=== PATIENT | male | born 1945 | race Caucasian/White ===

== ENCOUNTER 2016-07-22 13:15 | Inpatient (IN) | payer OTHER ==
[~2016-07-22] VITALS: Ht 175.3 cm; Wt 85.9 kg
[~2016-07-22 13:15] MED LIST: ACET-1311 PO; ALBU1AER9 INH; ASPEC81 PO; ATOR-26 PO; BCTRO; LPR25 PO; LSN25 PO; NTRSLP4 SL; OMEG10007 PO; PLV75 PO; PSYL48.58 PO; ULT50X PO; VITA1CAP PO; [UNRECOGNIZED DRUG - CODE] PO
[2016-07-22] MEDS ORDERED: TAMS0.4C38 PO (14:01)
[2016-07-22 14:04] LABS: BASO % 0.4 %; BASO ABS # 0.03 K/uL (0-0.2); COMPLETE YES; HEMATOCRIT 43.3 % (42-52); IG% 0.1 %; LYMPH % 24.5 %; LYMPH ABS # 1.67 K/uL (1.2-3.4); MEAN CELL VOLUME 91.2 fL (80-100); MEAN CORPUSCULAR HEMOGLOBIN 31.6 pg (25-34); MEAN CORPUSCULAR HGB CONC 34.6 g/dl (32-36); MONO % 7.2 %; NEUT % 62.8 %; PLATELET COUNT 145 K/uL (130-400); RED BLOOD COUNT 4.75 M/uL (4.7-6.1); WHITE BLOOD COUNT 6.83 K/uL (4.8-10.8)
--- NOTE | 2016-07-22 14:12 | EMERGENCY ROOM VISIT NOTE ---
History Report prepared by Enrrique: Gilda George Under the Supervision of: Dr. Ritika Weaver D.O. First contact with patient: 13:29 Chief Complaint: HYPOTENSION Stated Complaint: LOW BLOOD PRESSURE History of Present Illness The patient is a 70 year old male who presents to the Emergency Room with complaints of resolved hypotension that was noticed earlier today. The patient noticed that his blood pressure was low earlier today when he measured it with his at-home machine. He measured his blood pressure multiple times and noticed that it was consistently low. He states that he has been experiencing worsening generalized weakness since he started the new medications after his SD. The weakness is worse when he is exerting himself. The patient is also experiencing shortness of breath on exertion. He adds that he also gets lightheaded and feels like he is going to experience syncope when he exerts himself. He is also experiencing nausea, but denies vomiting. He states that he feels well now. The patient denies fevers, chills, chest pain, urinary symptoms, and lower extremity edema. The patient states that he had a SD in the beginning of May and had two stents placed after. They also changed some of his medications. The patient followed up with cardiology after the stents were placed, but he does not remember having a repeat echocardiogram done. The patient is on Plavix and aspirin. The patient states that he experienced similar symptoms 3 years ago after he started new medications. At that time, he experienced multiple episodes of syncope. The patient's daughter adds that the patient has been experiencing increased edema around his eyes. The patient states that he is also experiencing increased rhinorrhea and sneezing. The patient states that he has a hernia. He states that he has not discussed his symptoms with his PCP or his director market research. Source of History: patient, family Onset: earlier today Position: other (global) Quality: other (hypotension) Timing: resolved Associated Symptoms: + SOB, + nausea, + weakness (generalized), No chest pain, No chills, No fevers, No urinary symptoms, No vomiting Note: increased rhinorrhea, increased sneezing, increased edema around eyes, no lower extremity edema Review of Systems See HPI for pertinent positives & negatives. A total of 10 systems reviewed and were otherwise negative. Past Medical & Surgical Medical Problems: (1) CALHOUN (dyspnea on exertion) (2) HLD (hyperlipidemia) (3) Hypertension Surgical Problems: (1) H/O hernia repair Family History FH: depression FH: myocardial infarction Social History Smoking Status: Former Smoker Alcohol Use: none Drug Use: none Marital Status: single Occupation Status: unemployed Current/Historical Medications Scheduled Aspirin (Aspirin EC Low Dose), 81 MG PO QAM Atorvastatin (Lipitor), 1 TAB PO HS Cholecalciferol (Vitamin D3), 2,000 INTERUNIT PO DAILY Clopidogrel Bisulfate (Clopidogrel), 75 MG PO QAM Fish Oil ([place]-3), 1 CAP PO DAILY Lisinopril (Lisinopril), 2.5 MG PO QAM Metoprolol Tartrate (Lopressor), 25 MG PO Q12 Tamsulosin Hcl (Flomax), 0.4 MG PO DAILY Vitamin E (Vitamin E), 1 CAP PO DAILY Scheduled PRN Ipratropium-Albuterol (Duoneb), 1 TREATMENT INH Q6 PRN for SOB/Wheezing Nitroglycerin (Nitrostat), 0.4 MG SL UD PRN for Chest Pain Allergies Coded Allergies: Oxaprozin (Verified Adverse Reaction, Mild, HAND SWELLING, 05/02/16) Prednisone (Verified Adverse Reaction, Mild, AGGRESSIVE, 05/02/16) Ketoprofen (Verified Adverse Reaction, Unknown, HAND SWELLING, 05/02/16) BRAND NAME - ORUVAIL Physical Exam Vital Signs Date Time Temp Pulse Resp B/P Pulse Ox O2 Delivery O2 Flow Rate FiO2 07/22/16 15:19 68 18 145/84 96 Room Air 07/22/16 13:32 95 Room Air 07/22/16 13:27 65 137/79 66 161/79 72 153/72 07/22/16 13:18 36.5 65 20 175/100 95 Room Air Physical Exam GENERAL: alert, well appearing, well nourished, no distress, non-toxic EYE EXAM: normal conjunctiva, PERRL and EOM's grossly intact OROPHARYNX: no exudate, no erythema, lips, buccal mucosa, and tongue normal and mucous membranes are moist NECK: supple, no nuchal rigidity, no adenopathy, non-tender LUNGS: Clear to auscultation. Decreased breath sounds bilaterally. No wheezes, rhonchi, or rales. Normal chest wall mechanics HEART: no murmurs, S1 normal and S2 normal ABDOMEN: abdomen soft, non-tender, normo-active bowel sounds, no masses, no rebound or guarding. BACK: Back is symmetrical on inspection and there is no deformity, no midline tenderness, no CVA tenderness. SKIN: no rashes and no bruising UPPER EXTREMITIES: upper extremities are grossly normal. LOWER EXTREMITIES: No pitting edema. NEURO EXAM: Normal sensorium, cranial nerves II-XII grossly intact, normal speech, no gross weakness of arms, no gross weakness of legs. Medical Decision & Procedures ER Provider Diagnostic Interpretation: Xray results per the radiologist and my interpretation. CHEST 2 VIEWS ROUTINE IMPRESSION: No acute process. Moderate emphysematous change. Electronically signed by: Juancho Estrada M.D. 07/22/2016 2:48 PM Dictated Date/Time: 07/22/2016 2:48 PM Laboratory Results 07/22/16 13:14 Red Blood Count 4.75, Mean Corpuscular Volume 91.2, Mean Corpuscular Hemoglobin 31.6, Mean Corpuscular Hemoglobin Concent 34.6, Mean Platelet Volume 10.0, Neutrophils (%) (Auto) 62.8, Lymphocytes (%) (Auto) 24.5, Monocytes (%) (Auto) 7.2, Eosinophils (%) (Auto) 5.0, Basophils (%) (Auto) 0.4, Neutrophils # (Auto) 4.29, Lymphocytes # (Auto) 1.67, Monocytes # (Auto) 0.49, Eosinophils # (Auto) 0.34, Basophils # (Auto) 0.03 07/22/16 13:14 Test 07/22/16 13:14 White Blood Count 6.83 K/uL (4.8-10.8) Red Blood Count 4.75 M/uL (4.7-6.1) Hemoglobin 15.0 g/dL (14.0-18.0) Hematocrit 43.3 % (42-52) Mean Corpuscular Volume 91.2 fL (80-100) Mean Corpuscular Hemoglobin 31.6 pg (25-34) Mean Corpuscular Hemoglobin Concent 34.6 g/dl (32-36) Platelet Count 145 K/uL (130-400) Mean Platelet Volume 10.0 fL (7.4-10.4) Neutrophils (%) (Auto) 62.8 % Lymphocytes (%) (Auto) 24.5 % Monocytes (%) (Auto) 7.2 % Eosinophils (%) (Auto) 5.0 % Basophils (%) (Auto) 0.4 % Neutrophils # (Auto) 4.29 K/uL (1.4-6.5) Lymphocytes # (Auto) 1.67 K/uL (1.2-3.4) Monocytes # (Auto) 0.49 K/uL (0.11-0.59) Eosinophils # (Auto) 0.34 K/uL (0-0.5) Basophils # (Auto) 0.03 K/uL (0-0.2) RDW Standard Deviation 42.1 fL (36.4-46.3) RDW Coefficient of Variation 12.5 % (11.5-14.5) Immature Granulocyte % (Auto) 0.1 % Immature Granulocyte # (Auto) 0.01 K/uL (0.00-0.02) Anion Gap 8.0 mmol/L (3-11) Est Creatinine Clear Calc Drug Dose 75.0 ml/min Estimated GFR () 88.0 Estimated GFR (Non- 75.9 BUN/Creatinine Ratio 8.6 (10-20) Calcium Level 8.9 mg/dl (8.5-10.1) Total Bilirubin 0.7 mg/dl (0.2-1) Aspartate Amino Transf (AST/SGOT) 30 U/L (15-37) Alanine Aminotransferase (ALT/SGPT) 40 U/L (12-78) Alkaline Phosphatase 95 U/L (45-117) Pro-B-Type Natriuretic Peptide 333 pg/ml (0-900) Total Protein 7.2 gm/dl (6.4-8.2) Albumin 4.1 gm/dl (3.4-5.0) Globulin 3.1 gm/dl (2.5-4.0) Albumin/Globulin Ratio 1.3 (0.9-2) Chemistry Specimen Hemolysis Laboratory results per my review. ECG Indication: SOB/dyspnea Rate (beats per minute): 55 Rhythm: sinus bradycardia Findings: no acute ischemic change, no ectopy, other (normal axis, normal intervals) ED Course 1343: The patient was evaluated in room C7. A complete history and physical exam was performed. 1540: I reassessed the patient. He is resting comfortably. 1556: I reviewed the patient's case with Anna Marie Erickson. She will evaluate the patient for further management. 1609: Upon reevaluation, the patient is resting comfortably. I discussed the findings and the treatment plan with the patient and his daughter. They express agreement and understanding. I spoke with Anna Marie Mcbride PA-C [facility]. He will be evaluated for further management. Medical Decision Differential diagnoses includes but is not limited to pneumonia, bronchitis, COPD/Asthma exacerbation, pneumothorax, pulmonary embolism, congestive heart failure, acute coronary syndrome. No hypotension noted here, doubt bacteremia/sepsis. No evidence of acute chf, but concerning story for CALHOUN. Doubt dissection, pe, copd exacerbation. No evidence of pneumonia/effusion. Pt well appearing despite complaints. Agreeable with plan. Consults Time Called: 155 Consulting Physician: Anna Marie Erickson Returned Call: [phone] I reviewed the patient's case with Anna Marie Erickson. She will evaluate the patient for further management. Impression Primary Impression: Dyspnea on exertion Additional Impression: Generalized weakness Scribe Attestation The scribe's documentation has been prepared under my direction and personally reviewed by me in its entirety. I confirm that the note above accurately reflects all work, treatment, procedures, and medical decision making performed by me. Departure Information Dispostion Being Evaluated By Hospitalist Referrals No Doctor, Assigned (PCP) Patient Instructions My [facility] Problem Qualifiers
[2016-07-22 14:19] LABS: ALT/SGPT 40 U/L (12-78); BLOOD UREA NITROGEN 9 mg/dl (7-18); BUN/CREATININE RATIO 8.6 (10-20); CALCIUM 8.9 mg/dl (8.5-10.1); CARBON DIOXIDE 25 mmol/L (21-32); CHLORIDE 105 mmol/L (98-107); GLUCOSE 92 mg/dl (70-99); POTASSIUM 4.3 mmol/L (3.5-5.1); SODIUM 138 mmol/L (136-145)
--- NOTE | 2016-07-22 14:50 | DIAGNOSTIC IMAGING REPORT ---
CHEST 2 VIEWS ROUTINE CLINICAL HISTORY: sob dyspnea COMPARISON STUDY: 05/02/2016 FINDINGS: Components of emphysematous change are present. No evidence for cardiac enlargement. Lungs are clear. IMPRESSION: No acute process. Moderate emphysematous change. Electronically signed by: Juancho Estrada M.D. 07/22/2016 2:48 PM Dictated Date/Time: 07/22/2016 2:48 PM
[2016-07-22 15:25] LABS: ALB/GLOB RATIO 1.3 (0.9-2); ALKALINE PHOSPHATASE 95 U/L (45-117); AST/SGOT 30 U/L (15-37)
[2016-07-22] MEDS ORDERED: OMEG10007 PO (16:30)
[2016-07-22] MEDS ORDERED: ONDANSETRON INJ 2 MG/ML 2 ML VIAL IV PRN (16:30)
[2016-07-22] MEDS ORDERED: VITA10004 PO (16:30)
[2016-07-22] MEDS ORDERED: VTMD1000 PO (16:30)
[2016-07-22] MEDS ORDERED: IPRASOL4 INH (16:30)
[2016-07-22] MEDS ORDERED: NITROGLYCERIN 0.4 MG SL PER TAB CHARGE SL PRN (16:45)
[2016-07-22] MEDS ORDERED: ACETAMINOPHEN 325 MG TAB ONE (16:46)
--- NOTE | 2016-07-22 17:08 | History and Physical ---
History & Physical Date & Time of Service: Jul 22, 2016 at 16:55 Chief Complaint: Low Blood Pressure Primary Care Physician: Rene Hutton M.D.(JV) History of Present Illness Source: patient, family, clinic records, hospital records Patient is a 70 y/o male with a h/o CAD s/p PCI who presents with progressively worsening SOB. Patient was recently hospitalized in April 2016 with an NSTEMI and had 2 PRADEEP stents placed to LAD and RCA. Patient followed up with his Personnel Arbitrator Dr. Sun in May, who noted that he was doing well at that time and declined cardiac rehab. Patient reports compliance with his medications and states that he never misses a dose. Since April, patient notes progressively worsening SOB, initially mainly with exertion, but recently occasionally at rest too. He denies any associated chest pain, but states that he does occasionally experience mild chest pain, nothing similar to what he experienced in April. In the ED, blood pressure was elevated. Initial troponin was normal and EKG did not show any ischemic changes. Past Medical/Surgical History Medical Problems: (1) HLD (hyperlipidemia) Status: Chronic (2) Hypertension Status: Chronic Surgical Problems: (1) H/O hernia repair Status: Chronic Family History FH: depression FH: myocardial infarction Social History Smoking Status: Former Smoker Drug Use: none Marital Status: single Housing status: assisted living Occupational Status: unemployed Immunizations History of Influenza Vaccine: No History of Tetanus Vaccine?: Unknown History of Pneumococcal: No History of Hepatitis B Vaccine: Unknown Allergies Coded Allergies: Oxaprozin (Verified Adverse Reaction, Mild, HAND SWELLING, 05/02/16) Prednisone (Verified Adverse Reaction, Mild, AGGRESSIVE, 05/02/16) Ketoprofen (Verified Adverse Reaction, Unknown, HAND SWELLING, 05/02/16) [facility] Home Medications Scheduled Aspirin (Aspirin EC Low Dose), 81 MG PO QAM Atorvastatin (Lipitor), 1 TAB PO HS Cholecalciferol (Vitamin D3), 2,000 INTERUNIT PO DAILY Clopidogrel Bisulfate (Clopidogrel), 75 MG PO QAM Fish Oil ([place]-3), 1 CAP PO DAILY Lisinopril (Lisinopril), 2.5 MG PO QAM Metoprolol Tartrate (Lopressor), 25 MG PO Q12 Tamsulosin Hcl (Flomax), 0.4 MG PO DAILY Vitamin E (Vitamin E), 1 CAP PO DAILY Scheduled PRN Ipratropium-Albuterol (Duoneb), 1 TREATMENT INH Q6 PRN for SOB/Wheezing Nitroglycerin (Nitrostat), 0.4 MG SL UD PRN for Chest Pain Review of Systems Constitutional- denies fevers or chills Eyes- denies sudden vision changes ENT- denies sore throat or congestion Pulmonary- see above; denies cough Cardiac- see above; denies palpitations GI- denies abdominal pain, nausea, vomiting, diarrhea - denies dysuria, hematuria Musculoskeletal- denies joint pain or swelling Dermatologic- denies rash or bruising Neuro- denies weakness, numbness or tingling Psych- denies depression or anxiety . Physical Exam Vital Signs Date Time Temp Pulse Resp B/P Pulse Ox O2 Delivery O2 Flow Rate FiO2 07/22/16 16:46 83 18 144/72 96 Room Air 07/22/16 15:19 68 18 145/84 96 Room Air 07/22/16 13:32 95 Room Air 07/22/16 13:27 65 137/79 66 161/79 72 153/72 07/22/16 13:18 36.5 65 20 175/100 95 Room Air General- awake; alert; NAD Eyes- EOMI; no scleral icterus ENT- clear OC/OP Neck- no stridor; trachea midline Lungs- CTA bilaterally; no wheezes/crackles Heart- RRR; no m/r/g Abdomen- soft; NTND; nBS Back- no gross abnormalities Extremities- no c/c/e; no deformity Neuro- no focal deficits Skin- no appreciable rash or bruise . Diagnostics Laboratory Results Results Past 24 Hours Test 07/22/16 13:14 Range/Units White Blood Count 6.83 4.8-10.8 K/uL Red Blood Count 4.75 4.7-6.1 M/uL Hemoglobin 15.0 14.0-18.0 g/dL Hematocrit 43.3 42-52 % Mean Corpuscular Volume 91.2 80-100 fL Mean Corpuscular Hemoglobin 31.6 25-34 pg Mean Corpuscular Hemoglobin Concent 34.6 32-36 g/dl Platelet Count 145 130-400 K/uL Mean Platelet Volume 10.0 7.4-10.4 fL Neutrophils (%) (Auto) 62.8 % Lymphocytes (%) (Auto) 24.5 % Monocytes (%) (Auto) 7.2 % Eosinophils (%) (Auto) 5.0 % Basophils (%) (Auto) 0.4 % Neutrophils # (Auto) 4.29 1.4-6.5 K/uL Lymphocytes # (Auto) 1.67 1.2-3.4 K/uL Monocytes # (Auto) 0.49 0.11-0.59 K/uL Eosinophils # (Auto) 0.34 0-0.5 K/uL Basophils # (Auto) 0.03 0-0.2 K/uL RDW Standard Deviation 42.1 36.4-46.3 fL RDW Coefficient of Variation 12.5 11.5-14.5 % Immature Granulocyte % (Auto) 0.1 % Immature Granulocyte # (Auto) 0.01 0.00-0.02 K/uL Sodium Level 138 136-145 mmol/L Potassium Level 4.3 3.5-5.1 mmol/L Chloride Level 105 98-107 mmol/L Carbon Dioxide Level 25 21-32 mmol/L Anion Gap 8.0 3-11 mmol/L Blood Urea Nitrogen 9 7-18 mg/dl Creatinine 1.00 0.60-1.40 mg/dl Est Creatinine Clear Calc Drug Dose 75.0 ml/min Estimated GFR () 88.0 Estimated GFR (Non- 75.9 BUN/Creatinine Ratio 8.6 10-20 Random Glucose 92 70-99 mg/dl Calcium Level 8.9 8.5-10.1 mg/dl Total Bilirubin 0.7 0.2-1 mg/dl Aspartate Amino Transf (AST/SGOT) 30 15-37 U/L Alanine Aminotransferase (ALT/SGPT) 40 12-78 U/L Alkaline Phosphatase 95 45-117 U/L Troponin I < 0.015 0-0.045 ng/ml Pro-B-Type Natriuretic Peptide 333 0-900 pg/ml Total Protein 7.2 6.4-8.2 gm/dl Albumin 4.1 3.4-5.0 gm/dl Globulin 3.1 2.5-4.0 gm/dl Albumin/Globulin Ratio 1.3 0.9-2 Chemistry Specimen Hemolysis Diagnostic Radiology CXR No acute process. Moderate emphysematous change. EKG No acute ischemic changes Impression Assessment and Plan Patient is a 70 y/o male with a h/o CAD s/p PCI in 04/2016 who presents for evaluation of progressively worsening SOB. SOB - given cardiac history and recent PCI, concern for cardiac etiology - cycle cardiac enzymes - Cardiology consult for further testing - BNP normal, euvolemic on exam - CXR negative for acute process, lungs are clear on exam, maintaining oxygen saturation on room air -- low clinical suspicion for pulmonary etiology - d-dimer negative CAD s/p PCI - continue aspirin, clopidogrel, lisinopril, metoprolol, atorvastatin BPH - continue tamsulosin DVT prophylaxis with enoxaparin sq. Level of Care Telemetry Resuscitation Status DO NOT RESUSCITATE VTE Prophylaxis VTE Risk Assessment Done? Y/N: Yes Risk Level: Moderate Given or contraindicated: Enoxaparin (Lovenox)SQ
[2016-07-22 17:15] VITALS: BP 102/76; PULSE 76; TEMP 36.4; O2SAT 94; Ht 175.3 cm; Wt 85.9 kg
[2016-07-22 19:28] VITALS: BP 115/80; PULSE 73; TEMP 36.5; O2SAT 96
[2016-07-22 20:12] LABS: CKMB/CK RATIO 1.1 (0-3.0)
[2016-07-22 20:13] LABS: PARTIAL THROMBOPLASTIN RATIO 1.1; PROTHROMBIN TIME (PATIENT) 10.9 SECONDS (9.0-12.0)
[2016-07-22] MEDS: ATORVASTATIN 40 MG TAB PO SCH (20:20)
[2016-07-22] MEDS: METOPROLOL TARTRATE 25 MG TAB PO SCH (20:20)
[2016-07-22] MEDS: ACETAMINOPHEN 325 MG TAB PO PRN (20:23)
[2016-07-22] MEDS: ENOXAPARIN 40 MG/0.4 ML SYR SC SCH (22:12)
[2016-07-23] VITALS (8 sets, daily range): BP systolic 98–125; BP diastolic 60–75; PULSE 69–76; TEMP 36.6–37; O2SAT 92–95
[2016-07-23 01:12] LABS: HEMATOCRIT 40.6 % (42-52); MEAN CELL VOLUME 92.9 fL (80-100); MEAN CORPUSCULAR HEMOGLOBIN 32.3 pg (25-34); MEAN CORPUSCULAR HGB CONC 34.7 g/dl (32-36); MEAN PLATELET VOLUME 10.4 fL (7.4-10.4); PLATELET COUNT 147 K/uL (130-400); RED BLOOD COUNT 4.37 M/uL (4.7-6.1)
[2016-07-23 01:30] LABS: BLOOD UREA NITROGEN 12 mg/dl (7-18); BUN/CREATININE RATIO 11.9 (10-20); CALCIUM 8.4 mg/dl (8.5-10.1); CARBON DIOXIDE 30 mmol/L (21-32); CHLORIDE 106 mmol/L (98-107); GLUCOSE 89 mg/dl (70-99); POTASSIUM 4.2 mmol/L (3.5-5.1); SODIUM 141 mmol/L (136-145)
[2016-07-23 01:45] LABS: CKMB/CK RATIO 1.2 (0-3.0)
[2016-07-23] MEDS: ACETAMINOPHEN 325 MG TAB PO PRN ×3 (07:55→20:41)
[2016-07-23] MEDS: OMEGA-3 (PURIFIED FISH OIL) 1 GM CAP PO SCH (07:56)
[2016-07-23] MEDS: METOPROLOL TARTRATE 25 MG TAB PO SCH ×2 (07:56→20:38)
[2016-07-23] MEDS: LISINOPRIL 2.5 MG TAB PO SCH (07:56)
[2016-07-23] MEDS: CLOPIDOGREL BISULFATE 75 MG TAB PO SCH (07:56)
[2016-07-23] MEDS: TAMSULOSIN HCL 0.4 MG CAP PO SCH (07:56)
[2016-07-23] MEDS: ASPIRIN 81 MG ECTAB PO SCH (07:57)
[2016-07-23] MEDS: CHOLECALCIFEROL 1000 INTER.UNIT TAB PO SCH (07:57)
--- NOTE | 2016-07-23 12:12 | CARDIOLOGY CONSULTATION ---
DATE OF CONSULTATION: 07/23/2016 REFERRING PHYSICIAN: Dre carter. REASON FOR CONSULTATION: Shortness of breath. HISTORY OF PRESENT ILLNESS: Mr. Munson is a 70-year-old male patient who at the end of April presented with an acute myocardial infarction. During that admission, he was found to have significant 2-vessel coronary artery disease with the culprit artery for the acute coronary syndrome being the LAD, which he received a stent immediately. The patient then, in a staged procedure several days later, had stents placed in the distal right coronary artery, which were successful. He was subsequently discharged home; however, the patient states that he has been short of breath ever since that procedure. On further questioning, the patient has been short of breath for a long time. I am uncertain as to whether he thought that the shortness of breath would go away after his procedures. The patient has had no activity related chest, arm or back pain. No chest pain like he came in with for his infarct. He does have a history of smoking up until 5 years ago. He also has a history of previous work that exposed him to industrial dust. He has never been worked up for underlying lung disease. After admission, he has been pain free. His hemoglobin is 15. Cardiac markers were negative and his presenting EKG shows no acute or worrisome changes. It shows a sinus bradycardia and is otherwise within normal limits. ALLERGIES: KETOPROFEN, OXAPROZIN, AND PREDNISONE. PAST MEDICAL HISTORY: As outlined above in the history of chief complaint, at the end of April, he presented with an acute coronary syndrome and received drug-eluting stents in the LAD and right coronary artery. He has a history of hypertension and dyslipidemia. No prior history of diabetes, strokes or kidney disease. FAMILY MEDICAL HISTORY: Noncontributory. SOCIAL HISTORY: The patient stopped smoking approximately 5 years ago. He is in an assisted living area. He is single. REVIEW OF SYSTEMS: A 10-point review of systems is negative except for the history of chief complaint. PHYSICAL EXAMINATION: GENERAL: He is alert and oriented, in no acute distress. VITAL SIGNS: Blood pressure is 140/70 and pulse is regular at 80. He is afebrile. HEENT: He is normocephalic. Pupils are equal and reactive to light. Extraocular muscles are intact bilaterally. NECK: The neck veins are flat. Carotids have good upstrokes bilaterally without bruits. Thyroid is nonpalpable. RESPIRATORY: Breath sounds equal bilaterally and clear to auscultation. CARDIOVASCULAR: Heart has regular rhythm. Normal S1 and S2. No S3 or S4. No cardiac rubs or murmurs. GASTROINTESTINAL: Abdomen is soft and nontender without organomegaly. EXTREMITIES: Free of edema, digit clubbing, or cyanosis. NEUROLOGIC: Grossly intact. SKIN: Warm to touch. LYMPH NODES: Negative to palpation. LABORATORY DATA: Per the history of chief complaint. IMPRESSION: 1. Shortness of breath, which may be a recurrence of angina; however, it also may be due to underlying lung disease as the patient has had these symptoms for a while before his recent coronary event. 2. Status post stents within the LAD and right coronary arteries in April. 3. History of cigarette smoking and exposure to industrial dust. RECOMMENDATIONS: I think the best way to evaluate him is to proceed with an exercise stress echocardiogram. If that study is unremarkable, then I think a pulmonary workup would be indicated. If this is abnormal or he is not able to exercise for as adequately, then we will consider repeating a cardiac catheterization. I would continue his current medications.
--- NOTE | 2016-07-23 15:03 | Progress Note ---
Internal Med Progress Note Date of Service: Jul 23, 2016. Provider Documentation: SUBJECTIVE: Patient is seen and examined at bedside. Currently denies any chest pain, SOB, dizziness, nausea. Offers no complaints. OBJECTIVE: Vital Signs-as noted below Physical Exam: Vitals signs as noted above General Appearance:Moderately built and nourished, no apparent distress Head: normocephalic, Atraumatic Eyes: normal inspection, EOMI, PERRLA Neck: supple, Trachea midline Respiratory/Chest: Normal breath sounds, CTA, No accessory muscle use Cardiovascular: S1, S2, No murmur Abdomen/GI:Soft, Non tender, Bowel sounds present Extremities/Musculoskelatal:normal inspection, no edema Neurologic/Psych:AAOX3, grossly no focal neurological deficits Skin: normal color, warm Lab data as noted below. ASSESSMENT & PLAN: Patient is a 70 y/o male with a h/o CAD s/p PCI in 04/2016 who presents for evaluation of progressively worsening SOB. SOB: R/O Recurrence of angina H/O CAD s/p PCI in 04/2016 H/O Tobacco use:quit 5 yrs ago Cardiac enzymes, EKG: no signs of ischemia Appreciate Cardiology input BNP normal, euvolemic clinically CXR:No acute process, d-dimer negative, Saturating well on RA Planned for stress ECHO and possible cath if positive May need more Pulm work up if negative cardiac work up CAD s/p PCI continue aspirin, clopidogrel, lisinopril, metoprolol, atorvastatin BPH continue tamsulosin DVT Px: Lovenox SQ CODE STATUS; DNR DISPOSITION: Continue to monitor in Tele Vital Signs: Date Time Temp Pulse Resp B/P Pulse Ox O2 Delivery O2 Flow Rate FiO2 07/23/16 12:08 94 Room Air 07/23/16 11:50 37.0 76 16 114/74 94 07/23/16 07:45 Room Air 07/23/16 07:23 36.7 69 16 108/62 94 07/23/16 04:00 36.6 70 18 104/66 93 Room Air 07/23/16 04:00 Room Air 07/23/16 00:03 36.7 75 20 98/60 92 Room Air 07/22/16 23:59 Room Air 07/22/16 20:00 Room Air 07/22/16 19:28 36.5 73 19 115/80 96 Room Air 07/22/16 17:15 36.4 76 19 102/76 94 Room Air 07/22/16 16:46 83 18 144/72 96 Room Air 07/22/16 15:19 68 18 145/84 96 Room Air Lab Results: Results Past 24 Hours Test 07/22/16 19:10 07/22/16 19:12 07/23/16 01:00 Range/Units Prothrombin Time 10.9 9.0-12.0 SECONDS Prothromb Time International Ratio 1.0 0.9-1.1 Activated Partial Thromboplast Time 27.3 21.0-31.0 SECONDS Partial Thromboplastin Ratio 1.1 D-Dimer 340 0-500 ug/L FEU Total Creatine Kinase 79 82 39-308 U/L Creatine Kinase MB 0.9 1.0 0.5-3.6 ng/ml Creatine Kinase MB Ratio 1.1 1.2 0-3.0 Troponin I < 0.015 < 0.015 0-0.045 ng/ml White Blood Count 6.50 4.8-10.8 K/uL Red Blood Count 4.37 4.7-6.1 M/uL Hemoglobin 14.1 14.0-18.0 g/dL Hematocrit 40.6 42-52 % Mean Corpuscular Volume 92.9 80-100 fL Mean Corpuscular Hemoglobin 32.3 25-34 pg Mean Corpuscular Hemoglobin Concent 34.7 32-36 g/dl RDW Standard Deviation 42.4 36.4-46.3 fL RDW Coefficient of Variation 12.5 11.5-14.5 % Platelet Count 147 130-400 K/uL Mean Platelet Volume 10.4 7.4-10.4 fL Sodium Level 141 136-145 mmol/L Potassium Level 4.2 3.5-5.1 mmol/L Chloride Level 106 98-107 mmol/L Carbon Dioxide Level 30 21-32 mmol/L Anion Gap 5.0 3-11 mmol/L Blood Urea Nitrogen 12 7-18 mg/dl Creatinine 1.00 0.60-1.40 mg/dl Est Creatinine Clear Calc Drug Dose 75.0 ml/min Estimated GFR () 88.0 Estimated GFR (Non- 75.9 BUN/Creatinine Ratio 11.9 10-20 Random Glucose 89 70-99 mg/dl Calcium Level 8.4 8.5-10.1 mg/dl
[2016-07-23] MEDS: ATORVASTATIN 40 MG TAB PO SCH (20:38)
[2016-07-23] MEDS: ENOXAPARIN 40 MG/0.4 ML SYR SC SCH (20:39)
[2016-07-24 00:45] VITALS: BP 130/80; PULSE 70; TEMP 36.8; O2SAT 96
[2016-07-24 04:06] VITALS: BP 100/58; PULSE 81; TEMP 36.5; O2SAT 99
[2016-07-24 08:11] VITALS: BP 154/80; PULSE 82; TEMP 36.8; O2SAT 94
--- NOTE | 2016-07-24 09:33 | Cardiology Follow-Up ---
Subjective General Date of Service: Jul 24, 2016. Chief Complaint: follow up shortness of breath Pt evaluation today including: conversation w/ patient, physical exam History of Present Illness The patient is a 70 year old male seen in follow up. Patient presents with complaint of progressive shortness of breath and generalized weakness and fatigue. States he is not having chest discomfort reminiscent of his NSTEMI in 04/2016. Has episode of mild hypotension SBP 98 mm Hg over night. Concha negative. Allergies Coded Allergies: Oxaprozin (Verified Adverse Reaction, Mild, HAND SWELLING, 05/02/16) Prednisone (Verified Adverse Reaction, Mild, AGGRESSIVE, 05/02/16) Ketoprofen (Verified Adverse Reaction, Unknown, HAND SWELLING, 05/02/16) BRAND NAME - ORUVAIL Social History Smoking Status: Former Smoker Hx Tobacco Use In Past Year?: No Hx Alcohol Use - Type And Amou: No Hx Substance Use - Type And Am: No Problem List Medical Problems: (1) Dyspnea on exertion Status: Acute (2) Generalized weakness Status: Acute (3) Non-ST elevation DC (NSTEMI) Status: Acute Physical Exam Vital Signs Last Vital Signs Documentation Date Time Temp Pulse Resp B/P Pulse Ox O2 Delivery O2 Flow Rate FiO2 07/24/16 08:11 36.8 82 19 154/80 94 Nasal Cannula Physical Exam Constitutional: Level of Distress: NAD ENMT: normal ENT inspection Neck: supple Lungs: Auscultation: no wheezing, no rales/crackles, no rhonchi Cardiovascular: Heart Auscultation: RRR, normal S1, no murmurs, no rubs Abdomen: Inspection & Palpation: soft, no tenderness, guarding & rebound Musculoskeletal: normal Extremities: no edema Neurologic: Gait & Station: pertinent finding (no focal deficits ) Assessment and Plan Assessment and Plan Impression: 70 y/o male presents with shortness of breath (chronic per description) and generalized weakness 1. Symptoms atypical for angina. -h/o CAD, NSTEMI 04/2016 with stents to the RCA and LAD that admission 2. Risk factors for lung disease, including occupational exposure to dust, former smoker 3. Episodic hypotension (mild decrease in BP recorded) Plan: Proceed with Exercise stress echocardiogram. If unable to exercise , will convert to pharm stress test. Resting echo first to exclude presence of new cardiomyopathy. DVT prophylaxis: SQ lovenox.
[2016-07-24] MEDS ORDERED: ATROPINE SULFATE 0.1 MG/ML 5ML SYR ONE (10:22)
[2016-07-24] MEDS ORDERED: DOBUTamine HCL 12.5 MG/ML 20 ML VIAL ONE (10:22)
[2016-07-24] MEDS ORDERED: METOPROLOL TARTRATE 1 MG/ML VIAL ONE (10:22)
--- NOTE | 2016-07-24 11:03 | Progress Note ---
Internal Med Progress Note Date of Service: Jul 24, 2016. Provider Documentation: SUBJECTIVE: Patient is seen and examined at bedside. Patient had stress ECHO today. Currently denies any chest pain, dizziness. Offers no complaints. OBJECTIVE: Vital Signs-as noted below Physical Exam: Vitals signs as noted above General Appearance:Moderately built and nourished, no apparent distress Head: normocephalic, Atraumatic Eyes: normal inspection, EOMI, PERRLA Neck: supple, Trachea midline Respiratory/Chest: Normal breath sounds, CTA, No accessory muscle use Cardiovascular: S1, S2, No murmur Abdomen/GI:Soft, Non tender, Bowel sounds present Extremities/Musculoskelatal:normal inspection, no edema Neurologic/Psych:AAOX3, grossly no focal neurological deficits Skin: normal color, warm Lab data as noted below. ASSESSMENT & PLAN: Patient is a 70 y/o male with a h/o CAD s/p PCI in 04/2016 who presents for evaluation of progressively worsening SOB. SOB: R/O Recurrence of angina H/O CAD s/p PCI in 04/2016 H/O Tobacco use:quit 5 yrs ago Cardiac enzymes, EKG: no signs of ischemia Appreciate Cardiology input BNP normal, euvolemic clinically CXR:No acute process, d-dimer negative, Saturating well on RA Dobutamine stress ECHO:no evidence of resting or inducible ischemia. Needs Pulm work up as outpatient CAD s/p PCI continue aspirin, clopidogrel, lisinopril, metoprolol, atorvastatin BPH continue tamsulosin DVT Px: Lovenox SQ CODE STATUS; DNR DISPOSITION: Plan to discharge home today Follow up with on 07/28/16 at 12:40pm Get Pulmonary function tests and follow up with a service station helper as outpatient as advised Vital Signs: Date Time Temp Pulse Resp B/P Pulse Ox O2 Delivery O2 Flow Rate FiO2 07/24/16 08:11 36.8 82 19 154/80 94 Nasal Cannula 07/24/16 08:00 Room Air 07/24/16 04:06 36.5 81 20 100/58 99 Room Air 07/24/16 04:00 Room Air 07/24/16 00:45 36.8 70 18 130/80 96 Room Air 07/23/16 23:59 Room Air 07/23/16 20:00 Room Air 07/23/16 19:55 36.8 69 20 125/75 95 Room Air 07/23/16 15:54 94 Room Air 07/23/16 15:44 36.8 75 20 110/69 94 Room Air 07/23/16 12:08 94 Room Air 07/23/16 11:50 37.0 76 16 114/74 94
[2016-07-24] MEDS ORDERED: PERFLUTREN LIPID MICROSPHERE (DEFINITY) IV ONE (11:09)
[2016-07-24] MEDS: ASPIRIN 81 MG ECTAB PO SCH (11:19)
[2016-07-24] MEDS: LISINOPRIL 2.5 MG TAB PO SCH (11:19)
[2016-07-24] MEDS: OMEGA-3 (PURIFIED FISH OIL) 1 GM CAP PO SCH (11:19)
[2016-07-24] MEDS: CHOLECALCIFEROL 1000 INTER.UNIT TAB PO SCH (11:19)
[2016-07-24] MEDS: TAMSULOSIN HCL 0.4 MG CAP PO SCH (11:19)
[2016-07-24] MEDS: METOPROLOL TARTRATE 25 MG TAB PO SCH (11:20)
[2016-07-24] MEDS: CLOPIDOGREL BISULFATE 75 MG TAB PO SCH (11:20)
--- NOTE | 2016-07-24 11:25 | Cardiology Progress Note ---
Cardiology Progress Note Date of Service Jul 24, 2016. Cardiology Progress Note Resting / dobutamine stress echo: Patient's resting echo reveals normal wall motion. Images were technically challenging, on resting echo and therefore dobutamine stress echo performed with contrast with no evidence of resting or inducible ischemia. EKG was negative for ischemia. Resting echo with normal biventricular function. Pt stable for DC on current cardiac medications including, ASA, clopidogrel, metoprolol, lisinopril, and atorvastatin. Oupt pulmonary work up recommended. Annabelle Magana DO
--- NOTE | 2016-07-24 11:42 | Discharge Summary ---
Discharge Summary Date of Service Jul 24, 2016. Discharge Summary Admission Date: Jul 22, 2016 at 16:27 Discharge Date: Jul 24, 2016 Discharge Disposition: Home Principal Diagnosis: Dyspnea On Exertion: Non cardiac origin Procedures: CXR: : No acute process. Moderate emphysematous change. Consultations: Cardiology Pending Studies/Follow-Up: Follow up with on 07/28/16 at 12:40pm Get Pulmonary function tests and follow up with a screw machine operator single spindle as outpatient as advised Medication Reconciliation Continued Medications: Aspirin (Aspirin EC Low Dose) 81 Mg Ectab 81 MG PO QAM for 90 Days, #90 TAB 3 Refills Atorvastatin (Lipitor) 80 Mg Tab 1 TAB PO HS for 30 Days, #30 TAB 3 Refills Cholecalciferol (Vitamin D3) 1,000 Inter.unit Tab 2000 INTERUNIT PO DAILY Clopidogrel Bisulfate (Clopidogrel) 75 Mg Tab 75 MG PO QAM for 30 Days, #30 TAB 3 Refills Fish Oil ([place]-3) 1 Ea Cap 1 CAP PO DAILY, CAP Ipratropium-Albuterol (Duoneb) 3 Ml Nebu 1 TREATMENT INH Q6 PRN for SOB/Wheezing, INHA Lisinopril (Lisinopril) 2.5 Mg Tab 2.5 MG PO QAM for 30 Days, #30 TAB Metoprolol Tartrate (Lopressor) 25 Mg Tab 25 MG PO Q12 for 30 Days, #60 TAB Nitroglycerin (Nitrostat) 0.4 Mg/1 Tab Subl 0.4 MG SL UD PRN for Chest Pain for 30 Days, #30 TAB Tamsulosin Hcl (Flomax) 0.4 Mg Cap 0.4 MG PO DAILY Vitamin E (Vitamin E) 1,000 Unit Cap 1 CAP PO DAILY Admission Information HPI (per Admitting provider): Patient is a 70 y/o male with a h/o CAD s/p PCI who presents with progressively worsening SOB. Patient was recently hospitalized in April 2016 with an NSTEMI and had 2 PRADEEP stents placed to LAD and RCA. Patient followed up with his Shearing Supervisor Dr. Sun in May, who noted that he was doing well at that time and declined cardiac rehab. Patient reports compliance with his medications and states that he never misses a dose. Since April, patient notes progressively worsening SOB, initially mainly with exertion, but recently occasionally at rest too. He denies any associated chest pain, but states that he does occasionally experience mild chest pain, nothing similar to what he experienced in April. In the ED, blood pressure was elevated. Initial troponin was normal and EKG did not show any ischemic changes. Physical Exam (per Admitting): General- awake; alert; NAD Eyes- EOMI; no scleral icterus ENT- clear OC/OP Neck- no stridor; trachea midline Lungs- CTA bilaterally; no wheezes/crackles Heart- RRR; no m/r/g Abdomen- soft; NTND; nBS Back- no gross abnormalities Extremities- no c/c/e; no deformity Neuro- no focal deficits Skin- no appreciable rash or bruise . Hospital Course Patient is a 70 y/o male with a h/o CAD s/p PCI in 04/2016 who presents for evaluation of progressively worsening SOB. SOB: R/O Recurrence of angina H/O CAD s/p PCI in 04/2016 H/O Tobacco use:quit 5 yrs ago Cardiac enzymes, EKG: no signs of ischemia Appreciate Cardiology input BNP normal, euvolemic clinically CXR:No acute process, d-dimer negative, Saturating well on RA Dobutamine stress ECHO:no evidence of resting or inducible ischemia. Needs Pulm work up as outpatient CAD s/p PCI continue aspirin, clopidogrel, lisinopril, metoprolol, atorvastatin BPH continue tamsulosin DVT Px: Lovenox SQ CODE STATUS; DNR DISPOSITION: Plan to discharge home today Follow up with on 07/28/16 at 12:40pm Get Pulmonary function tests and follow up with a screw machine operator single spindle as outpatient as advised Total time spent on discharge = This includes examination of the patient, discharge planning, medication reconciliation, and communication with other providers. Discharge Instructions Discharge Instructions Date of Service Jul 24, 2016. Admission Reason for Admission: [place] (Dyspnea On Exertion) Discharge Discharge Diagnosis / Problem: Dyspnea On Exertion: Non cardiac origin Discharge Goals Goal(s): Decrease discomfort, Improve function Activity Recommendations Activity Limitations: resume your previous activity Exercise/Sports Limitations: as tolerated . Instructions / Follow-Up Instructions / Follow-Up Follow up with on 07/28/16 at 12:40pm Get Pulmonary function tests and follow up with a screw machine operator single spindle as outpatient as advised Current Hospital Diet Patient's current hospital diet: AHA Diet (Heart Healthy) Discharge Diet Recommended Diet: AHA Diet (Heart Healthy) Procedures Procedures Performed: Stress ECHO Pending Studies Studies pending at discharge: no Laboratory Results Hemoglobin A1c Test 05/03/16 05:46 Range/Units Estimated Average Glucose 105 mg/dl Hemoglobin A1c 5.3 4.5-5.6 % Lipid Panel Test 05/03/16 05:46 Range/Units Triglycerides Level 138 0-150 mg/dl Cholesterol Level 141 0-200 mg/dl HDL Cholesterol 49 mg/dl Cholesterol/HDL Ratio 2.9 LDL Cholesterol, Calculated 64 mg/dl Medical Emergencies . Who to Call and When: Medical Emergencies: If at any time you feel your situation is an emergency, please call 911 immediately. . Non-Emergent Contact Non-Emergency issues call your: Primary Care Provider, Shearing Supervisor Call Non-Emergent contact if: you have a fever, your pain is not controlled, your pain is worsening, your pain is unusual for you, you have any medication questions If your Shortness of breath is worsening . . "Provider Documentation" section prepared by Rony Menon. VTE Core Measure Inpt VTE Proph given/why not?: Enoxaparin (Lovenox)SQ
[2016-07-24 11:52] VITALS: BP 154/80; PULSE 82; TEMP 36.8; O2SAT 94
--- NOTE | 2016-07-24 11:55 | DOBUTAMINE ECHO ---
*NOTICE TO RECEIVING [employer] This information is strictly Confidential and protected under [place] law. [place] law prohibits you from making any further disclosure of this information unless further disclosure is expressly permitted by the written consent of the person to whom it pertains or is authorized by law. A general authorization for the release of medical or other information is not sufficient for this purpose. Hospital accepts no responsibility if the information is made available to any other person, INCLUDING THE PATIENT. Interpretation Summary * Name: DINA WALLACE Study Date: 07/24/2016 09:02 AM BP: 30/71 mmHg * Patient Location: C.2T\S\S241\S\2 HR: 70 * : 1945 (M/d/yyy) Gender: Male Height: 69 in * Age: 70 yrs Ethnicity: [place] Weight: 189 lb * Ordering Physician: Rony Menon * Referring Physician: Zeferino Magana DO, [facility] * Performed By: Trinidad Olivares [facility] * * Reason For Study: CHEST PAIN * BSA: 2.0 m2 * -- Conclusions -- * The study was technically difficult, but the endocardial border was visualized sufficiently with the administration of ultrasound contrast. * The dobutamine stress ehcocardiogram was negative for inducible ischemia. Procedure Details * DOBUTAMINE ECHO, CPT#[id number] * ECHO COLOR FLOW, CPT #[id number] * ECHO DOPPLER, CPT #[id number] * A contrast injection of Definity was performed to improve assessment of LV function. * Contrast was injected into an intravenous site in the right arm. * One vial of Definity ultrasound contrast was diluted in normal saline to a total volume of 10 ml. A total of '10' ml of solution was administered during imaging. * Lot # [id number] of Definity utilized for procedure. * Expiration date JUL 22. * The attending nurse who injected the contrast agent was ARLIN MONROY CPL, RN. * ECHOEX, CPT #[id number] Left Ventricle * The left ventricle is normal in size. * There is normal left ventricular wall thickness. * Left ventricular systolic function is normal. * Ejection Fraction = 60-65%. * Resting wall motion: Normal. Stress wall motion: Appropriate increase in Left ventricular systolic function and decrease in cavity size. No stress induced segmental wall motion abnormalities. Right Ventricle * The right ventricle is grossly normal size. Atria * The left atrial size is normal. * Right atrial size is normal. * No ASD detected; PFO is not assessed. Mitral Valve * The mitral valve is normal. * There is no mitral valve stenosis. * Significant mitral regurgitation is absent. Tricuspid Valve * The tricuspid valve is normal. * There is no tricuspid stenosis. * Significant tricuspid regurgitation is absent. * Doppler findings do not suggest pulmonary hypertension. Aortic Valve * The aortic valve is trileaflet. * No hemodynamically significant valvular aortic stenosis. * No aortic regurgitation is present. Pulmonic Valve * The pulmonic valve is not well visualized. Great Vessels * The aortic root is normal size. * The inferior vena cava diamter is normal. Pericardium * There is no pericardial effusion. * There is an echodensity in the anterior pericardial space consistent with pericardial fat. Stress Parameters * Normal baseline electrocardiogram. * The stress ECG response was normal * Occasional PACs were noted during the dobutamin infusion. * The stress portion of this study was personally supervised by the undersigned interpreting physician. * Rest heart rate was '70' BPM. * Rest blood pressure was '130/71' * Maximum heart rate achieved was 142 bpm. * Maximum heart rate was 94 % of maximum age-predicted heart rate. * Maximum blood pressure was '137/43' * Maximum Dobutamine infusion rate was '30' mcg/kg/min. * A total of 0.25 mg of intravenous Atropine was used to supplement Dobutamine for heart rate response. * Dobutamine infusion was terminated due to achieving target heart rate * A total of 2.50 mg of IV Metoprolol was administered to reverse Dobutamine-induced tachycardia. Right Ventricle * The right ventricular wall motion is normal. Left Ventricular Diastolic Function * Grade I diastolic dysfunction, (abnormal relaxation pattern). MMode 2D Measurements and Calculations IVSd 1.9 cm IVSs 2.0 cm LVIDd 3.2 cm LVIDs 3.0 cm LVPWd 1.1 cm LVPWs 1.4 cm IVS/LVPW 1.7 FS 5.8 % EDV(Teich) 41.2 ml ESV(Teich) 35.6 ml EF(Teich) 13.5 % EDV(cubed) 33.0 ml ESV(cubed) 27.6 ml EF(cubed) 16.4 % % IVS thick 8.6 % % LVPW thick 26.0 % LV mass(C)d 169.3 grams LV mass(C)dI 84.0 grams/m\S\2 LV mass(C)s 199.5 grams LV mass(C)sI 98.9 grams/m\S\2 SV(Teich) 5.6 ml SI(Teich) 2.8 ml/m\S\2 SV(cubed) 5.4 ml SI(cubed) 2.7 ml/m\S\2 Ao root diam 3.5 cm Ao root area 9.9 cm\S\2 ACS 1.5 cm LA dimension 2.9 cm LA/Ao 0.81 Doppler Measurements and Calculations MV E max donavan 59.4 cm/sec MV A max donavan 73.2 cm/sec MV E/A 0.81 MV P1/2t max donavan 64.7 cm/sec MV P1/2t 67.9 msec MVA(P1/2t) 3.2 cm\S\2 MV dec slope 279.2 cm/sec\S\2 MV dec time 0.25 sec Ao V2 max 85.9 cm/sec Ao max PG 3.0 mmHg Ao max PG (full) 0.36 mmHg LV V1 max PG 2.6 mmHg LV V1 max 80.5 cm/sec PA V2 max 95.3 cm/sec PA max PG 3.6 mmHg
== END 2016-07-24 12:27 | disposition home or self-care (01) | DRG 204 ==
LOC: ENRESERVTM → ENRESERVDT → C.EDB 13:16 → C.2T 16:27
PROVIDERS: ADMIT Internal Medicine; ATTEND Internal Medicine
DX: R06.00 Dyspnea, unspecified (principal); I95.9 Hypotension, unspecified; I25.10 Atherosclerotic heart disease of native coronary artery without angina pectoris; I25.2 Old myocardial infarction; I10 Essential (primary) hypertension; E78.5 Hyperlipidemia, unspecified; N40.0 Benign prostatic hyperplasia without lower urinary tract symptoms; Z66 Do not resuscitate; Z95.5 Presence of coronary angioplasty implant and graft; Z57.5 Occupational exposure to toxic agents in other industries; Z79.02 Long term (current) use of antithrombotics/antiplatelets; Z79.82 Long term (current) use of aspirin; Z87.891 Personal history of nicotine dependence; Z79.899 Other long term (current) drug therapy

== ENCOUNTER 2017-07-01 22:44 | Inpatient (IN) | payer OTHER ==
[~2017-07-01] VITALS: Ht 175.3 cm; Wt 100.2 kg
[~2017-07-01 22:44] MED LIST changes: -ACET-1311 PO; -ALBU1AER9 INH; -BCTRO; +IPRASOL4 INH; -PSYL48.58 PO; +TAMS0.4C38 PO; -ULT50X PO; +VITA10004 PO; -VITA1CAP PO; +VTMD1000 PO; -[UNRECOGNIZED DRUG - CODE] PO
[2017-07-01] MEDS ORDERED: METHYLPREDNISOLONE 125 MG VIAL IV STA (23:02)
[2017-07-01] MEDS ORDERED: ALBUT/IPRATROP 3MG/0.5MG NEB 3 ML VIAL INH ONE (23:15)
[2017-07-01] MEDS ORDERED: ASPI81TA28 PO (23:23)
[2017-07-01] MEDS ORDERED: METO25TA56 PO (23:23)
[2017-07-01] MEDS ORDERED: CZR25 PO (23:23)
[2017-07-01] MEDS ORDERED: CLOP1TAB15 PO (23:23)
[2017-07-01] MEDS ORDERED: [UNRECOGNIZED DRUG - CODE] PO (23:23)
[2017-07-01] MEDS ORDERED: PRT/20 PO (23:23)
[2017-07-01] MEDS ORDERED: OMEG10002 PO (23:23)
[2017-07-01] MEDS ORDERED: NTRGSL/4 UT (23:23)
[2017-07-01] MEDS ORDERED: ATOR-26 PO (23:23)
[2017-07-01] MEDS ORDERED: RANI150T3 PO (23:23)
[2017-07-01] MEDS ORDERED: FLVHFA110 INH (23:23)
[2017-07-01 23:44] LABS: BASO % 0.7 %; BASO ABS # 0.04 K/uL (0-0.2); EOS % 5.4 %; EOS ABS # 0.33 K/uL (0-0.5); HEMOGLOBIN 14.7 g/dL (14.0-18.0); IG# 0.01 K/uL (0.00-0.02); LYMPH ABS # 1.23 K/uL (1.2-3.4); MEAN CELL VOLUME 95.7 fL (80-100); MEAN CORPUSCULAR HGB CONC 33.4 g/dl (32-36); MEAN PLATELET VOLUME 10.6 fL (7.4-10.4); MONO % 13.2 %; MONO ABS # 0.81 K/uL (0.11-0.59); NEUT % 60.5 %; NEUT ABS # 3.72 K/uL (1.4-6.5); PLATELET COUNT 141 K/uL (130-400); RED CELL DISTRIBUTION WIDTH CV 13.1 % (11.5-14.5); RED CELL DISTRIBUTION WIDTH SD 45.8 fL (36.4-46.3); WHITE BLOOD COUNT 6.14 K/uL (4.8-10.8)
[2017-07-02] VITALS (7 sets, daily range): BP systolic 148–190; BP diastolic 68–102; PULSE 84–110; TEMP 36.5–36.9; O2SAT 90–95; Ht 175.3 cm; Wt 100.2 kg
[2017-07-02] LABS: BLOOD UREA NITROGEN 11 mg/dl (7-18); CALCIUM 8.3 mg/dl (8.5-10.1); CARBON DIOXIDE 29 mmol/L (21-32); CREATININE 1.21 mg/dl (0.60-1.40); GLUCOSE 89 mg/dl (70-99); POTASSIUM 3.9 mmol/L (3.5-5.1); SODIUM 141 mmol/L (136-145)
[2017-07-02] MEDS ORDERED: LEVAQUIN 750MG / 150ML D5W IV STA (00:05)
[2017-07-02 00:10] LABS: INFLUENZA B ANTIGEN Neg for Influ B (NEG)
--- NOTE | 2017-07-02 01:17 | EMERGENCY ROOM VISIT NOTE ---
History Report prepared by Enrrique: Erwin Almeida Under the Supervision of: Dr. aDve Doyle M.D. First contact with patient: 22:54 Chief Complaint: COUGH Stated Complaint: CAN'T BREATHE AND COUGHING BAD History of Present Illness The patient is a 71 year old male who presents to the Emergency Room with complaints of a persistent cough for the past three days. The patient additionally states that he has shortness of breath and some chest pain that is a constant pressure. He denies any fever, vomiting, and leg pain or swelling. The patient has a history of COPD, and he does not use oxygen at home. He had a nebulizer treatment prior to arrival. Source of History: patient Onset: three days Position: other (global) Symptom Intensity: moderate Quality: other (cough) Timing: other (persistent) Associated Symptoms: + chest pain, + SOB, No fevers, No vomiting Review of Systems See HPI for pertinent positives & negatives. A total of 10 systems reviewed and were otherwise negative. Past Medical & Surgical Medical Problems: (1) CALHOUN (dyspnea on exertion) (2) HLD (hyperlipidemia) (3) Hypertension Surgical Problems: (1) H/O hernia repair Family History FH: depression FH: myocardial infarction Social History Smoking Status: Former Smoker Alcohol Use: none Drug Use: none Marital Status: single Occupation Status: unemployed Current/Historical Medications Scheduled Aspirin (Aspirin Ec), 81 MG PO QAM Atorvastatin (Lipitor), 80 MG PO HS Clopidogrel (Plavix), 75 MG PO QAM Fluticasone Propionate (Flovent Hfa), 2 PUFFS INH BID Garlic (Garlic Oil), 1,000 MG PO QAM Losartan Potassium (Losartan Potassium), 50 MG PO QAM Metoprolol Tartrate (Lopressor) (Lopressor), 12.5 MG PO BID [place]-3 Fatty Acids (Fish Oil), 1,000 MG PO QAM Pantoprazole (Protonix), 20 MG PO DAILYBB Ranitidine Hcl (Zantac), 150 MG PO QAM Scheduled PRN Ipratropium-Albuterol (Duoneb), 1 TREATMENT INH QID PRN for SOB/Wheezing Nitroglycerin (Nitrostat), 0.4 MG UT PRN PRN for Chest Pain Allergies Coded Allergies: CHARO Inhibitors (Verified Allergy, Unknown, GMG LIST, 07/01/17) Prednisone (Verified Adverse Reaction, Severe, AGGRESSIVE, 07/01/17) Ketoprofen (Verified Adverse Reaction, Intermediate, HAND SWELLING, ) BRAND NAME - ORUVAIL Oxaprozin (Verified Adverse Reaction, Intermediate, HAND SWELLING, 07/01/17 ) Physical Exam Vital Signs Date Time Temp Pulse Resp B/P (MAP) Pulse Ox O2 Delivery O2 Flow Rate FiO2 07/02/17 00:50 36.6 111 25 168/81 95 Room Air 07/01/17 23:33 86 07/01/17 22:47 37.1 79 18 198/92 96 Room Air Physical Exam Constitutional: Vital signs reviewed. Eyes: Pupils are equal round reactive to light. Conjunctiva are noninjected. ENT: Pharynx is clear without erythema or exudate. Mucous membranes are moist. Neck supple without meningeal signs. Respiratory: Diffuse expiratory wheezes bilaterally. Breath sounds are equal bilaterally. Cardiovascular: Regular rate and rhythm. No rubs or gallops. GI: Soft, nondistended and nontender. Bowel sounds are present. Musculoskeletal: No peripheral edema. No lower extremity tenderness. Integumentary: No cyanosis. Neurological: The patient is awake and alert. No focal deficits. Psychiatric: Normal affect. Medical Decision & Procedures ER Provider Diagnostic Interpretation: X-ray results as stated below per interpretation by me: One view Chest: Bilateral lower lobe infiltrate Laboratory Results 07/01/17 23:20 Red Blood Count 4.60, Mean Corpuscular Volume 95.7, Mean Corpuscular Hemoglobin 32.0, Mean Corpuscular Hemoglobin Concent 33.4, Mean Platelet Volume 10.6, Neutrophils (%) (Auto) 60.5, Lymphocytes (%) (Auto) 20.0, Monocytes (%) (Auto) 13.2, Eosinophils (%) (Auto) 5.4, Basophils (%) (Auto) 0.7, Neutrophils # (Auto ) 3.72, Lymphocytes # (Auto) 1.23, Monocytes # (Auto) 0.81, Eosinophils # (Auto ) 0.33, Basophils # (Auto) 0.04 07/01/17 23:20 Test 07/01/17 23:20 07/01/17 23:23 White Blood Count 6.14 K/uL (4.8-10.8) Red Blood Count 4.60 M/uL (4.7-6.1) Hemoglobin 14.7 g/dL (14.0-18.0) Hematocrit 44.0 % (42-52) Mean Corpuscular Volume 95.7 fL (80-100) Mean Corpuscular Hemoglobin 32.0 pg (25-34) Mean Corpuscular Hemoglobin Concent 33.4 g/dl (32-36) Platelet Count 141 K/uL (130-400) Mean Platelet Volume 10.6 fL (7.4-10.4) Neutrophils (%) (Auto) 60.5 % Lymphocytes (%) (Auto) 20.0 % Monocytes (%) (Auto) 13.2 % Eosinophils (%) (Auto) 5.4 % Basophils (%) (Auto) 0.7 % Neutrophils # (Auto) 3.72 K/uL (1.4-6.5) Lymphocytes # (Auto) 1.23 K/uL (1.2-3.4) Monocytes # (Auto) 0.81 K/uL (0.11-0.59) Eosinophils # (Auto) 0.33 K/uL (0-0.5) Basophils # (Auto) 0.04 K/uL (0-0.2) RDW Standard Deviation 45.8 fL (36.4-46.3) RDW Coefficient of Variation 13.1 % (11.5-14.5) Immature Granulocyte % (Auto) 0.2 % Immature Granulocyte # (Auto) 0.01 K/uL (0.00-0.02) Prothrombin Time 10.0 SECONDS (9.0-12.0) Prothromb Time International Ratio 1.0 (0.9-1.1) Activated Partial Thromboplast Time 26.0 SECONDS (21.0-31.0) Partial Thromboplastin Ratio 1.0 Anion Gap 5.0 mmol/L (3-11) Est Creatinine Clear Calc Drug Dose 65.4 ml/min Estimated GFR () 69.4 Estimated GFR (Non- 59.9 BUN/Creatinine Ratio 8.9 (10-20) Calcium Level 8.3 mg/dl (8.5-10.1) Troponin I < 0.015 ng/ml (0-0.045) Pro-B-Type Natriuretic Peptide 397 pg/ml (0-900) Influenza Type A Antigen Neg for Influ A (NEG) Influenza Type B Antigen Neg for Influ B (NEG) Laboratory results as reviewed by me. Medications Administered Medications (Trade) Dose Ordered Sig/Emeka Route Start Time Stop Time Status Last Admin Dose Admin Albuterol/ Ipratropium (Duoneb) 12 ml ONE ONCE INH 07/01/17 23:15 07/01/17 23:16 DC 07/01/17 23:21 12 ML Methylprednisolone Sodium Succinate (Solu-Medrol IV) 125 mg NOW STAT IV 07/01/17 23:02 07/01/17 23:04 DC 07/01/17 23:29 125 MG Levofloxacin (Levaquin / D5W) 750 mg NOW STAT IV 07/02/17 00:05 07/02/17 00:06 DC 07/02/17 00:14 750 MG ECG Per My Interpretation Indication: SOB/dyspnea Rate (beats per minute): 86 Rhythm: normal sinus Findings: no ectopy, other (No ST elevation) ED Course 2254: The patient was evaluated in room B2. A complete history and physical exam was performed. 2302: Solu-Medrol 125mg IV 2315: DuoNeb 12ml INH 0005: Levofloxacin 750mg IV 0006: I reevaluated the patient, and I discussed the treatment plan with him. He will be evaluated for further management. 0014: I discussed the patient's case with Dr. Jersey Erickson Hospitalist. She will evaluate the patient for further management. Medical Decision This is a 71-year-old male who presents with shortness of breath, chest pain and cough. Differential diagnosis includes COPD exacerbation, pneumonia, pneumothorax, unstable angina, OR, bronchitis. I did perform a limited focused review of portions of the patient's old chart on the electronic medical record. The patient has had no recent pertinent visits to this hospital. I did evaluate the patient as noted above. The patient is wheezing diffusely. IV access was established. The patient was placed on a continuous monitoring specialist. I did treat the patient with Solu-Medrol 125 mg IV. He was also given a continuous hour-long nebulizer with albuterol and Atrovent. I did order and personally review the patient's 12-lead EKG and chest x-ray as described above. Chest x-ray demonstrates bilateral infiltrates in the lower lobes. Blood cultures were obtained. I did treat the patient with Levaquin IV. I did order and review the patient's blood work as noted in the electronic medical record. Troponin is negative. Influenza testing is negative. I did reassess the patient. He does feel somewhat better but still has significant wheezing. I did recommend hospitalization for further evaluation of his symptoms. I did discuss the case with the hospitalist and porter sample case. Medication Reconcilliation Current Medication List: was personally reviewed by me Blood Pressure Screening Patient's blood pressure: Elevated blood pressure Monitored by the hospitalist Consults Time Called: 000 Consulting Physician: Dr. Jersey Erickson Hospitalist Returned Call: [phone] I discussed the patient's case with Dr. Jersey Erickson Hospitalist. She will evaluate the patient for further management. Impression Primary Impression: COPD exacerbation Additional Impressions: Bilateral pneumonia Acute chest pain Scribe Attestation The scribe's documentation has been prepared under my direct and personally reviewed by me in its entirety. I confirm that the note above accurately reflects all work, treatment, procedures, and medical decision making performed by me. Departure Information Dispostion Being Evaluated By Hospitalist Referrals No Doctor, Assigned (PCP) Patient Instructions My [facility] Problem Qualifiers Additional Impressions: Bilateral pneumonia Pneumonia type: due to unspecified organism Lung location: lower lobe of lung Qualified Codes: J18.9 - Pneumonia, unspecified organism
[2017-07-02] MEDS ORDERED: POLYETHYLENE (MIRALAX) 17 GM PACK PO PRN (01:30)
[2017-07-02] MEDS ORDERED: ONDANSETRON INJ 2 MG/ML 2 ML VIAL IV PRN (01:30)
[2017-07-02] MEDS ORDERED: CEFTRIAXONE SOD INJ 1 GM in DEXTROSE 5% ADD-VANTAGE 50ML 50 ML IV SCH (03:00)
--- NOTE | 2017-07-02 03:50 | History and Physical ---
History & Physical Date & Time of Service: Jul 02, 2017 at 03:23 Chief Complaint: Bilateral Pneumonia, Copd Exacerbation Primary Care Physician: Rene Hutton M.D.(JV) History of Present Illness Source: patient, clinic records, hospital records Patient is a 71 yo male who presented to the hospital for complaints of worsening cough and SOB that have been progressively worsening over the last 3 days. The patient reports occasional phlegm but difficulty in expectorating the phlegm. He also reports wheezing for 3 days. He resides with his ex- and his daughter who have also been sick with URI; in fact his ex- is currently in the hospital for similar symptoms. Patient denies any chest pain or palpitations. He states he has been trying to use his nebulizer at home but today it did not seem to help at all so he came into the ER. Past Medical/Surgical History Medical Problems: (1) COPD (2) HLD (hyperlipidemia) (3) Hypertension (4) CAD (5) PUD Surgical Problems: (1) H/O hernia repair Family History FH: depression FH: myocardial infarction Social History Smoking Status: Former Smoker (quit about 5 years ago) Smokeless Tobacco Use: No Alcohol Use: none Drug Use: none Marital Status: Housing status: lives with family Occupational Status: unemployed Immunizations History of Influenza Vaccine: No History of Tetanus Vaccine?: Unknown History of Pneumococcal: No History of Hepatitis B Vaccine: Unknown Allergies Coded Allergies: CHARO Inhibitors (Verified Allergy, Unknown, GMG LIST, 07/01/17) Prednisone (Verified Adverse Reaction, Severe, AGGRESSIVE, 07/01/17) Ketoprofen (Verified Adverse Reaction, Intermediate, HAND SWELLING, ) BRAND NAME - ORUVAIL Oxaprozin (Verified Adverse Reaction, Intermediate, HAND SWELLING, 07/01/17 ) Home Medications Scheduled Aspirin (Aspirin Ec), 81 MG PO QAM Atorvastatin (Lipitor), 80 MG PO HS Clopidogrel (Plavix), 75 MG PO QAM Fluticasone Propionate (Flovent Hfa), 2 PUFFS INH BID Garlic (Garlic Oil), 1,000 MG PO QAM Losartan Potassium (Losartan Potassium), 50 MG PO QAM Metoprolol Tartrate (Lopressor) (Lopressor), 12.5 MG PO BID [place]-3 Fatty Acids (Fish Oil), 1,000 MG PO QAM Pantoprazole (Protonix), 20 MG PO DAILYBB Ranitidine Hcl (Zantac), 150 MG PO QAM Scheduled PRN Ipratropium-Albuterol (Duoneb), 1 TREATMENT INH QID PRN for SOB/Wheezing Nitroglycerin (Nitrostat), 0.4 MG UT PRN PRN for Chest Pain Review of Systems Constitutional: No fever, No chills, No sweats, No weight loss Eyes: No worsening of vision, No eye pain, No redness, No diplopia ENT: No nasal symptoms, No sore throat, No trouble swallowing Respiratory: + cough, + sputum, + wheezing, + shortness of breath Cardiovascular: No chest pain, No edema, No palpitations Abdomen: No pain, No nausea, No vomiting, No diarrhea Musculoskeletal: + muscle pain, No joint pain, No swelling Genitourinary - Male: No hematuria, No dysuria, No urinary frequency, No urinary urgency Neurologic: No memory loss, No paralysis, No numbness/tingling, No vertigo Psychiatric: No depression symptoms, No anxiety, No insomnia Endocrine: No fatigue, No excessive thirst, No excessive urination Hematologic / Lymphatic: No abnormal bleeding/bruising, No clotting problems, No swollen lymph nodes Integumentary: No rash, No itch, No new/changing skin lesions Physical Exam Vital Signs Date Time Temp Pulse Resp B/P (MAP) Pulse Ox O2 Delivery O2 Flow Rate FiO2 07/02/17 02:25 36.6 111 25 168/81 95 07/02/17 00:50 36.6 111 25 168/81 95 Room Air 07/01/17 23:33 86 07/01/17 22:47 37.1 79 18 198/92 96 Room Air General Appearance: WD/WN, no apparent distress Head: normocephalic, atraumatic Eyes: PERRL, EOMI, sclerae normal ENT: hearing grossly normal Neck: supple, no JVD, no carotid bruits, trachea midline Respiratory/Chest: chest non-tender, no respiratory distress, no accessory muscle use, + decreased breath sounds, + wheezing Cardiovascular: regular rate, rhythm, no edema, no gallop, no JVD, no murmur Abdomen/GI: normal bowel sounds, non tender, soft, no organomegaly Extremities/Musculoskelatal: no calf tenderness, no pedal edema Neurologic/Psych: no motor/sensory deficits, alert, normal mood/affect, oriented x 3 Skin: normal color, warm/dry, no rash Diagnostics Laboratory Results Results Past 24 Hours Test 07/01/17 23:20 07/01/17 23:23 07/02/17 03:00 Range/Units White Blood Count 6.14 4.8-10.8 K/uL Red Blood Count 4.60 4.7-6.1 M/uL Hemoglobin 14.7 14.0-18.0 g/dL Hematocrit 44.0 42-52 % Mean Corpuscular Volume 95.7 80-100 fL Mean Corpuscular Hemoglobin 32.0 25-34 pg Mean Corpuscular Hemoglobin Concent 33.4 32-36 g/dl Platelet Count 141 130-400 K/uL Mean Platelet Volume 10.6 7.4-10.4 fL Neutrophils (%) (Auto) 60.5 % Lymphocytes (%) (Auto) 20.0 % Monocytes (%) (Auto) 13.2 % Eosinophils (%) (Auto) 5.4 % Basophils (%) (Auto) 0.7 % Neutrophils # (Auto) 3.72 1.4-6.5 K/uL Lymphocytes # (Auto) 1.23 1.2-3.4 K/uL Monocytes # (Auto) 0.81 0.11-0.59 K/uL Eosinophils # (Auto) 0.33 0-0.5 K/uL Basophils # (Auto) 0.04 0-0.2 K/uL RDW Standard Deviation 45.8 36.4-46.3 fL RDW Coefficient of Variation 13.1 11.5-14.5 % Immature Granulocyte % (Auto) 0.2 % Immature Granulocyte # (Auto) 0.01 0.00-0.02 K/uL Prothrombin Time 10.0 9.0-12.0 SECONDS Prothromb Time International Ratio 1.0 0.9-1.1 Activated Partial Thromboplast Time 26.0 21.0-31.0 SECONDS Partial Thromboplastin Ratio 1.0 Sodium Level 141 136-145 mmol/L Potassium Level 3.9 3.5-5.1 mmol/L Chloride Level 107 98-107 mmol/L Carbon Dioxide Level 29 21-32 mmol/L Anion Gap 5.0 3-11 mmol/L Blood Urea Nitrogen 11 7-18 mg/dl Creatinine 1.21 0.60-1.40 mg/dl Est Creatinine Clear Calc Drug Dose 65.4 ml/min Estimated GFR () 69.4 Estimated GFR (Non- 59.9 BUN/Creatinine Ratio 8.9 10-20 Random Glucose 89 70-99 mg/dl Calcium Level 8.3 8.5-10.1 mg/dl Troponin I < 0.015 0-0.045 ng/ml Pro-B-Type Natriuretic Peptide 397 0-900 pg/ml Influenza Type A Antigen Neg for Influ A NEG Influenza Type B Antigen Neg for Influ B NEG Microbiology Results 07/01/17 Blood Culture, Received Pending 07/01/17 Blood Culture, Received Pending 07/02/17 MRSA DNA Surveillance Screen, Received Pending Impression Assessment and Plan COPD EXACERBATION: -CXR demonstrating bilateral infiltrates, awaiting official read -symptoms improved following steroids and nebs -will continue on IV solu-medrol and then transition to PO; patient reports intolerance to prednisone that it made him "mean" -has a hx of Tobacco use: quit 5 yrs ago -has not been seen by Pulm as outpatient but would benefit as he has not been formally tested and does not officially have "COPD" -BNP normal, appears euvolemic, maintaining sats on RA CAD: -with a history of previous PCI -continue aspirin, clopidogrel, lisinopril, metoprolol, and atorvastatin -no current symptoms BPH: -continue tamsulosin DYSLIPIDEMIA: -continue statin HTN: -resume home meds -BP was high on admission but improving GERD/HX OF PUD: -continue PPI + ranitidine Level of Care Med/Surg Resuscitation Status FULL RESUSCITATION VTE Prophylaxis VTE Risk Assessment Done? Y/N: Yes Risk Level: Moderate Given or contraindicated: Enoxaparin (Lovenox)SQ
[2017-07-02] MEDS ORDERED: PNEUMOCOCCAL ADMINISTRATION CHARGE ONE (04:30)
[2017-07-02] MEDS ORDERED: INFLUENZA VIRUS QUAD VACCINE 0.5 ML SYR IM. ONE (04:30)
[2017-07-02] MEDS ORDERED: NITROGLYCERIN 0.4 MG SL PER TAB CHARGE UT PRN (04:30)
[2017-07-02] MEDS ORDERED: INFLUENZA ADMINISTRATION CHARGE ONE (04:30)
[2017-07-02] MEDS ORDERED: PNEUMOCOCCAL POLYSACCHARIDES 25 MCG/0.5 ML VIAL/SYR IM. ONE (04:30)
[2017-07-02 05:24] LABS: INFLUENZA A PCR Neg for Influ A (NEG); INFLUENZA B PCR Neg for Influ B (NEG)
[2017-07-02 06:06] LABS: BLOOD UREA NITROGEN 10 mg/dl (7-18); CALCIUM 8.1 mg/dl (8.5-10.1); CARBON DIOXIDE 26 mmol/L (21-32); CREATININE 1.27 mg/dl (0.60-1.40); GLUCOSE 170 mg/dl (70-99); POTASSIUM 3.6 mmol/L (3.5-5.1); SODIUM 140 mmol/L (136-145)
[2017-07-02] MEDS: LOSARTAN POTASSIUM 25 MG TAB PO SCH (06:09)
[2017-07-02] MEDS: METOPROLOL TARTRATE 25 MG TAB PO SCH ×2 (06:10→19:55)
--- NOTE | 2017-07-02 07:00 | DIAGNOSTIC IMAGING REPORT ---
CHEST 2 VIEWS ROUTINE CLINICAL HISTORY: Cough. Evaluate for pneumonia. COMPARISON STUDY: Chest radiograph July 22, 2016. FINDINGS: Mild lung hyperexpansion is noted. There is no pneumothorax or pleural effusion. There is no consolidation to suggest pneumonia. Cardiomediastinal silhouette is normal. Mild bibasilar interstitial thickening is likely chronic. IMPRESSION: 1. No acute cardiopulmonary findings. 2. Mild bibasilar interstitial thickening which is likely chronic. 3. Severe emphysema. Electronically signed by: Bryant Blackburn M.D. 07/02/2017 6:58 AM Dictated Date/Time: 07/02/2017 6:56 AM
[2017-07-02] MEDS: METHYLPREDNISOLONE IV 40 MG in SYRINGE 0 ML IV SCH ×2 (07:15→16:19)
[2017-07-02] MEDS: FLUTICASONE HFA 110MCG INHALER INH SCH ×2 (07:16→19:57)
[2017-07-02] MEDS: OMEGA-3 (PURIFIED FISH OIL) 1 GM CAP PO SCH (07:16)
[2017-07-02] MEDS: CLOPIDOGREL BISULFATE 75 MG TAB PO SCH (07:17)
[2017-07-02] MEDS: RANITIDINE HCL 150 MG TAB PO SCH (07:17)
[2017-07-02] MEDS: PANTOprazole SOD 40 MG TAB PO SCH (07:17)
[2017-07-02] MEDS: ASPIRIN 81 MG ECTAB PO SCH (07:18)
[2017-07-02] MEDS: LEVALBUTEROL 1.25MG/0.5ML NEB INH SCH ×3 (07:39→19:26)
[2017-07-02] MEDS: IPRATROPIUM BROMIDE NEB SOLN 0.02% 2.5 ML VIAL INH SCH ×3 (07:39→19:26)
[2017-07-02] MEDS: ACETAMINOPHEN 325 MG TAB PO PRN ×2 (07:48→19:56)
[2017-07-02] MEDS: ENOXAPARIN 40 MG/0.4 ML SYR SQ SCH (07:49)
[2017-07-02] MEDS ORDERED: AZITHROMYCIN 250 MG TAB PO SCH (08:00)
[2017-07-02] MEDS ORDERED: LEVALBUTEROL/IPRATROPIUM NEB INH SCH (09:00)
[2017-07-02] MEDS ORDERED: LEVOFLOXACIN 750 MG TAB PO ONE (18:42)
--- NOTE | 2017-07-02 18:51 | Progress Note ---
Medicine Progress Note Date & Time of Visit: Jul 02, 2017 at 15:33. Subjective 71 yo M with worsening SOB x 3 days. Reports an improvement in breathing overnight and no cough, wheezing, fevers or chills. Tolerating PO and appears to be in good spirits. Objective Last 8 Hrs Date Time Temp Pulse Resp B/P (MAP) Pulse Ox O2 Delivery O2 Flow Rate FiO2 07/02/17 14:21 100 14 93 Room Air 07/02/17 08:00 Room Air 07/02/17 07:39 93 16 90 Room Air Physical Exam: GEN: WNWD, in no acute distress, alert and appropriate HEENT: NC/AT, PERRL, normal sclerae CARDIO: reg rate, S1/2 heard without m/g/r LUNGS: CTA bilaterally, no crackles, rales or wheezes, good diaphragmatic excursion ABD: soft, min centralized tenderness, non-distended, no rebound or guarding, + BS, ventral hernia-reducible EXTREMITY: RP and DP palpable 2+ bilat, no LE swelling or edema, extremities are warm and well-perfused NEURO: CN 2-12 grossly intact, no gross focal deficits. MUSC: 5/5 strength throughout, no gross focal deficits SKIN: warm and dry, 10 cm area of ecchymosis on LLQ of abdomen without area of fluctuance. Laboratory Results: 07/01/17 23:20 Red Blood Count 4.60, Mean Corpuscular Volume 95.7, Mean Corpuscular Hemoglobin 32.0, Mean Corpuscular Hemoglobin Concent 33.4, Mean Platelet Volume 10.6, Neutrophils (%) (Auto) 60.5, Lymphocytes (%) (Auto) 20.0, Monocytes (%) (Auto) 13.2, Eosinophils (%) (Auto) 5.4, Basophils (%) (Auto) 0.7, Neutrophils # (Auto ) 3.72, Lymphocytes # (Auto) 1.23, Monocytes # (Auto) 0.81, Eosinophils # (Auto ) 0.33, Basophils # (Auto) 0.04 07/02/17 05:34 Test 07/01/17 23:20 07/01/17 23:23 07/02/17 03:00 07/02/17 05:34 White Blood Count 6.14 K/uL (4.8-10.8) Red Blood Count 4.60 M/uL (4.7-6.1) Hemoglobin 14.7 g/dL (14.0-18.0) Hematocrit 44.0 % (42-52) Mean Corpuscular Volume 95.7 fL (80-100) Mean Corpuscular Hemoglobin 32.0 pg (25-34) Mean Corpuscular Hemoglobin Concent 33.4 g/dl (32-36) Platelet Count 141 K/uL (130-400) Mean Platelet Volume 10.6 fL (7.4-10.4) Neutrophils (%) (Auto) 60.5 % Lymphocytes (%) (Auto) 20.0 % Monocytes (%) (Auto) 13.2 % Eosinophils (%) (Auto) 5.4 % Basophils (%) (Auto) 0.7 % Neutrophils # (Auto) 3.72 K/uL (1.4-6.5) Lymphocytes # (Auto) 1.23 K/uL (1.2-3.4) Monocytes # (Auto) 0.81 K/uL (0.11-0.59) Eosinophils # (Auto) 0.33 K/uL (0-0.5) Basophils # (Auto) 0.04 K/uL (0-0.2) RDW Standard Deviation 45.8 fL (36.4-46.3) RDW Coefficient of Variation 13.1 % (11.5-14.5) Immature Granulocyte % (Auto) 0.2 % Immature Granulocyte # (Auto) 0.01 K/uL (0.00-0.02) Prothrombin Time 10.0 SECONDS (9.0-12.0) Prothromb Time International Ratio 1.0 (0.9-1.1) Activated Partial Thromboplast Time 26.0 SECONDS (21.0-31.0) Partial Thromboplastin Ratio 1.0 Pro-B-Type Natriuretic Peptide 397 pg/ml (0-900) Influenza Type A Antigen Neg for Influ A (NEG) Influenza Type B Antigen Neg for Influ B (NEG) Influenza Type A (RT-PCR) Neg for Influ A (NEG) Influenza Type B (RT-PCR) Neg for Influ B (NEG) Anion Gap 8.0 mmol/L (3-11) Est Creatinine Clear Calc Drug Dose 62.3 ml/min Estimated GFR () 65.4 Estimated GFR (Non- 56.5 BUN/Creatinine Ratio 8.1 (10-20) Calcium Level 8.1 mg/dl (8.5-10.1) Troponin I < 0.015 ng/ml (0-0.045) Date/Time Source Procedure Growth Status 07/01/17 23:30 Blood Blood Culture Pending Received 07/02/17 03:00 Nasal MRSA DNA Surveillance Screen - Final Specimen Negative for MRSA by DNA Probe Complete Last 24 Hours Test 07/01/17 23:20 07/01/17 23:23 07/02/17 03:00 07/02/17 05:34 White Blood Count 6.14 K/uL Red Blood Count 4.60 M/uL Hemoglobin 14.7 g/dL Hematocrit 44.0 % Mean Corpuscular Volume 95.7 fL Mean Corpuscular Hemoglobin 32.0 pg Mean Corpuscular Hemoglobin Concent 33.4 g/dl Platelet Count 141 K/uL Mean Platelet Volume 10.6 fL Neutrophils (%) (Auto) 60.5 % Lymphocytes (%) (Auto) 20.0 % Monocytes (%) (Auto) 13.2 % Eosinophils (%) (Auto) 5.4 % Basophils (%) (Auto) 0.7 % Neutrophils # (Auto) 3.72 K/uL Lymphocytes # (Auto) 1.23 K/uL Monocytes # (Auto) 0.81 K/uL Eosinophils # (Auto) 0.33 K/uL Basophils # (Auto) 0.04 K/uL RDW Standard Deviation 45.8 fL RDW Coefficient of Variation 13.1 % Immature Granulocyte % (Auto) 0.2 % Immature Granulocyte # (Auto) 0.01 K/uL Prothrombin Time 10.0 SECONDS Prothromb Time International Ratio 1.0 Activated Partial Thromboplast Time 26.0 SECONDS Partial Thromboplastin Ratio 1.0 Sodium Level 141 mmol/L 140 mmol/L Potassium Level 3.9 mmol/L 3.6 mmol/L Chloride Level 107 mmol/L 106 mmol/L Carbon Dioxide Level 29 mmol/L 26 mmol/L Anion Gap 5.0 mmol/L 8.0 mmol/L Blood Urea Nitrogen 11 mg/dl 10 mg/dl Creatinine 1.21 mg/dl 1.27 mg/dl Est Creatinine Clear Calc Drug Dose 65.4 ml/min 62.3 ml/min Estimated GFR () 69.4 65.4 Estimated GFR (Non- 59.9 56.5 BUN/Creatinine Ratio 8.9 8.1 Random Glucose 89 mg/dl 170 mg/dl Calcium Level 8.3 mg/dl 8.1 mg/dl Troponin I < 0.015 ng/ml < 0.015 ng/ml Pro-B-Type Natriuretic Peptide 397 pg/ml Influenza Type A Antigen Neg for Influ A Influenza Type B Antigen Neg for Influ B Influenza Type A (RT-PCR) Neg for Influ A Influenza Type B (RT-PCR) Neg for Influ B Date/Time Source Procedure Growth Status 07/01/17 23:30 Blood Blood Culture Pending Received 07/01/17 23:20 Blood Blood Culture Pending Received 07/02/17 03:00 Nasal MRSA DNA Surveillance Screen - Final Specimen Negative for MRSA by DNA Probe Complete Assessment & Plan 71 yo M with worsening SOB x 3 days. Reports an improvement in breathing overnight and no cough, wheezing, fevers or chills. Tolerating PO and appears to be in good spirits. 1. SOB 2/2 COPD exacerbation. No infiltrates seen on CXR. Will switch to Levaquin PO for ease of transition to outpatient. Switch IV Solumedrol to PO prednisone. Likely DC to home in am if continues to improve. 2. CAD s/p stents-stable, no chest pain. Cont medical management with ASA, Plavix, Lisinopril, Metoprolol and Lipitor. 3. Ecchymosis-2/2 Lovenox injection given today. Apprx 10 cm, discussed with nurse and no adverse issues when shot given earlier. Cont to monitor. 4. BPH-cont tamsulosin 5. HTN-controlled, cont home meds. 6. h/o PUD and GERS-cont PPI and Zantac. 7. Abdominal discomfort-minimal and chronic 2/2 ventral hernia that is reducible. DVT proph-Lovenox Full Code Dispo-likely to home in am. Iris Estes DO [facility] Hospitalist Current Inpatient Medications: Current Inpatient Medications Medications (Trade) Dose Ordered Sig/Emeka Route Start Time Stop Time Status Last Admin Dose Admin Azithromycin (Zithromax Tab) 500 mg QAM PO 07/02/17 08:00 07/09/17 08:59 07/02/17 07:19 500 MG Ceftriaxone Sodium 1 gm/ Dextrose 50 ml @ 100 mls/hr Q24H IV 07/02/17 03:00 07/09/17 02:59 07/02/17 04:14 100 MLS/HR Methylprednisolone Sodium Succinate 40 mg/Syringe 0.64 ml @ 1.5 mls/min Q8H IV 07/02/17 08:00 08/01/17 07:59 07/02/17 07:15 1.5 MLS/MIN Enoxaparin Sodium (Lovenox Inj) 40 mg Q24H SQ 07/02/17 09:00 08/01/17 08:59 07/02/17 07:49 40 MG Acetaminophen (Tylenol Tab) 650 mg Q4H PRN PO 07/02/17 01:30 08/01/17 01:29 07/02/17 07:48 650 MG Polyethylene (Miralax Powder Packet) 17 gm DAILY PRN PO 07/02/17 01:30 08/01/17 01:29 Ondansetron HCl (Zofran Inj) 4 mg Q6H PRN IV 07/02/17 01:30 08/01/17 01:29 Aspirin (Ecotrin Tab) 81 mg QAM PO 07/02/17 08:00 08/01/17 07:59 07/02/17 07:18 81 MG Atorvastatin Calcium (Lipitor Tab) 80 mg HS PO 07/02/17 22:00 08/01/17 21:59 Clopidogrel Bisulfate (plAVix TAB) 75 mg QAM PO 07/02/17 08:00 08/01/17 07:59 07/02/17 07:17 75 MG Fluticasone Propionate (Flovent Hfa 110MCG Inhaler) 2 puffs BID INH 07/02/17 08:00 08/01/17 07:59 07/02/17 07:16 2 PUFFS Losartan Potassium (coZAAR TAB) 50 mg QAM PO 07/02/17 08:00 08/01/17 07:59 07/02/17 06:09 50 MG Metoprolol Tartrate (Lopressor Tab) 12.5 mg BID PO 07/02/17 08:00 08/01/17 07:59 07/02/17 06:10 12.5 MG Nitroglycerin (Nitrostat Tab) 0.4 mg PRN PRN UT 07/02/17 04:30 08/01/17 04:29 Fish Oil ([place]-3 (Purified Fish Oil) Cap) 1 gm QAM PO 07/02/17 08:00 08/01/17 07:59 07/02/17 07:16 1 GM Ranitidine HCl (zANTac TAB) 150 mg QAM PO 07/02/17 08:00 08/01/17 07:59 07/02/17 07:17 150 MG Pantoprazole Sodium (Protonix Tab) 40 mg QAM PO 07/02/17 08:00 08/01/17 07:59 07/02/17 07:17 40 MG Ipratropium [place] (Atrovent 0.02% 0.5MG/2.5ML Neb) 0.5 mg Q6R INH 07/02/17 09:00 08/01/17 08:59 07/02/17 14:20 0.5 MG Levalbuterol (Xopenex 1.25MG/ 0.5ML Neb) 1.25 mg Q6R INH 07/02/17 09:00 08/01/17 08:59 07/02/17 14:20 1.25 MG
[2017-07-02] MEDS ORDERED: ATORVASTATIN 40 MG TAB PO SCH (22:00)
[2017-07-03 01:12] VITALS: BP 156/80; PULSE 106; TEMP 36.7; O2SAT 91
[2017-07-03] MEDS: IPRATROPIUM BROMIDE NEB SOLN 0.02% 2.5 ML VIAL INH SCH ×3 (02:01→12:36)
[2017-07-03] MEDS: LEVALBUTEROL 1.25MG/0.5ML NEB INH SCH ×3 (02:01→12:36)
[2017-07-03 05:51] VITALS: PULSE 108; O2SAT 94
[2017-07-03] MEDS ORDERED: NURSING DECISION MEDICATION ORDER SCH (06:00)
[2017-07-03] MEDS ORDERED: BENZONATATE 100MG CAP PO PRN (06:00)
[2017-07-03] MEDS ORDERED: COUGH DROP (SUGAR FREE) LOZ 24 LOZ/1 BOX LOZ ONE (06:37)
[2017-07-03] MEDS ORDERED: COUGH DROP (SUGAR FREE) LOZ 24 LOZ/1 BOX LOZ PRN (07:45)
[2017-07-03] MEDS: ACETAMINOPHEN 325 MG TAB PO PRN (07:55)
[2017-07-03] MEDS: PANTOprazole SOD 40 MG TAB PO SCH (07:56)
[2017-07-03] MEDS: METOPROLOL TARTRATE 25 MG TAB PO SCH (07:56)
[2017-07-03] MEDS: RANITIDINE HCL 150 MG TAB PO SCH (07:56)
[2017-07-03] MEDS: OMEGA-3 (PURIFIED FISH OIL) 1 GM CAP PO SCH (07:57)
[2017-07-03] MEDS: ASPIRIN 81 MG ECTAB PO SCH (07:57)
[2017-07-03] MEDS: LOSARTAN POTASSIUM 25 MG TAB PO SCH (07:57)
[2017-07-03] MEDS: CLOPIDOGREL BISULFATE 75 MG TAB PO SCH (07:57)
[2017-07-03] MEDS: FLUTICASONE HFA 110MCG INHALER INH SCH (07:58)
[2017-07-03] MEDS: ENOXAPARIN 40 MG/0.4 ML SYR SQ SCH (07:59)
[2017-07-03 08:00] VITALS: O2SAT 94
[2017-07-03] MEDS ORDERED: LEVOFLOXACIN 750 MG TAB PO SCH (08:00)
[2017-07-03 08:29] VITALS: BP 136/83; PULSE 105; TEMP 36.7; O2SAT 94
[2017-07-03 08:34] LABS: HEMATOCRIT 43.6 % (42-52); HEMOGLOBIN 14.7 g/dL (14.0-18.0); MEAN CELL VOLUME 94.4 fL (80-100); MEAN CORPUSCULAR HEMOGLOBIN 31.8 pg (25-34); MEAN CORPUSCULAR HGB CONC 33.7 g/dl (32-36); PLATELET COUNT 165 K/uL (130-400); RED CELL DISTRIBUTION WIDTH CV 13.5 % (11.5-14.5); RED CELL DISTRIBUTION WIDTH SD 46.5 fL (36.4-46.3); WHITE BLOOD COUNT 19.61 K/uL (4.8-10.8)
[2017-07-03 09:07] LABS: CALCIUM 9.1 mg/dl (8.5-10.1); CREATININE 1.16 mg/dl (0.60-1.40); POTASSIUM 3.7 mmol/L (3.5-5.1)
[2017-07-03 12:36] VITALS: PULSE 97; O2SAT 94
--- NOTE | 2017-07-03 14:47 | Progress Note ---
Internal Med Progress Note Date of Service: Jul 03, 2017. Provider Documentation: SUBJECTIVE: Seen and examined at bedside Feels much improved Less cough, SOB Denies chest pain Wanted to be discharged today OBJECTIVE: Vital Signs-as noted below Physical Exam: General Appearance:Moderately built and nourished, no apparent distress Head: normocephalic, Atraumatic Eyes: normal inspection, EOMI, PERRLA, Anicteric Neck: supple, Trachea midline Respiratory/Chest: Decreased breath sounds, CTA Cardiovascular: S1, S2, No murmur Abdomen/GI:Soft, Non tender, Bowel sounds present Extremities/Musculoskelatal:normal inspection, no edema Neurologic/Psych:AAOX3, grossly no focal neurological deficits Skin: normal color, warm Lab data as noted below. ASSESSMENT & PLAN: Patient is a 71 yr male presents worsening SOB x 3 days. Acute on Chronic COPD Exacerbation CXR:No acute cardiopulmonary findings Continue PO Levaquin and Prednisone Leukocytosis secondary to Solumedrol, Afebrile Blood cultures: No growth Sputum culture: pending CAD s/p stents stable denies chest pain Continue ASA, Plavix, Lisinopril, Metoprolol and Lipitor BPH continue tamsulosin HTN continue home meds H/O PUD/GERD: continue PPI and Zantac. DVT Px: Lovenox SQ Code Status: Full Code Disposition: Plan to discharge home today Follow up with your PCP on 2017 at 12:45pm Complete the antibiotic and prednisone course as prescribed Seek immediate medical attention if your symptoms reoccur or worsen Vital Signs: Date Time Temp Pulse Resp B/P (MAP) Pulse Ox O2 Delivery O2 Flow Rate FiO2 07/03/17 12:36 97 16 94 Room Air 07/03/17 08:29 36.7 105 18 136/83 (100) 94 Room Air 07/03/17 08:00 94 Room Air 07/03/17 05:51 108 14 94 Room Air 07/03/17 01:12 36.7 106 22 156/80 (105) 91 Room Air 07/03/17 00:05 Room Air 07/02/17 20:05 Room Air 07/02/17 19:26 84 14 95 Room Air 07/02/17 16:14 36.9 104 20 169/97 (121) 91 Room Air 07/02/17 16:00 Room Air Lab Results: Results Past 24 Hours Test 07/03/17 08:16 Range/Units White Blood Count 19.61 4.8-10.8 K/uL Red Blood Count 4.62 4.7-6.1 M/uL Hemoglobin 14.7 14.0-18.0 g/dL Hematocrit 43.6 42-52 % Mean Corpuscular Volume 94.4 80-100 fL Mean Corpuscular Hemoglobin 31.8 25-34 pg Mean Corpuscular Hemoglobin Concent 33.7 32-36 g/dl RDW Standard Deviation 46.5 36.4-46.3 fL RDW Coefficient of Variation 13.5 11.5-14.5 % Platelet Count 165 130-400 K/uL Mean Platelet Volume 10.0 7.4-10.4 fL Sodium Level 139 136-145 mmol/L Potassium Level 3.7 3.5-5.1 mmol/L Chloride Level 106 98-107 mmol/L Carbon Dioxide Level 25 21-32 mmol/L Anion Gap 8.0 3-11 mmol/L Blood Urea Nitrogen 16 7-18 mg/dl Creatinine 1.16 0.60-1.40 mg/dl Est Creatinine Clear Calc Drug Dose 68.2 ml/min Estimated GFR () 73.0 Estimated GFR (Non- 63.0 BUN/Creatinine Ratio 13.6 10-20 Random Glucose 127 70-99 mg/dl Calcium Level 9.1 8.5-10.1 mg/dl Magnesium Level 2.3 1.8-2.4 mg/dl Microbiology Results 07/03/17 Gram Stain, Received Pending 07/03/17 Sputum Culture, Received Pending
[2017-07-03] MEDS ORDERED: LVQ750 PO (14:50)
[2017-07-03] MEDS ORDERED: PRD20 PO (14:50)
--- NOTE | 2017-07-03 14:51 | Discharge Summary ---
Discharge Summary Date of Service Jul 03, 2017. Discharge Summary Admission Date: Jul 02, 2017 at 01:24 Discharge Date: Jul 03, 2017 Discharge Disposition: Home Principal Diagnosis: COPD Exacerbation Procedures: CXR: 1. No acute cardiopulmonary findings. 2. Mild bibasilar interstitial thickening which is likely chronic. 3. Severe emphysema. Consultations: None Pending Studies/Follow-Up: Follow up with your PCP on 2017 at 12:45pm Complete the antibiotic and prednisone course as prescribed Seek immediate medical attention if your symptoms reoccur or worsen Medication Reconciliation New Medications: Benzonatate (Benzonatate) 100 Mg Cap 100 MG PO TID PRN for Cough for 4 Days, #10 CAP Levofloxacin (Levofloxacin) 750 Mg Tab 750 MG PO DAILY for 5 Days, #5 TAB Prednisone (Prednisone) 20 Mg Tab 40 MG PO DAILY for 4 Days, #8 TAB Continued Medications: Aspirin (Aspirin Ec) 81 Mg Tab 81 MG PO QAM Atorvastatin (Lipitor) 80 Mg Tab 80 MG PO HS, TAB Clopidogrel (Plavix) 75 Mg Tab 75 MG PO QAM, TAB Fluticasone Propionate (Flovent Hfa) 120 Puffs/18569 Mcg Aero 2 PUFFS INH BID for 30 Days, #1 INHALER 3 Refills Garlic (Garlic Oil) 1,000 Mg Cap 1000 MG PO QAM Ipratropium-Albuterol (Duoneb) 3 Ml Nebu 1 TREATMENT INH QID PRN for SOB/Wheezing, INHA Losartan Potassium (Losartan Potassium) 25 Mg Tab 50 MG PO QAM Metoprolol Tartrate (Lopressor) (Lopressor) 25 Mg Tab 12.5 MG PO BID, TAB Nitroglycerin (Nitrostat) 0.4 Mg Tab 0.4 MG UT PRN PRN for Chest Pain, BTL [place]-3 Fatty Acids (Fish Oil) 1,000 Mg Cap 1000 MG PO QAM Pantoprazole (Protonix) 20 Mg Tab 20 MG PO DAILYBB, #30 TAB Ranitidine Hcl (Zantac) 150 Mg Tab 150 MG PO QAM, TAB Admission Information HPI (per Admitting provider): Patient is a 71 yo male who presented to the hospital for complaints of worsening cough and SOB that have been progressively worsening over the last 3 days. The patient reports occasional phlegm but difficulty in expectorating the phlegm. He also reports wheezing for 3 days. He resides with his ex- and his daughter who have also been sick with URI; in fact his ex- is currently in the hospital for similar symptoms. Patient denies any chest pain or palpitations. He states he has been trying to use his nebulizer at home but today it did not seem to help at all so he came into the ER. Physical Exam (per Admitting): General Appearance: WD/WN, no apparent distress Head: normocephalic, atraumatic Eyes: PERRL, EOMI, sclerae normal ENT: hearing grossly normal Neck: supple, no JVD, no carotid bruits, trachea midline Respiratory/Chest: chest non-tender, no respiratory distress, no accessory muscle use, + decreased breath sounds, + wheezing Cardiovascular: regular rate, rhythm, no edema, no gallop, no JVD, no murmur Abdomen/GI: normal bowel sounds, non tender, soft, no organomegaly Extremities/Musculoskelatal: no calf tenderness, no pedal edema Neurologic/Psych: no motor/sensory deficits, alert, normal mood/affect, oriented x 3 Skin: normal color, warm/dry, no rash Hospital Course Patient is a 71 yr male presents worsening SOB x 3 days. Acute on Chronic COPD Exacerbation CXR:No acute cardiopulmonary findings Continue PO Levaquin and Prednisone Leukocytosis secondary to Solumedrol, Afebrile Blood cultures: No growth Sputum culture: pending CAD s/p stents stable denies chest pain Continue ASA, Plavix, Lisinopril, Metoprolol and Lipitor BPH continue tamsulosin HTN continue home meds H/O PUD/GERD: continue PPI and Zantac. DVT Px: Lovenox SQ Code Status: Full Code Disposition: Plan to discharge home today Follow up with your PCP on 2017 at 12:45pm Complete the antibiotic and prednisone course as prescribed Seek immediate medical attention if your symptoms reoccur or worsen Total time spent on discharge = 34 minutes This includes examination of the patient, discharge planning, medication reconciliation, and communication with other providers. Discharge Instructions Discharge Instructions Date of Service Jul 03, 2017. Admission Reason for Admission: Bilateral Pneumonia, Copd Exacerbation Discharge Discharge Diagnosis / Problem: COPD Exacerbation Discharge Goals Goal(s): Decrease discomfort, Improve function Activity Recommendations Activity Limitations: resume your previous activity Exercise/Sports Limitations: as tolerated . Instructions / Follow-Up Instructions / Follow-Up Follow up with your PCP on 2017 at 12:45pm Complete the antibiotic and prednisone course as prescribed Seek immediate medical attention if your symptoms reoccur or worsen Current Hospital Diet Patient's current hospital diet: AHA Diet (Heart Healthy) Discharge Diet Recommended Diet: AHA Diet (Heart Healthy) Pending Studies Studies pending at discharge: yes List of pending studies: Sputum culture Medical Emergencies . Who to Call and When: Medical Emergencies: If at any time you feel your situation is an emergency, please call 911 immediately. . Non-Emergent Contact Non-Emergency issues call your: Primary Care Provider Call Non-Emergent contact if: you have a fever, your pain is not controlled, your pain is worsening, your pain is unusual for you, your pain is concerning you, you have any medication questions Seek immediate medical attention if your symptoms reoccur or worsen . . "Provider Documentation" section prepared by Rony Menon. . VTE Core Measure Inpt VTE Proph given/why not?: Enoxaparin (Lovenox)SQ <Electronically signed by Rony Menon MD> Signed: 07/03/17 [id number] Signed: The status of this report is Signed * If report status is Draft, the document has not been finalized by the responsible provider.
[2017-07-03] MEDS ORDERED: BENZ100C7 PO (14:57)
[2017-07-03 16:15] VITALS: BP 136/83; PULSE 97; TEMP 36.7; O2SAT 94
== END 2017-07-03 16:45 | disposition home or self-care (01) | DRG 192 ==
LOC: C.EDB 22:45 → C.MS4W 07-02 01:24 → ENRESERV 07-02 01:45
PROVIDERS: ADMIT Internal Medicine; ATTEND Internal Medicine
DX: J44.1 Chronic obstructive pulmonary disease with (acute) exacerbation (principal); E78.5 Hyperlipidemia, unspecified; I10 Essential (primary) hypertension; I25.10 Atherosclerotic heart disease of native coronary artery without angina pectoris; N40.0 Benign prostatic hyperplasia without lower urinary tract symptoms; K21.9 Gastro-esophageal reflux disease without esophagitis; K43.9 Ventral hernia without obstruction or gangrene; D72.829 Elevated white blood cell count, unspecified; Z79.82 Long term (current) use of aspirin; Z88.8 Allergy status to other drugs, medicaments and biological substances; Z87.891 Personal history of nicotine dependence; Z81.8 Family history of other mental and behavioral disorders

== ENCOUNTER 2020-05-19 23:29 | Observation (INO) ==
[2020-05-20 00:01] LABS: Basophils # (auto) 0.03 K/uL (0-0.2); Basophils % (auto) 0.3 %; Eosinophils # (auto) 0.22 K/uL (0-0.5); Eosinophils % (auto) 2.2 %; Hematocrit (blood only) 54.7 % (42-52); Hemoglobin 18.2 g/dL (14.0-18.0); Immature Granulocytes # (auto) 0.01 K/uL (0.00-0.02); Immature Granulocytes % (auto) 0.1 %; Lymphocytes % (auto) 11.8 %; Mean Corpuscular Hemoglobin 31.9 pg (25-34); Mean Corpuscular Hgb Conc 33.3 g/dL (32-36); Mean Platelet Volume 10.1 fL (7.4-10.4); Monocytes # (auto) 1.08 K/uL (0.11-0.59); Monocytes % (auto) 10.6 %; Neutrophils # (auto) 7.64 K/uL (1.4-6.5); Platelet Count 212 K/uL (130-400); RDW Coefficient of Variation 15.2 % (11.5-14.5); RDW Standard Deviation 53.7 fL (36.4-46.3); White Blood Count 10.18 K/uL (4.8-10.8)
[2020-05-20 00:19] LABS: Alanine Aminotransferase 24 U/L (12-78); Albumin Globulin Ratio 0.9 (0.9-2); Albumin Level 4.1 gm/dl (3.4-5.0); Alkaline Phosphatase 131 U/L (45-117); BUN Creatinine Ratio 11.2 (10-20); Bilirubin,Total 0.7 mg/dl (0.2-1); Blood Urea Nitrogen 11 mg/dl (7-18); Calcium 9.6 mg/dl (8.5-10.1); Carbon Dioxide 37 mmol/L (21-32); Chloride 95 mmol/L (98-107); Creatinine Clr Calc Pharmacy 74.5 ml/min; Est GFR (Non-African American) 78.5; Globulin 4.4 gm/dl (2.5-4.0); Glucose 96 mg/dl (70-99); Lipase 102 U/L (73-393); Sodium 134 mmol/L (136-145); Total Protein 8.5 gm/dl (6.4-8.2); Troponin I < 0.015 ng/ml (0-0.045)
[2020-05-20 03:23] LABS: Appearance Urine Cloudy (Clear); Bacteria Urine Automated Negative (Negative); Bilirubin Urine Negative (Negative); Blood Urine Negative (Negative); Color Urine Yellow; Epithelial Cell Urine Auto 20-30 /lpf (0-5); Glucose Urine UA Negative (Negative); Ketones Urine Trace (Negative); Leukocyte Esterase Urine Negative (Negative); Nitrite Urine Negative (Negative); RBC Urine Automated 0-4 /hpf (0-4); Specific Gravity Urine 1.015 (1.000-1.030); Urobilinogen Urine Negative (Negative); pH Urine >= 9.0 (4.5-7.5)
[2020-05-20 03:25] LABS: Protein Urine Trace (Negative)
--- NOTE | 2020-05-20 03:28 | Emergency Department Note ---
Impression & Plan Hypoxia ED Provider Note NAME: DINA WALLACE AGE: 74 SEX: M ARRIVES VIA: Ambulance INFORMANT: Patient ED PROVIDER(S): Maria Dolores Jansen DO CHIEF COMPLAINT: Back pain, rib pain and shortness of breath PLAN: Disposition: The patient was evaluated by the [facility] for inpatient care. Condition: Guarded MEDICAL DECISION MAKING: This is a 74-year-old male patient with an extensive past medical history who presents to the emergency department with a 3-4-day history of back pain, rib pain and shortness of breath. The patient has a history of peptic ulcer disease wondered if this could be the cause of his symptoms or if he could be suffering from gallstones or kidney stones. Patient noted that his symptoms seem to start after eating a total of 4 eggs around 2 AM on Sunday. Patient had multiple studies done here in the emergency department including chest x-ray, right upper quadrant ultrasound, and CTA of the chest to rule out PE. These were all essentially negative studies. Alysis showed no evidence of hematuria to suggest a kidney stone. However, the patient had significant hypoxia without his supplemental oxygen. He does have a history of emphysema. Patient's Covid testing was negative. He did have a moist cough but no evidence of pneumonia. I did discuss the case with the [facility] hospitalist and they will evaluate for further management. Triage Nursing notes reviewed and agree them. Prior medical records reviewed Vital Signs: reviewed and remarkable for tachycardia Differential diagnosis: Cholecystitis, pneumonia, costochondritis, ureteral colic, COVID-19, PE ER treatment provided: Tylenol Diagnostics interpreted by me: ECG: Sinus tachycardia at [address] segment elevation or signs of ischemia. There is no ectopy. Cardiac Monitoring: Sinus tachycardia at 110 Laboratory studies: See below Imaging studies: Portable chest x-ray: As per my interpretation No acute pulmonary infiltrates but there is emphysematous changes. As per stat rad Ultrasound right upper quadrant: Liver measures 15.6 cm. Nodular surface, correlate for cirrhosis. Portal vein is patent and normally directed. No sonographic evidence of cholelithiasis, acute cholecystitis, or biliary dilatation. No hydronephrosis of the right kidney. CT scan of the chest: Study quality degraded by patient respiratory motion artifact. No evidence for central pulmonary embolism. Heterogeneous attenuation in the bilateral segmental and subsegmental branches which may be related to motion artifact; however small emboli cannot be completely excluded particularly in the bilateral lung bases and right upper lobe segmental branch. No thoracic aortic aneurysm or dissection. Moderate to severe emphysema. No acute consolidation. No pathologic lymphadenopathy HPI: 74/M arrives for evaluation of back pain and right-sided rib pain with associated shortness of breath. Patient states that his symptoms started approximately 4 days ago after eating a total of 4 eggs around 2 AM in the morning. He is noticed over the past couple of days that his heart rate and blood pressure have been elevated. He denies any associated nausea or vomiting. Patient has a history of peptic ulcer disease wondered if this could be the cause of some of his symptoms. He does describe drinking a lot of coffee, soda and occasionally beer. She does have a history of COPD and started smoking aga in approximately 8 months ago. Patient also questioned whether or not his symptoms could be secondary to gallstones or kidney stones. The patient has noted that his shortness of breath has slightly worsened over the past 24 hours. ROS: See above HPI for pertinent positives & negatives. A total of 10 systems reviewed and were otherwise negative. PAST MEDICAL HISTORY:COPD, GERD, hyperlipidemia PAST SURGICAL HISTORY:See Below FAMILY HISTORY:See Below SOCIAL HISTORY:See Below HOME MEDICATIONS:See list ALLERGIES:See list VITALS:See Below PHYSICAL EXAMINATION: HEENT: Head - normocephalic and atraumatic Pupils are equal, round, and reactive to light. Extraocular eye muscles are intact, and sclera are anicteric. Nose - moist nasal mucosa without discharge. Mouth - moist buccal mucosa. Oropharynx is nonerythematous and there is no tonsillar exudate or edema noted. Neck: Supple; no no cervical lymphadenopathy or nuchal rigidity Heart: Regular rate and rhythm. There is a normal S1 and S2 with no murmurs, clicks, or gallops appreciated. Lungs: Manage breath sounds in all lung lópez Abdomen: Soft, mild tenderness to palpation in the right upper quadrant of the abdomen. Nondistended, with good bowel sounds. There are no palpable pulsatile masses or hepatosplenomegaly. There is no guarding, rigidity, or rebound noted. Extremities: No evidence of cyanosis, clubbing, or edema. There are easily palpable peripheral pulses. Skin: warm and dry with good turgor and no rashes. ED COURSE: Times/Reassessments: 2340: The patient was evaluated in room a 10. A complete history and physical was performed. Previous electronic medical records were reviewed. An order was placed for continuous cardiac monitoring. Patient was in a sinus tachycardia at a rate of 110. Laboratory studies were drawn as above. The patient was noted to be hypoxic and had supplemental oxygen applied. A twelve-lead EKG was obtained. Chest x-ray was performed as described above. 0100: Patient was reevaluated at this time and continued to complain of right upper quadrant abdominal pain and right sided low back pain. He went for an ultrasound of the gallbladder. 0300: I reviewed the results of the labs and ultrasound and the patient remained hypoxic. He did complain of some increasing shortness of breath. He went for CT scan of the chest to rule out PE. 0530: I reevaluated the patient at this time and reviewed the results of the CT scan. If the patient exerted himself at all he became increasingly short of breath and without the supplemental oxygen, the patient's O2 saturations dropped to 83-85%. I have personally spent greater than 75minutes of critical care time in the direct management of this patient. This includes bedside care, interpretation of diagnostic studies, and testing, discussion with consultants, patient, and family members, and other required patient management activities. This 75minutes is in excess of all separately billable procedures. 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 Beliefs That Will Affect Care: None marital status: Current Living Situation: Alone current occupational status: retired Feels Safe at Home: Yes Dental Care, Regularly: No Physical Activity Frequency: Daily Assistive Devices: Glasses Allergies Allergies Allergy/AdvReac Type Severity Reaction Status Date / Time CHARO Inhibitors Allergy Unknown GMG LIST Verified 05/19/20 23:42 prednisone AdvReac Severe AGGRESSIVE Verified 05/19/20 23:42 ketoprofen AdvReac Intermediate HAND Verified 05/19/20 23:42 SWELLING oxaprozin AdvReac Intermediate HAND Verified 05/19/20 23:42 SWELLING Home Meds Home Medications Medication Instructions Recorded Confirmed garlic 3,000 mg PO BID 01/21/20 05/19/20 ipratropium-albuterol 3 ml INHALATION QID PRN 01/21/20 05/19/20 nitroglycerin 0.4 mg SUBLINGUAL UD PRN 01/21/20 05/19/20 omeprazole 20 mg PO DAILY 01/21/20 05/19/20 ascorbic acid (vitamin C) [Vitamin 1,000 mg PO DAILY 02/23/20 05/19/20 C] cholecalciferol (vitamin D3) 25 mcg PO DAILY 02/23/20 05/19/20 [Vitamin D3] milk thistle 0 mg PO BID 02/23/20 05/19/20 niacin 0 mg PO BID 02/23/20 05/19/20 omega [id number] oil [Fish Oil] 1 cap PO TID 02/23/20 05/19/20 metoprolol tartrate 25 mg PO BID 05/19/20 05/19/20 Previous Rx's Medication Instructions Recorded losartan 50 mg tablet 50 mg PO DAILY #90 tab 05/04/20 Results & Data (ED) Vital Signs Vital Signs - 24 hr 05/20/20 00:35 05/20/20 00:40 05/20/20 00:50 Pulse Rate 115 H 116 H Pulse Rate [Apical] Pulse Rate from SpO2 Sensor Respiratory Rate 20 25 H Respiratory Effort / Characteristics Respiratory Depth Blood Pressure Blood Pressure [Right Arm] Blood Pressure Mean Blood Pressure Mean [Right Arm] Pulse Oximetry 87 L Oxygen Delivery Method Room Air Oxygen Flow Rate Oxygen Flow Rate - Titration 3 Pulse Oximetry Post Tiitration 90 05/20/20 01:00 05/20/20 01:10 05/20/20 01:20 Pulse Rate 116 H 112 H 113 H Pulse Rate [Apical] Pulse Rate from SpO2 Sensor Respiratory Rate 17 23 20 Respiratory Effort / Characteristics Respiratory Depth Blood Pressure 146/82 H Blood Pressure [Right Arm] Blood Pressure Mean 98 Blood Pressure Mean [Right Arm] Pulse Oximetry Oxygen Delivery Method Oxygen Flow Rate Oxygen Flow Rate - Titration Pulse Oximetry Post Tiitration 05/20/20 01:30 05/20/20 01:40 05/20/20 03:02 Pulse Rate 114 H 107 H 106 H Pulse Rate [Apical] Pulse Rate from SpO2 Sensor 105 H Respiratory Rate 20 25 H 33 H Respiratory Effort / Characteristics Respiratory Depth Blood Pressure 117/68 134/79 Blood Pressure [Right Arm] Blood Pressure Mean 74 95 Blood Pressure Mean [Right Arm] Pulse Oximetry 93 Oxygen Delivery Method Oxygen Flow Rate Oxygen Flow Rate - Titration Pulse Oximetry Post Tiitration 05/20/20 03:03 05/20/20 03:10 05/20/20 03:28 Pulse Rate 101 H 103 H Pulse Rate [Apical] 102 H Pulse Rate from SpO2 Sensor 100 H 103 H Respiratory Rate 18 20 22 Respiratory Effort / Characteristics Non-Labored Spontaneous Respiratory Depth Normal Blood Pressure 158/85 H Blood Pressure [Right Arm] 134/79 Blood Pressure Mean 107 Blood Pressure Mean [Right Arm] 97 Pulse Oximetry 95 96 97 Oxygen Delivery Method Nasal Cannula Oxygen Flow Rate 3 Oxygen Flow Rate - Titration Pulse Oximetry Post Tiitration 05/20/20 03:30 05/20/20 03:40 05/20/20 03:50 Pulse Rate 101 H 97 H 98 H Pulse Rate [Apical] Pulse Rate from SpO2 Sensor 100 H 97 H 97 H Respiratory Rate 19 16 18 Respiratory Effort / Characteristics Respiratory Depth Blood Pressure Blood Pressure [Right Arm] Blood Pressure Mean Blood Pressure Mean [Right Arm] Pulse Oximetry 97 97 97 Oxygen Delivery Method Oxygen Flow Rate Oxygen Flow Rate - Titration Pulse Oximetry Post Tiitration 05/20/20 04:00 05/20/20 04:10 05/20/20 04:20 Pulse Rate 96 H 96 H 97 H Pulse Rate [Apical] Pulse Rate from SpO2 Sensor 96 H 96 H 98 H Respiratory Rate 23 17 20 Respiratory Effort / Characteristics Respiratory Depth Blood Pressure 119/62 Blood Pressure [Right Arm] Blood Pressure Mean 86 Blood Pressure Mean [Right Arm] Pulse Oximetry 95 94 94 Oxygen Delivery Method Oxygen Flow Rate Oxygen Flow Rate - Titration Pulse Oximetry Post Tiitration 05/20/20 04:30 05/20/20 04:40 05/20/20 04:50 Pulse Rate 96 H 94 H 92 H Pulse Rate [Apical] Pulse Rate from SpO2 Sensor 96 H 94 H 93 H Respiratory Rate 23 23 20 Respiratory Effort / Characteristics Respiratory Depth Blood Pressure 123/69 Blood Pressure [Right Arm] Blood Pressure Mean 79 Blood Pressure Mean [Right Arm] Pulse Oximetry 94 95 94 Oxygen Delivery Method Oxygen Flow Rate Oxygen Flow Rate - Titration Pulse Oximetry Post Tiitration 05/20/20 05:00 05/20/20 05:10 05/20/20 05:20 Pulse Rate 91 H 96 H 96 H Pulse Rate [Apical] Pulse Rate from SpO2 Sensor 91 H 96 H 95 H Respiratory Rate 22 20 29 H Respiratory Effort / Characteristics Respiratory Depth Blood Pressure 82/57 L Blood Pressure [Right Arm] Blood Pressure Mean 68 Blood Pressure Mean [Right Arm] Pulse Oximetry 94 94 94 Oxygen Delivery Method Oxygen Flow Rate Oxygen Flow Rate - Titration Pulse Oximetry Post Tiitration 05/20/20 05:30 05/20/20 05:40 05/20/20 05:43 Pulse Rate 99 H 94 H Pulse Rate [Apical] 91 H Pulse Rate from SpO2 Sensor 99 H 94 H Respiratory Rate 20 27 H 18 Respiratory Effort / Characteristics Non-Labored Spontaneous Respiratory Depth Normal Blood Pressure 90/68 L Blood Pressure [Right Arm] 90/68 L Blood Pressure Mean 73 Blood Pressure Mean [Right Arm] 75 Pulse Oximetry 93 93 96 Oxygen Delivery Method Room Air Oxygen Flow Rate 3 Oxygen Flow Rate - Titration Pulse Oximetry Post Tiitration 05/20/20 05:50 05/20/20 06:00 05/20/20 06:10 Pulse Rate 98 H 93 H 95 H Pulse Rate [Apical] Pulse Rate from SpO2 Sensor 100 H 93 H 94 H Respiratory Rate 15 19 24 Respiratory Effort / Characteristics Respiratory Depth Blood Pressure 134/80 Blood Pressure [Right Arm] Blood Pressure Mean 93 Blood Pressure Mean [Right Arm] Pulse Oximetry 92 94 94 Oxygen Delivery Method Oxygen Flow Rate Oxygen Flow Rate - Titration Pulse Oximetry Post Tiitration 05/20/20 06:20 05/20/20 06:30 05/20/20 06:40 Pulse Rate 95 H 96 H 99 H Pulse Rate [Apical] Pulse Rate from SpO2 Sensor 92 H 96 H 101 H Respiratory Rate 24 27 H 21 Respiratory Effort / Characteristics Respiratory Depth Blood Pressure 144/89 H Blood Pressure [Right Arm] Blood Pressure Mean 109 Blood Pressure Mean [Right Arm] Pulse Oximetry 94 90 88 L Oxygen Delivery Method Oxygen Flow Rate Oxygen Flow Rate - Titration Pulse Oximetry Post Tiitration Laboratory Data Result diagrams: 05/19/20 23:35 05/19/20 23:35 Lab Results 05/19/20 05/19/20 05/20/20 Range/Units 23:35 23:35 03:10 WBC 10.18 (4.8-10.8) K/uL RBC 5.70 (4.7-6.1) M/uL Hgb 18.2 H (14.0-18.0) g/dL Hct 54.7 H (42-52) % MCV 96.0 (80-100) fL MCH 31.9 (25-34) pg MCHC 33.3 (32-36) g/dL RDW Std Deviation 53.7 H (36.4-46.3) fL RDW Coeff of Linsey 15.2 H (11.5-14.5) % Plt Count 212 (130-400) K/uL MPV 10.1 (7.4-10.4) fL Immature Gran % (Auto) 0.1 % Neut % (Auto) 75.0 % Lymph % (Auto) 11.8 % Gilliam % (Auto) 10.6 % Eos % (Auto) 2.2 % Baso % (Auto) 0.3 % Neut # (Auto) 7.64 H (1.4-6.5) K/uL Lymph # (Auto) 1.20 (1.2-3.4) K/uL Gilliam # (Auto) 1.08 H (0.11-0.59) K/uL Eos # (Auto) 0.22 (0-0.5) K/uL Baso # (Auto) 0.03 (0-0.2) K/uL Immature Gran # (Auto) 0.01 (0.00-0.02) K/uL Sodium 134 L (136-145) mmol/L Potassium (3.5-5.1) mmol/L Chloride 95 L (98-107) mmol/L Carbon Dioxide 37 H (21-32) mmol/L Anion Gap 2.0 L (3-11) BUN 11 (7-18) mg/dl Creatinine 0.95 (0.6-1.4) mg/dl Est Cr Clr Drug Dosing 74.5 ml/min Est GFR ( Amer) 91.0 Est GFR (Non-Af Amer) 78.5 BUN/Creatinine Ratio 11.2 (10-20) Glucose 96 (70-99) mg/dl Calcium 9.6 (8.5-10.1) mg/dl Total Bilirubin 0.7 (0.2-1) mg/dl AST (15-37) U/L ALT 24 (12-78) U/L Alkaline Phosphatase 131 H (45-117) U/L Troponin I < 0.015 (0-0.045) ng/ml Total Protein 8.5 H (6.4-8.2) gm/dl Albumin 4.1 (3.4-5.0) gm/dl Globulin 4.4 H (2.5-4.0) gm/dl Albumin/Globulin Ratio 0.9 (0.9-2) Lipase 102 (73-393) U/L Urine Color Yellow Urine Appearance Cloudy A (Clear) Urine pH >= 9.0 H (4.5-7.5) Ur Specific Bloomer 1.015 (1.000-1.030) Urine Protein Trace H (Negative) Urine Glucose (UA) Negative (Negative) Urine Ketones Trace H (Negative) Urine Blood Negative (Negative) Urine Nitrite Negative (Negative) Urine Bilirubin Negative (Negative) Urine Urobilinogen Negative (Negative) Ur Leukocyte Esterase Negative (Negative) Urine WBC (Auto) 1-5 (0-5) /hpf Urine RBC (Auto) 0-4 (0-4) /hpf U Hyaline Cast (Auto) 1-5 (0-5) /lpf U Epithel Cells (Auto) 20-30 H (0-5) /lpf Urine Bacteria (Auto) Negative (Negative) COVID-19 Eval Order SARS-CoV-2 (PCR) (Negative) Influenza Type A (PCR) (Neg) Influenza Type B (PCR) (Neg) RSV (RT-PCR) (Neg) 05/20/20 05/20/20 Range/Units 05:35 05:35 WBC (4.8-10.8) K/uL RBC (4.7-6.1) M/uL Hgb (14.0-18.0) g/dL Hct (42-52) % MCV (80-100) fL MCH (25-34) pg MCHC (32-36) g/dL RDW Std Deviation (36.4-46.3) fL RDW Coeff of Linsey (11.5-14.5) % Plt Count (130-400) K/uL MPV (7.4-10.4) fL Immature Gran % (Auto) % Neut % (Auto) % Lymph % (Auto) % Gilliam % (Auto) % Eos % (Auto) % Baso % (Auto) % Neut # (Auto) (1.4-6.5) K/uL Lymph # (Auto) (1.2-3.4) K/uL Gilliam # (Auto) (0.11-0.59) K/uL Eos # (Auto) (0-0.5) K/uL Baso # (Auto) (0-0.2) K/uL Immature Gran # (Auto) (0.00-0.02) K/uL Sodium (136-145) mmol/L Potassium (3.5-5.1) mmol/L Chloride (98-107) mmol/L Carbon Dioxide (21-32) mmol/L Anion Gap (3-11) BUN (7-18) mg/dl Creatinine (0.6-1.4) mg/dl Est Cr Clr Drug Dosing ml/min Est GFR ( Amer) Est GFR (Non-Af Amer) BUN/Creatinine Ratio (10-20) Glucose (70-99) mg/dl Calcium (8.5-10.1) mg/dl Total Bilirubin (0.2-1) mg/dl AST (15-37) U/L ALT (12-78) U/L Alkaline Phosphatase (45-117) U/L Troponin I (0-0.045) ng/ml Total Protein (6.4-8.2) gm/dl Albumin (3.4-5.0) gm/dl Globulin (2.5-4.0) gm/dl Albumin/Globulin Ratio (0.9-2) Lipase (73-393) U/L Urine Color Urine Appearance (Clear) Urine pH (4.5-7.5) Ur Specific Bloomer (1.000-1.030) Urine Protein (Negative) Urine Glucose (UA) (Negative) Urine Ketones (Negative) Urine Blood (Negative) Urine Nitrite (Negative) Urine Bilirubin (Negative) Urine Urobilinogen (Negative) Ur Leukocyte Esterase (Negative) Urine WBC (Auto) (0-5) /hpf Urine RBC (Auto) (0-4) /hpf U Hyaline Cast (Auto) (0-5) /lpf U Epithel Cells (Auto) (0-5) /lpf Urine Bacteria (Auto) (Negative) COVID-19 Eval Order CovFluRsv at [facility] SARS-CoV-2 (PCR) NEGATIVE (Negative) Influenza Type A (PCR) Negative (Neg) Influenza Type B (PCR) Negative (Neg) RSV (RT-PCR) Negative (Neg) Administered Medications Acetaminophen (Acetaminophen 325 Mg Tab) 650 mg PO Q4H PRN PRN Reason: pain/fever Stop: 06/19/20 10:48 Last Admin: 05/20/20 19:29 Dose: 650 mg Documented by: [id number] Albuterol (Albut/Ipratrop 3mg/0.5mg Neb 3 Ml Vial) 3 ml INH QIDR PRN PRN Reason: Wheezing Stop: 06/19/20 10:48 Last Admin: 05/20/20 18:08 Dose: 3 ml Documented by: [id number] Admin: 05/20/20 12:59 Dose: 3 ml Documented by: [id number] Guaifenesin (Guaifenesin 600 Mg Tabcr) 600 mg PO Q12 EFRA Stop: 06/19/20 13:29 Last Admin: 05/20/20 20:04 Dose: 600 mg Documented by: [id number] Admin: 05/20/20 14:20 Dose: 600 mg Documented by: [id number] Guaifenesin/Dextromethorphan (Guaifenesin/Dextrom Syrup 100mg/10mg 5ml Udc) 5 ml PO Q6H PRN PRN Reason: Cough Stop: 06/19/20 17:48 Last Admin: 05/20/20 19:29 Dose: 5 ml Documented by: [id number] Azithromycin 500 mg/ Dextrose 255 mls @ 125 mls/hr IV DAILY EFRA Stop: 05/27/20 10:59 Last Infusion: 05/20/20 16:06 Dose: 0 mls/hr Documented by: [id number] Admin: 05/20/20 12:54 Dose: 125 mls/hr Documented by: [id number] Heparin Sodium/Dextrose (Heparin Sodium/Dextrose) 25,000 units in 500 mls @ 28 mls/hr IV .[id number] EFRA; Protocol Stop: 06/19/20 11:44 Last Titration: 05/20/20 23:10 Dose: 1,400 units/hr, 28 mls/hr Documented by: [id number] Cosigned by: [id number] Titration: 05/20/20 19:14 Dose: 1,400 units/hr, 28 mls/hr Documented by: [id number] Cosigned by: [id number] Titration: 05/20/20 15:12 Dose: 1,400 units/hr, 28 mls/hr Documented by: [id number] Cosigned by: [id number] Admin: 05/20/20 11:45 Dose: 1,400 units/hr, 28 mls/hr Documented by: [id number] Cosigned by: [id number] Losartan Potassium (Losartan Potassium 50 Mg Tab) 50 mg PO DAILY [facility] Stop: 06/19/20 10:59 Last Admin: 05/20/20 12:54 Dose: 50 mg Documented by: [id number] Metoprolol Tartrate (Metoprolol Tartrate 25 Mg Tab) 25 mg PO BID [facility] Stop: 06/19/20 10:59 Last Admin: 05/20/20 20:04 Dose: 25 mg Documented by: [id number] Admin: 05/20/20 12:54 Dose: 25 mg Documented by: [id number] Pantoprazole Sodium (Pantoprazole 40 Mg Tab) 40 mg PO DAILY [facility] Stop: 06/19/20 10:59 Last Admin: 05/20/20 12:54 Dose: 40 mg Documented by: [id number] Discontinued Medications Acetaminophen (Acetaminophen 500 Mg Tab) 1,000 mg PO NOW STA Stop: 05/20/20 07:17 Last Admin: 05/20/20 07:28 Dose: 1,000 mg Documented by: [id number] Heparin Sodium/Dextrose (Heparin Iv Standard *No* Bolus) 1 ea IV Q15M [facility]; Protocol Stop: 05/20/20 13:49 Last Admin: 05/20/20 17:51 Dose: Not Given Documented by: [id number] Admin: 05/20/20 17:51 Dose: Not Given Documented by: [id number] Admin: 05/20/20 14:21 Dose: Not Given Documented by: [id number] Admin: 05/20/20 14:14 Dose: Not Given Documented by: [id number] Heparin Sodium/Dextrose (Heparin 44203 Unit/500 Ml D5w) Confirm Administered Dose 25,000 units IV .STK-MED ONE Stop: 05/20/20 11:25 Last Admin: 05/20/20 11:46 Dose: Not Given Documented by: [id number] Sodium Chloride (Nss 1000ml) 1,000 mls @ 80 mls/hr IV .[id number] EFRA Stop: 05/21/20 11:07 Last Infusion: 05/20/20 14:23 Dose: 0 mls/hr Documented by: [id number] Admin: 05/20/20 11:38 Dose: 125 mls/hr Documented by: [id number] Ioversol (Optiray 320 125ml) 125 ml IV ONCE ONE Stop: 05/20/20 03:47 Last Admin: 05/20/20 03:46 Dose: 115 ml Documented by: [id number] Discharge Plan Visit Data Chief Complaint: Shortness of Breath/Dyspnea ED Provider: Maria Dolores Jansen Discharge Problem: Hypoxia Patient Disposition: Admitted As Inpatient Discharge Instructions Interventions: ED Discharge Assessment Last Done: 05/20/20 10:12
[2020-05-20] MEDS ORDERED: OPTIRAY 320 125ml IV ONE (03:46)
--- NOTE | 2020-05-20 06:25 | History & Physical Report ---
Date of Service May 20, 2020 Assessment & Plan (1) Acute respiratory failure with hypoxia: Jaylen is a 74-year-old male with a past medical history of COPD, tobacco abuse, hyperlipidemia, hypertension, and GERD who presents to the emergency department for evaluation of 3 to 4 days of back pain, rib pain, and shortness of breath with concerns for Covid. Acute Hypoxic Respiratory Failure due to COPD exacerbation vs ?PE - Diffuse expiratory wheezing - RLE with warmth, mild swelling. No erythema. - CTA slightly limited by artifact, potentially concerning for segmental and subsegmental thrombus - Heparin gtt no bolus Right lower extremity Doppler pending Supplemental oxygen as below, pulmonary toilet as below COPD with potential exacerbation Defer steroids DuoNebs Azithromycin 5 days Flutter valve Caterina spirometry SPO2 as needed goal greater than 89% Covid negative Tessalon Perles as needed Chronic Neck Pain -Tylenol 650 mg every 4 hours as needed Heating pad as needed GERD Continue PPI, convert omeprazole to Protonix Hypertension Continue losartan 50 mg p.o. daily Continue metoprolol 25 mg p.o. twice daily tartrate DVT prophylaxis: Heparinized as above Diet: Heart healthy Disposition: Medical surgical with telemetry CODE STATUS: Full code (2) COPD (chronic obstructive pulmonary disease): (3) Current every day smoker: (4) GERD (gastroesophageal reflux disease): (5) Hyperlipidemia: (6) Hypertension: History of Present Illness Chief Complaint: Back pain, rib pain, shortness of breath Primary Care Provider: Skinny Toure DO Jaylen is a 74-year-old male with a past medical history of COPD, tobacco abuse, hyperlipidemia, hypertension, and GERD who presents to the emergency department for evaluation of 3 to 4 days of back pain, rib pain, and shortness of breath with concerns for Covid. Mr. Munson reports he came to hospital because "I couldn't breath!" He started feeling short of breath Sunday evening (3-4 days ago) and experienced slowly progressive shortness of breath since. Tried using nebulizer solution which may have helped a bit. He endorses a cough productive for clear phlegm. Endorses chills, denies fevers. Denies chest pain, chest pressure. Endorses abdominal pain 'around my stomach.' Pt reports he has a hx of peptic ulcers which have produced similar pain. no diarrhea, constipation, loss of taste or smell. He denies recent sick contacts. he reports several family members have had covid, but he has not been around them in the last few days. Review of admitting labs show no leukocytosis, hemoglobin of 18, sodium 134, potassium pending, normal creatinine, mildly elevated alkaline phosphatase with normal transaminitis, negative troponin. No signs of infection on UA. Covid testing pending at time of assessment. All bladder ultrasound unremarkable. EKG shows sinus tachycardia with no T wave inversions in lead III. Medical history: Reviewed Surgical history: Reviewed Medications: Reviewed Social history: Endorses intermittent history of cigarette use 'how much depends on how I feel.' Lives in an apartment underneath his daughters home. CODE STATUS: Full Code Allergies Allergy/AdvReac Type Severity Reaction Status Date / Time CHARO Inhibitors Allergy Unknown GMG LIST Verified 05/19/20 23:42 prednisone AdvReac Severe AGGRESSIVE Verified 05/19/20 23:42 ketoprofen AdvReac Intermediate HAND Verified 05/19/20 23:42 SWELLING oxaprozin AdvReac Intermediate HAND Verified 05/19/20 23:42 SWELLING Home Medications Medication Instructions Recorded Confirmed Type garlic 3,000 mg PO BID 01/21/20 05/19/20 History ipratropium-albuterol 3 ml INHALATION QID PRN 01/21/20 05/19/20 History nitroglycerin 0.4 mg SUBLINGUAL UD PRN 01/21/20 05/19/20 History omeprazole 20 mg PO DAILY 01/21/20 05/19/20 History ascorbic acid (vitamin C) [Vitamin 1,000 mg PO DAILY 02/23/20 05/19/20 History C] cholecalciferol (vitamin D3) 25 mcg PO DAILY 02/23/20 05/19/20 History [Vitamin D3] milk thistle 0 mg PO BID 02/23/20 05/19/20 History niacin 0 mg PO BID 02/23/20 05/19/20 History omega 7-pqw-vxy-fish oil [Fish Oil] 1 cap PO TID 02/23/20 05/19/20 History losartan 50 mg tablet 50 mg PO DAILY #90 tab 05/04/20 05/19/20 Rx metoprolol tartrate 25 mg PO BID 05/19/20 05/19/20 History Past Med/Surg History Surgical History S/P hernia repair Family History Father Myocardial infarction Denies family history of Colon cancer Ovarian cancer Prostate cancer Breast cancer Social History Smoking Status: Current every day smoker Tobacco Type: Cigarettes packs per day: 1.5; Second Hand Exposure: Yes; Hx Alcohol Use: Yes Alcohol Intake Frequency: Monthly or Less Hx Substance Use: No Preferred Language: Afghan Visual Impairment: No Limitations Hearing Ability: Hard of Hearing marital status: Current Living Situation: Alone current occupational status: retired Feels Safe at Home: Yes Dental Care, Regularly: No Physical Activity Frequency: Daily Review of Systems Review of Systems: Constitutional: See HPI Eyes: Denies vision change ENT: Denies ear pain, sore throat, sinus pain Cardiovascular: Denies Chest pain, chest pressure, palpitations Respiratory: See HPI Gastrointestinal: See HPI Genitourinary: Denies urinary sx Musculoskeletal: Denies acute weakness. Endorses chronic neck pain. Integumentary:Denies rash, lesions, bruising Neurological: Denies numbness, tingling, focal weakness Physical Exam Physical Exam: General: A&Ox3. NAD. Cooperative. HEENT: Atraumatic, normocephalic. PERLAA. No facial asymmetry. MM moist. Pulm:Diffuse expiratory wheeze. On nasal cannula. No resiratory distress. Cardiac: RRR, -mrg. Radial pulses intact and symmetrical. Abdominal: Nontender, nondistended, soft. BS present. MSK: Moving all extremities equally. RLE warm, 1cm larger at calf circumference. Results & Data Results & Data ([facility]) Vital Signs (Past 12 Hours) Vital Signs Temp Pulse Pulse Resp BP BP Pulse Ox 05/20/20 05:43 91 H 18 90/68 L 96 05/20/20 03:03 102 H 18 134/79 95 05/20/20 00:35 87 L 05/20/20 00:20 116 H 24 185/99 H 94 05/19/20 23:47 94 05/19/20 23:36 37.3 C 112 H 22 216/124 H 93 Supervising Physician Co-Signing Physician Notes Patient seen and examined with Dr. Barnes, I agree with his note as above. Briefly, patient is a 74yo C male presenting with SOB progressive x 4 days. Cough productive for clear sputum. Subjective chills but no fevers, CP, palpitations, nausea, vomiting, diarrhea or constipation. No loss of taste or smell. Patient's family recently had Covid-19 but they were not in contact with patient. He is complaining of right neck pain and spasm Covid -19 NEGATIVE per ER testing On exam he is afebrile, HD stable, NAD. Hypoxic to 85% on room air - improved with NC x 4L to 92% Skin - scattered lesions, no rash HEENT - NC/AT, PERRL, EOMI, Neck supple, No JVD, posterior neck musculature tender to palpation Heart - +S1/S2, regular, no m/r/g Lungs- diminished breath sounds, diffuse end-expiratory wheezing, no rales/rhonchi Abd - +BS, soft, NT/ND Ext - RLE warmth, 1cm larger than LLE Neuro - grossly nonfocal Labs and images reviewed. ?hemoconcentration with Hgb = 18.2, Hct=54.7 Assessment/Plan - Progressive SOB, hypoxic on RA improved with supplemental O2. Ddx includes PE, COPD. Less likely infectious source. Covid is Negative -Heparin gtt -Check doppler -Nebs -O2 - goal sats 88-92% -Azithromycin -IS/Flutter valve and incentive spirometry -Heat/Tylenol as needed for neck pain -Remainder of plan as above Resident Activity Tracking Resident Involvement: Resident Care Provided Care Provided: Adult Hospital Medicine
[2020-05-20 06:26] LABS: Influenza A virus by PCR Negative (Neg); Influenza B virus by PCR Negative (Neg); RSV by PCR Negative (Neg); SARS CoV2 RNA(COVID-19) InHosp NEGATIVE (Negative)
--- NOTE | 2020-05-20 06:49 | Billing Data ---
Date of Service May 20, 2020 Coding Level of Care Code 65493 Initial Inpt Care Lvl 3
[2020-05-20] MEDS ORDERED: ACETAMINOPHEN 500 MG TAB PO STA (07:16)
--- NOTE | 2020-05-20 07:28 | CT Scan Report ---
CT angio chest PE protocol CT DOSE: 479.89 mGy.cm HISTORY: 74 years-old Male with PE. Acute shortness of breath. TECHNIQUE: Multiple CTA images of the chest were obtained after the intravenous administration of 115 ml Optiray 320. Coronal and sagittal MIPS were obtained from the axial data set and were submitted for review. All measurements were obtained according to NASCET criteria. A dose lowering technique w as utilized adhering to the principles of ALARA. COMPARISON: Chest radiograph 05/19/2020 FINDINGS: CTA: Heart is normal in size. There is no pericardial effusion. Moderate coronary artery calcifications. M ixed plaque of the thoracic aorta without aneurysm or dissection. There is patency of the imaged grea t vessels. The pulmonary artery is opacified to the level of the proximal subsegmental branches. The segmental and subsegmental branches within the lung bases are not well-visualized secondary to respir atory motion artifact. No definitive filling defects are identified to suggest thromboembolic disease . CT CHEST: Unremarkable thyroid. There are a few prominent likely reactive mediastinal lymph nodes present. No p athologic adenopathy. No pneumothorax or pleural effusion. Severe emphysema with bronchial wall thick ening suggestive of bronchitis. Mild bibasilar groundglass densities suggest atelectasis. Partially c alcified 6 mm subpleural nodule of the left lower lobe on image 132 series 4. 4 mm partially calcifie d subpleural nodule of the lingula. There is a 4 mm irregular solid nodule of the left lung apex, kim ge 253 series 4. 4 mm subpleural solid nodule of the lateral segment right middle lobe, image 123 ser ies 4. Mild tracheobronchial secretions. There is no acute process of the imaged upper abdomen. Unremarkable soft tissues. Bones appear intact . No acute fracture. IMPRESSION: 1. No evidence of pulmonary emboli. Please note however the segmental and subsegmental branches withi n the lung bases are not well evaluated secondary to respiratory motion artifact. 2. Emphysema with bronchial wall thickening suggestive of bronchitis. Mild associated tracheobronchia l secretions. 3. 4 mm irregular solid nodule of the left lung apex. 12 month follow-up chest CT recommended. 4. No pleural effusion, adenopathy or airspace consolidation to suggest pneumonia. Please refer to below summary of Fleischner criteria recommendations for follow-up of incidental CT n odules JaydeH Brandt, Guidelines for management of small pulmonary nodules detected on CT scans: A sta tement from the Fleischner Society, Radiology 237: [phone].) SOLID NODULES Solitary nodule size: <6 mm * Low risk patients: no follow-up needed * high risk patients: optional CT at 12 months Solitary nodule size: 6-8 mm * Low risk patients: follow-up at 6-12 months, then consider further follow-up at 18-24 months * high risk patients: initial follow-up CT at 6-12 months and then at 18-24 months if no change Solitary nodule size: >8 mm * either low or high risk patients - consider follow-up CT at 3 months, and/or CT-PET, and/or biopsy Multiple nodules size: <6 mm * Low risk patients: no routine follow-up * high risk patients: optional CT at 12 months Multiple nodules size: 6-8 mm * Low risk patients: follow-up at 3-6 months, then consider further follow-up at 18-24 months * high risk patients: follow-up at 3-6 months, then at 18-24 months if no change Multiple nodules size: >8 mm * Low risk patients: follow-up at 3-6 months, then consider further follow-up at 18-24 months * high risk patients: follow-up at 3-6 months, then at 18-24 months if no change Note: newly detected indeterminate nodule in persons 35 years of age or older. * Low risk patients: minimal or absent history of smoking and/or other known risk factors * high risk patients: history of smoking or of other known risk factors (e.g. first degree relative with lung cancer, or exposure to asbestos, radon, uranium) * if a nodule up to 8 mm is partly solid or is ground glass further follow-up is required after 24 m onths to exclude possible slow growing adenocarcinoma (BRAD) ACT 112: Negative or not required by law. The above report was generated using voice recognition software. It may contain grammatical, syntax o r spelling errors. Electronically signed by: Agus Tom M.D. 05/20/2020 7:26 AM
--- NOTE | 2020-05-20 07:52 | XRay Report ---
XR chest 1V portable HISTORY: 74 years-old Male sob . Acute shortness of breath COMPARISON: CTA chest of same day TECHNIQUE: Portable AP view of the chest FINDINGS: Cardiac silhouette is upper limits of normal in size. Emphysema with chronic interstitial coarsening. No pneumothorax, pleural effusion, airspace consolidation or overt pulmonary edema. Degenerative wallace nges of the shoulders and spine. IMPRESSION: 1. No acute process. 2. Emphysema with chronic interstitial coarsening. ACT 112: Negative or not required by law. The above report was generated using voice recognition software. It may contain grammatical, syntax o r spelling errors. Electronically signed by: Agus Tom M.D. 05/20/2020 7:51 AM
--- NOTE | 2020-05-20 08:01 | Ultrasound Report ---
US gallbladder HISTORY: 74 years-old Male eval gallbladder acute right upper quadrant abdominal pain COMPARISON: CTA of the chest 05/20/2020 TECHNIQUE: Multiple real-time sonographic images of the abdominal right upper quadrant were obtained assessing grayscale appearance and color flow FINDINGS: Pancreas is partially obscured by bowel gas. There is equivocal marginal nodularity of the liver surf fabian. No hepatic mass lesion or intrahepatic biliary ductal dilation. Mild heterogeneity of the hepati c parenchyma. Mildly contracted gallbladder without shadowing cholelithiasis, pericholecystic fluid o r wall thickening. Trace, bladder sludge. The patient was recently administered pain medication, ther efore the sonographic Stearns sign was unable to be assessed. Normal common bile duct, 5 mm. Imaged right kidney is unremarkable without hydronephrosis. IMPRESSION: 1. Trace gallbladder sludge. No cholelithiasis or sonographic evidence of acute cholecystitis. 2. Mild marginal nodularity of the liver may reflect early cirrhotic liver disease. No ascites. 3. No biliary ductal dilation. ACT 112: Negative or not required by law. The above report was generated using voice recognition software. It may contain grammatical, syntax o r spelling errors. Electronically signed by: Agus Tom M.D. 05/20/2020 7:59 AM
[2020-05-20] MEDS ORDERED: ALBUTEROL 0.5% NEB SOLN 2.5 MG/0.5 ML VIAL NEB PRN (10:49)
[2020-05-20] MEDS ORDERED: BENZONATATE 100 MG CAPSULE PO PRN (10:49)
[2020-05-20] MEDS ORDERED: ONDANSETRON INJ 2 MG/ML 2 ML VIAL IV PRN (10:49)
[2020-05-20] MEDS ORDERED: SODIUM CHLORIDE 0.9% 1000ML 1,000 ML IV SCH (11:00)
[2020-05-20] MEDS ORDERED: HEPARIN 25000 UNIT/500 ML D5W IV ONE (11:24)
[2020-05-20] MEDS: HEPARIN SODIUM/DEXTROSE 25,000 UNITS/500 ML BAG IV SCH (11:45)
[2020-05-20] MEDS: PANTOprazole 40 MG TAB PO SCH (12:54)
[2020-05-20] MEDS: METOPROLOL TARTRATE 25 MG TAB PO SCH ×2 (12:54→20:04)
[2020-05-20] MEDS: AZITHROMYCIN 500 MG in DEXTROSE 5% 250 ML IV SCH (12:54)
[2020-05-20] MEDS: LOSARTAN POTASSIUM 50 MG TAB PO SCH (12:54)
[2020-05-20] MEDS: ALBUT/IPRATROP 3MG/0.5MG NEB 3 ML VIAL INH PRN ×2 (12:59→18:08)
--- NOTE | 2020-05-20 13:54 | Ultrasound Report ---
RIGHT LOWER EXTREMITY VENOUS DOPPLER HISTORY: Right leg pain. COMPARISON STUDY: None. FINDINGS: There is normal compressibility, flow, and augmentation within the visualized right lower e xtremity deep venous system. Of note, the right peroneal veins were not well visualized on this study . IMPRESSION: No DVT within the right lower extremity ACT 112: Negative or not required by law. Electronically signed by: Terrance Gray M.D. 05/20/2020 1:53 PM
--- NOTE | 2020-05-20 14:12 | History & Physical Bridge Note ---
Date of Service May 20, 2020 History & Physical Bridge Note I have examined the patient, reviewed the History & Physical and in the interval since the performance of the History & Physical I have noted the following changes of clinical significance: Patient evaluated early this afternoon following breathing treatment. He states his breathing today is the worst it's been since Sunday and he hasn't had much to eat since sunday due to shortness of breath. He states he believes there may be an issue with mold in his apartment and since he turned on the heat, he has noticed his breathing getting worse. Cough is productive for clear sputum but he states he feels like he has more to get out. Discussed adding mucinex, as he states he had been "taking little red pills" in the past to help dry up secretions. Continues to smoke. Discussed possible PE but not definitive on CT imaging as were not able to get good imaging of subsegmental arteries. He states he was made aware by admitting provider. Denies fever, chest pain, palpitations. Cough does cause pain to his lower ribcage, and possible that he has a component of costochondritis as well but will monitor for now. Shortness of breath at rest, not particularly made worse with ambulation. He states positional changes sometimes effect his breathing as well. Weight loss this week from cough/sob but denies weight loss unintentially outside of this week. O2 sat has been 96% on 4L but likely does not need such high requirements and discussed with nursing to titrate in patient with emphysema. BPs elevated to 204/97 and denied chest pain but had not yet received his morning medications. Will need to obtain better control. IVF discontinued due to wheezing on examination and patient taking adequate fluids. Continue Azithromycin. Add mucinex BID to help thin secretions Possibly add prednisone later today to help with a possible bronchitis. Continue duonebs, tessalon pearls. Will obtain a sputum culture Continue Azithromycin. Continue heparin gtt for now. Venous doppler NEGATIVE for DVT. Will need f/u imaging for nodules on CTA US GB with trace sludge but no evidence of acute qiana ECHO pending EKG Sinus tachycardia but rates are improving now that metoprolol resumed.
[2020-05-20] MEDS: Heparin IV Standard *NO* Bolus IV SCH ×3 (14:14→17:51)
[2020-05-20] MEDS: guaiFENesin 600 MG TABCR PO SCH ×2 (14:20→20:04)
[2020-05-20 18:37] LABS: Partial Thromboplastin Ratio 1.7
[2020-05-20 18:47] LABS: Partial Thromboplastin Time 47.3 Seconds (21.0-31.0)
[2020-05-20] MEDS: guaiFENesin/DEXTROM SYRUP 100MG/10MG 5ML UDC PO PRN (19:29)
[2020-05-20] MEDS: ACETAMINOPHEN 325 MG TAB PO PRN (19:29)
[2020-05-21] MEDS: ACETAMINOPHEN 325 MG TAB PO PRN ×4 (01:26→18:33)
[2020-05-21] MEDS: ALBUT/IPRATROP 3MG/0.5MG NEB 3 ML VIAL INH PRN ×4 (02:16→19:41)
[2020-05-21] MEDS: HEPARIN SODIUM/DEXTROSE 25,000 UNITS/500 ML BAG IV SCH (05:14)
[2020-05-21 06:44] LABS: Basophils # (auto) 0.03 K/uL (0-0.2); Basophils % (auto) 0.4 %; Eosinophils # (auto) 0.45 K/uL (0-0.5); Eosinophils % (auto) 5.8 %; Hematocrit (blood only) 44.6 % (42-52); Hemoglobin 14.2 g/dL (14.0-18.0); Immature Granulocytes # (auto) 0.02 K/uL (0.00-0.02); Immature Granulocytes % (auto) 0.3 %; Lymphocytes # (auto) 1.35 K/uL (1.2-3.4); Lymphocytes % (auto) 17.3 %; Mean Corpuscular Hemoglobin 30.9 pg (25-34); Mean Corpuscular Hgb Conc 31.8 g/dL (32-36); Mean Platelet Volume 9.9 fL (7.4-10.4); Monocytes # (auto) 0.73 K/uL (0.11-0.59); Monocytes % (auto) 9.3 %; Neutrophils # (auto) 5.24 K/uL (1.4-6.5); Neutrophils % (auto) 66.9 %; Platelet Count 164 K/uL (130-400); RDW Coefficient of Variation 15.2 % (11.5-14.5); RDW Standard Deviation 53.6 fL (36.4-46.3); White Blood Count 7.82 K/uL (4.8-10.8)
[2020-05-21 07:06] LABS: BUN Creatinine Ratio 18.2 (10-20); Calcium 8.3 mg/dl (8.5-10.1); Creatinine Clr Calc Pharmacy 85.2 ml/min; Est GFR (African American) 100.5; Est GFR (Non-African American) 86.7; Potassium 3.5 mmol/L (3.5-5.1)
[2020-05-21] MEDS: AZITHROMYCIN 500 MG in DEXTROSE 5% 250 ML IV SCH (07:35)
[2020-05-21] MEDS: guaiFENesin 600 MG TABCR PO SCH ×2 (07:37→20:50)
[2020-05-21] MEDS: METOPROLOL TARTRATE 25 MG TAB PO SCH ×2 (07:37→20:52)
[2020-05-21] MEDS: PANTOprazole 40 MG TAB PO SCH (07:38)
[2020-05-21] MEDS: LOSARTAN POTASSIUM 50 MG TAB PO SCH (07:38)
[2020-05-21 07:41] LABS: Partial Thromboplastin Ratio 3.4
[2020-05-21 07:54] LABS: Partial Thromboplastin Time 94.5 Seconds (21.0-31.0)
--- NOTE | 2020-05-21 09:27 | XCELERA ---
[id number]
--- NOTE | 2020-05-21 09:48 | Hospitalist Progress Note ---
Date of Service May 21, 2020 Assessment & Plan (1) Acute respiratory failure with hypoxia: Jaylen is a 74-year-old male with a past medical history of COPD, tobacco abuse, hyperlipidemia, hypertension, and GERD who presents to the emergency department for evaluation of 3 to 4 days of back pain, rib pain, and shortness of breath with concerns for Covid. Acute Hypoxic Respiratory Failure due to PE/COPD exacerbation EKG with sinus tachycardia Diffuse expiratory wheezing on admission --> improved RLE with warmth, mild swelling. No erythema. --> improved CTA slightly limited by artifact, potentially concerning for segmental and subsegmental thrombus. Given clinical picture, continue with anticoagulation Will transition heparin gtt to Xarelto 15mg BID for 21 days, then 20mg daily. provided pt with coupon Dopplers NEGATIVE for DVT Nebs prn Tessalon pearls prn cough Incentive spirometer, flutter valve Azithromycin (day 2 of therapy) Added and will continue mucinex, robitussin US GB with sluge but no evidence of acute qiana ECHO with LV systolic function normal. Aortic valve sclerosis moderate, without sign valvular stenosis. RVSP elevated at 40-50mmHg. Sputum culture pending Supplemental O2 to maintain sat >89% --> Currently 96% on 2L Will need f/u imaging for pulmonary nodules seen on CTA CAD/HTN/HLD - Hx [place] with stenting in April 2016 and had been on ASA/Plavix up until 2018. Patient states he had self discontinued these after taking for a year as well as the atorvastatin (has been taking fish oil and garlic instead) - Continue metoprolol 25mg BID, losartan 50mg daily. BP 143/76 - Will add lipid panel to AM labs - Trop negative on admission - Consider stress test vs cardiology consultation - Discussed with patient about antiplatelet therapy and he would be agreeable to aspirin at this time but unclear for how long he will take this. Will place on 81mg ASA daily. Monitor for bleeding as on anticoagulation now for PE - Will arrange for cardiology f/u outpatient COPD DuoNebs Azithromycin 5 days Flutter valve IS WA SPO2 as needed goal greater than 89% Covid negative Tessalon Perles as needed, mucinex added, cough syrup - sputum pending - smoking cessation encouraged -- he did previously quit and then restart several months ago Chronic Neck Pain -Tylenol 650 mg every 4 hours as needed Heating pad as needed GERD Continue PPI, convert omeprazole to Protonix Hypertension Continue losartan 50 mg p.o. daily Continue metoprolol 25 mg p.o. twice daily tartrate - BP 143/76 HLD Hx of such and had been on lipitor. discontinued by patient Will add lipid panel to AM labs DVT Prophylaxis -- Heparin --> transition to Xarelto (2) COPD (chronic obstructive pulmonary disease): (3) Current every day smoker: (4) GERD (gastroesophageal reflux disease): (5) Hyperlipidemia: (6) Hypertension: Admission and Anticipated Discharge Date Admission Date: May 20, 2020 Subjective Patient evaluated this morning. Feeling wiped out today but cough has improved. Able to provide sputum sample. White/clear reported. Continued mucinex. Has benefit with nebulizers. Continues to express mold at his apartment and would like to speak with CM about reporting this. Recently from in November and living in apartment with reported black mold and landlord not doing anything about it. He states he had been on plavix in the past for MT with stenting but took himself off after about two years. Does take aspirin on occassion but states he takes garlic and fish oil which he plans on resuming to hand both issues and his clotting. Discussed that he is on a heparin gtt and that recommendations are to continue with a NOAC daily once transitioned. He states he would take while in the hospital and then not at discharge. Discussed importance of continuing this medication at least for several months to treat current clot and have follow up outpatient. No hematuria, blood in stools, or epistaxis reported. He notes he did have a swollen right leg prior to the onset of this shortness of breath but the leg pain has resolved. Discussed etiology and that he may have had a DVT that traveled. No trauma reported to the leg but had been weak and not moving around much due to feeling ill prior to admission. Patient denies fever or chills, chest pain. Shortness of breath present but improved. No abdominal pain, nausea, or vomiting at this time. Discussed continued inpatient stay. Review of Systems Review of Systems: All systems reviewed & are unremarkable except as noted in HPI & below Physical Exam Constitutional: WD/WN, vitals as above comfortable; no acute distress Eyes: + anicteric sclerae and PERRL ENMT: mmm Neck: normal visual inspection and trachea midline Respiratory: normal respiratory effort, + cough (occassional, decreased) and able to speak in complete sentences; no labored breathing and not tachypneic Auscultation: + diminished lung sounds and + crackles (bibasilar); no wheezes Cardiovascular: RRR, no murmur, no edema Gastrointestinal (Abdomen): normal bowel sounds, soft, nontender, no hepatosplenomegaly Musculoskeletal: no cyanosis or clubbing, extremities motor strength 5/5 Skin: warm, dry Neurologic: PERRL, EOMI, accommodation nl, no face palsy, no dysarthria Psychiatric: Orientation: alert, oriented x 3 and cooperative Lymphatic: no cervical or axillary lymphadenopathy Results & Data Results & Data ([facility]) Vital Signs (Past 12 Hours) Vital Signs Temp Pulse Pulse Resp BP BP Pulse Ox 05/21/20 07:22 37.0 C 87 20 147/88 H 93 05/21/20 02:33 36.8 C 84 22 151/78 H 95 05/21/20 02:17 75 18 95 05/20/20 23:57 36.8 C 75 19 119/61 94 05/20/20 23:22 70 Laboratory Results 05/21/20 05/21/20 05/21/20 Range/Units 07:07 06:16 06:16 WBC 7.82 (4.8-10.8) K/uL RBC 4.60 L (4.7-6.1) M/uL Hgb 14.2 D (14.0-18.0) g/dL Hct 44.6 (42-52) % MCV 97.0 (80-100) fL MCH 30.9 (25-34) pg MCHC 31.8 L (32-36) g/dL RDW Std Deviation 53.6 H (36.4-46.3) fL RDW Coeff of Linsey 15.2 H (11.5-14.5) % Plt Count 164 (130-400) K/uL MPV 9.9 (7.4-10.4) fL Immature Gran % (Auto) 0.3 % Neut % (Auto) 66.9 % Lymph % (Auto) 17.3 % Vance % (Auto) 9.3 % Eos % (Auto) 5.8 % Baso % (Auto) 0.4 % Neut # (Auto) 5.24 (1.4-6.5) K/uL Lymph # (Auto) 1.35 (1.2-3.4) K/uL Vance # (Auto) 0.73 H (0.11-0.59) K/uL Eos # (Auto) 0.45 (0-0.5) K/uL Baso # (Auto) 0.03 (0-0.2) K/uL Immature Gran # (Auto) 0.02 (0.00-0.02) K/uL APTT 94.5 H* (21.0-31.0) Seconds PTT Ratio 3.4 Sodium 133 L (136-145) mmol/L Potassium 3.5 (3.5-5.1) mmol/L Chloride 97 L (98-107) mmol/L Carbon Dioxide 33 H (21-32) mmol/L Anion Gap 3.0 (3-11) BUN 15 (7-18) mg/dl Creatinine 0.83 (0.6-1.4) mg/dl Est Cr Clr Drug Dosing 85.2 ml/min Est GFR ( Amer) 100.5 Est GFR (Non-Af Amer) 86.7 BUN/Creatinine Ratio 18.2 (10-20) Glucose 116 H (70-99) mg/dl Calcium 8.3 L (8.5-10.1) mg/dl Troponin I (0-0.045) ng/ml 05/20/20 05/20/20 Range/Units 17:48 13:50 WBC (4.8-10.8) K/uL RBC (4.7-6.1) M/uL Hgb (14.0-18.0) g/dL Hct (42-52) % MCV (80-100) fL MCH (25-34) pg MCHC (32-36) g/dL RDW Std Deviation (36.4-46.3) fL RDW Coeff of Linsey (11.5-14.5) % Plt Count (130-400) K/uL MPV (7.4-10.4) fL Immature Gran % (Auto) % Neut % (Auto) % Lymph % (Auto) % Vance % (Auto) % Eos % (Auto) % Baso % (Auto) % Neut # (Auto) (1.4-6.5) K/uL Lymph # (Auto) (1.2-3.4) K/uL Vance # (Auto) (0.11-0.59) K/uL Eos # (Auto) (0-0.5) K/uL Baso # (Auto) (0-0.2) K/uL Immature Gran # (Auto) (0.00-0.02) K/uL APTT 47.3 H* (21.0-31.0) Seconds PTT Ratio 1.7 Sodium (136-145) mmol/L Potassium (3.5-5.1) mmol/L Chloride (98-107) mmol/L Carbon Dioxide (21-32) mmol/L Anion Gap (3-11) BUN (7-18) mg/dl Creatinine (0.6-1.4) mg/dl Est Cr Clr Drug Dosing ml/min Est GFR ( Amer) Est GFR (Non-Af Amer) BUN/Creatinine Ratio (10-20) Glucose (70-99) mg/dl Calcium (8.5-10.1) mg/dl Troponin I < 0.015 (0-0.045) ng/ml PG Care Time/CCT Total # of Minutes Spent Total Time Spent with Patient: Total time spent is greater than 50% in coordination of care (as documented) at patient's floor/unit and/or counseling patient: Coding Level of Care Code 00824 Subseq Hosp Care Lvl 3 Diagnoses Acute respiratory failure with hypoxia J96.01 COPD (chronic obstructive pulmonary disease) J44.9 Current every day smoker F17.200 GERD (gastroesophageal reflux disease) K21.9 Hyperlipidemia E78.5 Hypertension I10
[2020-05-21 15:19] LABS: Partial Thromboplastin Ratio 2.3
[2020-05-21 15:21] LABS: Partial Thromboplastin Time 65.5 Seconds (21.0-31.0)
--- NOTE | 2020-05-21 15:37 | Electrocardiogram Report ---
Test Reason : Blood Pressure : / mmHG Vent. Rate : 111 BPM Atrial Rate : 111 BPM P-R Int : 150 ms QRS Dur : 082 ms QT Int : 330 ms P-R-T Axes : 077 057 068 degrees QTc Int : 448 ms Sinus tachycardia Otherwise normal ECG When compared with ECG of 23-FEB-2020 19:25, No significant change was found Confirmed by Blayne Avila ([id number]) on 05/21/2020 3:36:35 PM Referred By: REFERRED SELF Confirmed By:Blayne Avila
[2020-05-21] MEDS: RIVAROXABAN 15 MG TAB PO SCH (20:51)
[2020-05-22] MEDS: ACETAMINOPHEN 325 MG TAB PO PRN ×3 (04:07→20:31)
[2020-05-22] MEDS: guaiFENesin/DEXTROM SYRUP 100MG/10MG 5ML UDC PO PRN (05:53)
[2020-05-22 06:07] LABS: Hematocrit (blood only) 45.9 % (42-52); Hemoglobin 15.1 g/dL (14.0-18.0); Mean Corpuscular Hemoglobin 31.3 pg (25-34); Mean Corpuscular Hgb Conc 32.9 g/dL (32-36); Mean Corpuscular Volume 95.2 fL (80-100); Mean Platelet Volume 10.3 fL (7.4-10.4); Platelet Count 171 K/uL (130-400); RDW Standard Deviation 52.4 fL (36.4-46.3); Red Blood Count 4.82 M/uL (4.7-6.1); White Blood Count 7.68 K/uL (4.8-10.8)
[2020-05-22 06:51] LABS: Albumin Globulin Ratio 0.9 (0.9-2); BUN Creatinine Ratio 16.1 (10-20); Bilirubin,Total 0.5 mg/dl (0.2-1); Calcium 8.6 mg/dl (8.5-10.1); Est GFR (African American) 104.2; Est GFR (Non-African American) 89.9; Globulin 3.3 gm/dl (2.5-4.0); Potassium 4.2 mmol/L (3.5-5.1); Total Protein 6.3 gm/dl (6.4-8.2)
[2020-05-22] MEDS: METOPROLOL TARTRATE 25 MG TAB PO SCH ×2 (07:44→20:30)
[2020-05-22] MEDS: RIVAROXABAN 15 MG TAB PO SCH ×2 (07:44→20:31)
[2020-05-22] MEDS: guaiFENesin 600 MG TABCR PO SCH ×2 (07:44→20:31)
[2020-05-22] MEDS: PANTOprazole 40 MG TAB PO SCH (07:45)
[2020-05-22] MEDS: LOSARTAN POTASSIUM 50 MG TAB PO SCH (07:45)
[2020-05-22] MEDS ORDERED: LORazepam 0.25 MG/0.5 ML VIAL IV PRN (08:02)
--- NOTE | 2020-05-22 08:06 | Hospitalist Progress Note ---
Date of Service May 22, 2020 Assessment & Plan (1) Acute respiratory failure with hypoxia: Jaylen is a 74-year-old male with a past medical history of COPD, tobacco abuse, hyperlipidemia, hypertension, and GERD who presents to the emergency department for evaluation of 3 to 4 days of back pain, rib pain, and shortness of breath with concerns for Covid. PE Acute Hypoxic Respiratory Failure secondary to PE/COPD exacerbation -- of note, recently quit smoking EKG with sinus tachycardia Diffuse expiratory wheezing on admission --> improved RLE with warmth, mild swelling. No erythema. --> improved CTA slightly limited by artifact, potentially concerning for segmental and subsegmental thrombus. Given clinical picture, continue with anticoagulation --transitioned heparin gtt to Xarelto 15mg BID (evening 05/21) for 21 days, then 20mg daily. provided pt with coupon Dopplers NEGATIVE for DVT Nebs prn Tessalon pearls prn cough Incentive spirometer, flutter valve Azithromycin (day 3 of therapy) Added and will continue mucinex, robitussin US GB with sluge but no evidence of acute qiana ECHO with LV systolic function normal. Aortic valve sclerosis moderate, without sign valvular stenosis. RVSP elevated at 40-50mmHg. --> will obtain overnight Pox Sputum culture pending Supplemental O2 to maintain sat >89% Had desaturation this morning to 86% on 2L CXR with severe emphysema Currently 97% on 2L Will need f/u imaging for pulmonary nodules seen on CTA CAD/HTN/HLD - Hx [place] with stenting in April 2016 and had been on ASA/Plavix up until 2018. Patient states he had self discontinued these after taking for a year as well as the atorvastatin (has been taking fish oil and garlic instead) - Continue metoprolol 25mg BID, losartan 50mg daily. BP 143/76 - Lipid panel w/o abn - Trop negative on admission - Consider stress test vs cardiology consultation - Discussed with patient about antiplatelet therapy and he would be agreeable to aspirin at this time but unclear for how long he will take this. Will place on 81mg ASA daily. Monitor for bleeding as on anticoagulation now for PE - Will arrange for cardiology f/u outpatient COPD DuoNebs Azithromycin 5 days Flutter valve IS WA SPO2 as needed goal greater than 89% Covid negative Tessalon Perles as needed, mucinex added, cough syrup - sputum pending - smoking cessation encouraged -- he did previously quit and then restart several months ago - consider steroids but hold off for now given hx agitation/aggression on prednisone in the past Chronic Neck Pain -Tylenol 650 mg every 4 hours as needed Heating pad as needed GERD Continue PPI, convert omeprazole to Protonix Hypertension Continue losartan 50 mg p.o. daily Continue metoprolol 25 mg p.o. twice daily tartrate - BP 164/86 but did have episode of disgruntlement this morning with staff --> monitor and adjustments made as needed HLD Hx of such and had been on lipitor. discontinued by patient Lipid panel acceptable DVT Prophylaxis -- Heparin --> transition to Xarelto (2) COPD (chronic obstructive pulmonary disease): (3) Current every day smoker: (4) GERD (gastroesophageal reflux disease): (5) Hyperlipidemia: (6) Hypertension: Admission and Anticipated Discharge Date Admission Date: May 20, 2020 Subjective Patient evaluated this morning. Breathing better later this morning but did have a rough morning and had some issues with argument with staffing. Shortness of breath still present, worse with activity but feeling better overall. Cough has decreased in frequency. Discussed likely component of sleep apnea and patient does endorse daytime sleepiness. Reviewed chest xray without evidence of congestion but does note severe emphysema and he may require oxygen at discharge but that if he does we will discuss with CM to arrange. Discussed continued anticoagulation with Xarelto. No bleeding reported. Discussed sputum culture pending. Denies wheezing, although heard on examination. Discussed bronchitis and possible placement of steroids. Will hold off for immediate time as they do cause him to become agitated and aggressive. He states he had bronchitis several months ago and it lasted for a while. Discussed that also quitting smoking can lead to increased sputum production as the irritation is stopped from smoking. No fever, chills, chest pain reported. Pleasant at the end of our conversation and agreeable to current plan. Questions/concerns addressed at this time. Review of Systems Review of Systems: All systems reviewed & are unremarkable except as noted in HPI & below Physical Exam Constitutional: WD/WN, vitals as above comfortable; no acute distress Eyes: + anicteric sclerae and PERRL Neck: normal visual inspection and trachea midline Respiratory: normal respiratory effort, + cough (occassional, decreased) and able to speak in complete sentences; no labored breathing and not tachypneic Auscultation: + diminished lung sounds, + crackles (bibasilar) and + wheezes (end expiratory wheezing R posterior lung lópez) Cardiovascular: RRR, no murmur, no edema Gastrointestinal (Abdomen): normal bowel sounds, soft, nontender, no hepatosplenomegaly Musculoskeletal: no cyanosis or clubbing, extremities motor strength 5/5 Neurologic: PERRL, EOMI, accommodation nl, no face palsy, no dysarthria Psychiatric: Orientation: alert, oriented x 3 and cooperative Lymphatic: no cervical or axillary lymphadenopathy Results & Data Results & Data ([facility]) Vital Signs (Past 12 Hours) Vital Signs Temp Pulse Pulse Resp BP BP Pulse Ox 05/22/20 07:27 36.3 C L 86 20 164/86 H 97 05/22/20 05:08 164/82 H 05/22/20 04:11 109 H 20 86 L 05/22/20 00:17 36.8 C 74 18 126/71 92 05/21/20 23:45 75 Laboratory Results 05/22/20 05/22/20 05/21/20 Range/Units 05:36 05:36 14:48 WBC 7.68 (4.8-10.8) K/uL RBC 4.82 (4.7-6.1) M/uL Hgb 15.1 (14.0-18.0) g/dL Hct 45.9 (42-52) % MCV 95.2 (80-100) fL MCH 31.3 (25-34) pg MCHC 32.9 (32-36) g/dL RDW Std Deviation 52.4 H (36.4-46.3) fL RDW Coeff of Linsey 15.0 H (11.5-14.5) % Plt Count 171 (130-400) K/uL MPV 10.3 (7.4-10.4) fL APTT 65.5 H* (21.0-31.0) Seconds PTT Ratio 2.3 Sodium 133 L (136-145) mmol/L Potassium 4.2 D (3.5-5.1) mmol/L Chloride 97 L (98-107) mmol/L Carbon Dioxide 33 H (21-32) mmol/L Anion Gap 3.0 (3-11) BUN 12 (7-18) mg/dl Creatinine 0.76 (0.6-1.4) mg/dl Est Cr Clr Drug Dosing 93.0 ml/min Est GFR ( Amer) 104.2 Est GFR (Non-Af Amer) 89.9 BUN/Creatinine Ratio 16.1 (10-20) Glucose 100 H (70-99) mg/dl Calcium 8.6 (8.5-10.1) mg/dl Total Bilirubin 0.5 (0.2-1) mg/dl AST 18 (15-37) U/L ALT 18 (12-78) U/L Alkaline Phosphatase 94 (45-117) U/L Total Protein 6.3 L (6.4-8.2) gm/dl Albumin 3.0 L (3.4-5.0) gm/dl Globulin 3.3 (2.5-4.0) gm/dl Albumin/Globulin Ratio 0.9 (0.9-2) Triglycerides 127 (0-150) mg/dl Cholesterol 152 (0-200) mg/dl LDL Cholesterol, Calc 78 mg/dl VLDL Cholesterol, Calc 25 mg/dl HDL Cholesterol 49 mg/dl Cholesterol/HDL Ratio 3 PG Care Time/CCT Total # of Minutes Spent Total Time Spent with Patient: Total time spent is greater than 50% in coordination of care (as documented) at patient's floor/unit and/or counseling patient: Coding Level of Care Code 14600 Subseq Hosp Care Lvl 2 Diagnoses Acute respiratory failure with hypoxia J96.01 COPD (chronic obstructive pulmonary disease) J44.9 Current every day smoker F17.200 GERD (gastroesophageal reflux disease) K21.9 Hyperlipidemia E78.5 Hypertension I10
--- NOTE | 2020-05-22 08:22 | Cardiology Consultation ---
Date of Consultation May 22, 2020 Assessment & Plan (1) Acute respiratory failure with hypoxia: (2) COPD (chronic obstructive pulmonary disease): (3) Current every day smoker: (4) CAD (coronary artery disease): At this point the patient is feeling better. I am uncertain as what can b e done regarding the mold in his apartment. If it is the cause of his respiratory problems then he will either need to move or have his landlord take care of the problem. From a cardiac standpoint I believe he is stable and can be discharged per the hospitalist group. History of Present Illness Attending Physician: Dave Sylvester MD History of Present Illness This is a 74-year-old male patient who usually follows with Dr. Sun through our clinic. He has a history of coronary artery disease and received drug- eluting stents in 2015. He also has a longstanding history of cigarette smoking and COPD. 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 He states that he is noted black mold along the [place] of his apartment which he feels caused him to have an allergic reaction. He was admitted with shortness of breath and exacerbation of COPD. Should be noted that after a long hiatus the patient recently started to smoke again which may have contributed. He was admitted on Sunday and today he states he is feeling much improved and would like to go home. Currently he has no cardiac symptoms. An echocardiogram was obtained this admission which revealed preserved left ventricular function and no significant valvular pathology. Cardiac markers were negative. Past medical history: 1.Acute coronary syndrome with non-ST segment elevation myocardial infarction 05/02/2016. 2.Severe 2-vessel coronary artery disease, status post emergent coronary intervention with drug-eluting stent to an ulcerated mid left anterior descending stenosis with staged second intervention of the distal posterior ventricular branch of the right coronary artery on 05/04/2016. 3.Hyperlipidemia. 4.Chronic obstructive lung disease/emphysema. Allergies Allergy/AdvReac Type Severity Reaction Status Date / Time CHARO Inhibitors Allergy Unknown GMG LIST Verified 05/19/20 23:42 prednisone AdvReac Severe AGGRESSIVE Verified 05/19/20 23:42 ketoprofen AdvReac Intermediate HAND Verified 05/19/20 23:42 SWELLING oxaprozin AdvReac Intermediate HAND Verified 05/19/20 23:42 SWELLING Home Medications Medication Instructions Recorded Confirmed Type garlic 3,000 mg PO BID 01/21/20 05/19/20 History ipratropium-albuterol 3 ml INHALATION QID PRN 01/21/20 05/19/20 History nitroglycerin 0.4 mg SUBLINGUAL UD PRN 01/21/20 05/19/20 History omeprazole 20 mg PO DAILY 01/21/20 05/19/20 History ascorbic acid (vitamin C) [Vitamin 1,000 mg PO DAILY 02/23/20 05/19/20 History C] cholecalciferol (vitamin D3) 25 mcg PO DAILY 02/23/20 05/19/20 History [Vitamin D3] milk thistle 0 mg PO BID 02/23/20 05/19/20 History niacin 0 mg PO BID 02/23/20 05/19/20 History omega 4-zgo-yfk-fish oil [Fish Oil] 1 cap PO TID 02/23/20 05/19/20 History losartan 50 mg tablet 50 mg PO DAILY #90 tab 05/04/20 05/19/20 Rx metoprolol tartrate 25 mg PO BID 05/19/20 05/19/20 History Patient History Surgical History S/P hernia repair Family History Father Myocardial infarction Denies family history of Colon cancer Ovarian cancer Prostate cancer Breast cancer Social History Smoking Status: Current every day smoker Tobacco Type: Cigarettes packs per day: 1.5; Cigarettes Per Day: 20; Second Hand Exposure: Yes; Hx Alcohol Use: Yes Alcohol type: beer Alcohol Intake Frequency: Monthly or Less Hx Substance Use: No Preferred Language: Azeri Communication Ability: Effective Visual Impairment: No Limitations Hearing Ability: Hard of Hearing 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 Beliefs That Will Affect Care: None marital status: Current Living Situation: Alone current occupational status: retired Feels Safe at Home: Yes Dental Care, Regularly: No Physical Activity Frequency: Daily Assistive Devices: Oxygen - Continuous Review of Systems Review of Systems: All systems reviewed & are unremarkable except as noted in HPI & below Nothing additional to add Physical Exam Physical Exam: General: no acute distress and stated age Head: normocephalic, no masses, lesions, tenderness or abnormalities Eyes: conjunctiva are pink and non-injected, sclera clear Neck: supple, no adenopathy, no bruits, normal jugular venous pulse, no hepatojugular reflux Chest: normal shape and normal respiratory effort Lungs: clear to auscultation and percussion Cardiac Exam: - regular rate & rhythm, no murmurs gallops or rubs - normal S1, normal S2 Pulses: 2(+) throughout Abdomen: abdomen soft, non-tender, no abnormal masses and no hepatosplenomegaly Musculoskeletal: no gait disturbance, no joint inflammation, no deforming arthritis Extremities: no edema and no cyanosis Neuro: grossly normal exam Results & Data ([facility]) Vital Signs (Past 12 Hours) Vital Signs Temp Pulse Pulse Resp BP BP Pulse Ox 05/22/20 07:27 36.3 C L 86 20 164/86 H 97 05/22/20 05:08 164/82 H 05/22/20 04:11 109 H 20 86 L 05/22/20 00:17 36.8 C 74 18 126/71 92 05/21/20 23:45 75 Laboratory Results Laboratory Results - last 24 hr 05/21/20 05/22/20 05/22/20 14:48 05:36 05:36 WBC 7.68 RBC 4.82 Hgb 15.1 Hct 45.9 MCV 95.2 MCH 31.3 MCHC 32.9 RDW Std Deviation 52.4 H RDW Coeff of Linsey 15.0 H Plt Count 171 MPV 10.3 APTT 65.5 H* PTT Ratio 2.3 Sodium 133 L Potassium 4.2 D Chloride 97 L Carbon Dioxide 33 H Anion Gap 3.0 BUN 12 Creatinine 0.76 Est Cr Clr Drug Dosing 93.0 Est GFR ( Amer) 104.2 Est GFR (Non-Af Amer) 89.9 BUN/Creatinine Ratio 16.1 Glucose 100 H Osmolality Calcium 8.6 Total Bilirubin 0.5 AST 18 ALT 18 Alkaline Phosphatase 94 Total Protein 6.3 L Albumin 3.0 L Globulin 3.3 Albumin/Globulin Ratio 0.9 Triglycerides 127 Cholesterol 152 LDL Cholesterol, Calc 78 VLDL Cholesterol, Calc 25 HDL Cholesterol 49 Cholesterol/HDL Ratio 3 Urine Osmolality Ur Random Sodium 05/22/20 05/22/20 05/22/20 08:22 10:15 10:15 WBC RBC Hgb Hct MCV MCH MCHC RDW Std Deviation RDW Coeff of Linsey Plt Count MPV APTT PTT Ratio Sodium Potassium Chloride Carbon Dioxide Anion Gap BUN Creatinine Est Cr Clr Drug Dosing Est GFR ( Amer) Est GFR (Non-Af Amer) BUN/Creatinine Ratio Glucose Osmolality 286 Calcium Total Bilirubin AST ALT Alkaline Phosphatase Total Protein Albumin Globulin Albumin/Globulin Ratio Triglycerides Cholesterol LDL Cholesterol, Calc VLDL Cholesterol, Calc HDL Cholesterol Cholesterol/HDL Ratio Urine Osmolality Pending Ur Random Sodium Pending Medications Administered Current Inpatient Medications Acetaminophen (Acetaminophen 325 Mg Tab) 650 mg PO Q4H PRN PRN Reason: pain/fever Stop: 06/19/20 10:48 Last Admin: 05/21/20 18:33 Dose: 650 mg Documented by: Albuterol (Albut/Ipratrop 3mg/0.5mg Neb 3 Ml Vial) 3 ml INH QIDR PRN PRN Reason: Wheezing Stop: 06/19/20 10:48 Last Admin: 05/21/20 19:41 Dose: 3 ml Documented by: Albuterol (Albuterol 0.5% Neb Soln 2.5 Mg/0.5 Ml Vial) 2.5 mg NEB Q2H PRN PRN Reason: SOB/Wheeze Stop: 06/19/20 10:48 Last Admin: 05/22/20 04:11 Dose: 2.5 mg Documented by: Aspirin (Aspirin 81 Mg Ectab) 81 mg PO QAM [facility] Stop: 06/21/20 08:59 Last Admin: 05/22/20 07:44 Dose: 81 mg Documented by: Benzonatate (Benzonatate 100 Mg Capsule) 100 mg PO TID PRN PRN Reason: Cough Stop: 06/19/20 10:48 Last Admin: 05/21/20 07:37 Dose: 100 mg Documented by: Guaifenesin (Guaifenesin 600 Mg Tabcr) 600 mg PO Q12 [facility] Stop: 06/19/20 13:29 Last Admin: 05/22/20 07:44 Dose: 600 mg Documented by: Guaifenesin/Dextromethorphan (Guaifenesin/Dextrom Syrup 100mg/10mg 5ml Udc) 5 ml PO Q6H PRN PRN Reason: Cough Stop: 06/19/20 17:48 Last Admin: 05/22/20 05:53 Dose: 5 ml Documented by: Azithromycin 250 mg/ Dextrose 252.5 mls @ 125 mls/hr IV DAILY [facility] Stop: 05/29/20 08:59 Last Infusion: 05/22/20 10:01 Dose: Infused Documented by: Lorazepam (Ativan) 0.25 mg in 0.5 mls @ 0.5 mls/min IV Q4H PRN PRN Reason: Agitation Stop: 06/21/20 08:01 Furosemide 20 mg/ Syringe 2 mls @ 4 mls/min IV ONE ONE Stop: 05/22/20 11:01 Losartan Potassium (Losartan Potassium 50 Mg Tab) 50 mg PO DAILY [facility] Stop: 06/19/20 10:59 Last Admin: 05/22/20 07:45 Dose: 50 mg Documented by: Metoprolol Tartrate (Metoprolol Tartrate 25 Mg Tab) 25 mg PO BID [facility] Stop: 06/19/20 10:59 Last Admin: 05/22/20 07:44 Dose: 25 mg Documented by: Ondansetron HCl (Ondansetron Inj 2 Mg/Ml 2 Ml Vial) 4 mg IV Q6H PRN PRN Reason: Nausea Stop: 06/19/20 10:48 Pantoprazole Sodium (Pantoprazole 40 Mg Tab) 40 mg PO DAILY [facility] Stop: 06/19/20 10:59 Last Admin: 05/22/20 07:45 Dose: 40 mg Documented by: Rivaroxaban (Rivaroxaban 15 Mg Tab) 15 mg PO BID [facility] Stop: 06/11/20 09:01 Last Admin: 05/22/20 07:44 Dose: 15 mg Documented by:
--- NOTE | 2020-05-22 08:48 | XRay Report ---
XR chest 1V portable CLINICAL HISTORY: Shortness of breath. COMPARISON STUDY: Chest radiograph May 19, 2020. Chest CT May 20, 2020 FINDINGS: Lung volumes are normal. There is no pneumothorax or pleural effusion. There is severe emph ysema. Cardiomegaly is unchanged. There is no evidence for pulmonary edema. No consolidation is ident ified. IMPRESSION: No acute cardiopulmonary findings. Emphysema. ACT 112: Negative or not required by law. Electronically signed by: Bryant Blackburn M.D. 05/22/2020 8:47 AM
[2020-05-22] MEDS ORDERED: ASPIRIN 81 MG ECTAB PO SCH (09:00)
[2020-05-22] MEDS ORDERED: AZITHROMYCIN 250 MG in DEXTROSE 5% 250 ML IV SCH (09:00)
[2020-05-22] MEDS ORDERED: methylPREDNISolone 40 MG in SYRINGE 0 ML IV SCH (10:30)
[2020-05-22] MEDS ORDERED: FUROSEMIDE 20 MG in SYRINGE 0 ML IV ONE (11:00)
[2020-05-22] MEDS ORDERED: POLYETHYLENE (MIRALAX) 17 GM PACK PO SCH (11:00)
[2020-05-22] MEDS: DOCUSATE SODIUM 100 MG CAP PO SCH ×2 (11:10→20:31)
[2020-05-22] MEDS: ALBUT/IPRATROP 3MG/0.5MG NEB 3 ML VIAL INH PRN ×2 (12:52→18:30)
[2020-05-23] MEDS: ACETAMINOPHEN 325 MG TAB PO PRN (00:35)
[2020-05-23] MEDS: ALBUT/IPRATROP 3MG/0.5MG NEB 3 ML VIAL INH PRN (01:49)
--- NOTE | 2020-05-23 07:44 | Discharge Summary ---
Date of Service May 23, 2020 Admission HPI Per Admitting Provider Jaylen is a 74-year-old male with a past medical history of COPD, tobacco abuse, hyperlipidemia, hypertension, and GERD who presents to the emergency department for evaluation of 3 to 4 days of back pain, rib pain, and shortness of breath with concerns for Covid. Mr. Munson reports he came to hospital because "I couldn't breath!" He started feeling short of breath Sunday evening (3-4 days ago) and experienced slowly progressive shortness of breath since. Tried using nebulizer solution which may have helped a bit. He endorses a cough productive for clear phlegm. Endorses chills, denies fevers. Denies chest pain, chest pressure. Endorses abdominal pain 'around my stomach.' Pt reports he has a hx of peptic ulcers which have produced similar pain. no diarrhea, constipation, loss of taste or smell. He denies recent sick contacts. he reports several family members have had covid, but he has not been around them in the last few days. Review of admitting labs show no leukocytosis, hemoglobin of 18, sodium 134, potassium pending, normal creatinine, mildly elevated alkaline phosphatase with normal transaminitis, negative troponin. No signs of infection on UA. Covid testing pending at time of assessment. All bladder ultrasound unremarkable. EKG shows sinus tachycardia with no T wave inversions in lead III. Medical history: Reviewed Surgical history: Reviewed Medications: Reviewed Social history: Endorses intermittent history of cigarette use 'how much depends on how I feel.' Lives in an apartment underneath his daughters home. CODE STATUS: Full Code Admission Exam Per Admitting Provider General: A&Ox3. NAD. Cooperative. HEENT: Atraumatic, normocephalic. PERLAA. No facial asymmetry. MM moist. Pulm:Diffuse expiratory wheeze. On nasal cannula. No resiratory distress. Cardiac: RRR, -mrg. Radial pulses intact and symmetrical. Abdominal: Nontender, nondistended, soft. BS present. MSK: Moving all extremities equally. RLE warm, 1cm larger at calf circumference. Principal Diagnosis Acute Respiratory Failure secondary to PE/COPD Discharge Exam Constitutional WD/WN, vitals as above comfortable; no acute distress Eyes + anicteric sclerae and PERRL Neck normal visual inspection and trachea midline Respiratory normal respiratory effort, + cough (occassional, decreased) and able to speak in complete sentences; no labored breathing and not tachypneic Auscultation: + diminished lung sounds, + crackles (bibasilar) and + wheezes (end expiratory wheezing R posterior lung lópez) Cardiovascular RRR, no murmur, no edema Gastrointestinal (Abdomen) normal bowel sounds, soft, nontender, no hepatosplenomegaly Musculoskeletal no cyanosis or clubbing, extremities motor strength 5/5 Neurologic PERRL, EOMI, accommodation nl, no face palsy, no dysarthria Psychiatric Orientation: alert, oriented x 3 and cooperative Lymphatic no cervical or axillary lymphadenopathy Discharge Data Allergies Allergy/AdvReac Type Severity Reaction Status Date / Time CHARO Inhibitors Allergy Unknown GMG LIST Verified 05/19/20 23:42 prednisone AdvReac Severe AGGRESSIVE Verified 05/19/20 23:42 ketoprofen AdvReac Intermediate HAND Verified 05/19/20 23:42 SWELLING oxaprozin AdvReac Intermediate HAND Verified 05/19/20 23:42 SWELLING Consultations 05/20/20 05:55 ED Decision to Admit Stat 05/21/20 17:46 Consult Cardiology Routine Ordered Studies 05/20/20 00:59 US gallbladder Urgent 05/20/20 03:01 CT angio chest PE protocol Urgent 05/20/20 13:30 US venous doppler LE RT Routine Hospital Course (1) Acute respiratory failure with hypoxia: Jaylen is a 74-year-old male with a past medical history of COPD, tobacco abuse, hyperlipidemia, hypertension, and GERD who presents to the emergency department for evaluation of 3 to 4 days of back pain, rib pain, and shortness of breath with concerns for Covid. PE Acute Hypoxic Respiratory Failure secondary to PE/COPD exacerbation -- of note, recently quit smoking EKG with sinus tachycardia Diffuse expiratory wheezing on admission --> improved RLE with warmth, mild swelling. No erythema. --> improved CTA slightly limited by artifact, potentially concerning for segmental and subsegmental thrombus. Given clinical picture with calf swelling and warmth with following shortness of breath and hypoxia with sinus tachycardia on EKG and was placed on Heparin gtt and transitioned to Xarelto 15mg BID evening of 05/21 to continue for 21 days then 20mg daily. Provided patient with coupon. Doppler NEGATIVE for DVT Given mucinex, nebs, tessalon pearls prn cough. Sputum with normal kayy. Got three days of Azithromycin but didn't want to continue this. US GB with sludge but no evidence of acute qiana. ECHO with LV systolic function normal. Aortic valve sclerosis moderate, without sign valvular stenosis. RVSP elevated at 40-50mmHg. Patient to be on CPAP at night but had not been compliant with such. ENcouraged use given elevated pulmonary pressures and significant emphysema and prior need for CPAP. Was 92% on RA prior to discharge AMA Patient signed out AMA 7am on 05/23 before being seen by provider. Called this afternoon and sent rx for Xarelto this morning. Patient still with shortness of breath when answering the phone. Stressed importance of anticoagulation to treat PE and he should really be continued on this medication. Patient to have daughter draft roller picker but said "she is out to eat with her boyfriend and things have been going well and I don't want to bother them" despite her living on the floor below him in the apartment building. CM to contact daughter Petrona about importance of picking up this medication and giving to her father. Stressed he should really be seen in follow up with his PCP TANYA. Will need f/u imaging for pulmonary nodules seen on CTA as outpatient in next 6-12 months. Concerns for malignancy given hyponatremia and urine/serum osm c/w SIADH and nodules seen on CT CAD/HTN/HLD - Hx GA with stenting in April 2016 and had been on ASA/Plavix up until 2018. Patient states he had self discontinued these after taking for a year as well as the atorvastatin (has been taking fish oil and garlic instead) - Continue metoprolol 25mg BID, losartan 50mg daily. BP 143/76 - Lipid panel w/o abn - Trop negative on admission - Discussed with patient about antiplatelet therapy and he would be agreeable to aspirin at this time but unclear for how long he will take this. Will place on 81mg ASA daily. Monitor for bleeding as on anticoagulation now for PE - Will arrange for cardiology f/u outpatient COPD DuoNebs Azithromycin 5 days (only got 3 days before signing out AMA) Flutter valve IS WA SPO2 as needed goal greater than 89% Covid negative Tessalon Perles as needed, mucinex added, cough syrup - sputum with normal kayy - smoking cessation encouraged -- he did previously quit and then restart several months ago - consider steroids but hold off for now given hx agitation/aggression on prednisone in the past Chronic Neck Pain -Tylenol 650 mg every 4 hours as needed Heating pad as needed GERD Continued PPI, convert omeprazole to Protonix Hypertension Continued losartan 50 mg p.o. daily Continued metoprolol 25 mg p.o. twice daily tartrate - BP 164/86 but elevated to 221/134 at discharge demanding to leave AMA Should follow up with PCP HLD Hx of such and had been on lipitor. discontinued by patient Lipid panel acceptable DVT Prophylaxis -- Heparin --> transition to Xarelto as above Patient left AMA before provider able to come talk with him. Sent in rx for Xarelto. To draft roller picker and start. CM to contact daughter Petrona to stress importance and draft roller picker for her father. Called patient this afternoon and discussed anticoagulation and that he should continue this to prevent complications, worsening hypoxia/sob, . He stated "they wanted to push me too far and I couldn't do what I wanted to while I was there. Sorry. I plan on seeing you guys again soon." He was also fixated on song that he wrote (while in the hospital...seen on paper day prior) and had been calling radio stations to see about getting it on the air. (2) COPD (chronic obstructive pulmonary disease): (3) Current every day smoker: (4) GERD (gastroesophageal reflux disease): (5) Hyperlipidemia: (6) Hypertension: Total Time Total Time Spent Total Time Spent (In Minutes): 70 Discharge Plan Discharge Items Patient Disposition: Against Medical Advice Reason For Visit: SOB Activity: Resume your previous activity Non-emergency contact: Primary Care Provider Follow-up/Referrals: Skinny Toure, [Primary Care Provider] - Pending Studies at Discharge: Yes Stand-Alone Forms: My [facility] [employer], Smoking Cessation Medications and DC Order Prescriptions: New Xarelto 15 mg Tablet 15 mg PO BID 19 Days Qty: 38 RF: 0 rivaroxaban 20 mg tablet 20 mg PO PM Qty: 30 RF: 2 Continued losartan 50 mg tablet 50 mg PO DAILY Qty: 90 RF: 3 nitroglycerin 0.4 mg tablet, sublingual 0.4 mg sublingual UD PRN (Reason: Chest Pain) RF: 0 omeprazole 20 mg capsule,delayed release(DR/EC) 20 mg PO DAILY RF: 0 ipratropium-albuterol 0.5 mg-3 mg(2.5 mg base)/3 mL solution for nebulization 3 ml INHALATION QID PRN (Reason: Wheezing) RF: 0 garlic 1,000 mg Capsule 3,000 mg PO BID RF: 0 ascorbic acid (vitamin C) [Vitamin C] 1,000 mg Tablet 1,000 mg PO DAILY RF: 0 milk thistle 150 mg Capsule 0 mg PO BID RF: 0 cholecalciferol (vitamin D3) [Vitamin D3] 25 mcg (1,000 unit) Capsule 25 mcg PO DAILY RF: 0 omega 9-xei-kdp-fish oil [Fish Oil] 1,000 mg (120 mg-180 mg) Capsule 1 cap PO TID RF: 0 niacin 50 mg Tablet 0 mg PO BID RF: 0 metoprolol tartrate 25 mg tablet 25 mg PO BID RF: 0 Discharge Orders: Left Against Medical Advice (Routine); Ordered 05/23/20 Ordered By: Dave Sylvester Admission Data Admit Date/Time: 05/20/20 06:42 Attending Provider: Dave Sylvester Admit Provider: Cami Chatterjee Primary Care Provider: Skinny Toure Other Providers: Cami Chatterjee ; Zeferino Magana Other Interventions: Discharge Summary Assessment (RN) Last Done: 05/23/20 07:23 Coding Level of Care Code D/C Day Management >30 mins Diagnoses Acute respiratory failure with hypoxia J96.01 COPD (chronic obstructive pulmonary disease) J44.9 Current every day smoker F17.200 GERD (gastroesophageal reflux disease) K21.9 Hyperlipidemia E78.5 Hypertension I10
== END 2020-05-23 07:55 | disposition left against medical advice (07) ==
LOC: ED 23:29 → 2N 05-20 06:42 → SUATTDRO 05-20 06:42 → INTOOBSV 05-20 06:42 → 2N 05-20 10:12
DX: K21.9 Gastro-esophageal reflux disease without esophagitis; I26.99 Other pulmonary embolism without acute cor pulmonale; Z20.822 Contact with and (suspected) exposure to COVID-19; I25.2 Old myocardial infarction; F17.210 Nicotine dependence, cigarettes, uncomplicated; G47.33 Obstructive sleep apnea (adult) (pediatric); J96.01 Acute respiratory failure with hypoxia; E78.5 Hyperlipidemia, unspecified; Z79.899 Other long term (current) drug therapy; I10 Essential (primary) hypertension; M54.2 Cervicalgia; Z88.8 Allergy status to other drugs, medicaments and biological substances; J44.1 Chronic obstructive pulmonary disease with (acute) exacerbation

== ENCOUNTER 2021-01-15 20:35 | Observation (INO) ==
[2021-01-15 21:27] LABS: Basophils # (auto) 0.06 K/uL (0-0.2); Basophils % (auto) 0.6 %; Eosinophils # (auto) 0.21 K/uL (0-0.5); Hematocrit (blood only) 53.8 % (42-52); Hemoglobin 17.9 g/dL (14.0-18.0); Immature Granulocytes # (auto) 0.02 K/uL (0.00-0.02); Immature Granulocytes % (auto) 0.2 %; Lymphocytes # (auto) 1.56 K/uL (1.2-3.4); Mean Corpuscular Hemoglobin 31.3 pg (25-34); Mean Corpuscular Hgb Conc 33.3 g/dL (32-36); Mean Corpuscular Volume 94.2 fL (80-100); Mean Platelet Volume 10.8 fL (7.4-10.4); Monocytes # (auto) 0.78 K/uL (0.11-0.59); Monocytes % (auto) 7.5 %; Neutrophils # (auto) 7.74 K/uL (1.4-6.5); Neutrophils % (auto) 74.7 %; Platelet Count 174 K/uL (130-400); RDW Coefficient of Variation 14.1 % (11.5-14.5); RDW Standard Deviation 48.7 fL (36.4-46.3); Red Blood Count 5.71 M/uL (4.7-6.1); White Blood Count 10.37 K/uL (4.8-10.8)
[2021-01-15 21:38] LABS: Alanine Aminotransferase 32 U/L (12-78); Aspartate Aminotransferase 35 U/L (15-37); BUN Creatinine Ratio 11.3 (10-20); Blood Urea Nitrogen 11 mg/dl (7-18); Carbon Dioxide 33 mmol/L (21-32); Chloride 94 mmol/L (98-107); Creatinine Clr Calc Pharmacy 65.1 ml/min; Est GFR (African American) 87.1 ml/min; Est GFR (Non-African American) 75.1 ml/min; Glucose 124 mg/dl (70-99); Magnesium 1.9 mg/dl (1.8-2.4); Potassium 4.5 mmol/L (3.5-5.1); Sodium 130 mmol/L (136-145)
--- NOTE | 2021-01-15 21:38 | Emergency Department Note ---
Impression & Plan Acute hypoxemic respiratory failure, Current every day smoker, COPD (chronic obstructive pulmonary disease) ED Provider Note NAME: DINA WALLACE AGE: 75 SEX: M : 1945 ARRIVES VIA: Ambulance INFORMANT: Patient, ED PROVIDER(S): Nigel Hinojosa MD Chief Complaint: Shortness of breath HPI: Patient does present as an unvaccinated and noncompliant patient. Patient reportedly was brought in due to concern for hypoxia and shortness of breath. The patient is refusing Covid swabbing or testing. Patient does not believe in Covid. The patient was recently removed from his home due to concern for bedbugs 3 days prior and the patient has been sleeping next to Loraine the last 3 days. The patient has been in a mormonism was reportedly very winded had laid down in bed and on the ground for an unknown period of time before people suggested the patient present to the hospital. Patient is a smoker and does have a history of lung disease. He does use nebulizers. The patient has been taking supplements but has not been taking his medications. Patient denies any fevers chills chest pains. The patient has had cough. Patient denies any lower extremity swelling, nausea, vomiting. Patient symptoms are worse with ambulation and activity and improved with rest. ROS: See HPI for pertinent positives and negatives. A total of 10 systems were reviewed and otherwise negative. Past medical history: See below Surgical history: See below Social history: See below Physical Exam: GENERAL: NAD, [wearing a mask,] non-toxic. Nasal cannula in place. EYE EXAM: Normal conjunctiva. PERRL, no anisocoria and EOM's grossly intact w/o pain. [OROPHARYNX: Moist mucus membranes. Grossly normal dentition. ] NECK: Supple, no nuchal rigidity, no adenopathy, non-tender. No signs of meningismus. LUNGS: Scant wheezes throughout. Normal chest wall mechanics. HEART: NSR, no MRG. ABDOMEN: Abdomen soft, non-tender, normo-active bowel sounds, no masses, no rebound or guarding. BACK: No CVA TTP. SKIN: No rashes and no bruising. UPPER EXTREMITIES: Upper extremities are grossly normal. LOWER EXTREMITIES: Grossly normal, no edema. NEURO EXAM: A&O x3, cranial nerves II-XII grossly intact, normal speech, moves all 4 extremities on command w/o issue. Differential diagnoses: Reactive airway disease, pneumonia, pneumothorax, COPD, CHF, infections, cardiac ischemia, pulmonary embolism, musculoskeletal, benson rointestinal, as well as other pathologies. Course: Patient was seen and evaluated the bedside. Full history physical exam was performed. [EKG interpreted by me] Sinus tachycardia, rate of 107, normal intervals, normal axis. No obvious ST changes. Imaging Studies: See Below [Cardiac monitoring: An order was placed for continuous cardiac monitoring. The monitor shows a rate of 78 with sinus rhythm.] MDM: Patient did present with concern for shortness of breath. Patient was treated symptomatically. Patient stable on 4 L nasal cannula. I did speak to the on- call hospitalist and the patient was better for hypoxic respiratory failure. The patient became refused Covid swabbing. Critical Care: I have personally spent 52 minutes of critical care time in direct management of this patient. This includes bedside care, interpretation of diagnostic studies, and testing, discussion with consultants, patient, and family members, and other require inpatient management activities. This 52 minutes is in excess of all separately billable procedures. Past Med/Surg History Medical History Acute respiratory failure with hypoxia CAD (coronary artery disease) Hypoxia Peptic ulcer Pulmonary nodule Umbilical hernia Surgical History S/P hernia repair Family History Father Myocardial infarction Denies family history of Colon cancer Ovarian cancer Prostate cancer Breast cancer Social History Smoking Status: Current every day smoker Tobacco Type: Cigarettes Age Started Using Tobacco: 17; packs per day: 1.5; Second Hand Exposure: Yes; Hx Alcohol Use: No Hx Substance Use: Yes Last Used Substance: Unknown Preferred Language: Egyptian Communication Ability: Effective Visual Impairment: No Limitations Hearing Ability: Hard of Hearing Deputy Director Required: No Beliefs That Will Affect Care: None marital status: Current Living Situation: Alone and Homeless Current Living Situation Comment: Pt currently homeless due to bedbugs current occupational status: retired Other Information That Helps Us Care for You: No Feels Safe at Home: Yes Safety Concerns: Feels Safe At This Time Childhood Exposure to Second-Hand Smoke: No Dental Care, Regularly: No Physical Activity Frequency: 3-4 Times per Week Seatbelt Use: always Sunscreen Use: Yes Assistive Devices: None Allergies Allergies Allergy/AdvReac Type Severity Reaction Status Date / Time CHARO Inhibitors Allergy Unknown GMG LIST Verified 01/15/21 22:10 prednisone AdvReac Severe AGGRESSIVE Verified 01/15/21 22:10 ketoprofen AdvReac Intermediate HAND Verified 01/15/21 22:10 SWELLING oxaprozin AdvReac Intermediate HAND Verified 01/15/21 22:10 SWELLING Home Meds Home Medications Medication Instructions Recorded Confirmed nitroglycerin 0.4 mg sublingual 0.4 mg SUBLINGUAL UD PRN 01/21/20 01/15/21 tablet Previous Rx's Medication Instructions Recorded miscellaneous medical supply #1 ea 05/26/20 (Blood Pressure Cuff) nebulizer accessories #1 ea 09/13/20 metoprolol tartrate 25 mg tablet 25 mg PO BID #180 tab 12/21/20 ipratropium 0.5 mg-albuterol 3 mg 3 ml INHALATION QID PRN #3 ml 01/06/21 (2.5 mg base)/3 mL nebulization soln Results & Data (ED) Vital Signs Vital Signs - 24 hr 01/15/21 20:30 01/15/21 20:40 01/15/21 21:00 Temperature 36.9 C Temperature Source Oral Pulse Rate 99 H Pulse Rate [Apical] 96 H Respiratory Rate 22 22 Respiratory Effort / Characteristics Non-Labored Spontaneous Non-Labored Spontaneous Respiratory Depth Normal Normal Respiratory Pattern Regular Blood Pressure 182/107 H Blood Pressure [Right Arm] 142/90 H Blood Pressure Mean 132 Blood Pressure Mean [Right Arm] 107 Pulse Oximetry 87 L 87 L 93 Oxygen Delivery Method Room Air Room Air Nasal Cannula Nasal Cannula Oxygen Flow Rate 4 4 Sepsis Recent Fever Within 48 Hours No Sepsis New/Unexplained Change in Mental Status N/A Sepsis Action Taken by Nursing No Action Required Oxygen Flow Rate - Titration 4 Fraction of Inspired Oxygen - Titration Pulse Oximetry Post Tiitration 94 01/15/21 21:09 01/15/21 21:58 01/15/21 23:00 Temperature Temperature Source Pulse Rate 101 H Pulse Rate [Apical] 95 H Respiratory Rate 22 22 Respiratory Effort / Characteristics Non-Labored Spontaneous Respiratory Depth Respiratory Pattern Blood Pressure Blood Pressure [Right Arm] 173/112 H Blood Pressure Mean Blood Pressure Mean [Right Arm] 132 Pulse Oximetry 95 96 96 Oxygen Delivery Method Nasal Cannula Nasal Cannula Nasal Cannula Oxygen Flow Rate 4 4 2 Sepsis Recent Fever Within 48 Hours Sepsis New/Unexplained Change in Mental Status Sepsis Action Taken by Nursing Oxygen Flow Rate - Titration 2 Fraction of Inspired Oxygen - Titration 93 Pulse Oximetry Post Tiitration Home Medications Current Medication List: was personally reviewed by me Laboratory Data Attestation: I reviewed the patient's lab results. Result diagrams: 01/16/21 07:03 01/16/21 07:03 Lab Results 01/15/21 01/15/21 01/15/21 Range/Units 20:45 20:45 20:45 WBC 10.37 (4.8-10.8) K/uL RBC 5.71 (4.7-6.1) M/uL Hgb 17.9 (14.0-18.0) g/dL Hct 53.8 H (42-52) % MCV 94.2 (80-100) fL MCH 31.3 (25-34) pg MCHC 33.3 (32-36) g/dL RDW Std Deviation 48.7 H (36.4-46.3) fL RDW Coeff of Linsey 14.1 (11.5-14.5) % Plt Count 174 (130-400) K/uL MPV 10.8 H (7.4-10.4) fL Immature Gran % (Auto) 0.2 % Neut % (Auto) 74.7 % Lymph % (Auto) 15.0 % [place] % (Auto) 7.5 % Eos % (Auto) 2.0 % Baso % (Auto) 0.6 % Neut # (Auto) 7.74 H (1.4-6.5) K/uL Lymph # (Auto) 1.56 (1.2-3.4) K/uL [place] # (Auto) 0.78 H (0.11-0.59) K/uL Eos # (Auto) 0.21 (0-0.5) K/uL Baso # (Auto) 0.06 (0-0.2) K/uL Immature Gran # (Auto) 0.02 (0.00-0.02) K/uL PT 10.2 (9.0-12.0) Seconds INR 1.0 (0.9-1.1) APTT 29.2 (21.0-31.0) Seconds PTT Ratio 1.1 Sodium 130 L (136-145) mmol/L Potassium 4.5 (3.5-5.1) mmol/L Chloride 94 L (98-107) mmol/L Carbon Dioxide 33 H (21-32) mmol/L Anion Gap 3.0 (3-11) BUN 11 (7-18) mg/dl Creatinine 0.98 (0.6-1.4) mg/dl Est Cr Clr Drug Dosing 65.1 ml/min Est GFR ( Amer) 87.1 ml/min Est GFR (Non-Af Amer) 75.1 ml/min BUN/Creatinine Ratio 11.3 (10-20) Glucose 124 H (70-99) mg/dl Calcium 9.0 (8.5-10.1) mg/dl Magnesium 1.9 (1.8-2.4) mg/dl Total Bilirubin 0.8 (0.2-1) mg/dl AST 35 (15-37) U/L ALT 32 (12-78) U/L Alkaline Phosphatase 125 H (45-117) U/L Troponin I < 0.015 (0-0.045) ng/ml Total Protein 7.9 (6.4-8.2) gm/dl Albumin 4.0 (3.4-5.0) gm/dl Globulin 3.9 (2.5-4.0) gm/dl Albumin/Globulin Ratio 1.0 (0.9-2) Specimen Hemolysis Urine Color Urine Appearance (Clear) Urine pH (4.5-7.5) Ur Specific [place] (1.000-1.030) Urine Protein (Negative) Urine Glucose (UA) (Negative) Urine Ketones (Negative) Urine Blood (Negative) Urine Nitrite (Negative) Urine Bilirubin (Negative) Urine Urobilinogen (Negative) Ur Leukocyte Esterase (Negative) Urine WBC (Auto) (0-5) /hpf Urine RBC (Auto) (0-4) /hpf U Hyaline Cast (Auto) (0-5) /lpf U Epithel Cells (Auto) (0-5) /lpf Urine Bacteria (Auto) (Negative) 01/15/21 Range/Units 21:30 WBC (4.8-10.8) K/uL RBC (4.7-6.1) M/uL Hgb (14.0-18.0) g/dL Hct (42-52) % MCV (80-100) fL MCH (25-34) pg MCHC (32-36) g/dL RDW Std Deviation (36.4-46.3) fL RDW Coeff of Linsey (11.5-14.5) % Plt Count (130-400) K/uL MPV (7.4-10.4) fL Immature Gran % (Auto) % Neut % (Auto) % Lymph % (Auto) % [place] % (Auto) % Eos % (Auto) % Baso % (Auto) % Neut # (Auto) (1.4-6.5) K/uL Lymph # (Auto) (1.2-3.4) K/uL [place] # (Auto) (0.11-0.59) K/uL Eos # (Auto) (0-0.5) K/uL Baso # (Auto) (0-0.2) K/uL Immature Gran # (Auto) (0.00-0.02) K/uL PT (9.0-12.0) Seconds INR (0.9-1.1) APTT (21.0-31.0) Seconds PTT Ratio Sodium (136-145) mmol/L Potassium (3.5-5.1) mmol/L Chloride (98-107) mmol/L Carbon Dioxide (21-32) mmol/L Anion Gap (3-11) BUN (7-18) mg/dl Creatinine (0.6-1.4) mg/dl Est Cr Clr Drug Dosing ml/min Est GFR ( Amer) ml/min Est GFR (Non-Af Amer) ml/min BUN/Creatinine Ratio (10-20) Glucose (70-99) mg/dl Calcium (8.5-10.1) mg/dl Magnesium (1.8-2.4) mg/dl Total Bilirubin (0.2-1) mg/dl AST (15-37) U/L ALT (12-78) U/L Alkaline Phosphatase (45-117) U/L Troponin I (0-0.045) ng/ml Total Protein (6.4-8.2) gm/dl Albumin (3.4-5.0) gm/dl Globulin (2.5-4.0) gm/dl Albumin/Globulin Ratio (0.9-2) Specimen Hemolysis Urine Color Yellow Urine Appearance Clear (Clear) Urine pH 8.5 H (4.5-7.5) Ur Specific [place] 1.010 (1.000-1.030) Urine Protein Negative (Negative) Urine Glucose (UA) Negative (Negative) Urine Ketones Negative (Negative) Urine Blood Negative (Negative) Urine Nitrite Negative (Negative) Urine Bilirubin Negative (Negative) Urine Urobilinogen Negative (Negative) Ur Leukocyte Esterase Trace H (Negative) Urine WBC (Auto) 1-5 (0-5) /hpf Urine RBC (Auto) 0-4 (0-4) /hpf U Hyaline Cast (Auto) 1-5 (0-5) /lpf U Epithel Cells (Auto) 10-20 H (0-5) /lpf Urine Bacteria (Auto) Negative (Negative) Administered Medications Acetaminophen (Acetaminophen 325 Mg Tab) 650 mg PO Q4H PRN PRN Reason: pain/fever Stop: 02/15/21 01:55 Last Admin: 01/16/21 11:34 Dose: 650 mg Documented by: [id number] Admin: 01/16/21 06:13 Dose: 650 mg Documented by: [id number] Albuterol (Albuterol Hfa 8 Gm Inhaler) 1 puffs [facility]H [facility] Stop: 02/15/21 06:59 Last Admin: 01/16/21 15:43 Dose: 1 puffs Documented by: [id number] Admin: 01/16/21 11:13 Dose: 1 puffs Documented by: [id number] Admin: 01/16/21 08:06 Dose: 1 puffs Documented by: [id number] Guaifenesin (Guaifenesin 600 Mg Tabcr) 1,200 mg PO Q12 [facility] Stop: 02/15/21 08:59 Last Admin: 01/16/21 08:02 Dose: 1,200 mg Documented by: [id number] Azithromycin 250 mg/ Dextrose 252.5 mls @ 125 mls/hr IV Q24H [facility] Stop: 01/23/21 08:59 Last Infusion: 01/16/21 10:07 Dose: 0 mls/hr Documented by: [id number] Admin: 01/16/21 08:03 Dose: 125 mls/hr Documented by: [id number] Ipratropium Castor (Ipratropium Castor Hfa Inhaler) 1 puffs [facility]H [facility] Stop: 02/15/21 06:59 Last Admin: 01/16/21 15:43 Dose: 1 puffs Documented by: [id number] Admin: 01/16/21 11:13 Dose: 1 puffs Documented by: [id number] Admin: 01/16/21 08:06 Dose: 1 puffs Documented by: [id number] [place]idoc[place] ([place]ocaine 5% 1 Patch) [facility] [place] [facility] [place]: 02/15/21 10:29 Last Admin: 01/16/21 11:36 Dose: 2 patch Documented by: [id number] Losartan Potassium (Losartan Potassium 50 Mg Tab) 50 mg PO QAM [facility] Stop: 02/15/21 08:59 Last Admin: 01/16/21 08:02 Dose: 50 mg Documented by: [id number] Metoprolol Tartrate (Metoprolol Tartrate 25 Mg Tab) 25 mg PO BID [facility] Stop: 02/15/21 08:59 Last Admin: 01/16/21 08:03 Dose: 25 mg Documented by: [id number] Prednisone (Prednisone 20 Mg Tab) 40 mg PO DAILY [facility] Stop: 02/15/21 08:59 Last Admin: 01/16/21 08:02 Dose: 40 mg Documented by: [id number] Discontinued Medications Magnesium Sulfate/Dextrose (Magnesium Sulfate / D5w) 1 gm in 100 mls @ 100 mls/hr IV NOW STA Stop: 01/15/21 22:48 Last Infusion: 01/15/21 23:09 Dose: 0 mls/hr Documented by: [id number] Admin: 01/15/21 21:56 Dose: 100 mls/hr Documented by: [id number] Piperacillin Sod/Tazobactam Sod (Zosyn) 4.5 gm in 120 mls @ 240 mls/hr IV NOW ONE Stop: 01/15/21 22:19 Last Infusion: 01/15/21 23:09 Dose: 0 mls/hr Documented by: [id number] Admin: 01/15/21 22:26 Dose: 240 mls/hr Documented by: [id number] Azithromycin 500 mg/ Dextrose 255 mls @ 127.5 mls/hr IV NOW STA Stop: 01/16/21 01:51 Last Infusion: 01/16/21 03:45 Dose: 0 mls/hr Documented by: [id number] Admin: 01/16/21 00:37 Dose: 127.5 mls/hr Documented by: [id number] Sodium Chloride (Nss 1000ml) 1,000 mls @ 80 mls/hr IV .[id number] [facility] Stop: 01/16/21 14:25 Last Infusion: 01/16/21 16:02 Dose: 0 mls/hr Documented by: [id number] Admin: 01/16/21 03:41 Dose: 80 mls/hr Documented by: [id number] Methylprednisolone (Methylprednisolone 40 Mg/Ml Vial) 40 mg IV NOW STA Stop: 01/15/21 22:00 Last Admin: 01/15/21 22:26 Dose: 40 mg Documented by: [id number] Nicotine (Nicotine 21 Mg/24 Hr Tdsy) 21 mg TD QAM [facility] Stop: 02/15/21 10:29 Last Admin: 01/16/21 11:35 Dose: Not Given Documented by: [id number] Imaging Data Radiologist's Impression: Chest X-Ray 01/15/21 21:09 XR chest 1V portable HISTORY: Shortness of breath. Atypical chest pain. COMPARISON: Chest 05/22/2020. FINDINGS: Emphysema. No pneumothorax. The heart is normal in size. Progressive of the bibasilar interstitial opacities. No evidence for pulmonary edema. No pleural effusions. IMPRESSION: Progressive bibasilar interstitial airspace opacities. This could be due to vascular crowding from the emphysema or developing pneumonia. ACT 112: Negative or not required by law. Electronically signed by: Terrance Gray M.D. 01/16/2021 9:51 AM Discharge Plan Visit Data Chief Complaint: Shortness of Breath/Dyspnea Stated Complaint: UNRESPONSIVE ED Provider: Nigel Hinojosa Discharge Problem: Acute hypoxemic respiratory failure, Current every day smoker, COPD (chronic obstructive pulmonary disease) Patient Disposition: Admitted As Inpatient Discharge Instructions Interventions: ED Discharge Assessment Last Done: 01/16/21 01:34
[2021-01-15 21:41] LABS: Partial Thromboplastin Ratio 1.1; Partial Thromboplastin Time 29.2 Seconds (21.0-31.0); Prothrombin Time 10.2 Seconds (9.0-12.0)
[2021-01-15 21:42] LABS: Alkaline Phosphatase 125 U/L (45-117); Bilirubin,Total 0.8 mg/dl (0.2-1); Globulin 3.9 gm/dl (2.5-4.0); Total Protein 7.9 gm/dl (6.4-8.2); Troponin I < 0.015 ng/ml (0-0.045)
[2021-01-15] MEDS ORDERED: MAGNESIUM SULFATE / D5W 1 GM/100 ML BAG IV STA (21:49)
[2021-01-15] MEDS ORDERED: PIPERACILL/TAZOBAC CONSULT ACTIVE PRN (21:50)
[2021-01-15] MEDS ORDERED: PIPERACILLIN/TAZOBACTAM 4.5 GM/120 ML BAG IV ONE (21:50)
[2021-01-15 22:08] LABS: Appearance Urine Clear (Clear); Bacteria Urine Automated Negative (Negative); Bilirubin Urine Negative (Negative); Blood Urine Negative (Negative); Color Urine Yellow; Glucose Urine UA Negative (Negative); Ketones Urine Negative (Negative); Leukocyte Esterase Urine Trace (Negative); Nitrite Urine Negative (Negative); Protein Urine Negative (Negative); RBC Urine Automated 0-4 /hpf (0-4); Urobilinogen Urine Negative (Negative); pH Urine 8.5 (4.5-7.5)
[2021-01-15] MEDS ORDERED: AZITHROMYCIN 500 MG in DEXTROSE 5% 250 ML IV STA (23:52)
--- NOTE | 2021-01-15 23:53 | History & Physical Report ---
Date of Service January 15, 2021 Assessment & Plan (1) Shortness of breath: Plan: 75yo male presents with progressive SOB, acute hypoxic respiratory failure requiring supplemental O2. Presently saturating 95% on 2L. Diffuse wheezing. Suspect COPD exacerbation -Admit to medical -Check procalcitonin -Combivent q 6 hours -Albuterol HFA PRN -Prednisone 40mg po daily - patient has become aggitated on higher steroid doses -Guaifenesin BID -Azithromycin 500mg IV now then 250mg IV daily Patient refuses to allow staff to check him for Covid-19. Explained to him that it is hospital policy to check all patients for Covid-19 prior to their transfer to floor to protect staff, other patients. Patient continues to refuse testing. Will admit to isolated room - maintain Covid-19 precautions (2) CAD (coronary artery disease): Plan: Patient with history of CT with stent placement in April 2016. He had been on ASA and Plavix until 2018 then self discontinued these agents as well as discontinuing atorvastatin. Patient denies chest pain at this time. -Continue Metoprolol -Resume Losartan -Encourage patient to take ASA and Atorvastatin (3) COPD (chronic obstructive pulmonary disease): Plan: Management as above Patient continues to smoke (4) GERD (gastroesophageal reflux disease): Plan: Patient was previously on Omeprazole. Does not complain of GERD symptoms. Uncertain if he is taking Omeprazole Will continue to hold (5) Hypertension: Plan: Chronic. Blood pressure elevated -Continue Metoprolol 25mg po BID. Patient was formerly on Losartan for BP control - has not been taking this. Plan: F/E/N - NSS at 80 mL/hr x 1L, electrolytes WNL, AHA diet as tolerated PPx - Lovenox Code -Full Dispo - Admit to medical History of Present Illness Chief Complaint: SHORTNESS OF BREATH Primary Care Provider: DO Jaylen Fortunecarlota is a 75yo male with history of CAD, HTN, HLP, COPD, GERD presenting with shortness of breath. Patient is presently homeless. He states that he recently had to leave his apartment due to bedbugs. He had nowhere to go so he was temporarily living outside by [place] for several days. He recently started staying at a local [facility]. His first night at the christian was last night. Patient went downtown this evening to get dinner prior to returning to the [facility] to sleep. He states that he became short of breath and had to sit down on the curb. Reports chest tightness and couldn't breath. EMS was called - patient reportedly 84% on room air when they arrived. He was placed on NC with improvement. He reports progressive SOB for the last 5 months. Was previously on Rivaroxaban for history of PE diagnosed in May. He self- discontinued - now states that he eats wild leeks and garlic to thin his blood Has prior history of Covid-19 infection. Refuses Covid-19 testing. Is not vaccinated. In the ER patient afebrile, HD stable, NAD. Placed on NC with improvement in saturations ER Course: Magnesium, Solumedrol, Zosyn, Azithromycin Allergies Allergy/AdvReac Type Severity Reaction Status Date / Time CHARO Inhibitors Allergy Unknown GMG LIST Verified 01/15/21 22:10 prednisone AdvReac Severe AGGRESSIVE Verified 01/15/21 22:10 ketoprofen AdvReac Intermediate HAND Verified 01/15/21 22:10 SWELLING oxaprozin AdvReac Intermediate HAND Verified 01/15/21 22:10 SWELLING Home Medications Medication Instructions Recorded Confirmed Type nitroglycerin 0.4 mg sublingual 0.4 mg SUBLINGUAL UD PRN 01/21/20 01/15/21 History tablet miscellaneous medical supply #1 ea 05/26/20 12/28/20 Rx (Blood Pressure Cuff) nebulizer accessories #1 ea 09/13/20 12/28/20 Rx metoprolol tartrate 25 mg tablet 25 mg PO BID #180 tab 12/21/20 01/15/21 Rx ipratropium 0.5 mg-albuterol 3 mg 3 ml INHALATION QID PRN #3 ml 01/06/21 01/15/21 Rx (2.5 mg base)/3 mL nebulization soln Past Med/Surg History Medical History (Updated 01/04/21 @ 11:24 by SANDRA Pineda III) Acute respiratory failure with hypoxia CAD (coronary artery disease) Hypoxia Peptic ulcer Pulmonary nodule Umbilical hernia Surgical History S/P hernia repair Family History Father Myocardial infarction Denies family history of Colon cancer Ovarian cancer Prostate cancer Breast cancer Social History Smoking Status: Current every day smoker Tobacco Type: Cigarettes Age Started Using Tobacco: 17; packs per day: 1.5; Second Hand Exposure: Yes; Hx Alcohol Use: No Hx Substance Use: Yes Last Used Substance: Unknown Preferred Language: Fijian Communication Ability: Effective Visual Impairment: No Limitations Hearing Ability: Hard of Hearing Brick Maker Required: No Beliefs That Will Affect Care: None marital status: Current Living Situation: Alone and Homeless Current Living Situation Comment: Pt currently homeless due to bedbugs current occupational status: retired Other Information That Helps Us Care for You: No Feels Safe at Home: Yes Safety Concerns: Feels Safe At This Time Childhood Exposure to Second-Hand Smoke: No Dental Care, Regularly: No Physical Activity Frequency: 3-4 Times per Week Seatbelt Use: always Sunscreen Use: Yes Assistive Devices: None Review of Systems Review of Systems: All systems reviewed & are unremarkable except as noted in HPI & below Physical Exam Physical Exam: General: patient is a poor historian and is not forthcoming with information, resting comfortably, NAD, non-toxic in appearance, AA&O x 4 Skin: warm, dry, intact, no rashes or lesions HEENT: NC/AT, PERRL, EOMI, anicteric sclera, conjunctiva without injection, external ear normal to inspection and nontender, nares patent, moist mucus membranes, dentition intact, no oropharyngeal lesions, neck supple, trachea midline, no LAD, no thyromegaly, no JVD Heart: +S1/S2, regular, no m/r/g Lungs: equal air entry bilaterally, diffuse end-expiratory wheezing, no rales/rhonchi Abd: +BS, soft, NT/ND, no masses/organomegaly/ascites Ext: warm, 2+ pulses in UE/LE bilaterally, no clubbing/cyanosis or edema Neuro: nonfocal, patient AA&O x 4, speech intact, no facial droop, moving all extremities on command with equal strength 5/5 Results & Data Results & Data ([facility]) Vital Signs (Past 12 Hours) Vital Signs Temp Pulse Pulse Resp BP BP Pulse Ox 01/15/21 23:00 95 H 22 173/112 H 96 01/15/21 21:58 96 01/15/21 21:09 101 H 22 95 01/15/21 21:00 96 H 22 142/90 H 93 01/15/21 20:40 87 L 01/15/21 20:30 36.9 C 99 H 22 182/107 H 87 L Laboratory Results Laboratory Results WBC 10.37 K/uL (4.8-10.8) 01/15/21 20:45 RBC 5.71 M/uL (4.7-6.1) 01/15/21 20:45 Hgb 17.9 g/dL (14.0-18.0) 01/15/21 20:45 Hct 53.8 % (42-52) H 01/15/21 20:45 MCV 94.2 fL (80-100) 01/15/21 20:45 MCH 31.3 pg (25-34) 01/15/21 20:45 MCHC 33.3 g/dL (32-36) 01/15/21 20:45 RDW Std Deviation 48.7 fL (36.4-46.3) H 01/15/21 20:45 RDW Coeff of Linsey 14.1 % (11.5-14.5) 01/15/21 20:45 Plt Count 174 K/uL (130-400) 01/15/21 20:45 MPV 10.8 fL (7.4-10.4) H 01/15/21 20:45 Immature Gran % (Auto) 0.2 % 01/15/21 20:45 Neut % (Auto) 74.7 % 01/15/21 20:45 Lymph % (Auto) 15.0 % 01/15/21 20:45 Pratt % (Auto) 7.5 % 01/15/21 20:45 Eos % (Auto) 2.0 % 01/15/21 20:45 Baso % (Auto) 0.6 % 01/15/21 20:45 Neut # (Auto) 7.74 K/uL (1.4-6.5) H 01/15/21 20:45 Lymph # (Auto) 1.56 K/uL (1.2-3.4) 01/15/21 20:45 Pratt # (Auto) 0.78 K/uL (0.11-0.59) H 01/15/21 20:45 Eos # (Auto) 0.21 K/uL (0-0.5) 01/15/21 20:45 Baso # (Auto) 0.06 K/uL (0-0.2) 01/15/21 20:45 Immature Gran # (Auto) 0.02 K/uL (0.00-0.02) 01/15/21 20:45 PT 10.2 Seconds (9.0-12.0) 01/15/21 20:45 INR 1.0 (0.9-1.1) 01/15/21 20:45 APTT 29.2 Seconds (21.0-31.0) 01/15/21 20:45 PTT Ratio 1.1 01/15/21 20:45 Sodium 130 mmol/L (136-145) L 01/15/21 20:45 Potassium 4.5 mmol/L (3.5-5.1) 01/15/21 20:45 Chloride 94 mmol/L (98-107) L 01/15/21 20:45 Carbon Dioxide 33 mmol/L (21-32) H 01/15/21 20:45 Anion Gap 3.0 (3-11) 01/15/21 20:45 BUN 11 mg/dl (7-18) 01/15/21 20:45 Creatinine 0.98 mg/dl (0.6-1.4) 01/15/21 20:45 Est Cr Clr Drug Dosing 65.1 ml/min 01/15/21 20:45 Est GFR ( Amer) 87.1 ml/min 01/15/21 20:45 Est GFR (Non-Af Amer) 75.1 ml/min 01/15/21 20:45 BUN/Creatinine Ratio 11.3 (10-20) 01/15/21 20:45 Glucose 124 mg/dl (70-99) H 01/15/21 20:45 Calcium 9.0 mg/dl (8.5-10.1) 01/15/21 20:45 Magnesium 1.9 mg/dl (1.8-2.4) 01/15/21 20:45 Total Bilirubin 0.8 mg/dl (0.2-1) 01/15/21 20:45 AST 35 U/L (15-37) 01/15/21 20:45 ALT 32 U/L (12-78) 01/15/21 20:45 Alkaline Phosphatase 125 U/L (45-117) H 01/15/21 20:45 Troponin I < 0.015 ng/ml (0-0.045) 01/15/21 20:45 Total Protein 7.9 gm/dl (6.4-8.2) 01/15/21 20:45 Albumin 4.0 gm/dl (3.4-5.0) 01/15/21 20:45 Globulin 3.9 gm/dl (2.5-4.0) 01/15/21 20:45 Albumin/Globulin Ratio 1.0 (0.9-2) 01/15/21 20:45 Specimen Hemolysis 01/15/21 20:45 Urine Color Yellow 01/15/21 21:30 Urine Appearance Clear (Clear) 01/15/21 21:30 Urine pH 8.5 (4.5-7.5) H 01/15/21 21:30 Ur Specific [place] 1.010 (1.000-1.030) 01/15/21 21:30 Urine Protein Negative (Negative) 01/15/21 21:30 Urine Glucose (UA) Negative (Negative) 01/15/21 21:30 Urine Ketones Negative (Negative) 01/15/21 21:30 Urine Blood Negative (Negative) 01/15/21 21:30 Urine Nitrite Negative (Negative) 01/15/21 21:30 Urine Bilirubin Negative (Negative) 01/15/21 21:30 Urine Urobilinogen Negative (Negative) 01/15/21 21:30 Ur Leukocyte Esterase Trace (Negative) H 01/15/21 21:30 Urine WBC (Auto) 1-5 /hpf (0-5) 01/15/21 21:30 Urine RBC (Auto) 0-4 /hpf (0-4) 01/15/21 21:30 U Hyaline Cast (Auto) 1-5 /lpf (0-5) 01/15/21 21:30 U Epithel Cells (Auto) 10-20 /lpf (0-5) H 01/15/21 21:30 Urine Bacteria (Auto) Negative (Negative) 01/15/21 21:30 PG Care Time/CCT Total # of Minutes Spent Total Time Spent with Patient: Total time spent is greater than 50% in coordination of care (as documented) at patient's floor/unit and/or counseling patient: Coding Level of Care Code 17390 Initial Inpt Care Lvl 3 Diagnoses Shortness of breath R06.02 CAD (coronary artery disease) I25.10 COPD (chronic obstructive pulmonary disease) J44.9 GERD (gastroesophageal reflux disease) K21.9 Hypertension I10
[2021-01-16] MEDS ORDERED: ALBUTEROL HFA 8 GM INHALER INH PRN (01:56)
[2021-01-16] MEDS ORDERED: SODIUM CHLORIDE 0.9% 1000ML 1,000 ML IV SCH (01:56)
[2021-01-16] MEDS: ACETAMINOPHEN 325 MG TAB PO PRN ×3 (06:13→16:44)
[2021-01-16 07:48] LABS: Hematocrit (blood only) 56.9 % (42-52); Hemoglobin 18.8 g/dL (14.0-18.0); Lymphocytes # (auto) 0.49 K/uL (1.2-3.4); Lymphocytes % (auto) 9.8 %; Mean Corpuscular Hemoglobin 31.7 pg (25-34); Monocytes # (auto) 0.08 K/uL (0.11-0.59); Monocytes % (auto) 1.6 %; Neutrophils # (auto) 4.44 K/uL (1.4-6.5); Neutrophils % (auto) 88.6 %; Platelet Count 175 K/uL (130-400); RDW Coefficient of Variation 13.9 % (11.5-14.5); RDW Standard Deviation 49.4 fL (36.4-46.3); Red Blood Count 5.93 M/uL (4.7-6.1); White Blood Count 5.01 K/uL (4.8-10.8)
[2021-01-16 08:02] LABS: Albumin Level 4.1 gm/dl (3.4-5.0); BUN Creatinine Ratio 11.4 (10-20); Calcium 9.4 mg/dl (8.5-10.1); Est GFR (African American) 99.3 ml/min; Est GFR (Non-African American) 85.7 ml/min; Potassium 4.8 mmol/L (3.5-5.1)
[2021-01-16] MEDS: LOSARTAN POTASSIUM 50 MG TAB PO SCH (08:02)
[2021-01-16] MEDS: guaiFENesin 600 MG TABCR PO SCH ×2 (08:02→21:06)
[2021-01-16] MEDS: predniSONE 20 MG TAB PO SCH (08:02)
[2021-01-16] MEDS: METOPROLOL TARTRATE 25 MG TAB PO SCH ×2 (08:03→21:06)
[2021-01-16 08:05] LABS: Bilirubin Direct 0.2 mg/dl (0-0.2); Bilirubin,Total 0.8 mg/dl (0.2-1); Total Protein 8.2 gm/dl (6.4-8.2)
[2021-01-16] MEDS: ALBUTEROL HFA 8 GM INHALER INH SCH ×4 (08:06→21:14)
[2021-01-16] MEDS: IPRATROPIUM BROMIDE HFA INHALER INH SCH ×4 (08:06→21:15)
[2021-01-16] MEDS ORDERED: IPRATROPIUM BROMIDE/ALBUTEROL respimat INH INH SCH (09:00)
[2021-01-16] MEDS ORDERED: AZITHROMYCIN 250 MG in DEXTROSE 5% 250 ML IV SCH (09:00)
--- NOTE | 2021-01-16 09:53 | XRay Report ---
XR chest 1V portable HISTORY: Shortness of breath. Atypical chest pain. COMPARISON: Chest 05/22/2020. FINDINGS: Emphysema. No pneumothorax. The heart is normal in size. Progressive of the bibasilar inter stitial opacities. No evidence for pulmonary edema. No pleural effusions. IMPRESSION: Progressive bibasilar interstitial airspace opacities. This could be due to vascular crowding from th e emphysema or developing pneumonia. ACT 112: Negative or not required by law. Electronically signed by: Terrance Gray M.D. 01/16/2021 9:51 AM
--- NOTE | 2021-01-16 09:55 | Electrocardiogram Report ---
Test Reason : Blood Pressure : / mmHG Vent. Rate : 107 BPM Atrial Rate : 107 BPM P-R Int : 154 ms QRS Dur : 090 ms QT Int : 332 ms P-R-T Axes : 080 066 057 degrees QTc Int : 443 ms Sinus tachycardia with Premature supraventricular complexes Otherwise normal ECG When compared with ECG of 19-MAY-2020 23:39, Premature supraventricular complexes are now Present Confirmed by Elkin Wick ([id number]) on 01/16/2021 9:55:05 AM Referred By: REFERRED SELF Confirmed By:Elkin Wick
[2021-01-16] MEDS ORDERED: NICOTINE 21 MG/24 HR TDSY TD SCH (10:30)
[2021-01-16] MEDS: LIDOCAINE 5% 1 PATCH TD SCH (11:36)
[2021-01-16] MEDS ORDERED: NICOTINE POLACRILEX 2 MG GUM MT PRN (11:47)
--- NOTE | 2021-01-16 22:33 | Hospitalist Progress Note ---
Date of Service January 16, 2021 Assessment & Plan (1) COPD exacerbation: Plan: improving. COVID 19 negative thus d/c airborne isolation. cont prednisone. cont bronchodilators. cont zithromax, day #2 of 5 today. patient has significant COPD - should be on daily maintenance inhalers. I am uncertain if he can afford these. will ask nurse navigator to investigate this tomorrow. in meantime - add symbicort bid. (2) Hyponatremia: Plan: etiology? check serum osm, urine osm, urine Na then re-eval. Low Na has been present for 1-2 years. May be SIADH. bmp am. (3) Tobacco dependence: Plan: declined nicoderm. willing to use nicorette gum. (4) Hypertension: Plan: cont home meds (5) Hyperlipidemia: Plan: not on meds for such (6) GERD (gastroesophageal reflux disease): (7) CAD (coronary artery disease): Plan: uncertain why he is not on aspirin, statin, etc. he is on beta joelle (8) Peripheral neuropathy: (9) Cervicalgia: Plan: this was a significant complaint for him today. lidoderm patches orderd. check x-rays. (10) DVT prophylaxis: Plan: if he stays beyond tomorrow would add heparin or lovenox Plan: likely will be ready to d/c tomorrow need to confirm with social work that he indeed he has housing upon discharge Admission and Anticipated Discharge Date Admission Date: January 15, 2021 Subjective patient had refused COVID testing in the ER - thus, he was placed in isolation. during my visit he stated he had refused the swab because "you're not putting that thing way up my nose." I explained that it wouldn't be an [employer] swab but a nasal swab. explained to him that if he is COVID neg his care would be easier as he could come out of isolation. he finally consented to COVID testing which later returned negative. patient had told the ER he had had COVID in the past but that is not true - he had never had a positive COVID test since the pandemic began. he is unvaccinated. he confirmed that he is homeless and had been living at a local [facility] recently. overall he feels better today. states wheezing, cough, dyspnea are improved. Review of Systems Review of Systems: gen - denies fevers or chills; eating fine today ENT - no loss of taste or smell CV - no chest pain Pulm - presenting symptoms improved GI - no abd pain, nausea or emesis Physical Exam Physical Exam: gen - NAD, irritable mouth - MMM neck - no JVD heart - RRR, s1, s2, no murmur lungs - mild rales bases, scattered wheezes b/l abd - soft NT ND BS+ ext - no edema Results & Data Results & Data ([facility]) Vital Signs (Past 12 Hours) Vital Signs Temp Pulse Pulse Resp BP Pulse Ox 01/16/21 21:16 91 H 18 93 01/16/21 21:04 91 H 125/63 01/16/21 17:45 36.4 C L 82 18 137/83 92 01/16/21 15:43 79 16 91 01/16/21 11:14 79 18 92 Laboratory Results Laboratory Results - last 24 hr 01/16/21 01/16/21 01/16/21 07:03 07:03 07:03 WBC 5.01 RBC 5.93 Hgb 18.8 H Hct 56.9 H MCV 96.0 MCH 31.7 MCHC 33.0 RDW Std Deviation 49.4 H RDW Coeff of Linsey 13.9 Plt Count 175 MPV 11.0 H Immature Gran % (Auto) 0.0 Neut % (Auto) 88.6 Lymph % (Auto) 9.8 Haralson % (Auto) 1.6 Eos % (Auto) 0.0 Baso % (Auto) 0.0 Neut # (Auto) 4.44 Lymph # (Auto) 0.49 L [place]on # (Auto) 0.08 L Eos # (Auto) 0.00 Baso # (Auto) 0.00 Immature Gran # (Auto) 0.00 Sodium 129 L Potassium 4.8 Chloride 95 L Carbon Dioxide 31 Anion Gap 4.0 BUN 10 Creatinine 0.84 Est Cr Clr Drug Dosing 76.0 Est GFR ( Amer) 99.3 Est GFR (Non-Af Amer) 85.7 BUN/Creatinine Ratio 11.4 Glucose 122 H Calcium 9.4 Total Bilirubin 0.8 Direct Bilirubin 0.2 AST 41 H ALT 38 Alkaline Phosphatase 132 H Total Protein 8.2 Albumin 4.1 Procalcitonin < 0.05 COVID-19 Eval Order SARS-CoV-2, RNA, NAAT 01/16/21 01/16/21 12:26 12:26 WBC RBC Hgb Hct MCV MCH MCHC RDW Std Deviation RDW Coeff of Linsey Plt Count MPV Immature Gran % (Auto) Neut % (Auto) Lymph % (Auto) [place] % (Auto) Eos % (Auto) Baso % (Auto) Neut # (Auto) Lymph # (Auto) [place] # (Auto) Eos # (Auto) Baso # (Auto) Immature Gran # (Auto) Sodium Potassium Chloride Carbon Dioxide Anion Gap BUN Creatinine Est Cr Clr Drug Dosing Est GFR ( Amer) Est GFR (Non-Af Amer) BUN/Creatinine Ratio Glucose Calcium Total Bilirubin Direct Bilirubin AST ALT Alkaline Phosphatase Total Protein Albumin Procalcitonin COVID-19 Eval Order Covid19 [facility] SARS-CoV-2, RNA, NAAT NEGATIVE PG Care Time/CCT Total # of Minutes Spent Total Time Spent with Patient: Total time spent is greater than 50% in coordination of care (as documented) at patient's floor/unit and/or counseling patient: Coding Level of Care Code 19758 Subseq Hosp Care Lvl 3 Diagnoses COPD exacerbation J44.1 Hyponatremia E87.1 Tobacco dependence F17.200 Hypertension I10 Hyperlipidemia E78.5 GERD (gastroesophageal reflux disease) K21.9 CAD (coronary artery disease) I25.10 Peripheral neuropathy G62.9 DVT prophylaxis Z29.9 Cervicalgia M54.2
[2021-01-17] MEDS: ACETAMINOPHEN 325 MG TAB PO PRN (02:24)
[2021-01-17 06:32] LABS: BUN Creatinine Ratio 21.4 (10-20); Calcium 8.6 mg/dl (8.5-10.1); Creatinine Clr Calc Pharmacy 69.4 ml/min; Est GFR (Non-African American) 81.1 ml/min; Potassium 4.6 mmol/L (3.5-5.1)
[2021-01-17] MEDS: ALBUTEROL HFA 8 GM INHALER INH SCH (07:19)
[2021-01-17] MEDS: IPRATROPIUM BROMIDE HFA INHALER INH SCH (07:19)
[2021-01-17] MEDS: METOPROLOL TARTRATE 25 MG TAB PO SCH (08:07)
[2021-01-17] MEDS: predniSONE 20 MG TAB PO SCH (08:07)
[2021-01-17] MEDS: LOSARTAN POTASSIUM 50 MG TAB PO SCH (08:07)
[2021-01-17] MEDS: guaiFENesin 600 MG TABCR PO SCH (08:08)
[2021-01-17] MEDS: LIDOCAINE 5% 1 PATCH TD SCH (08:08)
[2021-01-17] MEDS ORDERED: FLUTICASONE/VILANTEROL 200/25MCG 14 PUFFS/INHALER INH SCH (09:00)
[2021-01-17] MEDS ORDERED: AZITHROMYCIN 250 MG TAB PO SCH (09:00)
[2021-01-17] MEDS ORDERED: OPTIRAY 320 125ml IV ONE (09:19)
--- NOTE | 2021-01-17 09:41 | CT Scan Report ---
CT angio chest w con CLINICAL HISTORY: Shortness of breath. Evaluate for pulmonary embolus. COMPARISON STUDY: Chest CT May 20, 2020. Chest radiograph January 15, 2021. TECHNIQUE: Helical axial images of the chest were obtained following intravenous injection of 120 cc Optiray 320 IV. Sagittal and coronal reconstructions were viewed as well as maximal intensity project ions on an independent 3-D workstation. Automated exposure control was utilized for the study. A dos e lowering technique was utilized adhering to the principles of ALARA. FINDINGS: No pulmonary emboli are identified. There is no thoracic aortic dissection. Mild cardiomega ly is noted. There is moderate coronary artery calcification. No enlarged thoracic lymph nodes are no monica. Moderate emphysema is present. Bronchial wall thickening is noted. No consolidation to suggest p neumonia. No pneumothorax or pleural effusion. A 4 mm left upper lobe nodule on image 253 of 296 is u nchanged since CT of May 20, 2020. Visualized portions of the upper abdomen demonstrate nodularit y liver surface. This may indicate cirrhosis. IMPRESSION: 1. No pulmonary emboli identified. 2. No consolidation to suggest pneumonia. 3. Moderate emphysema. Bronchial wall thickening. 2. Nodularity of the liver surface which raises the possibility of cirrhosis. ACT 112: Negative or not required by law. Electronically signed by: Bryant Blackburn M.D. 01/17/2021 9:40 AM
[2021-01-17] MEDS ORDERED: FUROSEMIDE 20 MG in SYRINGE 0 ML IV ONE (11:00)
[2021-01-17] MEDS ORDERED: FUROSEMIDE 40 MG TAB PO ONE (12:00)
--- NOTE | 2021-01-17 12:36 | XRay Report ---
XR cervical spine 2 or 3V INDICATION: MN ^severe neck pain, DJD? TECHNIQUE: AP, lateral, and open-jaw images of the cervical spine were obtained. COMPARISON: None. FINDINGS: The cervical spine is visualized from C1-C7. No fractures or subluxations are identified. Degenerativ e changes including disc space narrowing, endplate sclerosis, and osteophyte formation are most promi nent at C4-C5, C5-C6, and likely C6-C7. The alignment is anatomic. Prevertebral soft tissues are with in normal limits. IMPRESSION: Severe degenerative changes are seen most prominently in the lower cervical spine. If further evaluat ion is desired, MRI of the cervical spine can be performed. ACT 112: Negative or not required by law. Electronically signed by: Jacek Ortiz M.D. 01/17/2021 12:34 PM
--- NOTE | 2021-01-17 14:46 | Discharge Summary ---
Date of Service January 17, 2021 Admission HPI Per Admitting Provider Jaylen Munson is a 75yo male with history of CAD, HTN, HLP, COPD, GERD presenting with shortness of breath. Patient is presently homeless. He states that he recently had to leave his apartment due to bedbugs. He had nowhere to go so he was temporarily living outside by [place] for several days. He recently started staying at a local [facility]. His first night at the [facility] was last night. Patient went downtown this evening to get dinner prior to returning to the [facility] to sleep. He states that he became short of breath and had to sit down on the curb. Reports chest tightness and couldn't breath. EMS was called - patient reportedly 84% on room air when they arrived. He was placed on NC with improvement. He reports progressive SOB for the last 5 months. Was previously on Rivaroxaban for history of PE diagnosed in May. He self- discontinued - now states that he eats wild leeks and garlic to thin his blood Has prior history of Covid-19 infection. Refuses Covid-19 testing. Is not vac cinated. In the ER patient afebrile, HD stable, NAD. Placed on NC with improvement in saturations ER Course: Magnesium, Solumedrol, Zosyn, Azithromycin Principal Diagnosis Working diagnoses: 1. Acute exacerbation of COPD 2. Hyponatremiaexact etiology unclear Discharge Exam General: Resting comfortably in his bedside. Easily agitated but not ill or toxic. NAD. Neck: No JVD. Negative hepatojugular reflex Cardiac: Distant heart sounds without M/G/R Lungs: Speaking full sentences on ambient air. Diminished breath sounds throughout without wheezes, rales or rhonchi Abdomen: Normoactive X4. Soft and nontender in all quadrants. Extremities: Trace pitting edema of the bilateral lower extremities Neuro: A&O X4 cranial nerves II through XII are grossly intact no focal neuro deficits Skin: No obvious skin lesions or rashes Discharge Data Allergies Allergy/AdvReac Type Severity Reaction Status Date / Time CHARO Inhibitors Allergy Unknown GMG LIST Verified 01/15/21 22:10 prednisone AdvReac Severe AGGRESSIVE Verified 01/15/21 22:10 ketoprofen AdvReac Intermediate HAND Verified 01/15/21 22:10 SWELLING oxaprozin AdvReac Intermediate HAND Verified 01/15/21 22:10 SWELLING Consultations 01/15/21 22:14 ED Decision to Admit Stat Ordered Studies 01/15/2021 CXR: IMPRESSION: Progressive bibasilar interstitial airspace opacities. This could be due to vascular crowding from the emphysema or developing pneumonia. 01/17/21 08:30 CT angio chest w con Urgent IMPRESSION: 1. No pulmonary emboli identified. 2. No consolidation to suggest pneumonia. 3. Moderate emphysema. Bronchial wall thickening. 2. Nodularity of the liver surface which raises the possibility of cirrhosis. Hospital Course (1) COPD exacerbation: * Hospitalized on 01/15 with hypoxemia likely related to an acute exacerbation of COPD * He was treated with oral steroids (as opposed to IV as patient reported increased aggressive behavior with high doses of steroids) * In addition, he was treated with empiric antibiotic therapy (Rocephin/azithromycin), mucolytic agents, and nebulized treatments * He is not on any disease modifying medications (such as bronchodilators/inhaled steroids) and Symbicort was added * CTA of the chest done given his questionable history of PE (05/27patient stopped anticoagulation therapy on his own): This was negative * When seen on daily rounds 01/17, pulse ox 94% on room air. He denies any breathing complaints such as shortness of breath, dyspnea on exertion, orthopnea, PND or cough * Was planning to discharge later today (after addressing his hyponatremia and being seen by attending provider); however, patient refused and signed out AGAINST MEDICAL ADVICE. Discussed with him that we can facilitate discharge relatively quickly but he became more agitated. * Was at least provided prescriptions for continued antibiotic therapy (Omniceffor gram-negative coverage given his underlying history of COPD), tapering course of prednisone, Ventolin inhaler, and Symbicort (to rinse mouth out after use) * Strongly encouraged smoking cessation * To follow-up with PCP * Return to ED if needed (2) Hyponatremia: * Exact etiology unclear * Sodium level normal 1 year ago. 134 in May. * He denies alcohol use but given his agitated behavior, I suspect he may have an underlying history of alcohol abuse (which could be contributing to his hyponatremia) * At any rate, he does have some trace pitting edema and his fluid balance is positive. With his positive fluid balance, his sodium level continues to drop (134-->133--> 129) * Serum sodium 277 and urine osmolality 337. May have underlying SIADH; however, would suspect urine osmo to be >500. * At any rate, I had suggested a dose of IV Lasix with follow-up BMP this afternoon and long-term plan for fluid restricted diet with plan to see nephrology as an outpatient. Patient inadvertently removed his IV. Was going to give oral Lasix but he refused. Refused follow-up labs. * Lengthy discussion with patient regarding risks of progressive hyponatremia. Fortunately, he is not symptomatic at present time. He denies nausea, vomiting, and his mentation is not altered. I explained risk of seizure and coma Granted- Na++ not low enough for that at this time and not far from baseline (from May). Was at least going to try to help determine a cause with likely D/C later today; however, he refused. Again, did not want to wait for attending Physician and he signed out AMA. (3) Tobacco dependence: declined nicoderm while in house encouraged smoking cessation (4) Hypertension: cont home meds (5) Hyperlipidemia: not on meds for such (6) GERD (gastroesophageal reflux disease): (7) CAD (coronary artery disease): uncertain why he is not on aspirin, statin, etc. he is on beta joelle (8) Peripheral neuropathy: (9) Cervicalgia: This was a significant complaint upon presentation. lidoderm patches orderd. check x-rays shows degenerative changes without acute pathology (10) Medical non-compliance: Patient medically hemodynamically stable from a respiratory standpoint. He is, however, hyponatremic (exact etiology unclear). Given his agitated behavior, suspect underlying alcohol use (which he denies) which may be inducing beer Potomania. At any rate, his fluid balance has been +1(>) liter. With this positive fluid balance, his sodium continues to decline. Plan was for a dose of Lasix with follow-up lab data this afternoon and likely discharge. Patient unwilling to agree to this plan. In addition, unwilling to wait to be seen by attending physician. He came in homeless (had been staying in a [facility] for approximately 3 days). He has made arrangements for [facility] (boarding home) and case management has verified that they will take him. Total Time Total Time Spent Total Time Spent (In Minutes): 60 Discharge Plan Discharge Items Patient Disposition: Against Medical Advice Reason For Visit: ACUTE HYPOXIC RESPIRATORY FAILURE Activity: Resume your previous activity Non-emergency contact: Primary Care Provider Follow-up/Referrals: Skinny Toure, [Primary Care Provider] - Pending Studies at Discharge: No Stand-Alone Forms: My [facility] [employer], Smoking Cessation Medications and DC Order Prescriptions: New cefdinir 300 mg capsule 300 mg PO BID 10 Days Qty: 20 RF: 0 prednisone 10 mg tablets,dose pack 10 mg PO DIRECTED Qty: 21 RF: 0 albuterol sulfate [Ventolin HFA] 90 mcg/actuation Hfa Aerosol Inhaler 2 puff inhalation Q2H PRN (Reason: shortness of breath or wheezing) Qty: 6.7 RF: 0 losartan 50 mg Tablet 50 mg PO QAM Qty: 30 RF: 0 budesonide-formoterol [Symbicort] 160-4.5 mcg/actuation HFA aerosol inhaler 2 inh inhalation BID Qty: 10.2 RF: 0 Continued (DME) nebulizer accessories Kit See Rx Instructions .ROUTE .MEDSUPPLY Qty: 1 RF: 0 metoprolol tartrate 25 mg tablet 25 mg PO BID Qty: 180 RF: 1 ipratropium-albuterol 0.5 mg-3 mg(2.5 mg base)/3 mL solution for nebulization 3 ml INHALATION QID PRN (Reason: Wheezing) Qty: 3 RF: 1 (DME) Blood Pressure Cuff Misc See Rx Instructions .ROUTE .MEDSUPPLY Qty: 1 RF: 0 nitroglycerin 0.4 mg tablet, sublingual 0.4 mg sublingual UD PRN (Reason: Chest Pain) RF: 0 Discharge Orders: Left Against Medical Advice (Routine); Ordered 01/17/21 Ordered By: Anna Marie Hutton Admission Data Admit Date/Time: 01/15/21 23:52 Attending Provider: Jacek Acosta Admit Provider: Cami Chatterjee Primary Care Provider: Skinny Toure Other Providers: Cami Chatterjee Other Interventions: Discharge Summary Assessment (RN) Last Done: 01/17/21 13:31 Supervising Physician Co-Signing Physician Notes Patient was not seen because he left AMA. I agree with the discharge summary by Anna Marie MONTESINOS. I have reviewed the chart including labs, imaging and plans for discharge. Coding Level of Care Code Established Pt D/C DAY MANAGEMENT >30 MINS Patient Type Established Diagnoses COPD exacerbation J44.1 Hyponatremia E87.1 Tobacco dependence F17.200 Hypertension I10 Hyperlipidemia E78.5 GERD (gastroesophageal reflux disease) K21.9 CAD (coronary artery disease) I25.10 Peripheral neuropathy G62.9 Cervicalgia M54.2 Medical non-compliance Z91.19 Time Spent (min) 60
== END 2021-01-17 12:15 | disposition left against medical advice (07) ==
LOC: ED 20:35 → INTOOBSV 23:52 → SUATTDRO 23:52 → 3N 23:52 → 3W 01-16 20:42

== ENCOUNTER 2021-03-27 15:48 | Inpatient (IN) ==
--- NOTE | 2021-03-27 16:04 | Emergency Department Note ---
Impression & Plan Acute respiratory failure with hypoxemia, Acute exacerbation of chronic obstructive pulmonary disease, Hypercarbia ED Provider Note NAME: DINA WALLACE AGE: 75 SEX: M : 1945 ARRIVES VIA: Ambulance INFORMANT: patient, ED PROVIDER(S): Nigel Hinojosa MD Chief Complaint: Shortness of breath HPI: Patient did present due to concern for shortness of breath which the patient states is been ongoing for several days worsening today. The patient is a smoker and vaccinated for Covid. The patient did have a cough in the recent past but is not had one in the last several days. The patient has been using the nebulizer treatments at home. Patient denies any fevers chills chest pains abdominal pain nausea or vomiting. Patient has exertional swelling. No prior history of DVT or PE. The patient does not use oxygen at home. The patient does not use CPAP. ROS: See HPI for pertinent positives and negatives. A total of 10 systems were reviewed and otherwise negative. Past medical history: See below Surgical history: See below Social history: See below Physical Exam: GENERAL: NAD, non-toxic. EYE EXAM: Normal conjunctiva. PERRL, no anisocoria and EOM's grossly intact w/o pain. OROPHARYNX: Moist mucus membranes. Grossly normal dentition. NECK: Supple, no nuchal rigidity, no adenopathy, non-tender. No signs of meningismus. LUNGS: Clear to auscultation. Normal chest wall mechanics. HEART: NSR, no MRG. ABDOMEN: Abdomen soft, non-tender, normo-active bowel sounds, no masses, no rebound or guarding. BACK: No CVA TTP. SKIN: No rashes and no bruising. UPPER EXTREMITIES: Upper extremities are grossly normal. Dirty hands noted. LOWER EXTREMITIES: Grossly normal, no edema. NEURO EXAM: A&O x3, cranial nerves II-XII grossly intact, normal speech, moves all 4 extremities on command w/o issue. Differential diagnoses: Reactive airway disease, pneumonia, pneumothorax, COPD, CHF, infections, cardiac ischemia, pulmonary embolism, musculoskeletal, gastrointestinal, as well as other pathologies. Course: Patient was seen and evaluated the bedside. Full history physical exam was performed. EKG interpreted by me Sinus tachycardia, rate of 112, normal intervals, normal axis, no ST changes or T WI. Imaging Studies: See Below Cardiac monitoring: An order was placed for continuous cardiac monitoring. The monitor shows a rate of 104 with sinus tachycardia rhythm. MDM: Patient does present with worsening shortness of breath. Known history of COPD and smoker. Unvaccinated. Blood work is obtained along with VBG and the patient was treated symptomatically for COPD exacerbation. No signs or stigmata of volume overload on exam. Patient has white count of 10 with a normal hemoglobin and platelet count. The patient's VBG shows pH of 734 with a PCO2 of 68. The patient's bicarb is 35 likely chronic retention. The patient did receive the medications and upon reassessment the patient was on nasal cannula. I did speak with nursing and the patient was satting at 88%. The patient does not wear oxygen at baseline. I did speak with the on-call hospitalist and the patient was admitted to the medicine service. Azithromycin was ordered for COPD exacerbation. Chest x-ray does not show evidence of pneumonia. Critical Care: I have personally spent 36 minutes of critical care time in direct management of this patient. This includes bedside care, interpretation of diagnostic studies, and testing, discussion with consultants, patient, and family members, and other require inpatient management activities. This 36 minutes is in excess of all separately billable procedures. Past Med/Surg History Medical History Acute respiratory failure with hypoxia CAD (coronary artery disease) Hypoxia Peptic ulcer Pulmonary nodule Umbilical hernia Surgical History S/P hernia repair Family History Father Myocardial infarction Denies family history of Colon cancer Ovarian cancer Prostate cancer Breast cancer Social History Smoking Status: Current every day smoker Tobacco Type: Cigarettes Age Started Using Tobacco: 17; packs per day: 1.5; Second Hand Exposure: Yes; Hx Alcohol Use: No Hx Substance Use: Yes Last Used Substance: Unknown Preferred Language: [place]an Communication Ability: Effective Visual Impairment: No Limitations Hearing Ability: Hard of Hearing 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 Beliefs That Will Affect Care: None marital status: Current Living Situation: Alone and Homeless Current Living Situation Comment: Pt currently homeless due to bedbugs current occupational status: retired Feels Safe at Home: Yes Childhood Exposure to Second-Hand Smoke: No Dental Care, Regularly: No Physical Activity Frequency: 3-4 Times per Week Seatbelt Use: always Sunscreen Use: Yes Assistive Devices: Denture - Upper Allergies Allergies Allergy/AdvReac Type Severity Reaction Status Date / Time CHARO Inhibitors Allergy Unknown GMG LIST Verified 03/27/21 17:08 prednisone AdvReac Severe AGGRESSIVE Verified 03/27/21 17:08 ketoprofen AdvReac Intermediate HAND Verified 03/27/21 17:08 SWELLING oxaprozin AdvReac Intermediate HAND Verified 03/27/21 17:08 SWELLING Home Meds Home Medications Medication Instructions Recorded Confirmed nitroglycerin 0.4 mg sublingual 0.4 mg SUBLINGUAL UD PRN 01/21/20 03/27/21 tablet Previous Rx's Medication Instructions Recorded miscellaneous medical supply #1 ea 05/26/20 (Blood Pressure Cuff) nebulizer accessories #1 ea 09/13/20 ipratropium 0.5 mg-albuterol 3 mg 3 ml INHALATION QID PRN #3 ml 01/06/21 (2.5 mg base)/3 mL nebulization soln losartan 50 mg tablet 50 mg PO QAM #30 tab 01/17/21 prednisone 10 mg tablets in a dose 10 mg PO DIRECTED #21 ea 01/17/21 pack albuterol sulfate 90 mcg/actuation 2 puff INHALATION Q2H PRN #6.7 g 02/02/21 aerosol inhaler (Ventolin HFA) budesonide-formoterol HFA 160 2 inh INHALATION BID #10.2 g 02/02/21 mcg-4.5 mcg/actuation aerosol inhaler (Symbicort) inhaler spacer #1 ea 02/02/21 finasteride 5 mg tablet 5 mg PO DAILY #30 tab 02/22/21 Nebulizer #1 ea 03/11/21 albuterol sulfate 1.25 mg/3 mL 1.25 mg INHALATION QID PRN #90 ml 03/11/21 solution for nebulization Results & Data (ED) Vital Signs Vital Signs - 24 hr 03/27/21 16:06 03/27/21 16:43 03/27/21 17:00 Temperature 37.4 C Temperature Source Oral Pulse Rate 110 H Pulse Rate [Right Finger] 104 H Pulse Rhythm Regular Pulse Strength Normal Respiratory Rate 16 20 Respiratory Effort / Characteristics Non-Labored Non-Labored Spontaneous Respiratory Depth Normal Respiratory Pattern Regular Blood Pressure 168/110 H Blood Pressure Mean 129 Blood Pressure Position Sitting Pulse Oximetry 94 94 88 L Oxygen Delivery Method Room Air Nasal Cannula Room Air Oxygen Flow Rate 3 Sepsis Recent Fever Within 48 Hours No Sepsis New/Unexplained Change in Mental Status No Sepsis Action Taken by Nursing No Action Required Oxygen Flow Rate - Titration 3 Pulse Oximetry Post Tiitration 96 Home Medications Current Medication List: was personally reviewed by me Laboratory Data Attestation: I reviewed the patient's lab results. Result diagrams: 03/27/21 16:50 03/27/21 16:50 Lab Results 03/27/21 03/27/21 03/27/21 Range/Units 16:50 16:50 16:54 WBC 10.95 H (4.8-10.8) K/uL RBC 5.58 (4.7-6.1) M/uL Hgb 18.0 (14.0-18.0) g/dL Hct 54.3 H (42-52) % MCV 97.3 (80-100) fL MCH 32.3 (25-34) pg MCHC 33.1 (32-36) g/dL RDW Std Deviation 47.8 H (36.4-46.3) fL RDW Coeff of Linsey 13.5 (11.5-14.5) % Plt Count 175 (130-400) K/uL MPV 10.2 (7.4-10.4) fL Immature Gran % (Auto) 0.2 % Neut % (Auto) 71.3 % Lymph % (Auto) 15.3 % [place] % (Auto) 8.7 % Eos % (Auto) 3.8 % Baso % (Auto) 0.7 % Neut # (Auto) 7.81 H (1.4-6.5) K/uL Lymph # (Auto) 1.67 (1.2-3.4) K/uL [place] # (Auto) 0.95 H (0.11-0.59) K/uL Eos # (Auto) 0.42 (0-0.5) K/uL Baso # (Auto) 0.08 (0-0.2) K/uL Immature Gran # (Auto) 0.02 (0.00-0.02) K/uL VBG pH 7.34 L (7.36-7.41) VBG pCO2 68 H (38-50) mmHg VBG pO2 24 mmHg VBG HCO3 36 mmol/L VBG O2 Saturation < 60.0 % VBG Base Excess 6.5 mEq/L Barometric Pressure 732.3 mm/Hg Sodium 134 L (136-145) mmol/L Potassium 4.8 (3.5-5.1) mmol/L Chloride 97 L (98-107) mmol/L Carbon Dioxide 35 H (21-32) mmol/L Anion Gap 2.0 L (3-11) BUN 12 (7-18) mg/dl Creatinine 0.82 (0.6-1.4) mg/dl Est Cr Clr Drug Dosing 85.2 ml/min Est GFR ( Amer) 100.3 ml/min Est GFR (Non-Af Amer) 86.5 ml/min BUN/Creatinine Ratio 14.0 (10-20) Glucose 121 H (70-99) mg/dl Calcium 9.5 (8.5-10.1) mg/dl Magnesium 2.7 H (1.8-2.4) mg/dl Total Bilirubin 0.7 (0.2-1) mg/dl AST 23 (15-37) U/L ALT 28 (12-78) U/L Alkaline Phosphatase 119 H (45-117) U/L Troponin I < 0.015 (0-0.045) ng/ml Total Protein 7.1 (6.4-8.2) gm/dl Albumin 3.5 (3.4-5.0) gm/dl Globulin 3.6 (2.5-4.0) gm/dl Albumin/Globulin Ratio 1.0 (0.9-2) Administered Medications Sodium Chloride (Nss 1000ml) 1,000 mls @ 999 mls/hr IV .Q1H1M ONE Stop: 03/27/21 18:35 Last Admin: 03/27/21 17:44 Dose: 999 mls/hr Documented by: [id number] Discontinued Medications Albuterol (Albut/Ipratrop 3mg/0.5mg Neb 3 Ml Vial) 6 ml INH NOW STA Stop: 03/27/21 16:10 Last Admin: 03/27/21 16:42 Dose: 6 ml Documented by: [id number] Azithromycin (Azithromycin 250 Mg Tab) 500 mg PO NOW ONE Stop: 03/27/21 17:41 Last Admin: 03/27/21 17:45 Dose: 500 mg Documented by: [id number] Magnesium Sulfate/Dextrose (Magnesium Sulfate / D5w) 1 gm in 100 mls @ 100 mls/hr IV NOW STA Stop: 03/27/21 17:09 Last Infusion: 03/27/21 17:29 Dose: 0 mls/hr Documented by: [id number] Admin: 03/27/21 16:28 Dose: 100 mls/hr Documented by: [id number] Methylprednisolone (Methylprednisolone 125 Mg/2 Ml Vial) 60 mg IV NOW STA Stop: 03/27/21 16:10 Last Admin: 03/27/21 16:28 Dose: 60 mg Documented by: [id number] Imaging Data Radiologist's Impression: Chest X-Ray 03/27/21 16:09 XR chest 1V portable HISTORY: 75 years-old Male Dyspnea acute shortness of breath COMPARISON: Chest radiograph 01/15/2021 TECHNIQUE: Portable AP view of the chest FINDINGS: Cardiomediastinal and hilar silhouettes are unchanged. Emphysema with interstitial coarsening. No pneumothorax, pleural effusion, airspace consolidation or overt pulmonary edema. Degenerative changes of the shoulders and spine. IMPRESSION: Emphysema without acute process. ACT 112: Negative or not required by law. The above report was generated using voice recognition software. It may contain grammatical, syntax or spelling errors. Electronically signed by: Troy Tom M.D. 03/27/2021 4:26 PM Discharge Plan Visit Data Chief Complaint: Shortness of Breath/Dyspnea ED Provider: Nigel Hinojosa Discharge Problem: Acute respiratory failure with hypoxemia, Acute exacerbation of chronic obstructive pulmonary disease, Hypercarbia Patient Disposition: Admitted As Inpatient Prescriptions Prescriptions: No Action (DME) nebulizer accessories Kit See Rx Instructions .ROUTE .MEDSUPPLY Qty: 1 RF: 0 ipratropium-albuterol 0.5 mg-3 mg(2.5 mg base)/3 mL solution for nebulization 3 ml INHALATION QID PRN (Reason: Wheezing) Qty: 3 RF: 1 finasteride 5 mg tablet 5 mg PO DAILY Qty: 30 RF: 2 (DME) Nebulizer See Rx Instructions .Route .MEDSUPPLY Qty: 1 RF: 0 albuterol sulfate 1.25 mg/3 mL solution for nebulization 1.25 mg inhalation QID PRN (Reason: shortness of breath or wheezing) Qty: 90 RF: 1 (DME) inhaler spacer See Rx Instructions .Route .MEDSUPPLY Qty: 1 RF: 0 albuterol sulfate [Ventolin HFA] 90 mcg/actuation HFA aerosol inhaler 2 puff inhalation Q2H PRN (Reason: shortness of breath or wheezing) Qty: 6.7 RF: 0 budesonide-formoterol [Symbicort] 160-4.5 mcg/actuation HFA aerosol inhaler 2 inh inhalation BID Qty: 10.2 RF: 5 (DME) Blood Pressure Cuff Misc See Rx Instructions .ROUTE .MEDSUPPLY Qty: 1 RF: 0 nitroglycerin 0.4 mg tablet, sublingual 0.4 mg sublingual UD PRN (Reason: Chest Pain) RF: 0 prednisone 10 mg tablets,dose pack 10 mg PO DIRECTED Qty: 21 RF: 0 losartan 50 mg Tablet 50 mg PO QAM Qty: 30 RF: 0 Referrals Referrals: Skinny Toure, [Primary Care Provider] -
[2021-03-27] MEDS ORDERED: ALBUT/IPRATROP 3MG/0.5MG NEB 3 ML VIAL INH STA (16:09)
[2021-03-27] MEDS ORDERED: methylPREDNISolone 125 MG/2 ML VIAL IV STA (16:09)
[2021-03-27] MEDS ORDERED: MAGNESIUM SULFATE / D5W 1 GM/100 ML BAG IV STA (16:10)
--- NOTE | 2021-03-27 16:27 | XRay Report ---
XR chest 1V portable HISTORY: 75 years-old Male Dyspnea acute shortness of breath COMPARISON: Chest radiograph 01/15/2021 TECHNIQUE: Portable AP view of the chest FINDINGS: Cardiomediastinal and hilar silhouettes are unchanged. Emphysema with interstitial coarsening. No pne umothorax, pleural effusion, airspace consolidation or overt pulmonary edema. Degenerative changes of the shoulders and spine. IMPRESSION: Emphysema without acute process. ACT 112: Negative or not required by law. The above report was generated using voice recognition software. It may contain grammatical, syntax o r spelling errors. Electronically signed by: Troy Tom M.D. 03/27/2021 4:26 PM
[2021-03-27 17:05] LABS: Basophils # (auto) 0.08 K/uL (0-0.2); Basophils % (auto) 0.7 %; Eosinophils # (auto) 0.42 K/uL (0-0.5); Eosinophils % (auto) 3.8 %; Hematocrit (blood only) 54.3 % (42-52); Immature Granulocytes # (auto) 0.02 K/uL (0.00-0.02); Immature Granulocytes % (auto) 0.2 %; Lymphocytes # (auto) 1.67 K/uL (1.2-3.4); Lymphocytes % (auto) 15.3 %; Mean Corpuscular Hemoglobin 32.3 pg (25-34); Mean Corpuscular Hgb Conc 33.1 g/dL (32-36); Mean Corpuscular Volume 97.3 fL (80-100); Mean Platelet Volume 10.2 fL (7.4-10.4); Monocytes # (auto) 0.95 K/uL (0.11-0.59); Monocytes % (auto) 8.7 %; Neutrophils # (auto) 7.81 K/uL (1.4-6.5); Neutrophils % (auto) 71.3 %; Platelet Count 175 K/uL (130-400); RDW Coefficient of Variation 13.5 % (11.5-14.5); RDW Standard Deviation 47.8 fL (36.4-46.3); Red Blood Count 5.58 M/uL (4.7-6.1); White Blood Count 10.95 K/uL (4.8-10.8)
[2021-03-27 17:06] LABS: Base Excess VBG 6.5 mEq/L; HCO3 VBG 36 mmol/L; Oxygen Saturation VBG < 60.0 %; PCO2 VBG 68 mmHg (38-50); PO2 VBG 24 mmHg; pH VBG 7.34 (7.36-7.41)
[2021-03-27 17:22] LABS: Alanine Aminotransferase 28 U/L (12-78); Albumin Level 3.5 gm/dl (3.4-5.0); Aspartate Aminotransferase 23 U/L (15-37); Blood Urea Nitrogen 12 mg/dl (7-18); Calcium 9.5 mg/dl (8.5-10.1); Carbon Dioxide 35 mmol/L (21-32); Chloride 97 mmol/L (98-107); Creatinine Clr Calc Pharmacy 85.2 ml/min; Est GFR (African American) 100.3 ml/min; Est GFR (Non-African American) 86.5 ml/min; Glucose 121 mg/dl (70-99); Magnesium 2.7 mg/dl (1.8-2.4); Potassium 4.8 mmol/L (3.5-5.1); Sodium 134 mmol/L (136-145)
[2021-03-27 17:27] LABS: Alkaline Phosphatase 119 U/L (45-117); Bilirubin,Total 0.7 mg/dl (0.2-1); Globulin 3.6 gm/dl (2.5-4.0); Total Protein 7.1 gm/dl (6.4-8.2); Troponin I < 0.015 ng/ml (0-0.045)
[2021-03-27] MEDS ORDERED: SODIUM CHLORIDE 0.9% 1000ML 1,000 ML IV ONE (17:35)
[2021-03-27] MEDS ORDERED: AZITHROMYCIN 250 MG TAB PO ONE (17:40)
--- NOTE | 2021-03-27 20:23 | History & Physical Report ---
Date of Service March 27, 2021 Assessment & Plan (1) Acute exacerbation of chronic obstructive pulmonary disease: Plan: COPD exacerbation- methylprednisolone 40 mg IV every 8 hours Duonebs every 4 hours while awake and every 2 hours when necessary. Oxygen mask/nasal cannula oxygen, titrate to keep pulse ox around 92% guaifenesin extended release 1200 mg p.o. twice daily vitamin D 1000 international units p.o. daily azithromycin 500 mg IV daily COVID-19 negative (2) Tobacco dependence: Plan: Cessation counseling (3) Overactive bladder: Plan: Continue finasteride (4) Hypertension: Plan: Continue losartan History of Present Illness Chief Complaint: The patient presents to the emergency department with 1 week of shortness of breath, dyspnea exertion, and productive cough Primary Care Provider: Skinny Toure DO The patient is a 75-year-old male with a past medical history including hyperlipidemia, GERD, daily tobacco use, COPD, CAD, pulmonary nodule, anxiety with depression, peripheral neuropathy, overactive bladder, medical noncompliance and schizotypal personality disorder. Presents to the emergency department with 1 week of shortness of breath, dyspnea on exertion and productive cough. Upon presentation in the emergency department he had a maximal temperature of 99.3 F, and a pulse ox on room air of 88%. He improved to 95% on 4 L oxygen mask. Chest x-ray was consistent with COPD, with no acute signs of infection. COVID-19 testing was negative. Allergies Allergy/AdvReac Type Severity Reaction Status Date / Time CHARO Inhibitors Allergy Unknown GMG LIST Verified 03/27/21 17:08 prednisone AdvReac Severe AGGRESSIVE Verified 03/27/21 17:08 ketoprofen AdvReac Intermediate HAND Verified 03/27/21 17:08 SWELLING oxaprozin AdvReac Intermediate HAND Verified 03/27/21 17:08 SWELLING Home Medications Medication Instructions Recorded Confirmed Type nitroglycerin 0.4 mg sublingual 0.4 mg SUBLINGUAL UD PRN 01/21/20 03/27/21 History tablet miscellaneous medical supply #1 ea 05/26/20 02/02/21 Rx (Blood Pressure Cuff) nebulizer accessories #1 ea 09/13/20 02/02/21 Rx ipratropium 0.5 mg-albuterol 3 mg 3 ml INHALATION QID PRN #3 ml 01/06/21 03/27/21 Rx (2.5 mg base)/3 mL nebulization soln losartan 50 mg tablet 50 mg PO QAM #30 tab 01/17/21 03/27/21 Rx prednisone 10 mg tablets in a dose 10 mg PO DIRECTED #21 ea 01/17/21 03/27/21 Rx pack albuterol sulfate 90 mcg/actuation 2 puff INHALATION Q2H PRN #6.7 g 02/02/21 03/27/21 Rx aerosol inhaler (Ventolin HFA) budesonide-formoterol HFA 160 2 inh INHALATION BID #10.2 g 02/02/21 03/27/21 Rx mcg-4.5 mcg/actuation aerosol inhaler (Symbicort) inhaler spacer #1 ea 02/02/21 02/02/21 Rx finasteride 5 mg tablet 5 mg PO DAILY #30 tab 02/22/21 03/27/21 Rx Nebulizer #1 ea 03/11/21 Rx albuterol sulfate 1.25 mg/3 mL 1.25 mg INHALATION QID PRN #90 ml 03/11/21 03/27/21 Rx solution for nebulization Past Med/Surg History Medical History Acute respiratory failure with hypoxia CAD (coronary artery disease) Hypoxia Peptic ulcer Pulmonary nodule Umbilical hernia Surgical History S/P hernia repair Family History Father Myocardial infarction Denies family history of Colon cancer Ovarian cancer Prostate cancer Breast cancer Social History Smoking Status: Current every day smoker Tobacco Type: Cigarettes Age Started Using Tobacco: 17; packs per day: 1.5; Second Hand Exposure: Yes; Hx Alcohol Use: No Hx Substance Use: Yes Last Used Substance: Unknown Preferred Language: Citizen Of [place] Communication Ability: Effective Visual Impairment: No Limitations Hearing Ability: Hard of Hearing Government Property Inspector Required: No Beliefs That Will Affect Care: None marital status: Current Living Situation: Alone and Homeless Current Living Situation Comment: Pt currently homeless due to bedbugs current occupational status: retired Feels Safe at Home: Yes Childhood Exposure to Second-Hand Smoke: No Dental Care, Regularly: No Physical Activity Frequency: 3-4 Times per Week Seatbelt Use: always Sunscreen Use: Yes Assistive Devices: Denture - Upper Review of Systems Review of Systems: The patient denies chest pain, palpitations, lower extremity swelling, sore throat, fevers, chills, sweats, nausea, vomiting, diarrhea , constipation, abdominal pain, pelvic pain, blood in urine or stool, dysuria, urinary frequency or urgency, lightheadedness, dizziness, headache, memory loss, loss of consciousness, rash, abnormal bruising or bleeding, imbalance, focal or generalized weakness, numbness or tingling in arms or legs, generalized arthralgias or myalgias, back or neck pain, or night sweats. The review of systems is otherwise negative other than for that already noted above, and at least 10 systems have been reviewed. Physical Exam Physical Exam: The patient is awake, alert and oriented 3, well developed and well nourished, normocephalic and atraumatic, lying in bed and in no acute distress. HEENT--PERRL, EOMI, mucous membranes and oropharynx normal. Neck--supple. No JVD. No bruits. Thyroid normal, trachea midline, no adenopathy. Heart--normal S1 and S2. No murmurs, rubs or gallops. Lungs--few scattered rhonchi and wheezes bilaterally, overall diminished, no respiratory distress, no accessory muscle use. Abdomen--normal bowel sounds and soft. Nontender. Nondistended, no hernias or masses, no organomegaly. Extremities--no cyanosis or clubbing. No edema. Dermatologic--normal skin turgor, normal color, no abnormal lymph nodes, no rash. Neurologic--cranial nerves II through XII grossly intact. Rheumatologic--normal range of motion. Psychiatric--normal affect. Results & Data Results & Data ([facility]) Vital Signs (Past 12 Hours) Vital Signs Temp Pulse Pulse Resp BP BP Pulse Ox 03/27/21 20:19 102 H 22 148/100 H 95 03/27/21 19:06 104 H 20 164/90 H 96 03/27/21 18:54 92 03/27/21 18:30 108 H 22 130/66 91 03/27/21 18:00 102 H 22 89 L 03/27/21 17:30 100 H 24 03/27/21 17:00 101 H 21 88 L 03/27/21 16:43 104 H 20 94 03/27/21 16:30 106 H 25 H 92 03/27/21 16:06 99.3 F 110 H 16 168/110 H 94 03/27/21 16:02 111 H 40 H 165/120 H 94 Laboratory Results Laboratory Results WBC 10.95 K/uL (4.8-10.8) H 03/27/21 16:50 RBC 5.58 M/uL (4.7-6.1) 03/27/21 16:50 Hgb 18.0 g/dL (14.0-18.0) 03/27/21 16:50 Hct 54.3 % (42-52) H 03/27/21 16:50 MCV 97.3 fL (80-100) 03/27/21 16:50 MCH 32.3 pg (25-34) 03/27/21 16:50 MCHC 33.1 g/dL (32-36) 03/27/21 16:50 RDW Std Deviation 47.8 fL (36.4-46.3) H 03/27/21 16:50 RDW Coeff of Linsey 13.5 % (11.5-14.5) 03/27/21 16:50 Plt Count 175 K/uL (130-400) 03/27/21 16:50 MPV 10.2 fL (7.4-10.4) 03/27/21 16:50 Immature Gran % (Auto) 0.2 % 03/27/21 16:50 Neut % (Auto) 71.3 % 03/27/21 16:50 Lymph % (Auto) 15.3 % 03/27/21 16:50 Vigo % (Auto) 8.7 % 03/27/21 16:50 Eos % (Auto) 3.8 % 03/27/21 16:50 Baso % (Auto) 0.7 % 03/27/21 16:50 Neut # (Auto) 7.81 K/uL (1.4-6.5) H 03/27/21 16:50 Lymph # (Auto) 1.67 K/uL (1.2-3.4) 03/27/21 16:50 Vigo # (Auto) 0.95 K/uL (0.11-0.59) H 03/27/21 16:50 Eos # (Auto) 0.42 K/uL (0-0.5) 03/27/21 16:50 Baso # (Auto) 0.08 K/uL (0-0.2) 03/27/21 16:50 Immature Gran # (Auto) 0.02 K/uL (0.00-0.02) 03/27/21 16:50 VBG pH 7.34 (7.36-7.41) L 03/27/21 16:54 VBG pCO2 68 mmHg (38-50) H 03/27/21 16:54 VBG pO2 24 mmHg 03/27/21 16:54 VBG HCO3 36 mmol/L 03/27/21 16:54 VBG O2 Saturation < 60.0 % 03/27/21 16:54 VBG Base Excess 6.5 mEq/L 03/27/21 16:54 Barometric Pressure 732.3 mm/Hg 03/27/21 16:54 Sodium 134 mmol/L (136-145) L 03/27/21 16:50 Potassium 4.8 mmol/L (3.5-5.1) 03/27/21 16:50 Chloride 97 mmol/L (98-107) L 03/27/21 16:50 Carbon Dioxide 35 mmol/L (21-32) H 03/27/21 16:50 Anion Gap 2.0 (3-11) L 03/27/21 16:50 BUN 12 mg/dl (7-18) 03/27/21 16:50 Creatinine 0.82 mg/dl (0.6-1.4) 03/27/21 16:50 Est Cr Clr Drug Dosing 85.2 ml/min 03/27/21 16:50 Est GFR ( Amer) 100.3 ml/min 03/27/21 16:50 Est GFR (Non-Af Amer) 86.5 ml/min 03/27/21 16:50 BUN/Creatinine Ratio 14.0 (10-20) 03/27/21 16:50 Glucose 121 mg/dl (70-99) H 03/27/21 16:50 Calcium 9.5 mg/dl (8.5-10.1) 03/27/21 16:50 Magnesium 2.7 mg/dl (1.8-2.4) H 03/27/21 16:50 Total Bilirubin 0.7 mg/dl (0.2-1) 03/27/21 16:50 AST 23 U/L (15-37) 03/27/21 16:50 ALT 28 U/L (12-78) 03/27/21 16:50 Alkaline Phosphatase 119 U/L (45-117) H 03/27/21 16:50 Troponin I < 0.015 ng/ml (0-0.045) 03/27/21 16:50 Total Protein 7.1 gm/dl (6.4-8.2) 03/27/21 16:50 Albumin 3.5 gm/dl (3.4-5.0) 03/27/21 16:50 Globulin 3.6 gm/dl (2.5-4.0) 03/27/21 16:50 Albumin/Globulin Ratio 1.0 (0.9-2) 03/27/21 16:50 SARS-CoV-2 (PCR) NEGATIVE (Negative) 03/27/21 16:00 Impressions Chest X-Ray 03/27/21 16:09 XR chest 1V portable HISTORY: 75 years-old Male Dyspnea acute shortness of breath COMPARISON: Chest radiograph 01/15/2021 TECHNIQUE: Portable AP view of the chest FINDINGS: Cardiomediastinal and hilar silhouettes are unchanged. Emphysema with interstitial coarsening. No pneumothorax, pleural effusion, airspace consolidation or overt pulmonary edema. Degenerative changes of the shoulders and spine. IMPRESSION: Emphysema without acute process. ACT 112: Negative or not required by law. The above report was generated using voice recognition software. It may contain grammatical, syntax or spelling errors. Electronically signed by: Troy Tom M.D. 03/27/2021 4:26 PM Code Status & VTE Plan Code Status Full code VTE Prophylaxis Plan VTE Prophylaxis will be ordered: Yes PG Care Time/CCT Total # of Minutes Spent Total Time Spent with Patient: Total time spent is greater than 50% in coordination of care (as documented) at patient's floor/unit and/or counseling patient: Coding Level of Care Code 74021 Initial Inpt Care Lvl 3 Diagnoses Acute exacerbation of chronic obstructive pulmonary disease J44.1 Tobacco dependence F17.200 Overactive bladder N32.81 Hypertension I10
[2021-03-27] MEDS ORDERED: LIDOCAINE 5% 1 PATCH TD STA (22:08)
[2021-03-27] MEDS ORDERED: ONDANSETRON INJ 2 MG/ML 2 ML VIAL IV PRN (23:33)
[2021-03-28] MEDS ORDERED: cefTRIAXone SODIUM 2,000 MG in DEXTROSE 5% 50 ML IV SCH (01:00)
[2021-03-28] MEDS: guaiFENesin 600 MG TABCR PO SCH ×3 (01:32→20:33)
[2021-03-28] MEDS: ENOXAPARIN INJ 40 MG/0.4 ML SYR SQ SCH ×2 (01:33→20:33)
[2021-03-28] MEDS: ACETAMINOPHEN 325 MG TAB PO PRN ×4 (04:48→19:22)
--- NOTE | 2021-03-28 06:34 | Hospitalist Progress Note ---
Date of Service March 28, 2021 Assessment & Plan (1) Acute exacerbation of chronic obstructive pulmonary disease: Plan: 75 y/o M current smoker w/ PMHx of COPD not on home O2, HTN, HLD, GERD, CAD anxiety/depression overactive bladder, and overactive bladder who presents for COPD exac. Improving, requiring 4L nasal cannula. acute hypoxic resp failure 2/2 COPD exacerbation likely precipitant was home inhaler inadherence low suspicion of PE at this time. Prior Xarelto use for possible PE 05/2020; reviewed CT report; may have been artifact / poor visualization methylprednisolone 40 mg IV every 8 hours Duonebs every 4 hours while awake and every 2 hours when necessary Oxygen mask/nasal cannula oxygen, titrate to keep pulse ox around 92% guaifenesin extended release 1200 mg p.o. twice daily vitamin D 1000 international units p.o. daily azithromycin 500 mg IV daily Rocephin discontinued as lower suspicion for bacterial resp infection. Procalc neg COVID-19 negative (2) Tobacco dependence: Plan: Cessation counseling - ordered nicotine patch 14mg, patient declined (3) Overactive bladder: Plan: Continue finasteride (4) Hypertension: Plan: Continue losartan (5) GERD (gastroesophageal reflux disease): Plan: Reviewed chart hx. Ordered pantoprazole as patient had been on home PPI until 01/2021 (6) Acute respiratory failure with hypoxia: Plan: See above Plan: FEN/GI: HH. No IV fluids. ppx: sq lovenox code: full dispo: med/surg tele. Office of aging following; following prior to admission; concerns for inadequate self-care and homelessness. Admission and Anticipated Discharge Date Admission Date: March 27, 2021 Supervising Physician Co-Signing Physician Notes I personally examined the patient and verified all holcomb points of history and exam, discussed case, and agree with decision making with Dr Maddox. Feeling better than before, breathing improving. Working with office of the aging on trying to find a more stable living situation. Vitals noted, in general he is awake and alert pleasant no distress. HEENT normocephalic atraumatic mucous membranes moist. Lungs diminished air entry throughout, although no focal/adventitious findingsno rales rhonchi or wheezes good effort. No accessory muscle use. Neuro without focal deficits. COPD exacerbationsteroids, antibiotics, supportive care. Suspect he may need oxygen for at least the intermediate if not long-term based on his current status and the appearance of his of the lung disease overall. Appreciate case management and office of the aging working on safe disposition. For now stable for transfer to medical DVT prophylaxis with Lovenox Subjective He is feeling better this AM, breathing is better, but not quite at baseline. CAD s/p 2 stents 5 years ago. PUD. States was never put on PPI. States his mucus/phlegm has cleared up. He was sick for a wk prior, sub f/c, clear phlegm. He was at [facility] and took his medications. Has not has covid vaccine. No home O2 requirement. Current smoker, quit for many years, but restarted a few years ago. States recently euvolemic. Unclear med adherence hx while at [facility]. Review of Systems Review of Systems: All systems reviewed & are unremarkable except as noted in HPI & below Constitutional: Denies fever, chills. Eyes: Denies blurry vision, vision changes ENT: Denies sore throat, sinus pain Cardiovascular: Denies chest pain, palpitations Respiratory: Has some SOB, worsened w/ exertion Gastrointestinal: Denies abdominal pain, nausea, vomiting, constipation, diarrhea Genitourinary: Denies urinary symptoms including dysuria Musculoskeletal: Denies weakness, muscle aches/pain, joint aches/pain Neurological: Denies, numbness, tingling, focal weakness. Chronic ZHOU, none currently Physical Exam Physical Exam: General: A&Ox4. NAD. Cooperative. HEENT: Atraumatic, normocephalic. EOMI Pulm: CTAB. -wheezes, -rales, -rhonchi. Decreased air entry diffusely. No respiratory distress. O2 at 3L. Cardiac: RRR, -mrg. Radial pulses intact and symmetrical. Abdominal: Nontender, nondistended, soft. Psych: Speech topics somewhat odd, including some paranoid-type ideas Results & Data Results & Data ([facility]) Vital Signs (Past 12 Hours) Vital Signs HRs sinus 80s-low 100s. BPs 150s 160s systolic w/ high of 190s/100s. afeb. weaned down to 93-97 on 3L Temp Pulse Pulse Resp BP Pulse Ox 03/28/21 04:01 36.8 C 99 H 17 169/84 H 97 03/28/21 03:10 100 H 03/28/21 01:21 36.7 C 99 H 22 97 03/28/21 00:00 37.1 C 108 H 25 H 194/107 H 94 03/27/21 23:21 97 H 20 155/87 H 96 03/27/21 22:08 100 H 22 159/81 H 95 03/27/21 20:59 101 H 22 147/85 H 91 03/27/21 20:19 102 H 22 148/100 H 95 03/27/21 19:06 104 H 20 164/90 H 96 03/27/21 18:54 92 Laboratory Results wbc 10.41 stable. Hb appropriate. Na 134->132, has had hx of hypo Na. Cr .85. admission vbg pH 7.34. No anion gap. BSGs 110s-160s. Mg 2.7. alk phos 118H, chronic. trop neg x1. cxr w/ emphysema. ecg sinus tach 112. schizotypal per office of aging note and self neglect. Was on Xarelto from 05/2020 admisison for possible PE though CTA read as no PE w/ segmental and subseg branches of bases no well evaluated. Patient self d/c'd AC and has not been on it x months. Also had multiple pulm nodules on CTA. Resident Activity Tracking Resident Involvement: Resident Care Provided Care Provided: [facility]
[2021-03-28 07:13] LABS: Hematocrit (blood only) 49.8 % (42-52); Hemoglobin 16.7 g/dL (14.0-18.0); Immature Granulocytes # (auto) 0.02 K/uL (0.00-0.02); Immature Granulocytes % (auto) 0.2 %; Lymphocytes # (auto) 0.64 K/uL (1.2-3.4); Lymphocytes % (auto) 6.1 %; Mean Corpuscular Hemoglobin 32.3 pg (25-34); Mean Corpuscular Hgb Conc 33.5 g/dL (32-36); Mean Corpuscular Volume 96.3 fL (80-100); Mean Platelet Volume 10.1 fL (7.4-10.4); Monocytes # (auto) 0.34 K/uL (0.11-0.59); Monocytes % (auto) 3.3 %; Neutrophils # (auto) 9.41 K/uL (1.4-6.5); Neutrophils % (auto) 90.4 %; Platelet Count 157 K/uL (130-400); RDW Coefficient of Variation 13.3 % (11.5-14.5); RDW Standard Deviation 47.3 fL (36.4-46.3); Red Blood Count 5.17 M/uL (4.7-6.1); White Blood Count 10.41 K/uL (4.8-10.8)
[2021-03-28 07:48] LABS: Albumin Level 3.3 gm/dl (3.4-5.0); BUN Creatinine Ratio 17.6 (10-20); Creatinine Clr Calc Pharmacy 75.1 ml/min; Est GFR (African American) 98.8 ml/min; Est GFR (Non-African American) 85.2 ml/min; Potassium 4.4 mmol/L (3.5-5.1)
[2021-03-28 07:51] LABS: Albumin Globulin Ratio 0.9 (0.9-2); Bilirubin,Total 0.6 mg/dl (0.2-1); Globulin 3.7 gm/dl (2.5-4.0)
[2021-03-28] MEDS: FINASTERIDE 5 MG TAB PO SCH (08:58)
[2021-03-28] MEDS: PANTOprazole 40 MG TAB PO SCH (08:58)
[2021-03-28] MEDS: LOSARTAN POTASSIUM 50 MG TAB PO SCH (08:58)
[2021-03-28] MEDS: CHOLECALCIFEROL 1,000 UNITS 25 MCG TAB PO SCH (08:58)
[2021-03-28] MEDS: FLUTICASONE/VILANTEROL 100/25MCG 14 PUFFS/INHALER INH SCH (08:59)
[2021-03-28] MEDS: DICLOFENAC SOD 1% GEL 100 GM TUBE EXT PRN ×2 (09:02→15:33)
[2021-03-28] MEDS: ALBUT/IPRATROP 3MG/0.5MG NEB 3 ML VIAL NEB SCH ×4 (09:16→19:30)
[2021-03-28] MEDS ORDERED: NICOTINE 14 MG/24 HR PATCH TD SCH ×2 (15:30→15:45)
[2021-03-28] MEDS ORDERED: NICOTINE 14 MG/24 HR PATCH TD ONE (15:45)
[2021-03-28] MEDS: methylPREDNISolone 40 MG in SYRINGE 0 ML IV SCH (16:05)
[2021-03-28] MEDS: AZITHROMYCIN 500 MG in DEXTROSE 5% 250 ML IV SCH (17:03)
--- NOTE | 2021-03-28 17:30 | Billing Data ---
Date of Service March 28, 2021 Coding Level of Care Code 22299 Subseq Hosp Care Lvl 3
[2021-03-28] MEDS ORDERED: METOPROLOL TARTRATE 1 MG/ML VIAL IV PRN (18:23)
[2021-03-29] MEDS: methylPREDNISolone 40 MG in SYRINGE 0 ML IV SCH ×4 (00:05→23:54)
--- NOTE | 2021-03-29 05:50 | Electrocardiogram Report ---
Test Reason : Blood Pressure : / mmHG Vent. Rate : 112 BPM Atrial Rate : 112 BPM P-R Int : 150 ms QRS Dur : 084 ms QT Int : 328 ms P-R-T Axes : 083 067 072 degrees QTc Int : 447 ms Sinus tachycardia Possible Left atrial enlargement Borderline ECG When compared with ECG of 15-JAN-2021 20:40, Premature supraventricular complexes are no longer Present Confirmed by Alexey Coffey ([id number]) on 03/29/2021 5:50:00 AM Referred By: Confirmed By:Alexey Coffey
--- NOTE | 2021-03-29 07:07 | Hospitalist Progress Note ---
Date of Service March 29, 2021 Assessment & Plan (1) Acute exacerbation of chronic obstructive pulmonary disease: Plan: 75 y/o M current smoker w/ PMHx of COPD not on home O2, HTN, HLD, GERD, CAD anxiety/depression overactive bladder, and overactive bladder who presents for COPD exac. Improving, requiring 4L nasal cannula. dispo planning: office of aging involved, planning to assign guardian. Has court date 04/06. Following prior to admission; concerns for inadequate self-care and homelessness. acute hypoxic resp failure 2/2 COPD exacerbation likely precipitant was home inhaler inadherence low suspicion of PE at this time. Prior Xarelto use for possible PE 05/2020; reviewed CT report; may have been artifact / poor visualization methylprednisolone 40 mg IV every 8 hours. Continue for1-2 days, then consider tapering to prednisone Duonebs every 4 hours while awake and every 2 hours when necessary Oxygen mask/nasal cannula oxygen, titrate to keep pulse ox around 92% guaifenesin extended release 1200 mg p.o. twice daily vitamin D 1000 international units p.o. daily azithromycin 500 mg IV daily Rocephin discontinued as lower suspicion for bacterial resp infection. Procalc neg COVID-19 negative (2) Tobacco dependence: Plan: Cessation counseling - ordered nicotine patch 14mg, patient declined (3) Overactive bladder: Plan: Continue finasteride (4) Hypertension: Plan: Continue losartan (5) GERD (gastroesophageal reflux disease): Plan: Reviewed chart hx. Ordered pantoprazole as patient had been on home PPI until 01/2021 (6) Acute respiratory failure with hypoxia: Plan: See above (7) Sinus tachycardia: Plan: Per chart review, appears chronic Plan: FEN/GI: HH. No IV fluids. ppx: sq lovenox code: full dispo: med/surg Admission and Anticipated Discharge Date Admission Date: March 27, 2021 Supervising Physician Co-Signing Physician Notes I personally examined the patient and verified all holcomb points of history and exam, discussed case, and agree with decision making with Dr Maddox. Generally feeling reasonably well. Breathing feels better. Is a little bit tangled up with his oxygen tubing and his gown. Working with the office of the aging on a safe living situation. Vitals noted, in general he is awake and alert pleasant no distress. HEENT normocephalic atraumatic mucous membranes moist. Lungs diminished air entry throughout, faint wheeze base left otherwise no rales rhonchi or wheezes good effort. No accessory muscle use. Neuro without focal deficits. COPD exacerbationsteroids, antibiotics, supportive care. Suspect he may need oxygen for at least the intermediate if not long-term based on his current status and the appearance of his of the lung disease overall. Appreciate case management and office of the aging working on safe dispositionunfortunately guardianship hearing is not scheduled until April 06 Stable on medical DVT prophylaxis with Lovenox Subjective Had some dyspnea and subj wheezes this AM resolved after neb tx. No curent SOB. Overall feeling better. Eating breakfast. Denies f/c, cp, sob, or urinary symptoms. Review of Systems Review of Systems: As per HPI Physical Exam Physical Exam: General: A&Ox4. NAD. Cooperative. HEENT: Atraumatic, normocephalic. EOMI Pulm: CTAB. -wheezes, -rales, -rhonchi. Decreased air entry diffusely, some improvement in bases vs. 03/28 examNo respiratory distress. O2 at 4l, but cur rently on room air while eating. Cardiac: RRR, -mrg. No LE edema. Abdominal: Nontender, nondistended, soft. Psych: Somewhat frustrated/annoyed during the conversation. Results & Data Results & Data ([facility]) Vital Signs (Past 12 Hours) Vital Signs vitals reviewed. on 3-4L NC Temp Pulse Resp BP Pulse Ox 03/29/21 05:51 36.5 C 85 18 138/76 92 03/28/21 22:31 36.5 C 93 H 20 141/78 H 97 03/28/21 19:32 81 12 96 Laboratory Results wbc 10.41->15.48 on steroids. bmp pending. 03/28 procalc <0.05 Resident Activity Tracking Resident Involvement: Resident Care Provided Care Provided: Adult Hospital Medicine
[2021-03-29] MEDS: DICLOFENAC SOD 1% GEL 100 GM TUBE EXT PRN ×2 (07:20→23:55)
[2021-03-29] MEDS: ALBUT/IPRATROP 3MG/0.5MG NEB 3 ML VIAL NEB SCH ×4 (07:32→19:58)
[2021-03-29 08:26] LABS: Hematocrit (blood only) 51.3 % (42-52); Immature Granulocytes # (auto) 0.03 K/uL (0.00-0.02); Immature Granulocytes % (auto) 0.2 %; Lymphocytes # (auto) 0.71 K/uL (1.2-3.4); Lymphocytes % (auto) 4.6 %; Mean Corpuscular Hgb Conc 33.1 g/dL (32-36); Mean Corpuscular Volume 96.6 fL (80-100); Mean Platelet Volume 10.8 fL (7.4-10.4); Monocytes # (auto) 0.65 K/uL (0.11-0.59); Monocytes % (auto) 4.2 %; Neutrophils # (auto) 14.09 K/uL (1.4-6.5); Platelet Count 174 K/uL (130-400); RDW Coefficient of Variation 13.3 % (11.5-14.5); RDW Standard Deviation 47.7 fL (36.4-46.3); Red Blood Count 5.31 M/uL (4.7-6.1); White Blood Count 15.48 K/uL (4.8-10.8)
[2021-03-29] MEDS: CHOLECALCIFEROL 1,000 UNITS 25 MCG TAB PO SCH (09:05)
[2021-03-29] MEDS: NICOTINE 14 MG/24 HR PATCH TD SCH (09:05)
[2021-03-29] MEDS: LOSARTAN POTASSIUM 50 MG TAB PO SCH (09:05)
[2021-03-29] MEDS: guaiFENesin 600 MG TABCR PO SCH ×2 (09:05→20:20)
[2021-03-29] MEDS: PANTOprazole 40 MG TAB PO SCH (09:05)
[2021-03-29] MEDS: FINASTERIDE 5 MG TAB PO SCH (09:05)
[2021-03-29] MEDS: FLUTICASONE/VILANTEROL 100/25MCG 14 PUFFS/INHALER INH SCH (09:06)
[2021-03-29] MEDS: ACETAMINOPHEN 325 MG TAB PO PRN ×4 (09:09→23:54)
[2021-03-29 09:54] LABS: Albumin Globulin Ratio 0.9 (0.9-2); Albumin Level 3.4 gm/dl (3.4-5.0); BUN Creatinine Ratio 23.1 (10-20); Bilirubin,Total 0.5 mg/dl (0.2-1); Calcium 8.9 mg/dl (8.5-10.1); Est GFR (African American) 99.3 ml/min; Est GFR (Non-African American) 85.7 ml/min; Globulin 3.7 gm/dl (2.5-4.0); Total Protein 7.1 gm/dl (6.4-8.2)
[2021-03-29 10:34] LABS: Potassium 4.8 mmol/L (3.5-5.1)
[2021-03-29] MEDS: CAPSAICIN CR 0.075% 60 GM TUBE EXT PRN ×3 (12:27→20:20)
--- NOTE | 2021-03-29 18:04 | Billing Data ---
Date of Service March 29, 2021 Coding Level of Care Code 95574 Subseq Hosp Care Lvl 2
[2021-03-29] MEDS: AZITHROMYCIN 500 MG in DEXTROSE 5% 250 ML IV SCH (18:07)
[2021-03-29] MEDS: ENOXAPARIN INJ 40 MG/0.4 ML SYR SQ SCH (20:20)
[2021-03-30] MEDS: MELATONIN 3 MG TAB PO PRN (02:00)
[2021-03-30] MEDS: ACETAMINOPHEN 325 MG TAB PO PRN ×3 (05:25→15:46)
--- NOTE | 2021-03-30 06:43 | Hospitalist Progress Note ---
Date of Service March 30, 2021 Assessment & Plan (1) Acute exacerbation of chronic obstructive pulmonary disease: Plan: 75 y/o M current smoker w/ PMHx of COPD not on home O2, HTN, HLD, GERD, CAD anxiety/depression overactive bladder, and overactive bladder who presents for COPD exac. Improving weaned to room air. dispo planning: office of aging involved, planning to assign guardian. Has court date 04/06. Following prior to admission; concerns for inadequate self-care and homelessness. acute hypoxic resp failure 2/2 COPD exacerbation, improving likely precipitant was home inhaler inadherence low suspicion of PE at this time. Prior Xarelto use for possible PE 05/2020; reviewed CT report; may have been artifact / poor visualization methylprednisolone 40 mg IV q8h; discontinued 03/30. Will start taper of prednisone 40 mg PO qam on 03/31 Duonebs QID descalated to BID + PRN q2h Oxygen mask/nasal cannula oxygen, titrate to keep pulse ox around 92% guaifenesin extended release 1200 mg p.o. twice daily vitamin D 1000 international units p.o. daily azithromycin 500 mg IV daily Rocephin discontinued as lower suspicion for bacterial resp infection. Procalc neg COVID-19 negative (2) Tobacco dependence: Plan: Cessation counseling - ordered nicotine patch 14mg, patient declined (3) Overactive bladder: Plan: Continue finasteride (4) Hypertension: Plan: Continue losartan. elevated BPs noted (5) GERD (gastroesophageal reflux disease): Plan: Reviewed chart hx. Ordered pantoprazole as patient had been on home PPI until 01/2021 (6) Acute respiratory failure with hypoxia: Plan: See above (7) Sinus tachycardia: Plan: Per chart review, appears chronic (8) Constipation: Plan: - miralax BID (9) Hyponatremia: Plan: - chronic. follow BMP and clinically Plan: FEN/GI: HH. No IV fluids. ppx: sq lovenox code: full dispo: med/surg Admission and Anticipated Discharge Date Admission Date: March 27, 2021 Supervising Physician Co-Signing Physician Notes I personally examined the patient and verified all holcomb points of history and exam, discussed case, and agree with decision making with Dr Maddox. feels reasonably well - breathing better. no new complaints otherwise. awaiting disposition wiht assistance from [facility] Vitals noted, in general he is awake and alert pleasant no distress. HEENT normocephalic atraumatic mucous membranes moist. Lungs diminished air entry throughout,but better than yesterday and no r/r/w. No accessory muscle use. Neuro without focal deficits. COPD exacerbationsteroids (reduce), antibiotics, supportive care. pleasant surprise was able to be weaned off O2 and stable on RA. Appreciate case management and office of the aging working on safe dispositionunfortunately guardianship hearing is not scheduled until April 06 Stable on medical - neuropsych notes show him not to have capacity can't leave without guardian/safe dispo DVT prophylaxis with Lovenox Subjective As of 8AM exam: BP elevated, attributes to feeling upset that attributes to the IV steroids. He is about to receive his home PO losartan 50mg. Denies other symptoms including f/c, cp, sob, numbness/tingling. Has not had BM since prior to admission. Neck and shoulder pains. Mild headache. Feels angry. Agreeable to tapering to PO regimen at a lower dose than what he is current receiving. Review of Systems Review of Systems: As per HPI Physical Exam Physical Exam: General: Grossly A&O. NAD. Cooperative. HEENT: Atraumatic, normocephalic. EOMI Pulm: CTAB. -wheezes, -rales, -rhonchi. Decreased air entry diffusely, Cardiac: TRR, -mrg. No LE edema. Abdominal: Has chronic mild TTP attributes to hernia Msk: Cervical area TTP, chronic Psych: Upset affect Results & Data Results & Data ([facility]) Vital Signs (Past 12 Hours) Vital Signs HR ~100. Weaned to room air 90-91% sat Temp Pulse Pulse Resp BP Pulse Ox 03/29/21 23:55 104 H 03/29/21 22:17 37.3 C 105 H 22 149/74 H 91 03/29/21 19:59 110 H 18 90 Temp Pulse Resp BP Pulse Ox 36.5 C 107 H 16 187/89 H 91 03/30/21 07:16 03/30/21 07:40 03/30/21 07:40 03/30/21 07:16 03/30/21 07:40 Laboratory Results wbc 10.41->15.48->18.89, on steroids. Hb stable. Plts 182 stable. Na 132 stable. Cr stable .96. slight ast elev 48. Resident Activity Tracking Resident Involvement: Resident Care Provided Care Provided: Adult [facility] Medicine
[2021-03-30 07:32] LABS: Basophils # (auto) 0.01 K/uL (0-0.2); Basophils % (auto) 0.1 %; Hematocrit (blood only) 49.6 % (42-52); Hemoglobin 16.8 g/dL (14.0-18.0); Immature Granulocytes # (auto) 0.05 K/uL (0.00-0.02); Immature Granulocytes % (auto) 0.3 %; Lymphocytes # (auto) 0.63 K/uL (1.2-3.4); Lymphocytes % (auto) 3.3 %; Mean Corpuscular Hemoglobin 32.4 pg (25-34); Mean Corpuscular Hgb Conc 33.9 g/dL (32-36); Mean Corpuscular Volume 95.8 fL (80-100); Mean Platelet Volume 10.6 fL (7.4-10.4); Monocytes # (auto) 0.67 K/uL (0.11-0.59); Monocytes % (auto) 3.5 %; Neutrophils # (auto) 17.53 K/uL (1.4-6.5); Neutrophils % (auto) 92.8 %; Platelet Count 182 K/uL (130-400); RDW Coefficient of Variation 13.4 % (11.5-14.5); RDW Standard Deviation 47.5 fL (36.4-46.3); Red Blood Count 5.18 M/uL (4.7-6.1); White Blood Count 18.89 K/uL (4.8-10.8)
[2021-03-30] MEDS: ALBUT/IPRATROP 3MG/0.5MG NEB 3 ML VIAL NEB SCH ×4 (07:39→19:28)
[2021-03-30 07:58] LABS: Albumin Level 3.5 gm/dl (3.4-5.0); BUN Creatinine Ratio 25.7 (10-20); Calcium 8.6 mg/dl (8.5-10.1); Creatinine Clr Calc Pharmacy 66.5 ml/min; Est GFR (African American) 89.3 ml/min; Potassium 4.6 mmol/L (3.5-5.1)
[2021-03-30 08:01] LABS: Bilirubin,Total 0.5 mg/dl (0.2-1); Globulin 3.5 gm/dl (2.5-4.0)
[2021-03-30] MEDS: PANTOprazole 40 MG TAB PO SCH (08:05)
[2021-03-30] MEDS: CHOLECALCIFEROL 1,000 UNITS 25 MCG TAB PO SCH (08:05)
[2021-03-30] MEDS: guaiFENesin 600 MG TABCR PO SCH ×2 (08:06→19:43)
[2021-03-30] MEDS: LOSARTAN POTASSIUM 50 MG TAB PO SCH (08:06)
[2021-03-30] MEDS: FLUTICASONE/VILANTEROL 100/25MCG 14 PUFFS/INHALER INH SCH (08:07)
[2021-03-30] MEDS: FINASTERIDE 5 MG TAB PO SCH (08:07)
[2021-03-30] MEDS: NICOTINE 14 MG/24 HR PATCH TD SCH (08:09)
[2021-03-30] MEDS: methylPREDNISolone 40 MG in SYRINGE 0 ML IV SCH (08:18)
[2021-03-30] MEDS: DICLOFENAC SOD 1% GEL 100 GM TUBE EXT PRN (08:19)
[2021-03-30] MEDS: POLYETHYLENE (MIRALAX) 17 GM PACK PO SCH ×2 (14:00→19:43)
[2021-03-30] MEDS: AZITHROMYCIN 500 MG in DEXTROSE 5% 250 ML IV SCH (18:03)
--- NOTE | 2021-03-30 18:17 | Billing Data ---
Date of Service March 30, 2021 Coding Level of Care Code 95216 Subseq Hosp Care Lvl 2
[2021-03-30] MEDS: ENOXAPARIN INJ 40 MG/0.4 ML SYR SQ SCH (19:43)
[2021-03-31] MEDS: ACETAMINOPHEN 325 MG TAB PO PRN ×3 (01:55→16:41)
[2021-03-31] MEDS: CAPSAICIN CR 0.075% 60 GM TUBE EXT PRN (02:28)
[2021-03-31] MEDS: ALBUT/IPRATROP 3MG/0.5MG NEB 3 ML VIAL NEB SCH ×2 (05:03→08:07)
[2021-03-31 06:56] LABS: Basophils # (auto) 0.01 K/uL (0-0.2); Basophils % (auto) 0.1 %; Eosinophils # (auto) 0.04 K/uL (0-0.5); Eosinophils % (auto) 0.4 %; Hematocrit (blood only) 49.6 % (42-52); Hemoglobin 16.4 g/dL (14.0-18.0); Immature Granulocytes # (auto) 0.04 K/uL (0.00-0.02); Immature Granulocytes % (auto) 0.4 %; Lymphocytes # (auto) 2.02 K/uL (1.2-3.4); Lymphocytes % (auto) 18.1 %; Mean Corpuscular Hemoglobin 31.8 pg (25-34); Mean Corpuscular Hgb Conc 33.1 g/dL (32-36); Mean Corpuscular Volume 96.3 fL (80-100); Mean Platelet Volume 10.7 fL (7.4-10.4); Monocytes # (auto) 1.37 K/uL (0.11-0.59); Monocytes % (auto) 12.3 %; Neutrophils # (auto) 7.65 K/uL (1.4-6.5); Neutrophils % (auto) 68.7 %; Platelet Count 176 K/uL (130-400); RDW Coefficient of Variation 13.8 % (11.5-14.5); RDW Standard Deviation 49.1 fL (36.4-46.3); Red Blood Count 5.15 M/uL (4.7-6.1); White Blood Count 11.13 K/uL (4.8-10.8)
--- NOTE | 2021-03-31 07:11 | Hospitalist Progress Note ---
Date of Service March 31, 2021 Assessment & Plan (1) Acute exacerbation of chronic obstructive pulmonary disease: Plan: 75 y/o M current smoker w/ PMHx of COPD not on home O2, HTN, HLD, GERD, CAD anxiety/depression overactive bladder, and overactive bladder who presents for COPD exac. Improving, weaned to room air vs intermittent 2-3L. dispo planning: office of aging involved, planning to assign guardian. Has court date 04/06. Following prior to admission; concerns for inadequate self-care and homelessness. acute hypoxic resp failure 2/2 COPD exacerbation, improving likely precipitant was home inhaler inadherence low suspicion of PE at this time. Prior Xarelto use for possible PE 05/2020; reviewed CT report; may have been artifact / poor visualization methylprednisolone 40 mg IV q8h; discontinued 03/30. Started taper of predni sone 40 mg PO qam on 03/31 Duonebs QID descalated to BID + PRN q2h Oxygen mask/nasal cannula oxygen, titrate to keep pulse ox around 92% guaifenesin extended release 1200 mg p.o. twice daily vitamin D 1000 international units p.o. daily azithromycin 500 mg IV daily Rocephin discontinued as lower suspicion for bacterial resp infection. Procalc neg COVID-19 negative (2) Cervicalgia: Plan: Chronic, 2/2 old injury many years ago. + Spurling's on left. OMT provided some relief. Tylenol, icing, Voltaren gel, capsacin cream w/ minima l relief Adding/trialing gabapentin 100 mg PO TID PRN for severe neck pain (3) Tobacco dependence: Plan: Cessation counseling - ordered nicotine patch 14mg, patient declined (4) Overactive bladder: Plan: Continue finasteride (5) Leukocytosis: Plan: 2/2 steroid use, improving since dosage decreased. Follow CBC. (6) Hypertension: Plan: Continue losartan. elevated BPs noted. (7) GERD (gastroesophageal reflux disease): Plan: Reviewed chart hx. Ordered pantoprazole as patient had been on home PPI until 01/2021 (8) Acute respiratory failure with hypoxia: Plan: See above (9) Sinus tachycardia: Plan: Per chart review, appears chronic. Currently not tachycardic. (10) Constipation: Plan: - miralax BID (11) Hyponatremia: Plan: - chronic. follow BMP and clinically Plan: FEN/GI: HH. No IV fluids. ppx: sq lovenox code: full dispo: med/surg Admission and Anticipated Discharge Date Admission Date: March 27, 2021 Supervising Physician Co-Signing Physician Notes I personally examined the patient and verified all holcomb points of history and exam, discussed case, and agree with decision making with Dr Maddox. only real complaint was L neck/shoudler pain. otherwise no new complaints Vitals noted, in general he is awake and alert pleasant no distress. HEENT normocephalic atraumatic mucous membranes moist. breathing unlabored no accessory muscle use good effort no conversational dyspnea. Neuro without focal deficits. msk/ost shows L sided upper thoracic/lower cervical musculature in region of L levator scapulae muscle high tone/tender/decreased ROM - inhibitory pressure - improved - pt tolerated well and noted pain improved COPD exacerbationsteroids (slowly taper), antibiotics, supportive care. Appreciate case management and office of the aging working on safe dispositionunfortunately guardianship hearing is not scheduled until April 06 Stable on medical - neuropsych notes show him not to have capacity can't leave without guardian/safe dispo neck/shoulder pain / levator scapulae tightness / upper thoracic somatic dysfunction - OMT as above DVT prophylaxis with Lovenox Subjective Main complaint is his cervicogenic neck pain. Has hx of chronic neck pain s/p falling off [employer] 30 years ago. The current regimen of voltaren gel, tylenol, icing, isn't helping sufficiently. States he has tried both muscle relaxants and nerve pain medicine in past w/ some relief and is not opposed to trying. Denies SOB., f/c, cp, abd pain, n/v. Pain starts at back of neck, goes to occiput, and down left arm w/ some radicular symptoms. OMT treatment w/ some relief. Review of Systems Review of Systems: As per HPI Physical Exam Physical Exam: General: Grossly A&O. NAD. Cooperative. HEENT: Atraumatic, normocephalic. EOMI Pulm: CTAB. -wheezes, -rales, -rhonchi. Decreased air entry R mid/lower lung. Cardiac: RRR, -mrg. No LE edema. Abdominal: Has chronic mild TTP attributes to hernia Msk: Cervical area TTP, chronic. + Spurling's to left Results & Data Results & Data ([facility]) Vital Signs (Past 12 Hours) Vital Signs HR 80s-90s. BP 116/65 o/n. 90 on room air, was 92 on 2L o/n Temp Pulse Resp BP Pulse Ox 03/31/21 05:03 80 24 90 03/31/21 00:10 36.6 C 92 H 20 116/65 92 03/30/21 19:29 89 20 90 Laboratory Results wbc 18.89->11.13. Hb stable. Na 132 stable. Resident Activity Tracking Resident Involvement: Resident Care Provided Care Provided: Adult Hospital Medicine
[2021-03-31 07:25] LABS: BUN Creatinine Ratio 26.1 (10-20); Calcium 8.5 mg/dl (8.5-10.1); Creatinine Clr Calc Pharmacy 73.4 ml/min; Est GFR (African American) 97.8 ml/min; Est GFR (Non-African American) 84.4 ml/min; Potassium 4.5 mmol/L (3.5-5.1)
[2021-03-31] MEDS: guaiFENesin 600 MG TABCR PO SCH ×2 (08:34→21:26)
[2021-03-31] MEDS: POLYETHYLENE (MIRALAX) 17 GM PACK PO SCH ×2 (08:34→21:26)
[2021-03-31] MEDS: FLUTICASONE/VILANTEROL 100/25MCG 14 PUFFS/INHALER INH SCH (08:34)
[2021-03-31] MEDS: NICOTINE 14 MG/24 HR PATCH TD SCH (08:34)
[2021-03-31] MEDS: FINASTERIDE 5 MG TAB PO SCH (08:35)
[2021-03-31] MEDS: PANTOprazole 40 MG TAB PO SCH (08:35)
[2021-03-31] MEDS: LOSARTAN POTASSIUM 50 MG TAB PO SCH (08:35)
[2021-03-31] MEDS: CHOLECALCIFEROL 1,000 UNITS 25 MCG TAB PO SCH (08:35)
[2021-03-31] MEDS: predniSONE 20 MG TAB PO SCH (08:38)
[2021-03-31] MEDS: DICLOFENAC SOD 1% GEL 100 GM TUBE EXT PRN ×2 (08:39→16:42)
[2021-03-31] MEDS: GABAPENTIN 100 MG CAP PO PRN ×2 (13:12→21:26)
[2021-03-31] MEDS ORDERED: ALBUT/IPRATROP 3MG/0.5MG NEB 3 ML VIAL NEB STA (16:35)
--- NOTE | 2021-03-31 17:32 | Billing Data ---
Date of Service March 31, 2021 Coding Level of Care Code 62078 Subseq Hosp Care Lvl 2
--- NOTE | 2021-03-31 17:32 | Hospitalist Progress Note ---
Date of Service March 31, 2021 Assessment & Plan Admission and Anticipated Discharge Date Admission Date: March 27, 2021 Results & Data Results & Data ([facility]) Vital Signs (Past 12 Hours) Vital Signs Temp Pulse Pulse Resp BP BP Pulse Ox 03/31/21 16:54 78 18 93 03/31/21 15:34 97.7 F 104 H 18 142/72 H 90 03/31/21 08:07 88 20 94 03/31/21 07:14 97.9 F 92 H 20 147/83 H 95 PG Care Time/CCT Total # of Minutes Spent Total Time Spent with Patient: Total time spent is greater than 50% in coordination of care (as documented) at patient's floor/unit and/or counseling patient: Coding Level of Care Code None CPT Codes Musculoskeletal - Musculoskeletal: 85146 Oste[address] Gurdeep Tr 1-2 Body regions ([id number])
[2021-03-31] MEDS: AZITHROMYCIN 500 MG in DEXTROSE 5% 250 ML IV SCH (17:47)
[2021-03-31] MEDS ORDERED: ALBUT/IPRATROP 3MG/0.5MG NEB 3 ML VIAL NEB SCH (21:00)
[2021-03-31] MEDS: ENOXAPARIN INJ 40 MG/0.4 ML SYR SQ SCH (21:25)
[2021-04-01] MEDS: ACETAMINOPHEN 325 MG TAB PO PRN ×4 (02:44→20:41)
[2021-04-01] MEDS: DICLOFENAC SOD 1% GEL 100 GM TUBE EXT PRN ×3 (02:44→20:02)
[2021-04-01] MEDS ORDERED: ALBUT/IPRATROP 3MG/0.5MG NEB 3 ML VIAL NEB STA (03:24)
[2021-04-01 05:43] LABS: Basophils # (auto) 0.01 K/uL (0-0.2); Basophils % (auto) 0.1 %; Eosinophils # (auto) 0.14 K/uL (0-0.5); Eosinophils % (auto) 1.1 %; Hematocrit (blood only) 49.7 % (42-52); Hemoglobin 16.5 g/dL (14.0-18.0); Immature Granulocytes # (auto) 0.05 K/uL (0.00-0.02); Immature Granulocytes % (auto) 0.4 %; Lymphocytes # (auto) 2.29 K/uL (1.2-3.4); Lymphocytes % (auto) 18.6 %; Mean Corpuscular Hemoglobin 31.9 pg (25-34); Mean Corpuscular Hgb Conc 33.2 g/dL (32-36); Mean Corpuscular Volume 95.9 fL (80-100); Mean Platelet Volume 10.4 fL (7.4-10.4); Monocytes # (auto) 1.22 K/uL (0.11-0.59); Monocytes % (auto) 9.9 %; Neutrophils % (auto) 69.9 %; Platelet Count 176 K/uL (130-400); RDW Coefficient of Variation 13.6 % (11.5-14.5); RDW Standard Deviation 48.4 fL (36.4-46.3); Red Blood Count 5.18 M/uL (4.7-6.1); White Blood Count 12.31 K/uL (4.8-10.8)
[2021-04-01 06:15] LABS: BUN Creatinine Ratio 21.1 (10-20); Calcium 8.8 mg/dl (8.5-10.1); Creatinine Clr Calc Pharmacy 63.8 ml/min; Est GFR (Non-African American) 73.3 ml/min; Potassium 4.5 mmol/L (3.5-5.1)
[2021-04-01] MEDS: GABAPENTIN 100 MG CAP PO PRN ×2 (06:34→15:09)
[2021-04-01] MEDS: ALBUT/IPRATROP 3MG/0.5MG NEB 3 ML VIAL NEB SCH ×2 (07:03→19:20)
--- NOTE | 2021-04-01 07:03 | Hospitalist Progress Note ---
Date of Service April 01, 2021 Assessment & Plan (1) Acute exacerbation of chronic obstructive pulmonary disease: Plan: 75 y/o M current smoker w/ PMHx of COPD not on home O2, HTN, HLD, GERD, CAD anxiety/depression overactive bladder, and overactive bladder who presents for COPD exac. Improving, weaned to room air. dispo planning: office of aging involved, planning to assign guardian. Has court date 04/06. Following prior to admission; concerns for inadequate self-care and homelessness. acute hypoxic resp failure 2/2 COPD exacerbation, improving likely precipitant was home inhaler inadherence low suspicion of PE at this time. Prior Xarelto use for possible PE 05/2020; reviewed CT report; may have been artifact / poor visualization methylprednisolone 40 mg IV q8h; discontinued 03/30. Started taper of prednisone 40 mg PO qam on 03/31 Duonebs QID descalated to BID + PRN q2h Oxygen mask/nasal cannula oxygen, titrate to keep pulse ox around 92% guaifenesin extended release 1200 mg p.o. twice daily vitamin D 1000 international units p.o. daily azithromycin 500 mg IV daily Rocephin discontinued as lower suspicion for bacterial resp infection. Procalc neg COVID-19 negative (2) Cervicalgia: Plan: Chronic, 2/2 old injury many years ago. + Spurling's on left. OMT provided some relief. Tylenol, icing, Voltaren gel, capsacin cream w/ minimal relief Adding/trialing gabapentin 100 mg PO TID PRN for severe neck pain (3) Tobacco dependence: Plan: Cessation counseling - ordered nicotine patch 14mg, patient declined (4) Overactive bladder: Plan: Continue finasteride (5) Leukocytosis: Plan: 2/2 steroid use, improving since dosage decreased. Follow CBC. (6) Hypertension: Plan: Continue losartan. elevated BPs noted. (7) GERD (gastroesophageal reflux disease): Plan: Reviewed chart hx. Ordered pantoprazole as patient had been on home PPI until 01/2021 (8) Acute respiratory failure with hypoxia: Plan: See above (9) Sinus tachycardia: Plan: Per chart review, appears chronic. Currently not tachycardic. (10) Constipation: Plan: - miralax BID (11) Hyponatremia: Plan: - chronic. follow BMP and clinically Plan: FEN/GI: HH. No IV fluids. ppx: sq lovenox code: full dispo: med/surg Admission and Anticipated Discharge Date Admission Date: March 27, 2021 Supervising Physician Co-Signing Physician Notes I personally examined the patient and verified all holcomb points of history and exam, discussed case, and agree with decision making with Dr Maddox. Neck and shoulder pain better, notes OMT and gabapentin helped. No other new complaints. Vitals noted, in general he is awake and alert pleasant no distress. HEENT normocephalic atraumatic mucous membranes moist. breathing unlabored no accessory muscle use good effort no conversational dyspnea. Neuro without focal deficits. msk/ost shows L sided upper thoracic/lower cervical musculature in region of L levator scapulae muscle high tone/tender/decreased ROM - inhibitory pressure - improved - pt tolerated welldone much shorter than yesterday COPD exacerbationsteroids (can taper), antibiotics, supportive care. Appreciate case management and office of the aging working on safe dispositionunfortunately guardianship hearing is not scheduled until April 06 Stable on medical - neuropsych notes show him not to have capacity can't leave without guardian/safe dispo neck/shoulder pain / levator scapulae tightness / upper thoracic somatic dysfunction - OMT as above, although done only very briefly today. DVT prophylaxis with Lovenox Subjective Patient is doing well. Mood is good this morning. He is eating breakfast. Denies chest pain or SOB. Breathing is comfortable. The gapapentin provided some relief of his neck pain (still severe though) and he is satisfied with this medication. He inquired about dispo planning and is agreeable to staying while office of aging is following. Review of Systems Review of Systems: As per HPI Physical Exam Physical Exam: General: Grossly A&O. NAD. Cooperative. HEENT: Atraumatic, normocephalic. EOMI Pulm: CTAB. -wheezes, -rales, -rhonchi. Mildly decreased air movement at bases. Cardiac: RRR, -mrg. No LE edema. Abdominal: Has chronic mild TTP attributes to hernia Results & Data Results & Data ([facility]) Vital Signs (Past 12 Hours) Vital Signs HR 80s o/n and this AM. 90-03 on room air. Temp Pulse Pulse Resp BP Pulse Ox 04/01/21 03:44 82 18 91 03/31/21 23:24 36.7 C 84 16 144/72 H 93 03/31/21 20:14 102 H 18 90 Laboratory Results wbc stable. HypoNa 132->128. Cr stable .96->.87->1.0. Resident Activity Tracking Resident Involvement: Resident Care Provided Care Provided: Adult Hospital Medicine
[2021-04-01] MEDS: NICOTINE 14 MG/24 HR PATCH TD SCH (09:36)
[2021-04-01] MEDS: POLYETHYLENE (MIRALAX) 17 GM PACK PO SCH ×2 (09:36→20:02)
[2021-04-01] MEDS: LOSARTAN POTASSIUM 50 MG TAB PO SCH (09:38)
[2021-04-01] MEDS: CHOLECALCIFEROL 1,000 UNITS 25 MCG TAB PO SCH (09:38)
[2021-04-01] MEDS: PANTOprazole 40 MG TAB PO SCH (09:38)
[2021-04-01] MEDS: predniSONE 20 MG TAB PO SCH (09:38)
[2021-04-01] MEDS: FINASTERIDE 5 MG TAB PO SCH (09:38)
[2021-04-01] MEDS: FLUTICASONE/VILANTEROL 100/25MCG 14 PUFFS/INHALER INH SCH (09:39)
[2021-04-01] MEDS: guaiFENesin 600 MG TABCR PO SCH ×2 (09:39→20:02)
[2021-04-01] MEDS: ALBUT/IPRATROP 3MG/0.5MG NEB 3 ML VIAL NEB PRN (13:19)
[2021-04-01] MEDS: AZITHROMYCIN 500 MG in DEXTROSE 5% 250 ML IV SCH (17:55)
--- NOTE | 2021-04-01 18:25 | Billing Data ---
Date of Service April 01, 2021 Coding Level of Care Code 11697 Subseq Hosp Care Lvl 2
[2021-04-01] MEDS: ENOXAPARIN INJ 40 MG/0.4 ML SYR SQ SCH (20:01)
[2021-04-02] MEDS: ALBUT/IPRATROP 3MG/0.5MG NEB 3 ML VIAL NEB PRN ×3 (02:39→16:25)
[2021-04-02] MEDS: ACETAMINOPHEN 325 MG TAB PO PRN ×4 (02:49→20:37)
[2021-04-02] MEDS: ALBUT/IPRATROP 3MG/0.5MG NEB 3 ML VIAL NEB SCH ×2 (07:21→19:12)
[2021-04-02 07:22] LABS: Basophils # (auto) 0.01 K/uL (0-0.2); Basophils % (auto) 0.1 %; Eosinophils # (auto) 0.17 K/uL (0-0.5); Eosinophils % (auto) 1.4 %; Hematocrit (blood only) 49.7 % (42-52); Hemoglobin 16.7 g/dL (14.0-18.0); Immature Granulocytes # (auto) 0.05 K/uL (0.00-0.02); Immature Granulocytes % (auto) 0.4 %; Lymphocytes # (auto) 2.33 K/uL (1.2-3.4); Lymphocytes % (auto) 18.6 %; Mean Corpuscular Hemoglobin 32.1 pg (25-34); Mean Corpuscular Hgb Conc 33.6 g/dL (32-36); Mean Corpuscular Volume 95.4 fL (80-100); Mean Platelet Volume 10.4 fL (7.4-10.4); Monocytes # (auto) 0.92 K/uL (0.11-0.59); Monocytes % (auto) 7.3 %; Neutrophils # (auto) 9.04 K/uL (1.4-6.5); Neutrophils % (auto) 72.2 %; Platelet Count 181 K/uL (130-400); RDW Coefficient of Variation 13.5 % (11.5-14.5); RDW Standard Deviation 47.6 fL (36.4-46.3); Red Blood Count 5.21 M/uL (4.7-6.1); White Blood Count 12.52 K/uL (4.8-10.8)
[2021-04-02 07:39] LABS: BUN Creatinine Ratio 20.2 (10-20); Calcium 8.7 mg/dl (8.5-10.1); Creatinine Clr Calc Pharmacy 76.9 ml/min; Est GFR (African American) 99.8 ml/min; Est GFR (Non-African American) 86.1 ml/min
[2021-04-02] MEDS: GABAPENTIN 100 MG CAP PO PRN ×2 (07:44→20:38)
[2021-04-02] MEDS: DICLOFENAC SOD 1% GEL 100 GM TUBE EXT PRN (07:46)
[2021-04-02] MEDS: CHOLECALCIFEROL 1,000 UNITS 25 MCG TAB PO SCH (07:48)
[2021-04-02] MEDS: FINASTERIDE 5 MG TAB PO SCH (07:49)
--- NOTE | 2021-04-02 07:49 | Hospitalist Progress Note ---
Date of Service April 02, 2021 Assessment & Plan (1) Acute exacerbation of chronic obstructive pulmonary disease: Plan: 75 y/o M current smoker w/ PMHx of COPD not on home O2, HTN, HLD, GERD, CAD anxiety/depression overactive bladder, and overactive bladder who presents for COPD exac. Improving, weaned to room air. dispo planning: office of aging involved, planning to assign guardian. Has court date 04/06. Following prior to admission; concerns for inadequate self-care and homelessness. acute hypoxic resp failure 2/2 COPD exacerbation, improving likely precipitant was home inhaler inadherence low suspicion of PE at this time. Prior Xarelto use for possible PE 05/2020; reviewed CT report; may have been artifact / poor visualization methylprednisolone 40 mg IV q8h; discontinued 03/30. Started taper of prednisone 40 mg PO qam on 03/31 Duonebs QID descalated to BID + PRN Oxygen mask/nasal cannula oxygen, titrate to keep pulse ox around 92% guaifenesin extended release 1200 mg p.o. twice daily vitamin D 1000 international units p.o. daily azithromycin 500 mg IV daily Rocephin discontinued as lower suspicion for bacterial resp infection. Procalc neg COVID-19 negative (2) Cervicalgia: Plan: Chronic, 2/2 old injury many years ago. OMT provided some relief. Tylenol, icing, Voltaren gel, capsacin cream w/ minimal relief. OMT as outpatient Adding/trailing gabapentin 100 mg PO TID PRN for severe neck pain w/ some relief (3) Tobacco dependence: Plan: Cessation counseling - ordered nicotine patch 14mg, patient declined (4) Overactive bladder: Plan: Continue finasteride (5) Leukocytosis: Plan: 2/2 steroid use, improving since dosage decreased. Follow CBC. (6) Hypertension: Plan: Continue losartan. elevated BPs noted. (7) GERD (gastroesophageal reflux disease): Plan: Reviewed chart hx. Ordered pantoprazole as patient had been on home PPI until 01/2021 (8) Acute respiratory failure with hypoxia: Plan: See above (9) Sinus tachycardia: Plan: Per chart review, appears chronic. Currently not tachycardic. (10) Constipation: Plan: - miralax BID (11) Hyponatremia: Plan: - chronic. follow BMP and clinically Plan: FEN/GI: HH. No IV fluids. ppx: sq lovenox code: full dispo: med/surg Admission and Anticipated Discharge Date Admission Date: March 27, 2021 Supervising Physician Co-Signing Physician Notes I personally examined the patient and verified all holcomb points of history and exam, discussed case, and agree with decision making with Dr Maddox. No new complaints. Asking for further pain relief. Vitals noted, in general he is awake and alert pleasant no distress. HEENT normocephalic atraumatic mucous membranes moist. breathing unlabored no accessory muscle use good effort no conversational dyspnea. Neuro without focal deficits. COPD exacerbationsteroids (can taper), antibiotics, supportive care. Appreciate case management and office of the aging working on safe dispositionunfortunately guardianship hearing is not scheduled until April 06 Stable on medical - neuropsych notes show him not to have capacity can't leave without guardian/safe dispo neck/shoulder pain / levator scapulae tightness / upper thoracic somatic dysfunction - OMT yesterday. Ordered lidocaine patch today. DVT prophylaxis with Lovenox Subjective Last moved BM 2 days ago. Ambulated in hallway. No cp or breathing complaint. Neck pain radiates to had, 7/10 currently, the gabapentin helping some. No other complaints. States the OMT yesterday helped his neck pain. Review of Systems Review of Systems: As per HPI Physical Exam Physical Exam: General: Grossly A&O. NAD. Cooperative. HEENT: Atraumatic, normocephalic. EOMI Pulm: CTAB. -wheezes, -rales, -rhonchi. No accessory muscle use. Cardiac: RRR, -mrg. No LE edema. Abdominal: Soft, NT, ND. Results & Data Results & Data ([facility]) Vital Signs (Past 12 Hours) Vital Signs Intermittent low 90s. BPs 151/81 w/ high of 172/80. 90-96 on RA Temp Pulse Pulse Resp BP Pulse Ox 04/02/21 07:21 75 20 96 04/02/21 07:08 36.4 C L 92 H 16 151/81 H 94 04/02/21 02:39 88 18 91 04/01/21 22:07 36.5 C 93 H 18 172/80 H 90 Laboratory Results cbc stable 12.52. Hb stable 16.7. HypoNa stable 132->128->131. Cr .83. Resident Activity Tracking Resident Involvement: Resident Care Provided Care Provided: Adult [facility] Medicine
[2021-04-02] MEDS: PANTOprazole 40 MG TAB PO SCH (07:50)
[2021-04-02] MEDS: guaiFENesin 600 MG TABCR PO SCH ×2 (07:50→20:30)
[2021-04-02] MEDS: LOSARTAN POTASSIUM 50 MG TAB PO SCH (07:51)
[2021-04-02] MEDS: NICOTINE 14 MG/24 HR PATCH TD SCH (07:52)
[2021-04-02] MEDS: predniSONE 20 MG TAB PO SCH (07:52)
[2021-04-02] MEDS: FLUTICASONE/VILANTEROL 100/25MCG 14 PUFFS/INHALER INH SCH (07:53)
[2021-04-02] MEDS: POLYETHYLENE (MIRALAX) 17 GM PACK PO SCH ×2 (07:54→20:31)
[2021-04-02] MEDS: LIDOCAINE 5% 1 PATCH TD SCH (14:54)
[2021-04-02] MEDS: AZITHROMYCIN 500 MG in DEXTROSE 5% 250 ML IV SCH (17:47)
[2021-04-02] MEDS: ENOXAPARIN INJ 40 MG/0.4 ML SYR SQ SCH (20:30)
--- NOTE | 2021-04-02 20:38 | Billing Data ---
Date of Service April 02, 2021 Coding Level of Care Code 81491 Subseq Hosp Care Lvl 2
[2021-04-03] MEDS: ACETAMINOPHEN 325 MG TAB PO PRN ×4 (01:57→20:00)
[2021-04-03] MEDS: ALBUT/IPRATROP 3MG/0.5MG NEB 3 ML VIAL NEB PRN (02:03)
[2021-04-03] MEDS: CAPSAICIN CR 0.075% 60 GM TUBE EXT PRN (04:37)
[2021-04-03 07:16] LABS: Basophils # (auto) 0.01 K/uL (0-0.2); Basophils % (auto) 0.1 %; Eosinophils # (auto) 0.25 K/uL (0-0.5); Eosinophils % (auto) 2.1 %; Hematocrit (blood only) 52.6 % (42-52); Hemoglobin 17.1 g/dL (14.0-18.0); Immature Granulocytes # (auto) 0.08 K/uL (0.00-0.02); Immature Granulocytes % (auto) 0.7 %; Lymphocytes # (auto) 2.31 K/uL (1.2-3.4); Lymphocytes % (auto) 19.2 %; Mean Corpuscular Hemoglobin 31.5 pg (25-34); Mean Corpuscular Hgb Conc 32.5 g/dL (32-36); Mean Platelet Volume 10.2 fL (7.4-10.4); Monocytes # (auto) 1.15 K/uL (0.11-0.59); Monocytes % (auto) 9.6 %; Neutrophils # (auto) 8.22 K/uL (1.4-6.5); Neutrophils % (auto) 68.3 %; Platelet Count 200 K/uL (130-400); RDW Coefficient of Variation 13.7 % (11.5-14.5); RDW Standard Deviation 48.4 fL (36.4-46.3); Red Blood Count 5.42 M/uL (4.7-6.1); White Blood Count 12.02 K/uL (4.8-10.8)
[2021-04-03] MEDS: ALBUT/IPRATROP 3MG/0.5MG NEB 3 ML VIAL NEB SCH ×4 (07:35→19:11)
[2021-04-03 07:41] LABS: BUN Creatinine Ratio 19.5 (10-20); Calcium 8.6 mg/dl (8.5-10.1); Creatinine Clr Calc Pharmacy 61.4 ml/min; Est GFR (Non-African American) 69.9 ml/min; Potassium 4.4 mmol/L (3.5-5.1)
[2021-04-03] MEDS: CHOLECALCIFEROL 1,000 UNITS 25 MCG TAB PO SCH (08:32)
[2021-04-03] MEDS: FLUTICASONE/VILANTEROL 100/25MCG 14 PUFFS/INHALER INH SCH (08:33)
[2021-04-03] MEDS: FINASTERIDE 5 MG TAB PO SCH (08:33)
[2021-04-03] MEDS: guaiFENesin 600 MG TABCR PO SCH (08:34)
[2021-04-03] MEDS: LIDOCAINE 5% 1 PATCH TD SCH (08:34)
[2021-04-03] MEDS: LOSARTAN POTASSIUM 50 MG TAB PO SCH (08:35)
[2021-04-03] MEDS: NICOTINE 14 MG/24 HR PATCH TD SCH (08:35)
[2021-04-03] MEDS: PANTOprazole 40 MG TAB PO SCH (08:36)
[2021-04-03] MEDS: POLYETHYLENE (MIRALAX) 17 GM PACK PO SCH ×2 (08:36→20:01)
[2021-04-03] MEDS: GABAPENTIN 100 MG CAP PO PRN (08:41)
[2021-04-03] MEDS: predniSONE 10 MG TABLET PO SCH (09:06)
--- NOTE | 2021-04-03 10:55 | Hospitalist Progress Note ---
Date of Service April 03, 2021 Assessment & Plan (1) Acute exacerbation of chronic obstructive pulmonary disease: Plan: 75 y/o M current smoker w/ PMHx of COPD (not on home O2), HTN, HLD, GERD, CAD, anxiety/depression and overactive bladder who was admitted to [facility] on 03/27 for COPD exacerbation, which is resolving. Pending placement after guardian is appointed (lacks decision-making capacity, per previous Psych documentation). COPD Exacerbation, resolving Likely due to home medication nonadherence. Currently satting well on RA. - started SoluMedrol 40 mg IV Q8H which was weaned off on 03/30 - continue Prednisone taper: changed to 30mg PO QAM today - 6 days of taper remaining - continue Duonebs BID + PRN - stopped Guaifenesin and Zithromax today (s/p abx x5 days) - SpO2 goal 88-92% Cervical Paraspinal Muscle Strain Chronic, 2/2 old injury many years ago. OMT provided some relief. - Tylenol, icing, Voltaren gel - continue gabapentin 100 mg PO TID PRN for severe neck pain - recommend OMT as outpatient Chronic Hyponatremia Patient is euvolemic. Given hyponatremia w/u on 04/03, suspect most likely due to stress response in setting of steroids vs SIADH. Has chronic RUL pulmonary nodule (4mm), last imaged in 11/2020, with extensive smoking history - currently asymptomatic - monitor clinically for symptoms - continue to monitor BMP - consider repeat CT imaging to f/u pulmonary nodule Overactive Bladder - Continue home finasteride HTN - continue home Losartan GERD - continue Protonix Chronic Sinus Tachycardia May be psychogenic vs 2/2 pain. - pain control as stated above FEN/GI: HH diet ppx: sq lovenox code: full dispo: med/surg, dispo plan pending after guardian is appointed (hearing on 04/06) (2) Cervicalgia: (3) Tobacco dependence: (4) Overactive bladder: (5) Leukocytosis: (6) Hypertension: (7) GERD (gastroesophageal reflux disease): (8) Acute respiratory failure with hypoxia: (9) Sinus tachycardia: (10) Constipation: (11) Hyponatremia: Admission and Anticipated Discharge Date Admission Date: March 27, 2021 Supervising Physician Co-Signing Physician Notes I personally examined the patient and verified all holcomb points of history and exam, discussed case, and agree with decision making with Dr Maddox. No new complaints. Pain has slightly improved with lidocaine patch Vitals noted, in general he is awake and alert pleasant no distress. HEENT normocephalic atraumatic mucous membranes moist. breathing unlabored no accessory muscle use good effort no conversational dyspnea. Neuro without focal deficits. COPD exacerbationsteroids (can taper), antibiotics, supportive care. Appreciate case management and office of the aging working on safe dispositionunfortunately guardianship hearing is not scheduled until April 06 Stable on medical - neuropsych notes show him not to have capacity can't leave without guardian/safe dispo neck/shoulder pain / levator scapulae tightness / upper thoracic somatic dysfunction - OMT yesterday. continue lidocaine patch DVT prophylaxis with Lovenox Subjective No acute events overnight. No concerns/complaints this morning. Review of Systems Review of Systems: Denies fever/chills, chest pain, palpitations, SOB, cough, N/V, abdominal pain, rash. Physical Exam Physical Exam: General: A&Ox3. NAD. Cooperative. HEENT: Atraumatic, normocephalic. Pulm: CTAB A&P. -wheezes, -rales, -rhonchi. Symmetrical chest rise. No increase work of breathing. No respiratory distress. Cardiac: RRR, -mrg. Radial pulses intact and symmetrical. No LE edema. Abdominal: soft, non-tender, non-distended, BS x 4 Skin: warm, dry, no rash Results & Data Results & Data ([facility]) Vital Signs (Past 12 Hours) Vital Signs Temp Pulse Resp BP Pulse Ox 04/03/21 08:30 142/81 H 04/03/21 07:36 90 18 92 04/03/21 06:58 36.5 C 90 16 161/89 H 95 04/03/21 02:03 101 H 22 96 04/02/21 23:01 37 C 90 16 159/85 H 90 Resident Activity Tracking Resident Involvement: Resident Care Provided Care Provided: Adult Hospital Medicine
[2021-04-03] MEDS: DICLOFENAC SOD 1% GEL 100 GM TUBE EXT PRN (12:53)
[2021-04-03] MEDS: ENOXAPARIN INJ 40 MG/0.4 ML SYR SQ SCH ×2 (20:01→20:03)
--- NOTE | 2021-04-03 20:57 | Billing Data ---
Date of Service April 03, 2021 Coding Level of Care Code 74321 Subseq Hosp Care Lvl 2
[2021-04-04] MEDS: ACETAMINOPHEN 325 MG TAB PO PRN ×3 (00:47→12:43)
[2021-04-04] MEDS: GABAPENTIN 100 MG CAP PO PRN ×2 (03:55→12:43)
[2021-04-04] MEDS: ALBUT/IPRATROP 3MG/0.5MG NEB 3 ML VIAL NEB PRN ×3 (03:57→18:01)
[2021-04-04] MEDS: DICLOFENAC SOD 1% GEL 100 GM TUBE EXT PRN ×2 (04:01→15:30)
[2021-04-04] MEDS: CAPSAICIN CR 0.075% 60 GM TUBE EXT PRN (04:02)
--- NOTE | 2021-04-04 06:03 | Hospitalist Progress Note ---
Date of Service April 04, 2021 Assessment & Plan (1) Acute exacerbation of chronic obstructive pulmonary disease: Plan: 75 y/o M current smoker w/ PMHx of scitzotypa PD, COPD (not on home O2), HTN, HLD, GERD, CAD, anxiety/depression and overactive bladder who was admitted to [facility] on 03/27 for COPD exacerbation, which is resolving. Pending placement after guardian is appointed (lacks decision-making capacity, per previous Psych documentation). COPD Exacerbation -- resolved Likely due to home medication nonadherence. Currently satting well on RA. - s/p IV SoluMedrol - continue Prednisone taper (end 04/09 -- scheduled doses on chart) - DuoNebs p.r.n. - s/p Guaifenesin and Zithromax (s/p abx x5 days) - Initiate Incruse - Continue home inhalers (Symbicort b.i.d., Abuterol p.r.n.) - SpO2 goal 88-92% Cervical Paraspinal Muscle Strain Chronic, 2/2 old injury many years ago. OMT provided some relief. - Tylenol, icing, Voltaren gel - continue gabapentin 100 mg PO TID PRN for severe neck pain - recommend OMT as outpatient Chronic Hyponatremia Patient is euvolemic. Given low-nml sOsm (280) / low uOsm (235) / normal Kody (26), suspect SIADH with component of corticosteroid response. - Has chronic RUL pulmonary nodule (4mm), last imaged in 11/2020, with extensive smoking history - currently asymptomatic, will monitor - monitor BMP q2d following multiple days of stability - recommend repeat CT of pulmonary nodule as outpatient Overactive Bladder - Continue home finasteride HTN - continue home Losartan GERD - continue Protonix Chronic Sinus Tachycardia May be psychogenic vs 2/2 pain. - pain control as stated above FEN/GI: HH diet ppx: sq lovenox code: full dispo: med/surg, dispo plan pending after guardian is appointed (hearing on 04/06) ---- Of note: Throughout the day (04/04), patient did express desires for AMA. Concerns for this were made given his prior neuropsychological work-up in 02/2021 (<60 days from now), which stated he lacked appropriate decision making capacity / would need an appointed guardian by the state to help him make decisions. He is currently amenable to staying, at minimum, through his hearing. I worry significantly about his safety outside of the hospital before such a patient registration representative is appointed. His COPD exacerbation is thought to be triggered by the cold / environmental exposure. Without easy access to home environment or his inhalers, do believe he is at significant risk for pulmonary deterioration. Should he re-desire to leave AMA, on-call physician should individually assess capacity with that specific decision (ability to communicate a choice / understand relevant info / appreciate situation and consequences / reason for treatment and options); if any one of these criteria are not met, should pursue 302. Psychiatry consulted for further aid in this matter given situational complexity and notable history of schizotypal PD. Appreciate insight and recommendations. (2) Cervicalgia: (3) Tobacco dependence: (4) Overactive bladder: (5) Leukocytosis: (6) Hypertension: (7) GERD (gastroesophageal reflux disease): (8) Acute respiratory failure with hypoxia: (9) Sinus tachycardia: (10) Constipation: (11) Hyponatremia: Admission and Anticipated Discharge Date Admission Date: March 27, 2021 Supervising Physician Co-Signing Physician Notes I also saw the patient confirmed holcomb portions of the history and physical examination. Agree with the impression and plan as noted in the resident documentation. Upon exam, the patient is emergently in his room. No distress appreciated. The patient is in possession of papers which will be presented at his competency hearing on Sunday; he asked us to review this paperwork. It includes a court order and a psychological evaluation from February, (this is an evaluation which is included in the EMR dated 02/07/21). Exam 142/76, 98, 17, 36.7, 93% on room air Heart regular rate and rhythm Lungs clear with very minimal end expiratory wheeze. Good air exchange. Data WBC 12.3, hemoglobin 17.1, platelet count 186 Sodium 126, chloride 93, BUN 20, creatinine 0.99 Assessment and Plan COPD, acute on chronic Continue prednisone taper Duo nebs as needed Increase Continue other home inhalers Hyponatremia, chronic Serial BMP Of note, the patient did have a psychological evaluation to determine competency in February this year. It was in the opinion of the evaluating psychologist that he is not competent to make decisions for self care. The concern would be if he leaves the hospital AMA that he has no home. There is a fpc in town that he mentions although we also learned that he would not be allowed back there due to a previous confrontation with another resident. Thus, the patient were to leave [facility], recommend 302; a competency hearing is scheduled for 04/06/2021, which is in 2 days. Subjective NAEO. Says breathing is much improved. Using incentive spirometer frequently - doing well with it, >1500cc on the marker. Denies cough. Denies CP, fever. Appetite good. Voiding, stooling appropriately. Review of Systems Review of Systems: as per HPI Physical Exam Physical Exam: General: Well appearing, but intermittently confused, 75yoM in NAD. HEENT: NCAT. Eyes - Sclera are white, anicteric, and without injection. PMouth - MMM with no tonsillar edema or exudates. Neck - no JVD. Cardiac: Normal rate and regular rhythm; S1 and S2 present with no murmurs, rubs, or gallops. Pulmonary: Good respiratory effort with symmetric expansion of the chest. No use of accessory muscles. Lungs were clear to auscultation bilaterally with no crackles or wheezes. Abdominal: Normoactive bowel sounds. Abdomen was soft, nondistended, and non- tender to palpation. Extremities: Upper and lower extremities are warm and well perfused. No peripheral edema. Results & Data Results & Data ([facility]) Vital Signs (Past 12 Hours) Vital Signs Temp Pulse Resp BP Pulse Ox 04/03/21 23:04 36.9 C 87 18 165/91 H 93 04/03/21 19:11 90 18 92 Resident Activity Tracking Resident Involvement: Resident Care Provided Care Provided: Adult Hospital Medicine
[2021-04-04 06:58] LABS: Basophils # (auto) 0.01 K/uL (0-0.2); Basophils % (auto) 0.1 %; Eosinophils # (auto) 0.18 K/uL (0-0.5); Eosinophils % (auto) 1.5 %; Hematocrit (blood only) 50.2 % (42-52); Hemoglobin 17.1 g/dL (14.0-18.0); Immature Granulocytes # (auto) 0.08 K/uL (0.00-0.02); Immature Granulocytes % (auto) 0.7 %; Lymphocytes # (auto) 2.25 K/uL (1.2-3.4); Lymphocytes % (auto) 18.5 %; Mean Corpuscular Hemoglobin 32.5 pg (25-34); Mean Corpuscular Hgb Conc 34.1 g/dL (32-36); Mean Corpuscular Volume 95.4 fL (80-100); Mean Platelet Volume 10.1 fL (7.4-10.4); Monocytes # (auto) 1.31 K/uL (0.11-0.59); Monocytes % (auto) 10.8 %; Neutrophils % (auto) 68.4 %; Platelet Count 186 K/uL (130-400); RDW Coefficient of Variation 13.7 % (11.5-14.5); RDW Standard Deviation 48.1 fL (36.4-46.3); Red Blood Count 5.26 M/uL (4.7-6.1); White Blood Count 12.13 K/uL (4.8-10.8)
[2021-04-04 07:32] LABS: BUN Creatinine Ratio 20.6 (10-20); Creatinine Clr Calc Pharmacy 64.5 ml/min; Est GFR (Non-African American) 74.2 ml/min; Magnesium 2.3 mg/dl (1.8-2.4); Potassium 4.4 mmol/L (3.5-5.1)
[2021-04-04] MEDS: ALBUT/IPRATROP 3MG/0.5MG NEB 3 ML VIAL NEB SCH (07:32)
[2021-04-04] MEDS: CHOLECALCIFEROL 1,000 UNITS 25 MCG TAB PO SCH (08:03)
[2021-04-04] MEDS: FLUTICASONE/VILANTEROL 100/25MCG 14 PUFFS/INHALER INH SCH (08:04)
[2021-04-04] MEDS: FINASTERIDE 5 MG TAB PO SCH (08:04)
[2021-04-04] MEDS: LIDOCAINE 5% 1 PATCH TD SCH (08:05)
[2021-04-04] MEDS: LOSARTAN POTASSIUM 50 MG TAB PO SCH (08:06)
[2021-04-04] MEDS: NICOTINE 14 MG/24 HR PATCH TD SCH (08:06)
[2021-04-04] MEDS: POLYETHYLENE (MIRALAX) 17 GM PACK PO SCH ×2 (08:07→19:27)
[2021-04-04] MEDS: PANTOprazole 40 MG TAB PO SCH (08:07)
[2021-04-04] MEDS: predniSONE 10 MG TABLET PO SCH (08:07)
[2021-04-04] MEDS: ENOXAPARIN INJ 40 MG/0.4 ML SYR SQ SCH (19:27)
[2021-04-05] MEDS: ACETAMINOPHEN 325 MG TAB PO PRN ×5 (02:02→20:32)
[2021-04-05] MEDS: ALBUT/IPRATROP 3MG/0.5MG NEB 3 ML VIAL NEB PRN ×4 (02:44→18:09)
[2021-04-05] MEDS: GABAPENTIN 100 MG CAP PO PRN ×3 (03:41→14:57)
--- NOTE | 2021-04-05 06:12 | Hospitalist Progress Note ---
Date of Service April 05, 2021 Assessment & Plan (1) Acute exacerbation of chronic obstructive pulmonary disease: Plan: 75 y/o M current smoker w/ PMHx of scitzotypa PD, COPD (not on home O2), HTN, HLD, GERD, CAD, anxiety/depression and overactive bladder who was admitted to [facility] on 03/27 for COPD exacerbation, which is resolving. Pending placement after guardian is appointed (lacks decision-making capacity, per previous Psych documentation). COPD Exacerbation -- resolved Likely due to home medication nonadherence. Currently satting well on RA. - s/p IV SoluMedrol - continue Prednisone taper (end 04/09 -- scheduled doses on chart) - DuoNebs p.r.n. - s/p Guaifenesin and Zithromax (s/p abx x5 days) - Initiate Incruse - continue home inhalers (Symbicort b.i.d., Abuterol p.r.n.) - SpO2 goal 88-92% Cervical Paraspinal Muscle Strain Chronic, 2/2 old injury many years ago. OMT provided some relief. - Tylenol, icing, Voltaren gel - continue gabapentin 100 mg PO TID PRN for severe neck pain - recommend OMT as outpatient Chronic Hyponatremia (Stable, 126 - low 130s) Patient is euvolemic. Given low-nml sOsm (280) / low uOsm (235) / normal Kody (26), suspect SIADH with component of corticosteroid response. 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 Concerns for this were made given his prior neuropsychological work-up in 02/2021 (<60 days from now), which stated he lacked appropriate decision making capacity / would need an appointed guardian by the state to help him make decisions. He is currently amenable to staying, at minimum, through his hearing. I worry significantly about his safety outside of the hospital before such a insurance claim representative is appointed. His COPD exacerbation is thought to be triggered by the cold / environmental exposure. Without easy access to home environment or his inhalers, do believe he is at significant risk for pulmonary deterioration. Should he re-desire to leave AMA, on-call physician should individually assess capacity with that specific decision (ability to communicate a choice / understand relevant info / appreciate situation and consequences / reason for treatment and options); if any one of these criteria are not met, patient would not be considered to have decision making capacity to willingly leave AMA and would have to remain in the hospital - Psychiatry consulted for further aid in this matter given situational complexity and notable history of schizotypal PD. Appreciate insight and recommendations. Overactive Bladder - Continue home finasteride HTN - continue home Losartan GERD - continue Protonix Chronic Sinus Tachycardia May be psychogenic vs 2/2 pain. - pain control as stated above FEN/GI: HH diet ppx: sq lovenox code: full dispo: med/surg, dispo plan pending after guardian is appointed (hearing on 04/06) (2) Cervicalgia: (3) Tobacco dependence: (4) Overactive bladder: (5) Leukocytosis: (6) Hypertension: (7) GERD (gastroesophageal reflux disease): (8) Acute respiratory failure with hypoxia: (9) Sinus tachycardia: (10) Constipation: (11) Hyponatremia: Admission and Anticipated Discharge Date Admission Date: March 27, 2021 Supervising Physician Co-Signing Physician Notes I also saw the patient confirmed holcomb portions of the history and physical examination. Agree with the impression and plan as noted in the resident documentation. Upon exam, the patient is ambulating in his room. No distress appreciated. Exam 150/80, 109, 18, 36.5, 93% on room air Heart regular rate and rhythm Lungs clear with very minimal end expiratory wheeze, markedly prolonged expiratory phase. Data Sodium 128, chloride 92, BUN 20, creatinine 1.01 Assessment and Plan COPD, acute on chronic Continue prednisone taper Duo nebs as needed Incruse Continue other home inhalers Hyponatremia, chronic Serial BMP Of note, the patient did have a psychological evaluation to determine competency in February this year. It was in the opinion of the evaluating psychologist that he is not competent to make decisions for self care. The concern would be if he leaves the hospital AMA that he has no home. There is a snf in town that he mentions although we also learned that he would not be allowed back there due to a previous confrontation with another resident. Thus, the patient were to leave [facility], recommend 302; a competency hearing is scheduled for 04/06/2021, which is tomorrow. Yesterday the patient was amenable to having a psychiatric consult while here as an inpatient; they are to see today. Subjective NAEO. Breathing felt a little worse this morning but said he hadn't received his treatment yet. Denies pain. No CP, palpitations, SOB. Endorses strong appetite. No n/v/d. Voiding fine without difficulty. Looking forward to hearing tomorrow. Review of Systems Review of Systems: as per HPI Physical Exam Physical Exam: General: Well appearing 75yoM in NAD. HEENT: NCAT. Eyes - Sclera are white, anicteric, and without injection. Mouth - MMM with no tonsillar edema or exudates. Neck - no JVD. Cardiac: Normal rate and regular rhythm; S1 and S2 present with no murmurs, rubs, or gallops. Pulmonary: Good respiratory effort with symmetric expansion of the chest. No use of accessory muscles. Lungs were clear to auscultation bilaterally with no crackles or wheezes. Abdominal: Normoactive bowel sounds. Abdomen was soft, nondistended, and non-tender to palpation. Extremities: Upper and lower extremities are warm and well perfused. No peripheral edema. Results & Data Results & Data ([facility]) Vital Signs (Past 12 Hours) Vital Signs Temp Pulse Resp BP Pulse Ox 04/05/21 02:45 90 20 95 04/04/21 22:10 36.8 C 94 H 18 130/71 93 Resident Activity Tracking Resident Involvement: Resident Care Provided Care Provided: Adult [facility]
[2021-04-05] MEDS: POLYETHYLENE (MIRALAX) 17 GM PACK PO SCH ×2 (07:38→19:26)
[2021-04-05] MEDS: NICOTINE 14 MG/24 HR PATCH TD SCH (07:38)
[2021-04-05] MEDS: LIDOCAINE 5% 1 PATCH TD SCH (08:03)
[2021-04-05] MEDS: LOSARTAN POTASSIUM 50 MG TAB PO SCH (08:03)
[2021-04-05] MEDS: CHOLECALCIFEROL 1,000 UNITS 25 MCG TAB PO SCH (08:03)
[2021-04-05] MEDS: FLUTICASONE/VILANTEROL 100/25MCG 14 PUFFS/INHALER INH SCH (08:03)
[2021-04-05] MEDS: PANTOprazole 40 MG TAB PO SCH (08:03)
[2021-04-05] MEDS: FINASTERIDE 5 MG TAB PO SCH (08:03)
[2021-04-05] MEDS: UMECLIDINIUM BROMIDE 62.5MCG/BLISTER 7 PUFFS/INHALER INH SCH (08:04)
[2021-04-05 08:27] LABS: BUN Creatinine Ratio 19.5 (10-20); Calcium 8.8 mg/dl (8.5-10.1); Creatinine Clr Calc Pharmacy 68.5 ml/min; Est GFR (African American) 83.9 ml/min; Est GFR (Non-African American) 72.4 ml/min; Potassium 4.2 mmol/L (3.5-5.1)
[2021-04-05] MEDS ORDERED: UMECLIDINIUM BROMIDE 62.5MCG/BLISTER 7 PUFFS/INHALER INH SCH (09:00)
[2021-04-05] MEDS ORDERED: predniSONE 10 MG TABLET PO SCH (09:00)
[2021-04-05] MEDS: OMEGA-3 (PURIFIED FISH OIL) 1 GM CAP PO SCH (11:01)
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
[2021-04-05] MEDS: ENOXAPARIN INJ 40 MG/0.4 ML SYR SQ SCH (19:25)
[2021-04-06] MEDS: GABAPENTIN 100 MG CAP PO PRN ×3 (01:08→19:16)
[2021-04-06] MEDS: ACETAMINOPHEN 325 MG TAB PO PRN ×3 (03:11→15:23)
[2021-04-06] MEDS: ALBUT/IPRATROP 3MG/0.5MG NEB 3 ML VIAL NEB PRN ×2 (03:28→09:39)
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
[2021-04-06] MEDS: CHOLECALCIFEROL 1,000 UNITS 25 MCG TAB PO SCH (07:37)
[2021-04-06] MEDS: FINASTERIDE 5 MG TAB PO SCH (07:38)
[2021-04-06] MEDS: FLUTICASONE/VILANTEROL 100/25MCG 14 PUFFS/INHALER INH SCH (07:39)
[2021-04-06] MEDS: LIDOCAINE 5% 1 PATCH TD SCH (07:40)
[2021-04-06] MEDS: LOSARTAN POTASSIUM 50 MG TAB PO SCH (07:42)
[2021-04-06] MEDS: NICOTINE 14 MG/24 HR PATCH TD SCH (07:43)
[2021-04-06] MEDS: PANTOprazole 40 MG TAB PO SCH (07:43)
[2021-04-06] MEDS: POLYETHYLENE (MIRALAX) 17 GM PACK PO SCH ×2 (07:44→19:16)
[2021-04-06] MEDS: predniSONE 20 MG TAB PO SCH (07:44)
[2021-04-06] MEDS: UMECLIDINIUM BROMIDE 62.5MCG/BLISTER 7 PUFFS/INHALER INH SCH (07:45)
[2021-04-06] MEDS: OMEGA-3 (PURIFIED FISH OIL) 1 GM CAP PO SCH (09:32)
[2021-04-06] MEDS: DICLOFENAC SOD 1% GEL 100 GM TUBE EXT PRN ×2 (11:08→19:00)
[2021-04-06] MEDS: ENOXAPARIN INJ 40 MG/0.4 ML SYR SQ SCH (19:15)
[2021-04-07] MEDS: CAPSAICIN CR 0.075% 60 GM TUBE EXT PRN (01:01)
[2021-04-07] MEDS: ACETAMINOPHEN 325 MG TAB PO PRN ×5 (01:01→19:43)
--- NOTE | 2021-04-07 07:19 | Hospitalist Progress Note ---
Date of Service April 07, 2021 Assessment & Plan (1) Acute exacerbation of chronic obstructive pulmonary disease: Plan: 75 y/o M current smoker w/ PMHx of scitzotypa PD, COPD (not on home O2), HTN, HLD, GERD, CAD, anxiety/depression and overactive bladder who was admitted to [facility] on 03/27 for COPD exacerbation, which is resolving. Pending placement after guardian is appointed (lacks decision-making capacity, per previous Psych documentation). Decision Making Capacity / Schizotypal Personality Disorder / Dispositional Planning - Formal evaluation by neuropsychology in 02/2021 (<60 days ago), scanned into chart 02/07, outlines patient as not having reliable decision making capacity and would need a state-appointed apparel trimmings sales representative - Concerns for this were made given his prior neuropsychological work-up in 02/2021 (<60 days from now), which stated he lacked appropriate decision making capacity / would need an appointed guardian by the state to help him make decisions. He is currently amenable to staying until his situation and needs are clarified. I worry significantly about his safety outside of the hospital before such a apparel trimmings sales representative is appointed. However, the situation is now limited by an inability to obtain a apparel trimmings sales representative from [facility] (his hearing was cancelled today). Without consistent access to home environment or his inhalers, I do believe he is at significant risk for self-deterioration (home/health/financially/etc.) and would serve as a harm to himself. If a facility is secured with easy access to medical care and proper housing (e.g., [facility]), do believe his care can be continued closely in the outpatient setting with frequent follow-ups / identification of community resources from which he may benefit - Psychiatry consulted for further aid in this matter given situational complexity and notable history of schizotypal PD: agree on decision making capacity as outlined above. Per CM, to re-visit today. Will follow-up on notes. - Closely working with CM to determine best setting for patient outside of the hospital. Please see their notes for more details. COPD Exacerbation -- resolved Likely due to home medication nonadherence. Currently satting well on RA. - s/p SoluMedrol, azithromycin, and guaifenesin - Continue Prednisone taper (end 04/09 -- scheduled doses on chart) - Incruse initiated while here for antimuscarinic properties - continue home inhalers (Symbicort b.i.d., Abuterol p.r.n.) - Albuterol p.r.n. - SpO2 goal 88-92% Cervical Paraspinal Muscle Strain Chronic, 2/2 old injury many years ago. OMT provided some relief. - Tylenol, icing, Voltaren gel - continue gabapentin 100 mg PO TID PRN for severe neck pain - recommend OMT as outpatient Chronic Hyponatremia (Stable, 126 - low 130s) Patient is euvolemic. Given low-nml sOsm (280) / low uOsm (235) / normal Kody (26), suspect SIADH with component of corticosteroid response. - Has chronic RUL pulmonary nodule (4mm), last imaged in 11/2020, with extensive smoking history and history of COPD -- suspect primarily due to the latter - currently asymptomatic, will monitor - monitor BMP q3d following multiple days of stability - recommend repeat CT of pulmonary nodule as outpatient Overactive Bladder - Continue home finasteride HTN - continue home Losartan GERD - continue Protonix Chronic Sinus Tachycardia May be psychogenic vs 2/2 pain. - pain control as stated above FEN/GI: HH diet ppx: sq lovenox code: full dispo: med/surg, dispo planning ongoing w/ CM, OOA, psychiatry (2) Cervicalgia: (3) Tobacco dependence: (4) Overactive bladder: (5) Leukocytosis: (6) Hypertension: (7) GERD (gastroesophageal reflux disease): (8) Acute respiratory failure with hypoxia: (9) Sinus tachycardia: (10) Constipation: (11) Hyponatremia: Admission and Anticipated Discharge Date Admission Date: March 27, 2021 Supervising Physician Co-Signing Physician Notes I also saw the patient confirmed holcomb portions of the history and physical examination. Agree with the impression and plan as noted in the resident documentation. Upon exam, the patient is seated in his room. He has no complaints. 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 He complains of some left neck/upper back tightness, which he has had off-and-on during his hospitalization. Exam 164/87, 88, 16, 36.4, 95% room air Heart regular rate and rhythm Lungs clear with very minimal end expiratory wheeze, markedly prolonged expiratory phase. Assessment and Plan COPD, acute on chronic Continue prednisone taper Duo nebs as needed Incruse Continue other home inhalers Psychiatry to reevaluate later today Subjective ESTEBAN. Says he is currently writing a "book" about the murder that took place in [employer] Continues to note that he's "close" with the FBI and police department. Refuses to go back to [place]. No trouble breathing. Cough resolved. Good appetite. Pain control adequate in neck. Review of Systems Review of Systems: as per HPI Physical Exam Physical Exam: General: Well appearing 75yoM in NAD. HEENT: NCAT. Eyes - Sclera are white, anicteric, and without injection. Mouth - MMM with no tonsillar edema or exudates. Neck - no JVD. Cardiac: Normal rate and regular rhythm; S1 and S2 present with no murmurs, rubs, or gallops. Pulmonary: Good respiratory effort with symmetric expansion of the chest. No use of accessory muscles. Lungs were clear to auscultation bilaterally with no crackles or wheezes. Abdominal: Normoactive bowel sounds. Abdomen was soft, nondistended, and non- tender to palpation. Extremities: Upper and lower extremities are warm and well perfused. No peripheral edema. Psychiatric: Non-aggressive and cooperative. Bouts of grandiose and somewhat delusional thought processes noted. Dressed same as yesterday. Results & Data Results & Data ([facility]) Vital Signs (Past 12 Hours) Vital Signs Temp Pulse Resp BP BP Pulse Ox 04/07/21 02:00 168/100 H 04/07/21 00:30 37.2 C 101 H 18 208/123 H 93 Resident Activity Tracking Resident Involvement: Resident Care Provided Care Provided: Adult Hospital Medicine
[2021-04-07] MEDS: CHOLECALCIFEROL 1,000 UNITS 25 MCG TAB PO SCH (07:28)
[2021-04-07] MEDS: FLUTICASONE/VILANTEROL 100/25MCG 14 PUFFS/INHALER INH SCH (07:29)
[2021-04-07] MEDS: FINASTERIDE 5 MG TAB PO SCH (07:29)
[2021-04-07] MEDS: OMEGA-3 (PURIFIED FISH OIL) 1 GM CAP PO SCH ×2 (07:29→19:41)
[2021-04-07] MEDS: PANTOprazole 40 MG TAB PO SCH (07:30)
[2021-04-07] MEDS: LOSARTAN POTASSIUM 50 MG TAB PO SCH (07:30)
[2021-04-07] MEDS: UMECLIDINIUM BROMIDE 62.5MCG/BLISTER 7 PUFFS/INHALER INH SCH (07:31)
[2021-04-07] MEDS: predniSONE 20 MG TAB PO SCH (07:31)
[2021-04-07] MEDS: POLYETHYLENE (MIRALAX) 17 GM PACK PO SCH ×2 (07:33→19:14)
[2021-04-07] MEDS: LIDOCAINE 5% 1 PATCH TD SCH (07:34)
[2021-04-07 07:37] LABS: BUN Creatinine Ratio 17.9 (10-20); Calcium 9.1 mg/dl (8.5-10.1); Creatinine Clr Calc Pharmacy 72.8 ml/min; Est GFR (African American) 90.4 ml/min; Potassium 4.4 mmol/L (3.5-5.1)
[2021-04-07] MEDS: GABAPENTIN 100 MG CAP PO PRN ×2 (10:32→23:44)
[2021-04-07] MEDS: NICOTINE 14 MG/24 HR PATCH TD SCH (10:34)
[2021-04-07] MEDS: ALBUTEROL HFA 8 GM INHALER INH PRN (14:55)
[2021-04-07] MEDS: DICLOFENAC SOD 1% GEL 100 GM TUBE EXT PRN ×2 (15:25→23:45)
[2021-04-07] MEDS: MULTIVITAMIN TAB PO SCH (17:38)
[2021-04-07] MEDS: ENOXAPARIN INJ 40 MG/0.4 ML SYR SQ SCH (19:13)
[2021-04-07] MEDS: EUCERIN CR 120 GM JAR EXT PRN (19:13)
[2021-04-08] MEDS: ACETAMINOPHEN 325 MG TAB PO PRN ×4 (02:09→19:59)
[2021-04-08 06:35] LABS: BUN Creatinine Ratio 19.1 (10-20); Calcium 8.8 mg/dl (8.5-10.1); Creatinine Clr Calc Pharmacy 68.5 ml/min; Est GFR (African American) 83.9 ml/min; Est GFR (Non-African American) 72.4 ml/min; Potassium 4.4 mmol/L (3.5-5.1)
[2021-04-08] MEDS: CHOLECALCIFEROL 1,000 UNITS 25 MCG TAB PO SCH (07:43)
[2021-04-08] MEDS: FINASTERIDE 5 MG TAB PO SCH (07:43)
[2021-04-08] MEDS: PANTOprazole 40 MG TAB PO SCH (07:44)
[2021-04-08] MEDS: MULTIVITAMIN TAB PO SCH (07:44)
[2021-04-08] MEDS: LIDOCAINE 5% 1 PATCH TD SCH (07:44)
[2021-04-08] MEDS: LOSARTAN POTASSIUM 50 MG TAB PO SCH (07:44)
[2021-04-08] MEDS: predniSONE 10 MG TABLET PO SCH (07:45)
[2021-04-08] MEDS: UMECLIDINIUM BROMIDE 62.5MCG/BLISTER 7 PUFFS/INHALER INH SCH (07:45)
[2021-04-08] MEDS: POLYETHYLENE (MIRALAX) 17 GM PACK PO SCH ×2 (07:45→20:02)
[2021-04-08] MEDS: FLUTICASONE/VILANTEROL 100/25MCG 14 PUFFS/INHALER INH SCH (07:46)
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
[2021-04-08] MEDS: OMEGA-3 (PURIFIED FISH OIL) 1 GM CAP PO SCH ×2 (07:49→20:00)
[2021-04-08] MEDS: NICOTINE 14 MG/24 HR PATCH TD SCH (07:54)
[2021-04-08] MEDS: GABAPENTIN 100 MG CAP PO PRN ×2 (08:55→16:13)
[2021-04-08] MEDS: ENOXAPARIN INJ 40 MG/0.4 ML SYR SQ SCH (20:00)
[2021-04-09] MEDS: GABAPENTIN 100 MG CAP PO PRN ×3 (00:57→17:10)
[2021-04-09] MEDS: MELATONIN 3 MG TAB PO PRN ×2 (00:57→20:41)
[2021-04-09] MEDS: ACETAMINOPHEN 325 MG TAB PO PRN ×5 (02:35→20:22)
[2021-04-09] MEDS: DICLOFENAC SOD 1% GEL 100 GM TUBE EXT PRN ×3 (05:02→20:25)
[2021-04-09] MEDS: NICOTINE 14 MG/24 HR PATCH TD SCH (07:51)
[2021-04-09] MEDS: OMEGA-3 (PURIFIED FISH OIL) 1 GM CAP PO SCH ×2 (07:55→20:23)
[2021-04-09] MEDS: FINASTERIDE 5 MG TAB PO SCH (07:55)
[2021-04-09] MEDS: LIDOCAINE 5% 1 PATCH TD SCH (07:55)
[2021-04-09] MEDS: POLYETHYLENE (MIRALAX) 17 GM PACK PO SCH ×2 (07:55→20:24)
[2021-04-09] MEDS: PANTOprazole 40 MG TAB PO SCH (07:56)
[2021-04-09] MEDS: UMECLIDINIUM BROMIDE 62.5MCG/BLISTER 7 PUFFS/INHALER INH SCH (07:56)
[2021-04-09] MEDS: predniSONE 10 MG TABLET PO SCH (07:56)
[2021-04-09] MEDS: MULTIVITAMIN TAB PO SCH (07:56)
[2021-04-09] MEDS: FLUTICASONE/VILANTEROL 100/25MCG 14 PUFFS/INHALER INH SCH (07:56)
[2021-04-09] MEDS: LOSARTAN POTASSIUM 50 MG TAB PO SCH (07:56)
[2021-04-09] MEDS: CHOLECALCIFEROL 1,000 UNITS 25 MCG TAB PO SCH (10:07)
--- NOTE | 2021-04-09 12:12 | Ultrasound Report ---
LEFT LOWER EXTREMITY VENOUS DOPPLER CLINICAL HISTORY: Left lower extremity pain and swelling. COMPARISON STUDY: No previous studies for comparison. TECHNIQUE: Sonography of the deep venous system of the left lower extremity was performed. Compressi on and augmentation were evaluated. FINDINGS: The left common femoral, superficial femoral and popliteal veins were compressible. Augmen tation was normal. Flow was shown within the deep calf vessels. IMPRESSION: No evidence of deep venous thrombus within the left lower extremity. ACT 112: Negative or not required by law. Electronically signed by: Bryant Blackburn M.D. 04/09/2021 12:11 PM
--- NOTE | 2021-04-09 17:16 | Hospitalist Progress Note ---
Date of Service April 09, 2021 Assessment & Plan (1) Acute exacerbation of chronic obstructive pulmonary disease: Plan: 75 y/o M current smoker w/ PMHx of schizotypal PD, COPD (not on home O2), HTN, HLD, GERD, CAD, anxiety/depression and overactive bladder who was admitted to [facility] on 03/27 for COPD exacerbation, which is resolving. Pending placement after guardian is appointed (lacks decision-making capacity, per previous Psych documentation). Decision Making Capacity / Schizotypal Personality Disorder / Dispositional Planning - Formal evaluation by neuropsychology in 02/2021 (<60 days ago), scanned into [facility] 02/07, outlines patient as not having reliable decision making capacity and would need a state-appointed abrasives sales representative - Concerns for this were made given his prior neuropsychological work-up in 02/2021 (<60 days from now), which stated he lacked appropriate decision making capacity / would need an appointed guardian by the state to help him make decisi ons. He is currently amenable to staying until his situation and needs are clarified. I worry significantly about his safety outside of the hospital before such a abrasives sales representative is appointed. However, the situation is now limited by an inability to obtain a abrasives sales representative from [facility] (his hearing was cancelled today). Without consistent access to home environment or his inhalers, I do believe he is at significant risk for self-deterioration (home/health/financially/etc.) and would serve as a harm to himself. If a facility is secured with easy access to medical care and proper housing (e.g., F), do believe his care can be continued closely in the outpatient setting with frequent follow-ups / identification of community resources from which he may benefit - Psychiatry consulted for further aid in this matter given situational complexity and notable history of schizotypal PD: agree on decision making capacity as outlined above. Per CM, to re-visit. Will follow-up on notes. Reina ent should not leave AMA. - Closely working with CM to determine best setting for patient outside of the hospital. [facility] potentially writing petitioning statement. Please see their notes for more details. LLE Swelling and Pain - No signs of DVT on LLE venous doppler - Will continue to monitor - Patient noted that he likes to sleep with his "leg off the bed" - Encouraged patient to elevate legs when laying in bed to prevent gravity- dependent edema COPD Exacerbation -- resolved Likely due to home medication nonadherence. Currently satting well on RA. - s/p SoluMedrol, azithromycin, and guaifenesin - Continue Prednisone taper (end 04/09 -- scheduled doses on chart) - Incruse initiated while here for antimuscarinic properties - continue home inhalers (Symbicort b.i.d., Abuterol p.r.n.) - Albuterol p.r.n. - SpO2 goal 88-92% Cervical Paraspinal Muscle Strain Chronic, 2/2 old injury many years ago. OMT provided some relief. - Tylenol, icing, Voltaren gel - continue gabapentin 100 mg PO TID PRN for severe neck pain - May also consider lesser sedating muscle relaxers, e.g., Robaxin, if needed atop gabapentin - recommend OMT as outpatient Chronic Hyponatremia (Stable, 126 - low 130s) Patient is euvolemic. Given low-nml sOsm (280) / low uOsm (235) / normal Kody (26), suspect SIADH with component of corticosteroid response. - Has chronic RUL pulmonary nodule (4mm), last imaged in 11/2020, with extensive smoking history and history of COPD -- suspect primarily due to the latter - currently asymptomatic, will monitor - monitor BMP q3d following multiple days of stability - recommend repeat CT of pulmonary nodule as outpatient Overactive Bladder - Continue home finasteride HTN - continue home Losartan GERD - continue Protonix Chronic Sinus Tachycardia May be psychogenic vs 2/2 pain. - pain control as stated above FEN/GI: HH diet ppx: sq lovenox code: full dispo: med/surg, dispo planning ongoing w/ CM, [facility], psychiatry (2) Cervicalgia: (3) Tobacco dependence: (4) Overactive bladder: (5) Leukocytosis: (6) Hypertension: (7) GERD (gastroesophageal reflux disease): (8) Acute respiratory failure with hypoxia: (9) Sinus tachycardia: (10) Constipation: (11) Hyponatremia: Admission and Anticipated Discharge Date Admission Date: March 27, 2021 Supervising Physician Co-Signing Physician Notes Patient seen and examined with PGY 2, Dr. Mendoza. Agree with history, exam findings, assessment and plan of care as outlined. In brief, Mr. Munson is a 75 year old male with history of schizotypia PD, COPD, HTN, HLD, GERD, CAD, anxiety/depression and overactive bladder admitted w ith COPD exacerbation. Initial COPD exacerbation has resolved. He is finishing a prednisone taper. At this point, awaiting placement after guardian is appointed as patient lacks decision-making capacity. His neck pain is improved with fish oil, Tylenol and gabapentin. No complaints. Well appearing. Linear train of thought. +2-3 edema of the left anterior pollack. Tender. No overlying erythema. Negative Homans. 1. New edema of the left pollack. Doppler to rule out clot was negative. Medically stable for discharge. Appreciate case management efforts with disposition planning Subjective Patient seen and evaluated at bedside this morning. No acute events overnight. Patient reports that he is overall doing "very well" this morning. States that the neck pain is better with the fish oil that he is getting. Patient with no concerns or complaints today. Reports a good appetite w/o abdominal pain, nausea, or vomiting. Denies CP, SOB, cough, headache, lightheadedness, or dizziness. Review of Systems Review of Systems: as per hpi Physical Exam Physical Exam: GENERAL: No acute distress. Well developed and well nourished. Vital signs reviewed as above. EYES: EOMI. Anicteric sclerae. HENT: Moist mucous membranes. RESPIRATORY: Clear to auscultation bilaterally. No wheezing, rales, or rhonchi. CARDIOVASCULAR: Regular rate and rhythm. No murmurs. ABDOMEN: Soft, non-tender and non-distended. Normal bowel sounds. EXTREMITIES: 2+ edema to LLE w/ mild tenderness to palpation. Trace edema to RLE w/o tenderness to palpation. SKIN: Warm, dry. PSYCHIATRIC: Cooperative. Appropriate mood and affect. Results & Data Results & Data ([facility]) Vital Signs (Past 12 Hours) Vital Signs Temp Pulse Pulse Resp BP BP Pulse Ox 04/09/21 15:58 36.8 C 91 H 18 127/63 90 04/09/21 07:38 36.4 C L 87 18 139/72 94 Laboratory Results LEFT LOWER EXTREMITY VENOUS DOPPLER CLINICAL HISTORY: Left lower extremity pain and swelling. COMPARISON STUDY: No previous studies for comparison. TECHNIQUE: Sonography of the deep venous system of the left lower extremity was performed. Compression and augmentation were evaluated. FINDINGS: The left common femoral, superficial femoral and popliteal veins were compressible. Augmentation was normal. Flow was shown within the deep calf vessels. IMPRESSION: No evidence of deep venous thrombus within the left lower extremity. ACT 112: Negative or not required by law. Electronically signed by: Bryant Blackburn M.D. 04/09/2021 12:11 PM Dictated:04/09/21 1211 Transcribed: 04/09/21 1211 Resident Activity Tracking Resident Involvement: Resident Care Provided Care Provided: Adult Hospital Medicine
[2021-04-09] MEDS: ALBUTEROL HFA 8 GM INHALER INH PRN (17:23)
[2021-04-09] MEDS: ENOXAPARIN INJ 40 MG/0.4 ML SYR SQ SCH (20:23)
[2021-04-10] MEDS: GABAPENTIN 100 MG CAP PO PRN ×3 (01:32→20:45)
[2021-04-10] MEDS: ALBUTEROL HFA 8 GM INHALER INH PRN ×2 (02:50→21:03)
[2021-04-10] MEDS: ACETAMINOPHEN 325 MG TAB PO PRN ×4 (03:35→20:53)
[2021-04-10] MEDS: NICOTINE 14 MG/24 HR PATCH TD SCH (08:18)
[2021-04-10] MEDS: UMECLIDINIUM BROMIDE 62.5MCG/BLISTER 7 PUFFS/INHALER INH SCH (08:19)
[2021-04-10] MEDS: FLUTICASONE/VILANTEROL 100/25MCG 14 PUFFS/INHALER INH SCH (08:19)
[2021-04-10] MEDS: OMEGA-3 (PURIFIED FISH OIL) 1 GM CAP PO SCH ×2 (08:19→20:44)
[2021-04-10] MEDS: LIDOCAINE 5% 1 PATCH TD SCH (08:19)
[2021-04-10] MEDS: POLYETHYLENE (MIRALAX) 17 GM PACK PO SCH ×2 (08:21→20:46)
[2021-04-10] MEDS: LOSARTAN POTASSIUM 50 MG TAB PO SCH (08:21)
[2021-04-10] MEDS: EUCERIN CR 120 GM JAR EXT PRN (08:21)
[2021-04-10] MEDS: PANTOprazole 40 MG TAB PO SCH (08:21)
[2021-04-10] MEDS: FINASTERIDE 5 MG TAB PO SCH (08:21)
[2021-04-10] MEDS: CHOLECALCIFEROL 1,000 UNITS 25 MCG TAB PO SCH (08:21)
[2021-04-10] MEDS: MULTIVITAMIN TAB PO SCH (08:21)
--- NOTE | 2021-04-10 10:37 | Hospitalist Progress Note ---
Date of Service April 10, 2021 Assessment & Plan (1) Acute exacerbation of chronic obstructive pulmonary disease: Plan: 75 y/o M current smoker w/ PMHx of schizotypal PD, COPD (not on home O2), HTN, HLD, GERD, CAD, anxiety/depression and overactive bladder who was admitted to [facility] on 03/27 for COPD exacerbation, which is resolving. Pending placement after guardian is appointed (lacks decision-making capacity, per previous Psych documentation). Decision Making Capacity / Schizotypal Personality Disorder / Dispositional Planning - Formal evaluation by neuropsychology in 02/2021 (<60 days ago), scanned [facility] 02/07, outlines patient as not having reliable decision making capacity and would need a state-appointed branch customer service representative - Concerns for this were made given his prior neuropsychological work-up in 02/2021 (<60 days from now), which stated he lacked appropriate decision making capacity / would need an appointed guardian by the state to help him make decisi ons. He is currently amenable to staying until his situation and needs are clarified. I worry significantly about his safety outside of the hospital before such a branch customer service representative is appointed. However, the situation is now limited by an inability to obtain a branch customer service representative from [facility] (his hearing was cancelled today). Without consistent access to home environment or his inhalers, I do believe he is at significant risk for self-deterioration (home/health/financially/etc.) and would serve as a harm to himself. If a facility is secured with easy access to medical care and proper housing (e.g., F), do believe his care can be continued closely in the outpatient setting with frequent follow-ups / identification of community resources from which he may benefit - Psychiatry consulted for further aid in this matter given situational complexity and notable history of schizotypal PD: agree on decision making capacity as outlined above. Per CM, to re-visit. Will follow-up on notes. Reina ent should not leave AMA. - Closely working with CM to determine best setting for patient outside of the hospital. [facility] potentially writing petitioning statement. Please see their notes for more details. Cervical Paraspinal Muscle Strain Chronic, 2/2 old injury many years ago. OMT provided some relief. - Tylenol, fish oil, icing, Voltaren gel - continue gabapentin 100 mg PO TID PRN for severe neck pain - May also consider lesser sedating muscle relaxers, e.g., Robaxin, if needed atop gabapentin - recommend OMT as outpatient LLE Swelling and Pain, resolved - No signs of DVT on LLE venous doppler 04/09/21 - Encouraged patient to continue to elevate legs when laying in bed to prevent gravity-dependent edema COPD Exacerbation -- resolved Likely due to home medication nonadherence. Currently satting well on RA. - s/p SoluMedrol, azithromycin, and guaifenesin - Completed Prednisone taper on 04/09 - Incruse initiated while here for antimuscarinic properties - continue home inhalers (Symbicort b.i.d., Abuterol p.r.n.) - Albuterol p.r.n. - SpO2 goal 88-92% Chronic Hyponatremia (Stable, 126 - low 130s) Patient is euvolemic. Given low-nml sOsm (280) / low uOsm (235) / normal Kody (26), suspect SIADH with component of corticosteroid response. - Has chronic RUL pulmonary nodule (4mm), last imaged in 11/2020, with extensive smoking history and history of COPD -- suspect primarily due to the latter - currently asymptomatic, will monitor - monitor BMP q3d following multiple days of stability - recommend repeat CT of pulmonary nodule as outpatient Chronic problems: Overactive Bladder: Continue home finasteride HTN: continue home Losartan GERD: continue Protonix Chronic Sinus Tachycardia: May be psychogenic vs 2/2 pain. Pain control as state d above. FEN/GI: HH diet ppx: sq lovenox code: full dispo: med/surg, dispo planning ongoing w/ CM, [facility], psychiatry (2) Cervicalgia: (3) Tobacco dependence: (4) Overactive bladder: (5) Leukocytosis: (6) Hypertension: (7) GERD (gastroesophageal reflux disease): (8) Acute respiratory failure with hypoxia: (9) Sinus tachycardia: (10) Constipation: (11) Hyponatremia: Admission and Anticipated Discharge Date Admission Date: March 27, 2021 Supervising Physician Co-Signing Physician Notes Patient seen and examined with PGY 2, Dr. Mendoza. Agree with history, exam findings, assessment and plan of care as outlined. In brief, Mr. Munson is a 75 year old male with history of schizotypia PD, COPD, HTN, HLD, GERD, CAD, anxiety/depression and overactive bladder admitted with COPD exacerbation. Initial COPD exacerbation has resolved. He is finishing a prednisone taper. At this point, awaiting placement after guardian is appointed as patient lacks decision-making capacity. His neck pain is improved with fish oil, Tylenol and gabapentin. No complaints. Well appearing. Linear train of thought. +2-3 edema of the left anterior pollack. Tender. No overlying erythema. Negative Homans. Medically stable for discharge. Appreciate case management efforts with disposition planning Subjective Patient seen and evaluated at bedside this morning. No acute events overnight. Prior concern of left lower leg swelling and pain has resolved. States that he is overall doing well but does complain of persistent neck pain that radiates into a headache and left shoulder pain. Patient does state that the fish oil does help his pain. He has no other complaints or concerns. Good appetite w/o abdominal pain, nausea, or vomiting. Denies CP, SOB, or cough. Review of Systems Review of Systems: as per hpi Physical Exam Physical Exam: GENERAL: No acute distress. Well developed and well nourished. Vital signs reviewed as above. EYES: EOMI. Anicteric sclerae. HENT: Moist mucous membranes. RESPIRATORY: No acute respiratory distress. Normal respiratory effort. EXTREMITIES: LLE edema has resolved. No tenderness to palpation to BLE. SKIN: Warm, dry. PSYCHIATRIC: Cooperative. Appropriate mood and affect. Results & Data Results & Data ([facility]) Vital Signs (Past 12 Hours) Vital Signs Temp Pulse Pulse Resp BP Pulse Ox 04/10/21 07:18 36.5 C 90 18 172/89 H 94 04/10/21 02:51 77 15 97 Resident Activity Tracking Resident Involvement: Resident Care Provided Care Provided: Adult [facility] Medicine
[2021-04-10] MEDS: DICLOFENAC SOD 1% GEL 100 GM TUBE EXT PRN (20:45)
[2021-04-10] MEDS: ENOXAPARIN INJ 40 MG/0.4 ML SYR SQ SCH (20:46)
[2021-04-10] MEDS: MELATONIN 3 MG TAB PO PRN (20:53)
[2021-04-11] MEDS: ACETAMINOPHEN 325 MG TAB PO PRN ×5 (01:18→18:21)
[2021-04-11 07:34] LABS: BUN Creatinine Ratio 19.3 (10-20); Calcium 8.9 mg/dl (8.5-10.1); Creatinine Clr Calc Pharmacy 75.1 ml/min; Est GFR (African American) 98.8 ml/min; Est GFR (Non-African American) 85.2 ml/min; Potassium 4.4 mmol/L (3.5-5.1)
--- NOTE | 2021-04-11 07:35 | Hospitalist Progress Note ---
Date of Service April 11, 2021 Assessment & Plan (1) Acute exacerbation of chronic obstructive pulmonary disease: Plan: 75 y/o M current smoker w/ PMHx of schizotypal PD, COPD (not on home O2), HTN, HLD, GERD, CAD, anxiety/depression and overactive bladder who was admitted to [facility] on 03/27 for COPD exacerbation, which is resolving. Pending placement after guardian is appointed (lacks decision-making capacity, per previous Psych documentation). Decision Making Capacity / Schizotypal Personality Disorder / Dispositional Planning - Formal evaluation by neuropsychology in 02/2021 (<60 days ago), scanned into [facility] 02/07, outlines patient as not having reliable decision making capacity and would need a state-appointed direct sales representative - Concerns for this were made given his prior neuropsychological work-up in 02/2021 (<60 days from now), which stated he lacked appropriate decision making capacity / would need an appointed guardian by the state to help him make decisi ons. He is currently amenable to staying until his situation and needs are clarified. I worry significantly about his safety outside of the hospital before such a direct sales representative is appointed. However, the situation is now limited by an inability to obtain a direct sales representative from [facility] (his hearing was cancelled). Without consistent access to home environment or his inhalers, I do believe he is at significant risk for self-deterioration (home/health/financially/etc.) and would serve as a harm to himself. If a facility is secured with easy access to medical care and proper housing (e.g., F), do believe his care can be continued closely in the outpatient setting with frequent follow-ups / identification of community resources from which he may benefit. He is medically stable at this point. - Psychiatry consulted for further aid in this matter given situational complexity and notable history of schizotypal PD: agree on decision making capacity as outlined above. Patient should not leave AMA. - Closely working with CM to determine best setting for patient outside of the hospital. [facility] potentially writing petitioning statement. Please see their notes for more details. Cervical Paraspinal Muscle Strain Chronic, 2/2 old injury many years ago. OMT provided some relief. - Tylenol, fish oil, icing, Voltaren gel - continue gabapentin 100 mg PO TID PRN for severe neck pain - OMT p.r.n. - May also consider lesser sedating muscle relaxers, e.g., Robaxin, if needed atop gabapentin - Recommend OMT as outpatient LLE Swelling and Pain -- resolved - No signs of DVT on LLE venous doppler 04/09/21 - Encouraged patient to continue to elevate legs when laying in bed to prevent gravity-dependent edema COPD Exacerbation -- resolved Likely due to home medication nonadherence. Currently satting well on RA. - s/p SoluMedrol, azithromycin, and guaifenesin - Completed Prednisone taper on 04/09 - Incruse initiated while here for antimuscarinic properties - continue home inhalers (Symbicort b.i.d., Abuterol p.r.n.) - Albuterol p.r.n. - SpO2 goal 88-92% Chronic Hyponatremia (Stable, 126 - low 130s) Patient is euvolemic. Given low-nml sOsm (280) / low uOsm (235) / normal Kody (26), suspect SIADH with component of corticosteroid response. - Has chronic RUL pulmonary nodule (4mm), last imaged in 11/2020, with extensive smoking history and history of COPD -- suspect primarily due to the latter - currently asymptomatic, will monitor - monitor BMP q3d following multiple days of stability - recommend repeat CT of pulmonary nodule as outpatient Chronic problems: Overactive Bladder: Continue home finasteride HTN: continue home Losartan GERD: continue Protonix Chronic Sinus Tachycardia: May be psychogenic vs 2/2 pain. Pain control as stated above. FEN/GI: HH diet ppx: sq Lovenox code: full dispo: med/surg, dispo planning ongoing w/ CM, [facility], psychiatry (2) Cervicalgia: (3) Tobacco dependence: (4) Overactive bladder: (5) Leukocytosis: (6) Hypertension: (7) GERD (gastroesophageal reflux disease): (8) Acute respiratory failure with hypoxia: (9) Sinus tachycardia: (10) Constipation: (11) Hyponatremia: Admission and Anticipated Discharge Date Admission Date: March 27, 2021 Supervising Physician Co-Signing Physician Notes I personally examined the patient and verified all holcomb points of history and exam, discussed case, and agree with decision making with Dr Martin Shoulder pain has been helped by OMT. No other new complaints. Still awaiting any type of guardianship decision/hearing. Vitals noted, in general he is awake and alert pleasant no distress. HEENT normocephalic atraumatic mucous membranes moist. Breathing unlabored no accessory muscle use good effort. Skin shows no rashes no pallor or icterus. MSK/osteopathicleft-sided upper thoracic/periscapular musculature in the region of levator scapula a high tone, tender, decreased range of motioninhibitory pressure/LASimproved some, patient tolerated well and noted some improvement in his symptoms. COPDexacerbation now long resolved, baseline management Lack of capacityneeds guardian per office of aging before he is able to leave the hospital, unfortunately this is a legal process that moves at the pace of the courts Somatic dysfunction thoracic region/levator scapulae tightnessOMT as above Subjective NAEO. Still endorsing left paraspinal cervical pain; still much improved compared to previous days. Says that he continues to have some shooting pains down his left arm with associated tingling. This is unchanged compared to last week. Denies any chest pain, palpitations, shortness of breath. Spirits are good. Appetite is good. Passing gas. No issues with voiding. No other concerns this morning. He does state to me that he is finished writing his book, which is on his nightstand. He also says that he is written numerous other books at home. Physical Exam Physical Exam: General: 75yoM who is tired appearing in NAD. Cardiac: Normal rate and regular rhythm; S1 and S2 present with no murmurs, rubs, or gallops. Pulmonary: Good respiratory effort with symmetric expansion of the chest. No use of accessory muscles. Lungs were clear to auscultation bilaterally with no crackles or wheezes. Abdominal: Normoactive bowel sounds. Abdomen was soft, nondistended, and non- tender to palpation. MSK: Significant paraspinal firmness, favoring L side, on exam. No point tenderness along cervical spine. UE strength 5/5. Results & Data Results & Data ([facility]) Vital Signs (Past 12 Hours) Vital Signs Temp Pulse Resp BP Pulse Ox 04/10/21 23:27 36.6 C 81 16 153/75 H 93 04/10/21 21:03 98 H 16 93 Resident Activity Tracking Resident Involvement: Resident Care Provided Care Provided: Adult Hospital Medicine
[2021-04-11] MEDS: LOSARTAN POTASSIUM 50 MG TAB PO SCH (09:19)
[2021-04-11] MEDS: PANTOprazole 40 MG TAB PO SCH (09:19)
[2021-04-11] MEDS: MULTIVITAMIN TAB PO SCH (09:20)
[2021-04-11] MEDS: CHOLECALCIFEROL 1,000 UNITS 25 MCG TAB PO SCH (09:20)
[2021-04-11] MEDS: OMEGA-3 (PURIFIED FISH OIL) 1 GM CAP PO SCH ×2 (09:20→20:36)
[2021-04-11] MEDS: FINASTERIDE 5 MG TAB PO SCH (09:20)
[2021-04-11] MEDS: FLUTICASONE/VILANTEROL 100/25MCG 14 PUFFS/INHALER INH SCH (09:21)
[2021-04-11] MEDS: UMECLIDINIUM BROMIDE 62.5MCG/BLISTER 7 PUFFS/INHALER INH SCH (09:21)
[2021-04-11] MEDS: LIDOCAINE 5% 1 PATCH TD SCH (09:22)
[2021-04-11] MEDS: NICOTINE 14 MG/24 HR PATCH TD SCH (09:23)
[2021-04-11] MEDS: POLYETHYLENE (MIRALAX) 17 GM PACK PO SCH ×2 (09:23→20:34)
[2021-04-11] MEDS: DICLOFENAC SOD 1% GEL 100 GM TUBE EXT PRN ×3 (09:26→20:37)
[2021-04-11] MEDS: GABAPENTIN 100 MG CAP PO PRN ×2 (10:12→20:36)
[2021-04-11] MEDS: ALBUTEROL HFA 8 GM INHALER INH PRN ×2 (14:21→20:28)
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
[2021-04-11] MEDS: ENOXAPARIN INJ 40 MG/0.4 ML SYR SQ SCH (20:34)
[2021-04-11] MEDS: MELATONIN 3 MG TAB PO PRN (20:40)
--- NOTE | 2021-04-11 20:55 | Billing Data ---
Date of Service April 11, 2021 Coding Level of Care Code 65762 Subseq Hosp Care Lvl 1
--- NOTE | 2021-04-11 20:56 | Hospitalist Progress Note ---
Date of Service April 11, 2021 Assessment & Plan Admission and Anticipated Discharge Date Admission Date: March 27, 2021 Results & Data Results & Data ([facility]) Vital Signs (Past 12 Hours) Vital Signs Temp Pulse Pulse Resp BP Pulse Ox 04/11/21 20:28 97 H 20 94 04/11/21 15:49 97.9 F 97 H 20 153/74 H 95 04/11/21 14:21 58 L 16 95 PG Care Time/CCT Total # of Minutes Spent Total Time Spent with Patient: Total time spent is greater than 50% in coordination of care (as documented) at patient's floor/unit and/or counseling patient: Coding Level of Care Code None CPT Codes Musculoskeletal - Musculoskeletal: [address] 1-2 Body regions ([id number])
[2021-04-12] MEDS: ACETAMINOPHEN 325 MG TAB PO PRN ×5 (00:15→17:25)
[2021-04-12] MEDS: DICLOFENAC SOD 1% GEL 100 GM TUBE EXT PRN ×4 (03:25→20:41)
--- NOTE | 2021-04-12 06:59 | Hospitalist Progress Note ---
Date of Service April 12, 2021 Assessment & Plan (1) Acute exacerbation of chronic obstructive pulmonary disease: Plan: 75 y/o M current smoker w/ PMHx of schizotypal PD, COPD (not on home O2), HTN, HLD, GERD, CAD, anxiety/depression and overactive bladder who was admitted to [facility] on 03/27 for COPD exacerbation, which is resolving. Pending placement after guardian is appointed (lacks decision-making capacity, per previous Psych documentation). Decision Making Capacity / Schizotypal Personality Disorder / Dispositional Planning - Formal evaluation by neuropsychology in 02/2021 (<60 days ago), scanned into [facility] 02/07, outlines patient as not having reliable decision making capacity and would need a state-appointed manufacturer representative - Concerns for this were made given his prior neuropsychological work-up in 02/2021 (<60 days from now), which stated he lacked appropriate decision making capacity / would need an appointed guardian by the state to help him make decisi ons. He is currently amenable to staying until his situation and needs are clarified. I worry significantly about his safety outside of the hospital before such a manufacturer representative is appointed. However, the situation is now limited by an inability to obtain a manufacturer representative from [facility] (his hearing was cancelled). Without consistent access to home environment or his inhalers, I do believe he is at significant risk for self-deterioration (home/health/financially/etc.) and would serve as a harm to himself. If a facility is secured with easy access to medical care and proper housing (e.g., F), do believe his care can be continued closely in the outpatient setting with frequent follow-ups / identification of community resources from which he may benefit. He is medically stable at this point. - Psychiatry consulted for further aid in this matter given situational complexity and notable history of schizotypal PD: agree on decision making capacity as outlined above. Patient should not leave AMA. - Closely working with CM to determine best setting for patient outside of the hospital. DAVID DOUGHERTY attempting to figure out situation. Sister's number identified, CM has call out to them. Friend's number on chart does not ring. Cervical Paraspinal Muscle Strain Chronic, 2/2 old injury many years ago. OMT provided some relief. - Tylenol, fish oil, icing, Voltaren gel - continue gabapentin 100 mg PO TID PRN for severe neck pain - OMT p.r.n. - May also consider lesser sedating muscle relaxers, e.g., Robaxin, if needed atop gabapentin - Recommend OMT as outpatient LLE Swelling and Pain -- resolved - No signs of DVT on LLE venous doppler 04/09/21 - Encouraged patient to continue to elevate legs when laying in bed to prevent gravity-dependent edema COPD Exacerbation -- resolved Likely due to home medication nonadherence. Currently satting well on RA. - s/p SoluMedrol, azithromycin, and guaifenesin - Completed Prednisone taper on 04/09 - Incruse initiated while here for antimuscarinic properties - continue home inhalers (Symbicort b.i.d., Abuterol p.r.n.) - Albuterol p.r.n. - SpO2 goal 88-92% Chronic Hyponatremia (Stable, 126 - low 130s) Patient is euvolemic. Given low-nml sOsm (280) / low uOsm (235) / normal Kody (26), suspect SIADH with component of corticosteroid response. - Has chronic RUL pulmonary nodule (4mm), last imaged in 11/2020, with extensive smoking history and history of COPD -- suspect primarily due to the latter - currently asymptomatic, will monitor - monitor BMP q3d following multiple days of stability - recommend repeat CT of pulmonary nodule as outpatient Chronic problems: Overactive Bladder: Continue home finasteride HTN: continue home Losartan GERD: continue Protonix Chronic Sinus Tachycardia: May be psychogenic vs 2/2 pain. Pain control as stated above. FEN/GI: HH diet ppx: sq Lovenox code: full dispo: med/surg, dispo planning ongoing w/ CM, OOA, psychiatry (2) Cervicalgia: (3) Tobacco dependence: (4) Overactive bladder: (5) Leukocytosis: (6) Hypertension: (7) GERD (gastroesophageal reflux disease): (8) Acute respiratory failure with hypoxia: (9) Sinus tachycardia: (10) Constipation: (11) Hyponatremia: Admission and Anticipated Discharge Date Admission Date: March 27, 2021 Supervising Physician Co-Signing Physician Notes I personally examined the patient and verified all holcomb points of history and exam, discussed case, and agree with decision making with Dr Mario shoulder pain reasonable today, no new needs, awaiting any type of guardianship decision/hearing. Vitals noted, in general he is awake and alert pleasant no distress. HEENT normocephalic atraumatic mucous membranes moist. Breathing unlabored no accessory muscle use good effort. Skin shows no rashes no pallor or icterus. walking without difficulty/steady gait COPDexacerbation now long resolved, baseline management Lack of capacitywill need guardian per office of aging before he is able to leave the hospital, unfortunately this is a legal process that moves at the pace of the courts Somatic dysfunction thoracic region/levator scapulae tightnessOMT has helped throughout hospital stay Subjective Pain much better this AM. Says he slept well and is in good spirits this AM. Appetite strong. No n/v/d. Breathing adequate. No SOB or cough. Review of Systems Review of Systems: as per hpi Physical Exam Physical Exam: General: 75yoM who is tired appearing in NAD. Cardiac: Normal rate and regular rhythm; S1 and S2 present with no murmurs, rubs, or gallops. Pulmonary: Good respiratory effort with symmetric expansion of the chest. No use of accessory muscles. Lungs were clear to auscultation bilaterally with no crackles or wheezes. Results & Data Results & Data ([facility]) Vital Signs (Past 12 Hours) Vital Signs Temp Pulse Pulse Resp BP Pulse Ox 04/12/21 00:19 36.6 C 94 H 18 147/76 H 91 04/11/21 20:28 97 H 20 94 Resident Activity Tracking Resident Involvement: Resident Care Provided Care Provided: Adult Hospital Medicine
[2021-04-12] MEDS: PANTOprazole 40 MG TAB PO SCH (08:00)
[2021-04-12] MEDS: MULTIVITAMIN TAB PO SCH (08:00)
[2021-04-12] MEDS: CHOLECALCIFEROL 1,000 UNITS 25 MCG TAB PO SCH (08:00)
[2021-04-12] MEDS: LOSARTAN POTASSIUM 50 MG TAB PO SCH (08:00)
[2021-04-12] MEDS: LIDOCAINE 5% 1 PATCH TD SCH (08:01)
[2021-04-12] MEDS: FINASTERIDE 5 MG TAB PO SCH (08:01)
[2021-04-12] MEDS: OMEGA-3 (PURIFIED FISH OIL) 1 GM CAP PO SCH ×2 (08:01→20:39)
[2021-04-12] MEDS: UMECLIDINIUM BROMIDE 62.5MCG/BLISTER 7 PUFFS/INHALER INH SCH (08:02)
[2021-04-12] MEDS: FLUTICASONE/VILANTEROL 100/25MCG 14 PUFFS/INHALER INH SCH (08:02)
[2021-04-12] MEDS: POLYETHYLENE (MIRALAX) 17 GM PACK PO SCH ×2 (08:03→20:39)
--- NOTE | 2021-04-12 10:38 | Billing Data ---
Date of Service April 12, 2021 Coding Level of Care Code 39225 Subseq Hosp Care Lvl 1
[2021-04-12] MEDS: GABAPENTIN 100 MG CAP PO PRN ×2 (13:39→20:39)
[2021-04-12] MEDS: ALBUTEROL HFA 8 GM INHALER INH PRN (14:47)
[2021-04-12] MEDS: ENOXAPARIN INJ 40 MG/0.4 ML SYR SQ SCH (20:39)
[2021-04-13] MEDS: DICLOFENAC SOD 1% GEL 100 GM TUBE EXT PRN (02:30)
[2021-04-13] MEDS: ACETAMINOPHEN 325 MG TAB PO PRN ×2 (02:32→07:58)
[2021-04-13] MEDS: CAPSAICIN CR 0.075% 60 GM TUBE EXT PRN (03:41)
--- NOTE | 2021-04-13 07:40 | Hospitalist Progress Note ---
Date of Service April 13, 2021 Assessment & Plan (1) Acute exacerbation of chronic obstructive pulmonary disease: Plan: 75 y/o M current smoker w/ PMHx of schizotypal PD, COPD (not on home O2), HTN, HLD, GERD, CAD, anxiety/depression and overactive bladder who was admitted to [facility] on 03/27 for COPD exacerbation, which is resolving. Pending placement after guardian is appointed (lacks decision-making capacity, per previous Psych documentation). Decision Making Capacity / Schizotypal Personality Disorder / Dispositional Planning - Formal evaluation by neuropsychology in 02/2021 (<60 days ago), scanned into [facility] 02/07, outlines patient as not having reliable decision making capacity and would need a state-appointed life assurance representative - Concerns for this were made given his prior neuropsychological work-up in 02/2021 (<60 days from now), which stated he lacked appropriate decision making capacity / would need an appointed guardian by the state to help him make decisi ons. He is currently amenable to staying until his situation and needs are clarified. I worry significantly about his safety outside of the hospital before such a life assurance representative is appointed. However, the situation is now limited by an inability to obtain a life assurance representative from [facility] (his hearing was cancelled). Without consistent access to home environment or his inhalers, I do believe he is at significant risk for self-deterioration (home/health/financially/etc.) and would serve as a harm to himself. If a facility is secured with easy access to medical care and proper housing (e.g., F), do believe his care can be continued closely in the outpatient setting with frequent follow-ups / identification of community resources from which he may benefit. He is medically stable at this point. - Psychiatry consulted for further aid in this matter given situational complexity and notable history of schizotypal PD: agree on decision making capacity as outlined above. Patient should not leave AMA. - Closely working with CM to determine best setting for patient outside of the hospital. [facility]. Sister contacted, not willing to serve as guardian. Patient has daughter, who will be reaching out to hospital for further discussion. Cervical Paraspinal Muscle Strain Chronic, 2/2 old injury many years ago. OMT provided some relief. - Tylenol, fish oil, icing, Voltaren gel - continue gabapentin 100 mg PO TID PRN for severe neck pain - OMT p.r.n. - May also consider lesser sedating muscle relaxers, e.g., Robaxin, if needed a top gabapentin - Recommend OMT as outpatient Elevated Blood Pressures - BPs persistently elevated >150-170 during stay - No history of HTN; however, given multiple days of high readings with adequate pain control, opt to treat - Initiate amlodipine 2.5mg daily, can increase p.r.n. LLE Swelling and Pain -- resolved - No signs of DVT on LLE venous doppler 04/09/21 - Encouraged patient to continue to elevate legs when laying in bed to prevent gravity-dependent edema COPD Exacerbation -- resolved Likely due to home medication nonadherence. Currently satting well on RA. - s/p SoluMedrol, azithromycin, and guaifenesin - Completed Prednisone taper on 04/09 - Incruse initiated while here for antimuscarinic properties - continue home inhalers (Symbicort b.i.d., Abuterol p.r.n.) - Albuterol p.r.n. - SpO2 goal 88-92% Chronic Hyponatremia (Stable, 126 - low 130s) Patient is euvolemic. Given low-nml sOsm (280) / low uOsm (235) / normal Kody (26), suspect SIADH with component of corticosteroid response. - Has chronic RUL pulmonary nodule (4mm), last imaged in 11/2020, with extensive smoking history and history of COPD -- suspect primarily due to the latter - currently asymptomatic, will monitor - monitor BMP q3d following multiple days of stability - recommend repeat CT of pulmonary nodule as outpatient Chronic problems: Overactive Bladder: Continue home finasteride HTN: continue home Losartan GERD: continue Protonix Chronic Sinus Tachycardia: May be psychogenic vs 2/2 pain. Pain control as stated above. FEN/GI: HH diet ppx: sq Lovenox code: full dispo: med/surg, dispo planning ongoing w/ CM, OOA, psychiatry (2) Cervicalgia: (3) Tobacco dependence: (4) Overactive bladder: (5) Leukocytosis: (6) Hypertension: (7) GERD (gastroesophageal reflux disease): (8) Acute respiratory failure with hypoxia: (9) Sinus tachycardia: (10) Constipation: (11) Hyponatremia: Admission and Anticipated Discharge Date Admission Date: March 27, 2021 Subjective No acute events overnight. Pain control adequate this morning after getting his medications. Continues to be mainly within his left neck. OMT helps. Gabapentin helps. Fish oil helps. Says that his appetite is strong. No nausea or vomiting. Denies any chest pain, palpitations, shortness of breath. 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 Review of Systems Review of Systems: as per hpi Physical Exam Physical Exam: General: 75yoM who is tired appearing in NAD. Cardiac: Normal rate and regular rhythm; S1 and S2 present with no murmurs, rubs, or gallops. Pulmonary: Good respiratory effort with symmetric expansion of the chest. No use of accessory muscles. Lungs were clear to auscultation bilaterally with no crackles or wheezes. Results & Data Results & Data ([facility]) Vital Signs (Past 12 Hours) Vital Signs Temp Pulse Resp BP Pulse Ox 04/13/21 07:22 36.4 C L 87 16 172/84 H 95 04/12/21 21:56 36.6 C 97 H 18 178/81 H 96 Resident Activity Tracking Resident Involvement: Resident Care Provided Care Provided: Adult Hospital Medicine
[2021-04-13] MEDS: OMEGA-3 (PURIFIED FISH OIL) 1 GM CAP PO SCH (07:58)
[2021-04-13] MEDS: POLYETHYLENE (MIRALAX) 17 GM PACK PO SCH (07:58)
[2021-04-13] MEDS: MULTIVITAMIN TAB PO SCH (07:58)
[2021-04-13] MEDS: FINASTERIDE 5 MG TAB PO SCH (07:58)
[2021-04-13] MEDS: PANTOprazole 40 MG TAB PO SCH (07:58)
[2021-04-13] MEDS: FLUTICASONE/VILANTEROL 100/25MCG 14 PUFFS/INHALER INH SCH (07:59)
[2021-04-13] MEDS: CHOLECALCIFEROL 1,000 UNITS 25 MCG TAB PO SCH (07:59)
[2021-04-13] MEDS: LOSARTAN POTASSIUM 50 MG TAB PO SCH (07:59)
[2021-04-13] MEDS: UMECLIDINIUM BROMIDE 62.5MCG/BLISTER 7 PUFFS/INHALER INH SCH (07:59)
[2021-04-13] MEDS: LIDOCAINE 5% 1 PATCH TD SCH (08:00)
[2021-04-13] MEDS ORDERED: amLODIPine BESYLATE 5 MG TAB PO SCH ×2 (09:00)
--- NOTE | 2021-04-13 09:53 | Discharge Summary ---
Date of Service April 13, 2021 Admission HPI Per Admitting Provider The patient is a 75-year-old male with a past medical history including hyperlipidemia, GERD, daily tobacco use, COPD, CAD, pulmonary nodule, anxiety with depression, peripheral neuropathy, overactive bladder, medical noncompliance and schizotypal personality disorder. Presents to the emergency department with 1 week of shortness of breath, dyspnea on exertion and productive cough. Upon presentation in the emergency department he had a maximal temperature of 99.3 F, and a pulse ox on room air of 88%. He improved to 95% on 4 L oxygen mask. Chest x-ray was consistent with COPD, with no acute signs of infection. COVID-19 testing was negative. Admission Exam Per Admitting Provider The patient is awake, alert and oriented 3, well developed and well nourished, normocephalic and atraumatic, lying in bed and in no acute distress. HEENT--PERRL, EOMI, mucous membranes and oropharynx normal. Neck--supple. No JVD. No bruits. Thyroid normal, trachea midline, no adenopathy. Heart--normal S1 and S2. No murmurs, rubs or gallops. Lungs--few scattered rhonchi and wheezes bilaterally, overall diminished, no respiratory distress, no accessory muscle use. Abdomen--normal bowel sounds and soft. Nontender. Nondistended, no hernias or masses, no organomegaly. Extremities--no cyanosis or clubbing. No edema. Dermatologic--normal skin turgor, normal color, no abnormal lymph nodes, no rash. Neurologic--cranial nerves II through XII grossly intact. Rheumatologic--normal range of motion. Psychiatric--normal affect. 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 Cardiac: Normal rate and regular rhythm; S1 and S2 present with no murmurs, rubs, or gallops. Pulmonary: Good respiratory effort with symmetric expansion of the chest. No use of accessory muscles. Lungs were clear to auscultation bilaterally with no crackles or wheezes. Discharge Data Allergies Allergy/AdvReac Type Severity Reaction Status Date / Time CHARO Inhibitors Allergy Unknown GMG LIST Verified 03/27/21 17:08 prednisone AdvReac Severe AGGRESSIVE Verified 03/27/21 17:08 ketoprofen AdvReac Intermediate HAND Verified 03/27/21 17:08 SWELLING oxaprozin AdvReac Intermediate HAND Verified 03/27/21 17:08 SWELLING Consultations 03/27/21 17:40 ED Decision to Admit Stat 04/04/21 15:43 Consult Psychiatry Routine Ordered Studies 04/09/21 11:30 US venous doppler LE Urgent Hospital Course (1) Acute exacerbation of chronic obstructive pulmonary disease: 75 y/o M current smoker w/ PMHx of schizotypal PD, COPD (not on home O2), HTN, HLD, GERD, CAD, anxiety/depression and overactive bladder who was admitted to [facility] on 03/27 for COPD exacerbation, resolved prior to discharge. Out of concerns for his decision making capacity, his stay was extended while discussions were held with the office of aging (OOA) regarding plans for moving forward after leaving the hospital. He will discharged to [place], where he already has room/board. COPD Exacerbation -- resolved Likely due to medication adherence difficulties, cold weather - s/p SoluMedrol, azithromycin, and guaifenesin during his early course here - Completed Prednisone taper on 04/09 - Incruse initiated while here for antimuscarinic properties - continue home inhalers (Symbicort b.i.d., Abuterol p.r.n.) Cervical Paraspinal Muscle Strain Chronic, 2/2 old injury many years ago. OMT provided some relief. - Relieved with Tylenol, patient's fish oil, icing, Voltaren and capsaicin gel - continue gabapentin 100 mg PO TID PRN for severe neck pain - Recommend OMT as outpatient Decision Making Capacity / Schizotypal Personality Disorder / Dispositional Planning - Formal evaluation by neuropsychology in 02/2021 (<60 days ago), scanned into chart 02/07, outlines patient as not having reliable decision making capacity and recommends a state-appointed public relations representative - Concerns for this were made given his prior neuropsychological work-up in 02/2021 (<60 days from now), which stated he lacked appropriate decision making capacity / would need an appointed guardian by the state to help him make decisions. Our psychiatry team was consulted while here, who agreed with the schizotypal personality disorder and did not recommend inpatient psychiatric care at this time. Case management and Office of Aging closely involved with planning. OOA is OK with patient returning to [place], where he has room & board pre-arranged, upon discharge. OOA will continue following with his case. Chronic Hyponatremia (Stable, 126 - low 130s) Patient is euvolemic. Given low-nml sOsm (280) / low uOsm (235) / normal Kody (26), suspect SIADH with component of corticosteroid response. - Has chronic RUL pulmonary nodule (4mm), last imaged in 11/2020, with extensive smoking history and history of COPD -- suspect primarily due to the latter - Asymptomatic. - Recommend BMP in 1 week as outpatient - Recommend repeat CT of pulmonary nodule as outpatient (recommended 6-month f/u in 01/2021 -- 07/2020) HTN - History of HTN -- noted to have elevated pressures while in the hospital, SBP 150-170 - Continue losartan 50mg daily -- consider increasing as an outpatient p.r.n., will hold from doing this upon discharge given artificial environment and BPs often taken during instances of neck pain LLE Swelling and Pain -- resolved - Intermittent LLE edema appreciated by patient, noticed on exam 04/09 - No signs of DVT on LLE venous doppler - Encouraged patient to continue to elevate legs when laying in bed to prevent gravity-dependent edema Chronic problems: Overactive Bladder: Continue home finasteride GERD: continue Protonix Chronic Sinus Tachycardia: May be psychogenic vs 2/2 pain. Pain control as stated above. (2) Cervicalgia: (3) Tobacco dependence: (4) Overactive bladder: (5) Leukocytosis: (6) Hypertension: (7) GERD (gastroesophageal reflux disease): (8) Acute respiratory failure with hypoxia: (9) Sinus tachycardia: (10) Constipation: (11) Hyponatremia: Total Time Total Time Spent Total Time Spent (In Minutes): <30 Discharge Plan Discharge Items Patient Disposition: Home - Self-Care Reason For Visit: sob Discharge Diagnosis: COPD exacerbation Condition on Discharge: Fair Activity: Per Instructions section Non-emergency contact: Primary Care Provider Call non-emergency contact if: you have any medication questions, your pain is worsening, your pain is unusual for you and your temperature is above 101.5 Follow-up/Referrals: Skinny Toure DO [Primary Care Provider] - 04/15/21 9:15 am Diet: Regular Addtl Attending Provider Instructions: You were seen in [facility] for evaluation of shortness of breath. Upon your arrival here, you underwent extensive testing to determine the cause of your symptoms. At this time, it appears that your symptoms were most likely due to an exacerbation of your COPD. You were treated aggressively for this and demonstrated an adequate response. During the remainder of your stay here, we worked closely with the office of aging to determine the best environment/arrangement for your discharge. After extensive discussions with your case liner, it is determined that returning back to [facility] you have room and boardis most appropriate at this time. Please continue working with the office of aging and identifying and managing needs moving forward. It is critically important that you continue to take your medications on a daily basis. Please work with your primary care physician to ensure adequate supply of these medications. Further, the cold is a major trigger for exacerbations of COPD/asthma. It is highly recommended that you maintain a warm environment indoors to ensure that your COPD remains under control. If you have difficulty obtaining medications due to financial concerns, please speak with your PCP to connect you with social work to aid with this burden. Upon your discharge, please note the following changes/additions/deletions to your medication regimen: -- BEGIN Incruse, 1 inhalation each day in the morning (scheduled) -- NEEDED: Take 1 gabapentin, up to every 8 hours, as needed for SEVERE neck pain You can continue utilizing capsaicin and Voltaren (diclofenac) gels, which were utilized while here and can be obtained over the counter at your pharmacy, for your neck pain. Please follow-up with your primary care physician within 1 week to review this visit. At that time, review your medications. In the interim, if you have any worsening shortness of breath, cough, chest pain, palpitations, nausea, vomiting, loss of appetite, fevers, or other concerning symptoms, please report to the ER immediately for evaluation. We wish you all the best in your recovery, and it is been a pleasure for caring for you while you have been here. Pending Studies at Discharge: No Stand-Alone Forms: My [facility], Smoking Cessation Medications and DC Order Prescriptions: New Incruse Ellipta 62.5 mcg/actuation Blister With Device 1 inh inhalation DAILY 30 Days Qty: 30 RF: 1 gabapentin 100 mg Capsule 100 mg PO Q8H PRN (Reason: neck pain) 15 Days Qty: 30 RF: 0 Continued (DME) nebulizer accessories Kit See Rx Instructions .ROUTE .MEDSUPPLY Qty: 1 RF: 0 ipratropium-albuterol 0.5 mg-3 mg(2.5 mg base)/3 mL solution for nebulization 3 ml INHALATION QID PRN (Reason: Wheezing) Qty: 3 RF: 1 finasteride 5 mg tablet 5 mg PO DAILY Qty: 30 RF: 2 (DME) Nebulizer See Rx Instructions .Route .MEDSUPPLY Qty: 1 RF: 0 albuterol sulfate 1.25 mg/3 mL solution for nebulization 1.25 mg inhalation QID PRN (Reason: shortness of breath or wheezing) Qty: 90 RF: 1 (DME) inhaler spacer See Rx Instructions .Route .MEDSUPPLY Qty: 1 RF: 0 albuterol sulfate [Ventolin HFA] 90 mcg/actuation HFA aerosol inhaler 2 puff inhalation Q2H PRN (Reason: shortness of breath or wheezing) Qty: 6.7 RF: 0 budesonide-formoterol [Symbicort] 160-4.5 mcg/actuation HFA aerosol inhaler 2 inh inhalation BID Qty: 10.2 RF: 5 (DME) Blood Pressure Cuff Misc See Rx Instructions .ROUTE .MEDSUPPLY Qty: 1 RF: 0 nitroglycerin 0.4 mg tablet, sublingual 0.4 mg sublingual UD PRN (Reason: Chest Pain) RF: 0 losartan 50 mg Tablet 50 mg PO QAM Qty: 30 RF: 0 Discontinued prednisone 10 mg tablets,dose pack 10 mg PO DIRECTED Qty: 21 RF: 0 Discharge Orders: Discharge Order (Routine); Ordered 04/13/21 Ordered By: Adilson Betancourt/Other Patient Handouts: COPD Using Inhalers, Asthma and COPD, Chronic Lung Disease Quit Smoking, Using a Nebulizer (Adult) Admission Data Admit Date/Time: 03/27/21 20:22 Attending Provider: Adilson Tate Admit Provider: Jace Henderson Primary Care Provider: Skinny Toure Other Providers: Jace Henderson ; Dave Sylvester ; Tania Victor ; Vicky Hood ; Vicky Webber ; Tad Cabrera Other Interventions: Discharge Summary Assessment (RN) Last Done: 04/13/21 11:41 Supervising Physician Co-Signing Physician Notes I personally examined the patient and verified all holcomb points of history and exam, discussed case, and agree with decision making with Dr Martin case management/OOA have arrived on dispo. Vitals noted, in general he is awake and alert pleasant no distress. HEENT normocephalic atraumatic mucous membranes moist. Breathing unlabored no accessory muscle use good effort. Skin shows no rashes no pallor or icterus. walking without difficulty/steady gait COPDexacerbation now long resolved, baseline management Lack of capacityOOA/case management have arrived at safe disposition. Somatic dysfunction thoracic region/levator scapulae tightnessOMT has helped throughout hospital stay Resident Activity Tracking Resident Involvement: Resident Care Provided Care Provided: Adult Hospital Medicine
[2021-04-13] MEDS: ALBUTEROL HFA 8 GM INHALER INH PRN (12:09)
--- NOTE | 2021-04-13 18:21 | Billing Data ---
Date of Service April 13, 2021 Coding Level of Care Code D/C DAY MANAGEMENT <30 MINS
== END 2021-04-13 13:02 | disposition home or self-care (01) | DRG 190 ==
LOC: ED 15:48 → EDINP 20:22 → SUATTDRO 20:22 → 2S 23:23 → 3W 03-28 18:23